=== PATIENT | female | born 1950 | race Caucasian/White ===

== ENCOUNTER → 2016-10-05 | Outpatient (CLI) | payer OTHER ==
[~2016-10-05] MED LIST: ATOR40TA PO; CELE-19 PO; COLA100C2 OR; GABA-279 PO; IBUP600T OR; IBUP80TA PO; LODINE PO; MIRA3350 PO; MULTCAP PO; MULTIVITAMIN GUMMY PO; NEUROTIN PO; OMEP20TA7 OR; TYLE1TAB5 PO; VICO5TAB OR; VITA1CAP25 PO
--- NOTE | 2016-10-06 23:43 | ECWPNPC ---
PATIENT NAME: NATALI WILSON : 1950 GENDER: FEMALE VISIT DATE: 10/05/2016 DISCHARGE DATE: 10/05/16 1515 VISIT LOCKED DATE TIME: PHYSICIAN: JORGE MCCARTHY RESOURCE: JORGE MCCARTHY REASON FOR APPOINTMENT 1. BACK HISTORY OF PRESENT ILLNESS HISTORY OF PRESENT ILLNESS: HERE FOR F/U OF CHRONIC LBP.C/O BURNING PAIN LOW BACK AND LOWER THORACIC SPINE WHICH BEGAN 2 WEEKS AGO.PAIN IS AGGREVATED BY PROLONGED SITTING OR WALKING.RATING PAIN VAS 5/10.DISCUSSED MEDICATION AND TREATMENT OPTIONS. PAIN THE PATIENT DESCRIBES THE PAIN... FALL RISK SCREENING: SCREENING :NO FALLS IN THE PAST YEAR CURRENT MEDICATIONS TAKING MIRALAX POWDER 17GM ORALLY BID NEEDED TAKING MULTIVITAMIN OTC TABLET 1 TAB(S) ORALLY ONCE DAILY TAKING ALBUTEROL SULFATE HFA 108 (90 BASE) MCG/ACT AEROSOL SOLUTION 2 PUFFS NEEDED INHALATION EVERY 4-6 HRS, NOTES: NONE TAKING DUONEB 0.5-2.5 (3) MG/3ML SOLUTION 3 ML INHALATION FOUR TIMES A DAY NEEDED, NOTES: NONE TAKING DRISDOL 50,000 UNITS TABLET 1 TAB(S) ORAL WEEKLY TAKING CELEBREX 200 MG CAPSULE 1 CAPSULE ORALLY ONCE A DAY TAKING GABAPENTIN 300 MG CAPSULE 1 CAPSULE ORALLY BID TAKING ROBAXIN-750 750 MG TABLET 1 TABLET ORALLY AT BEDTIME TAKING DEPAKOTE 500 MG TABLET DELAYED RELEASE ORALLY BID TAKING OMEPRAZOLE 40 MG CAPSULE DELAYED RELEASE TAKE ONE CAPSULE BY MOUTH TWICE A DAY TAKING CYMBALTA 60 MG CAPSULE DELAYED RELEASE PARTICLES 1 CAPSULE ORALLY ONCE A DAY NOT-TAKING TYLENOL ARTHRITIS PAIN NOT-TAKING PREDNISONE 20 MG TABLET 2 TABLET ORALLY ONCE A DAY NOT-TAKING DOXYCYCLINE HYCLATE 100 MG TABLET 1 TABLET ORALLY EVERY 12 HRS NOT-TAKING TESSALON PERLES 100 MG CAPSULE 1 CAPSULE NEEDED ORALLY THREE TIMES A DAY NEEDED FOR COUGH DISCONTINUED VITAMIN D (ERGOCALCIFEROL) 03126 UNIT CAPSULE TAKE ONE CAPSULE BY MOUTH ONCE WEEKLY DISCONTINUED GABAPENTIN 300 MG CAPSULE TAKE ONE CAPSULE BY MOUTH TWICE A DAY MEDICATION LIST REVIEWED AND RECONCILED WITH THE PATIENT PAST MEDICAL HISTORY BACK PAIN CHRONIC/DDD - (PREVIOUSLY FOLLOWED BY DR. GUERRERO & DR. PRITCHARD) ACID REFLUX HEELS AND SPINE SPURS ARTHRITIS HEMORRHOIDS MODERATE COPD PER PFTS 2013 HYPERLIPIDEMIA VITAMIN D DEFICIENCY DDD/DJD MRI CERVICAL SPINE 04/17, MILD SPINAL STENOSIS OCCIPITAL NEURALGIA ALLERGIES VICODIN: ITCHING: SIDE EFFECTS ATORVASTATIN CALCIUM: ELEVATED LIVER ENZYMES: SIDE EFFECTS SOCIAL HISTORY GENERAL: TOBACCO USE ARE YOU A:NONSMOKER LEARNING BARRIERS / SPECIAL NEEDS ORIENTED TO PLAN OF CARE: PATIENT, PAIN MANAGEMENT PATIENT, ORIENTED TO PLAN OF CARE: PATIENT, PAIN MANAGEMENT PATIENT. NEW PATIENT PAIN DIARY TODAY'S VISITNOTES FROM 0-10, WHAT LEVEL IS YOUR PAIN TODAY?0 PAIN CLINIC PFS, CLERGY, PUBLIC HEALTH REFERRALS PFS REFERRAL NEEDED?NO CLERGY REFERRAL NEEDED?NO PUBLIC HEALTH REFERRAL NEEDED?NO WAS THE PROVIDER NOTIFIED OF ANY PERTINENT INFO?NO PFS REFERRAL NEEDED?NO CLERGY REFERRAL NEEDED?NO PUBLIC HEALTH REFERRAL NEEDED?NO WAS THE PROVIDER NOTIFIED OF ANY PERTINENT INFO?NO REVIEW OF SYSTEMS CONSTITUTIONAL: ANY CHANGE IN YOUR MEDICAL CONDITION? YES DX'D WITH OCCIPITAL NEURALGIA. DEPAKOTE STARTED.&NBSP;. CHILLS &NBSP;&NBSP; NO&NBSP;. FEVER &NBSP;&NBSP; NO&NBSP;. INFECTION: DO YOU HAVE NEW INFECTIONS? NO . DO YOU HAVE HISTORY OF MRSA? NO . MUSCULOSKELETAL: ANY NEW PATTERNS OF PAIN OR NUMBNESS? NO . GASTROENTEROLOGY: ANY NEW CHANGE IN BOWEL CONTROL? NO . GENITOURINARY: ANY NEW CHANGE IN BLADDER CONTROL? NO . IS THERE A CHANCE YOU COULD BE ? NO . HEMATOLOGY/LYMPH: DO YOU TAKE ANY BLOOD THINNERS? (FOR EXAMPLE- COUMADIN, PLAVIX, AGGRENOX, PLATEL, PRADAXA, OR XARELTO) NO . WHEN WAS YOUR LAST DOSE? DATE: TIME: . NEUROLOGY: HAVE YOU FALLEN IN THE PAST 6 MONTHS? NO . ANY NEW EXTREMITY NUMBNESS OR WEAKNESS? NO . CARDIOLOGY: DO YOU HAVE A PACEMAKER OR DEFIBRILLATOR? NO . RESPIRATORY: HAVE YOU BEEN SICK IN THE PAST WEEK? NO . FEVER NO . FLU LIKE SYMPTOMS? NO . COUGH NO . INTEGUMENTARY: DO YOU HAVE ANY RASHES OR OPEN SORES? NO . ALLERGIC/IMMUNO: ARE YOU ALLERGIC TO SHELLFISH OR IV DYE? NO . ANY NEW ALLERGIES? NO . PSYCHIATRIC: DO YOU HAVE THOUGHTS OF HURTING YOURSELF OR SOMEONE ELSE? NO . ARE YOU ABUSED, NEGLECTED, OR IN AN UNSAFE ENVIRONMENT? NO . ENDOCRINOLOGY: ARE YOU DIABETIC? NO . OTHER: DO YOU NEED ANY PRESCRIPTIONS? NO . IF YES, PLEASE LIST: ____ . ANY NEW PROBLEMS WITH YOUR MEDICATIONS? NO . WHEN DID YOU LAST EAT? ____ . WHEN DID YOU LAST DRINK? ____ . WHAT DID YOU LAST DRINK? ____ . NAME OF PERSON DRIVING YOU HOME? ____ . DO YOU HAVE ANY OTHER QUESTIONS OR CONCERNS NO . REVIEWED BY: PROVIDER: JORGE CALIX . VITAL SIGNS WT 136 LBS, HT 64.5 IN, BMI 22.98 INDEX, BP 155/87 MM HG, HR 86 /MIN, RR 18 /MIN, TEMP 98.1 F, OXYGEN SAT % 92%, NA INITIALS SC14:23, REVIEWED BY: MLF. EXAMINATION GENERAL EXAMINATION: LUNGS:LUNG SOUNDS ARE CLEAR. HEART:HEART RATE REGULAR. MUSCULOSKELETAL:*, MUSCLE STRENGTH TESTING 5/5 BILATERAL, PALPATION: NEG. FOR PAIN OVER L/S SPINE. NEG. FOR PAIN OVER L/S PARSPINALS. DIAGNOSTIC: . ASSESSMENTS CHRONIC BILATERAL LOW BACK PAIN WITHOUT SCIATICA - M54.5 (PRIMARY) RESTLESS LEG SYNDROME - G25.81 SACROILIAC JOINT PAIN - M53.3 TREATMENT CHRONIC BILATERAL LOW BACK PAIN WITHOUT SCIATICA REFILL CYMBALTA CAPSULE DELAYED RELEASE PARTICLES, 60 MG, 1 CAPSULE, ORALLY, ONCE A DAY, 30 DAY(S), 30, REFILLS 5 START CYMBALTA CAPSULE DELAYED RELEASE PARTICLES, 30 MG, 1 CAPSULE, ORALLY, ONCE A DAY, 30 DAY(S), 30 CAPSULE, REFILLS 5 CONTINUE CELEBREX CAPSULE, 200 MG, 1 CAPSULE, ORALLY, ONCE A DAY CONTINUE GABAPENTIN CAPSULE, 300 MG, 1 CAPSULE, ORALLY, BID CONTINUE ROBAXIN-750 TABLET, 750 MG, 1 TABLET, ORALLY, AT BEDTIME INJECTION ANESTHETIC SACROILIAC JOINTJORGE MCCARTHY 10/05/2016 2:56:58 PM > BILAT SIJ PREVENTIVE MEDICINE PAIN CLINIC TEACHING: PROCEDURE TEACHING PRE SACROILIAC JOINT INJECTION INSTRUCTIONS REVIEWED WITH PT. VERBALIZED UNDERSTANDING.. PROCEDURE CODES FA211 ESTABILISHED PATIENT [facility] CHARGE FOLLOW UP 2WK POST (REASON: BILAT.SIJ) ELECTRONICALLY SIGNED BY YOGI ARMENTA ON 10/05/2016 AT 04:33 PM EST DISCLAIMER : THIS IS A VISIT SUMMARY EXTRACTED FROM THE [employer] CHART. IT IS NOT A COPY OF THE [employer] PROGRESS NOTE. MTDD
== END ==
LOC: M PAIN 14:20
PROVIDERS: ATTEND Nurse Practitioner Family
DX: Z09 Encounter for follow-up examination after completed treatment for conditions other than malignant neoplasm (principal); G89.29 Other chronic pain; M54.5 Low back pain; G25.81 Restless legs syndrome; M53.3 Sacrococcygeal disorders, not elsewhere classified; M51.9 Unspecified thoracic, thoracolumbar and lumbosacral intervertebral disc disorder; K21.9 Gastro-esophageal reflux disease without esophagitis; M19.90 Unspecified osteoarthritis, unspecified site; J44.9 Chronic obstructive pulmonary disease, unspecified; E78.5 Hyperlipidemia, unspecified; E55.9 Vitamin D deficiency, unspecified; M50.30 Other cervical disc degeneration, unspecified cervical region; M54.81 Occipital neuralgia; Z88.5 Allergy status to narcotic agent; Z88.8 Allergy status to other drugs, medicaments and biological substances; Z79.899 Other long term (current) drug therapy

== ENCOUNTER → 2016-11-02 | Outpatient (CLI) | payer OTHER ==
[~2016-11-02] MED LIST changes: +BUPIVACAINE HCL 0.25% 30 ML VIAL As Ordered ONE; +ISOVUE-M 300 61% 15ML VIAL (Q9967) As Ordered ONE; +LIDOCAINE 1% SDV INJ 30 ML VIAL As Ordered ONE; +TRIAMCINOLONE ACETONIDE SUSP 40 MG/ML VIAL (J3301) As Ordered ONE; +diazePAM 5 MG TAB As Ordered ONE; +oxyCODONE 5MG TAB As Ordered ONE
--- NOTE | 2016-11-02 14:20 | REP ---
SI JOINT SERIES: SIX VIEWS. HISTORY: Bilateral SI joint injection for pain. 22 seconds of fluoroscopy time is reported. FINDINGS: A sequence of six fluoroscopically obtained last image hold spot radiographs of the SI joints document various needle positions and contrast injections associated with SI joint injection procedure. Signed by Baldomero Gil MD 11/02/2016 04:46 P
--- NOTE | 2016-11-08 01:17 | ECWPNPC ---
PATIENT NAME: NATALI WILSON : 1950 GENDER: FEMALE VISIT DATE: 11/02/2016 DISCHARGE DATE: 11/02/16 1121 VISIT LOCKED DATE TIME: PHYSICIAN: HENRY PATEL RESOURCE: HENRY PATEL REASON FOR APPOINTMENT 1. BILATERAL SIJ HISTORY OF PRESENT ILLNESS HISTORY OF PRESENT ILLNESS: PAIN THE PATIENT DESCRIBES THE PAIN... FALL RISK SCREENING: SCREENING :NO FALLS IN THE PAST YEAR CURRENT MEDICATIONS TAKING MIRALAX POWDER 17GM ORALLY BID NEEDED, NOTES: MONTH TAKING MULTIVITAMIN OTC TABLET 1 TAB(S) ORALLY ONCE DAILY, NOTES: 11-01-122099 TAKING ALBUTEROL SULFATE HFA 108 (90 BASE) MCG/ACT AEROSOL SOLUTION 2 PUFFS NEEDED INHALATION EVERY 4-6 HRS, NOTES: NONE TAKING DUONEB 0.5-2.5 (3) MG/3ML SOLUTION 3 ML INHALATION FOUR TIMES A DAY NEEDED, NOTES: NONE TAKING DRISDOL 50,000 UNITS TABLET 1 TAB(S) ORAL WEEKLY, NOTES: 10-28-16 TAKING DEPAKOTE 500 MG TABLET DELAYED RELEASE ORALLY BID, NOTES: 10-31-162099 TAKING OMEPRAZOLE 40 MG CAPSULE DELAYED RELEASE TAKE ONE CAPSULE BY MOUTH TWICE A DAY , NOTES: 11-02-16499 TAKING TYLENOL ARTHRITIS PAIN , NOTES: 11-01-16 TAKING CYMBALTA 60 MG CAPSULE DELAYED RELEASE PARTICLES 1 CAPSULE ORALLY ONCE A DAY, NOTES: 11-02-16499 TAKING CYMBALTA 30 MG CAPSULE DELAYED RELEASE PARTICLES 1 CAPSULE ORALLY ONCE A DAY, NOTES: 11-01-162099 TAKING GABAPENTIN 300 MG CAPSULE 1 CAPSULE ORALLY BID, NOTES: 11-02-16499 TAKING ROBAXIN-750 750 MG TABLET 1 TABLET ORALLY AT BEDTIME, NOTES: OUT OF MED NOT-TAKING CELEBREX 200 MG CAPSULE 1 CAPSULE ORALLY ONCE A DAY, NOTES: WEEK NEEDS PRIOR AUTH MEDICATION LIST REVIEWED AND RECONCILED WITH THE PATIENT PAST MEDICAL HISTORY BACK PAIN CHRONIC/DDD - (PREVIOUSLY FOLLOWED BY DR. GUERRERO & DR. PRITCHARD) ACID REFLUX HEELS AND SPINE SPURS ARTHRITIS HEMORRHOIDS MODERATE COPD PER PFTS 2013 HYPERLIPIDEMIA VITAMIN D DEFICIENCY DDD/DJD MRI CERVICAL SPINE 04/17, MILD SPINAL STENOSIS OCCIPITAL NEURALGIA ALLERGIES VICODIN: ITCHING: SIDE EFFECTS ATORVASTATIN CALCIUM: ELEVATED LIVER ENZYMES: SIDE EFFECTS SOCIAL HISTORY GENERAL: TOBACCO USE ARE YOU A:NONSMOKER LEARNING BARRIERS / SPECIAL NEEDS ORIENTED TO PLAN OF CARE: PATIENT, PAIN MANAGEMENT PATIENT, ORIENTED TO PLAN OF CARE: PATIENT, PAIN MANAGEMENT PATIENT. NEW PATIENT PAIN DIARY TODAY'S VISITNOTES FROM 0-10, WHAT LEVEL IS YOUR PAIN TODAY?0 PAIN CLINIC PFS, CLERGY, PUBLIC HEALTH REFERRALS PFS REFERRAL NEEDED?NO CLERGY REFERRAL NEEDED?NO PUBLIC HEALTH REFERRAL NEEDED?NO WAS THE PROVIDER NOTIFIED OF ANY PERTINENT INFO?NO PFS REFERRAL NEEDED?NO CLERGY REFERRAL NEEDED?NO PUBLIC HEALTH REFERRAL NEEDED?NO WAS THE PROVIDER NOTIFIED OF ANY PERTINENT INFO?NO REVIEW OF SYSTEMS CONSTITUTIONAL: ANY CHANGE IN YOUR MEDICAL CONDITION? NO . CHILLS NO . FEVER NO . INFECTION: DO YOU HAVE NEW INFECTIONS? NO . DO YOU HAVE HISTORY OF MRSA? NO . MUSCULOSKELETAL: ANY NEW PATTERNS OF PAIN OR NUMBNESS? NO . GASTROENTEROLOGY: ANY NEW CHANGE IN BOWEL CONTROL? NO . GENITOURINARY: ANY NEW CHANGE IN BLADDER CONTROL? NO . IS THERE A CHANCE YOU COULD BE ? NO . HEMATOLOGY/LYMPH: DO YOU TAKE ANY BLOOD THINNERS? (FOR EXAMPLE- COUMADIN, PLAVIX, AGGRENOX, PLATEL, PRADAXA, OR XARELTO) NO . WHEN WAS YOUR LAST DOSE? DATE: TIME: . NEUROLOGY: HAVE YOU FALLEN IN THE PAST 6 MONTHS? NO . ANY NEW EXTREMITY NUMBNESS OR WEAKNESS? NO . CARDIOLOGY: DO YOU HAVE A PACEMAKER OR DEFIBRILLATOR? NO . RESPIRATORY: HAVE YOU BEEN SICK IN THE PAST WEEK? NO . FEVER NO . FLU LIKE SYMPTOMS? NO . COUGH NO . INTEGUMENTARY: DO YOU HAVE ANY RASHES OR OPEN SORES? NO . ALLERGIC/IMMUNO: ARE YOU ALLERGIC TO SHELLFISH OR IV DYE? NO . ANY NEW ALLERGIES? NO . PSYCHIATRIC: DO YOU HAVE THOUGHTS OF HURTING YOURSELF OR SOMEONE ELSE? NO . ARE YOU ABUSED, NEGLECTED, OR IN AN UNSAFE ENVIRONMENT? NO . ENDOCRINOLOGY: ARE YOU DIABETIC? NO . OTHER: DO YOU NEED ANY PRESCRIPTIONS? YES, . IF YES, PLEASE LIST: CELEBREX ROBAXIN . ANY NEW PROBLEMS WITH YOUR MEDICATIONS? NO . WHEN DID YOU LAST EAT? 11-01-16 1700 . WHEN DID YOU LAST DRINK? 11-02-16 0500 . WHAT DID YOU LAST DRINK? WATER . NAME OF PERSON DRIVING YOU HOME? ORA . DO YOU HAVE ANY OTHER QUESTIONS OR CONCERNS NO . REVIEWED BY: PROVIDER: . VITAL SIGNS WT 133 LBS, HT 64.5 IN, BMI 22.47 INDEX, BP 133/102 MM HG, REPEAT BP 120/80 MANUAL, HR 80 /MIN, RR 16 /MIN, TEMP 97.0 F, OXYGEN SAT % 94%, NA INITIALS SC 09:23, REVIEWED BY: CM. ASSESSMENTS SACROILIITIS, NOT ELSEWHERE CLASSIFIED - M46.1 (PRIMARY) PROCEDURES PN SI PRE PROCEDURE DIAGNOSIS SACROILIITIS, SACROILIAC JOINT DYSFUNCTION POST PROCEDURE DIAGNOSIS SACROILIITIS, SACROILIAC JOINT DYSFUNCTION PROCEDURE BILATERAL SACROILIAC JOINT BLOCK SURGEON DR. HENRY PATEL [employer] MANAGER NONE ANESTHESIA LOCAL PRE PROCEDURE NOTE PATIENT WITH HISTORY OF CHRONIC LOW BACK PAIN. I EVALUATED THE PATIENT AND REVIEWED THE CHART. I WENT OVER THE RISKS, ALTERNATIVES, AND BENEFITS ASSOCIATED WITH THIS PROCEDURE. THE PATIENT WOULD LIKE TO PROCEED AND GAVE CONSENT TO PERFORM THE PROCEDURE. THE PATIENT DENIES UNEXPLAINABLE WEIGHT LOSS, FEVER, CHILLS, OR NEW CHANGES IN URINARY OR BOWEL CONTROL. DESCRIPTION OF PROCEDURE THE PATIENT WAS BROUGHT TO THE PROCEDURE ROOM AND PLACED IN THE PRONE POSITION. THE LUMBOSACRAL AREA WAS CLEANED WITH CHLORAPREP SOLUTION AND DRAPED ASEPTICALLY. THE PROCEDURE WAS DONE UNDER STERILE CONDITIONS. I CHECKED LATERALITY AND THE LEVEL WHERE THE PROCEDURE WAS GOING TO BE PERFORMED WITH THE PATIENT AND THE SUPPORTING STAFF AT THE MOMENT OF THE TIME OUT IN THE PROCEDURE ROOM. UNDER FLUOROSCOPIC GUIDANCE, TARGET POINT WAS SELECTED AT THE LOWER BORDER OF THE RIGHT AND LEFT SACROILIAC JOINT. TARGET POINT WAS SELECTED AFTER MEDIAL ROTATION AND TILT OF THE MAGNIFIER OF THE C-ARM. LIDOCAINE WAS USED TO NUMB THE SKIN AND SUBCUTANEOUS TISSUE BELOW IT. A SPINAL NEEDLE, 22-GAUGE, WAS ADVANCED UNDER FLUOROSCOPIC GUIDANCE AND FOLLOWING PATIENT FEEDBACK UNTIL THE TARGET AREA WAS TOUCHED. THE POSITION OF THE NEEDLE WAS VERIFIED WITH AP AND LATERAL VIEWS. AFTER PROPER POSITION OF THE NEEDLE WAS ACHIEVED, ISOVUE M DYE 30%, 0.25 ML, WAS INJECTED SHOWING SPREAD OF THE DYE. THEN, A SOLUTION OF 20 MG OF KENALOG WAS INJECTED IN RIGHT JOINT WITH 3 ML OF BUPIVACAINE 0.125%. THERE WAS NO EVIDENCE OF BLOOD, PARESTHESIA OR CEREBROSPINAL FLUID DURING THE PROCEDURE. THE PATIENT WAS SENT TO THE RECOVERY ROOM. THE PATIENT WAS MOVING THE EXTREMITIES AND DOING WELL. THERE WAS NO COMPLICATION DURING THE PROCEDURE. FLUOROSCOPY TIME WAS 22 SECONDS POST PROCEDURE NOTE THE PATIENT WILL BE SEEN IN A FOLLOW UP IN THE NEXT FEW WEEKS. INSTRUCTIONS WERE GIVEN, QUESTIONS WERE ANSWERED, AND THE PATIENT EXPRESSED UNDERSTANDING AND AGREED WITH THE PLAN. INSTRUCTIONS WERE GIVEN, QUESTIONS WERE ANSWERED, PATIENT REPORTS UNDERSTANDING AND AGREES WITH THE PLAN. I, WING MCKINNEY, DOCUMENTED THE ABOVE INFORMATION ACTING A SCRIBE FOR DR. PATEL. I HAVE REVIEWED THE ABOVE DOCUMENT, WRITTEN BY WING MCKINNEY SCRIBE AND I VERIFY THAT IT IS ACCURATE. DIAGNOSTIC IMAGING [facility] FLUORO GUIDANCE (PAIN)[id number] PROCEDURE CODES 65243 INJECT SACROILIAC JOINT 6045F RADXPS IN END [id number] PXD DISPOSITION & COMMUNICATION FOLLOW UP 3 WEEKS ELECTRONICALLY SIGNED BY HENRY PATEL MD ON 11/07/2016 AT 06:49 AM EST DISCLAIMER : THIS IS A VISIT SUMMARY EXTRACTED FROM THE [employer] CHART. IT IS NOT A COPY OF THE [employer] PROGRESS NOTE. MTDD
== END ==
LOC: M PAIN 09:10
PROVIDERS: ATTEND Anesthesiology
DX: G89.29 Other chronic pain (principal); M46.1 Sacroiliitis, not elsewhere classified; K21.9 Gastro-esophageal reflux disease without esophagitis; M19.90 Unspecified osteoarthritis, unspecified site; J44.9 Chronic obstructive pulmonary disease, unspecified; E78.5 Hyperlipidemia, unspecified; E55.9 Vitamin D deficiency, unspecified; F17.200 Nicotine dependence, unspecified, uncomplicated; Z88.5 Allergy status to narcotic agent; Z88.8 Allergy status to other drugs, medicaments and biological substances; Z79.899 Other long term (current) drug therapy
CPT/HCPCS: G0260; J3301; Q9967

== ENCOUNTER → 2016-11-23 | Outpatient (CLI) | payer OTHER ==
[~2016-11-23] MED LIST changes: -BUPIVACAINE HCL 0.25% 30 ML VIAL As Ordered ONE; -ISOVUE-M 300 61% 15ML VIAL (Q9967) As Ordered ONE; -LIDOCAINE 1% SDV INJ 30 ML VIAL As Ordered ONE; -TRIAMCINOLONE ACETONIDE SUSP 40 MG/ML VIAL (J3301) As Ordered ONE; -diazePAM 5 MG TAB As Ordered ONE; -oxyCODONE 5MG TAB As Ordered ONE
--- NOTE | 2016-11-23 23:59 | ECWPNPC ---
PATIENT NAME: NATALI WILSON : 1950 GENDER: FEMALE VISIT DATE: 11/23/2016 DISCHARGE DATE: 11/23/16 1120 VISIT LOCKED DATE TIME: PHYSICIAN: JORGE MCCARTHY RESOURCE: JORGE MCCARTHY REASON FOR APPOINTMENT 1. POST PROCEDURE (SIJ) HISTORY OF PRESENT ILLNESS HISTORY OF PRESENT ILLNESS: HERE FOR POST PROC. F/U.HAD BILAT. SIJ 3-17.REPORTS >75%IMPROVEMENT IN SIJ PAIN THAT CONTINUES TODAY.REPORTING GEENERALIZED BACK PAIN TODAY AND OVER THE PAST MONTH.C/O BILATERSL LEG CRAMPS AT HS THAT ARE KEEPING HER UP FOR 2-3 HRS AT NIGHT.RATING PAIN VAS 8/10. PAIN THE PATIENT DESCRIBES THE PAIN... FALL RISK SCREENING: SCREENING :NO FALLS IN THE PAST YEAR CURRENT MEDICATIONS TAKING MIRALAX POWDER 17GM ORALLY BID NEEDED TAKING MULTIVITAMIN OTC TABLET 1 TAB(S) ORALLY ONCE DAILY TAKING ALBUTEROL SULFATE HFA 108 (90 BASE) MCG/ACT AEROSOL SOLUTION 2 PUFFS NEEDED INHALATION EVERY 4-6 HRS, NOTES: NONE TAKING DUONEB 0.5-2.5 (3) MG/3ML SOLUTION 3 ML INHALATION FOUR TIMES A DAY NEEDED, NOTES: NONE TAKING DRISDOL 50,000 UNITS TABLET 1 TAB(S) ORAL WEEKLY TAKING OMEPRAZOLE 40 MG CAPSULE DELAYED RELEASE TAKE ONE CAPSULE BY MOUTH TWICE A DAY TAKING TYLENOL ARTHRITIS PAIN 2 TABLETS NEEDED ORALLY 2-3 TIMES/DAY TAKING CYMBALTA 60 MG CAPSULE DELAYED RELEASE PARTICLES 1 CAPSULE ORALLY ONCE A DAY TAKING CYMBALTA 30 MG CAPSULE DELAYED RELEASE PARTICLES 1 CAPSULE ORALLY ONCE A DAY, NOTES: NIGHT TAKING GABAPENTIN 300 MG CAPSULE 1 CAPSULE ORALLY BID TAKING ROBAXIN-750 750 MG TABLET 1 TABLET ORALLY AT BEDTIME, NOTES: NOT WORKING TAKING CHANTIX CONTINUING MONTH AVI 1 MG TABLET 1 TABLET ORALLY TWICE A DAY TAKING DEPAKOTE 500 MG TABLET DELAYED RELEASE 1 TAB ORALLY TWICE A DAY TAKING CHANTIX STARTING MONTH AVI 0.5 MG X 11 & 1 MG X 42 TABLET DIRECTED ORALLY DIRECTED NOT-TAKING CELEBREX 200 MG CAPSULE 1 CAPSULE ORALLY ONCE A DAY, NOTES: INSURANCE WON'T COVER DISCONTINUED DEPAKOTE 500 MG TABLET DELAYED RELEASE ORALLY BID MEDICATION LIST REVIEWED AND RECONCILED WITH THE PATIENT PAST MEDICAL HISTORY BACK PAIN CHRONIC/DDD - (PREVIOUSLY FOLLOWED BY DR. GUERRERO & DR. PRITCHARD) ACID REFLUX HEELS AND SPINE SPURS ARTHRITIS HEMORRHOIDS MODERATE COPD PER PFTS 2013 HYPERLIPIDEMIA VITAMIN D DEFICIENCY DDD/DJD MRI CERVICAL SPINE 04/17, MILD SPINAL STENOSIS OCCIPITAL NEURALGIA - ON DEPAKOTE - FOLLOWED BY NEUROLOGY ALLERGIES VICODIN: ITCHING: SIDE EFFECTS ATORVASTATIN CALCIUM: ELEVATED LIVER ENZYMES: SIDE EFFECTS SOCIAL HISTORY GENERAL: TOBACCO USE ARE YOU A:CURRENT SMOKER HOW MANY CIGARETTES A DAY DO YOU SMOKE?5 OR LESS HOW SOON AFTER YOU WAKE UP DO YOU SMOKE YOUR FIRST CIGARETTE?6-30 MIN PATIENT COUNSELED ON THE DANGERS OF TOBACCO USE AND URGED TO QUIT:11/23/2016 ARE YOU INTERESTED IN QUITTING?THINKING ABOUT QUITTING ON CHANTIX COUNSELED THE PATIENT ON SMOKING CESSATION, EDUCATION [id number] ALCOHOL SCREENING DID YOU HAVE A DRINK CONTAINING ALCOHOL IN THE PAST YEAR?NO POINTS0 INTERPRETATIONNEGATIVE SEXUAL HX HAD SEX IN THE LAST 12 MONTHS (VAGINAL, ORAL, OR ANAL)?YES WITHMEN ONLY USE PROTECTION?NO HAVE YOU EVER HAD AN STD?NO LMP:HYSTER LEARNING BARRIERS / SPECIAL NEEDS CHANGE FROM LAST VISIT?NO BARRIERS TO LEARNING?NO HEARING IMPAIRED?NO VISION IMPAIRED?YES :CORRECTIVE LENSES COGNITIVELY IMPAIRED?NO READINESS TO LEARN?YES LEARNING PREFERENCES?NO LEARNING CAPABILITIES PRESENT?YES EMOTIONAL BARRIERS?NO SPECIAL DEVICES?NO ACTIVITIES DIRECTOR NEEDED?NO NEW PATIENT PAIN DIARY TODAY'S VISIT NOTES, FROM 0-10, WHAT LEVEL IS YOUR PAIN TODAY? 0. PAIN CLINIC PFS, CLERGY, PUBLIC HEALTH REFERRALS PFS REFERRAL NEEDED? NO, CLERGY REFERRAL NEEDED? NO, PUBLIC HEALTH REFERRAL NEEDED? NO, WAS THE PROVIDER NOTIFIED OF ANY PERTINENT INFO? NO, PFS REFERRAL NEEDED? NO, CLERGY REFERRAL NEEDED? NO, PUBLIC HEALTH REFERRAL NEEDED? NO, WAS THE PROVIDER NOTIFIED OF ANY PERTINENT INFO? NO. REVIEW OF SYSTEMS CONSTITUTIONAL: ANY CHANGE IN YOUR MEDICAL CONDITION? NO . CHILLS NO . FEVER NO . INFECTION: DO YOU HAVE NEW INFECTIONS? NO . DO YOU HAVE HISTORY OF MRSA? NO . MUSCULOSKELETAL: ANY NEW PATTERNS OF PAIN OR NUMBNESS? NO . GASTROENTEROLOGY: ANY NEW CHANGE IN BOWEL CONTROL? NO . GENITOURINARY: ANY NEW CHANGE IN BLADDER CONTROL? NO . IS THERE A CHANCE YOU COULD BE ? NO . HEMATOLOGY/LYMPH: DO YOU TAKE ANY BLOOD THINNERS? (FOR EXAMPLE- COUMADIN, PLAVIX, AGGRENOX, PLATEL, PRADAXA, OR XARELTO) NO . WHEN WAS YOUR LAST DOSE? DATE: TIME: . NEUROLOGY: HAVE YOU FALLEN IN THE PAST 6 MONTHS? NO . ANY NEW EXTREMITY NUMBNESS OR WEAKNESS? NO . CARDIOLOGY: DO YOU HAVE A PACEMAKER OR DEFIBRILLATOR? NO . RESPIRATORY: HAVE YOU BEEN SICK IN THE PAST WEEK? NO . FEVER NO . FLU LIKE SYMPTOMS? NO . COUGH NO . INTEGUMENTARY: DO YOU HAVE ANY RASHES OR OPEN SORES? NO . ALLERGIC/IMMUNO: ARE YOU ALLERGIC TO SHELLFISH OR IV DYE? NO . ANY NEW ALLERGIES? NO . PSYCHIATRIC: DO YOU HAVE THOUGHTS OF HURTING YOURSELF OR SOMEONE ELSE? NO . ARE YOU ABUSED, NEGLECTED, OR IN AN UNSAFE ENVIRONMENT? NO . ENDOCRINOLOGY: ARE YOU DIABETIC? NO . OTHER: DO YOU NEED ANY PRESCRIPTIONS? YES . IF YES, PLEASE LIST: ____ . ANY NEW PROBLEMS WITH YOUR MEDICATIONS? NO . WHEN DID YOU LAST EAT? ____ . WHEN DID YOU LAST DRINK? ____ . WHAT DID YOU LAST DRINK? ____ . NAME OF PERSON DRIVING YOU HOME? ____ . DO YOU HAVE ANY OTHER QUESTIONS OR CONCERNS YES CYMBALTA 60 MGS . REVIEWED BY: PROVIDER: JORGE CALIX . VITAL SIGNS WT 130.5 LBS, HT 64.5 IN, BMI 22.05 INDEX, BP 130/77 MM HG, HR 94 /MIN, RR 16 /MIN, TEMP 97.3 F, OXYGEN SAT % 94%, NA INITIALS SC 10:21, REVIEWED BY: AD. EXAMINATION GENERAL EXAMINATION: LUNGS:LUNG SOUNDS ARE CLEAR. HEART:HEART RATE REGULAR. MUSCULOSKELETAL:*, MUSCLE STRENGTH TESTING 5/5 BLE. PALPATION: NEG. FOR PAIN OVER L/S SPINE. NEG. FOR PAIN OVER L/S PARSPINALS.. DIAGNOSTIC: . ASSESSMENTS CHRONIC BILATERAL LOW BACK PAIN WITHOUT SCIATICA - M54.5 (PRIMARY) RESTLESS LEG SYNDROME - G25.81 SACROILIAC JOINT PAIN - M53.3 TREATMENT CHRONIC BILATERAL LOW BACK PAIN WITHOUT SCIATICA CONTINUE CYMBALTA CAPSULE DELAYED RELEASE PARTICLES, 60 MG, 1 CAPSULE, ORALLY, ONCE A DAY CONTINUE CYMBALTA CAPSULE DELAYED RELEASE PARTICLES, 30 MG, 1 CAPSULE, ORALLY, ONCE A DAY, NOTES: NIGHT CONTINUE GABAPENTIN CAPSULE, 300 MG, 1 CAPSULE, ORALLY, BID STOP ROBAXIN-750 TABLET, 750 MG, 1 TABLET, ORALLY, AT BEDTIME, NOTES: NOT WORKING START ROPINIROLE HCL TABLET, 0.25 MG, DIRECTED, ORALLY, BEFORE BEDTIME, 30 DAY(S), 30, REFILLS 5 PREVENTIVE MEDICINE PAIN CLINIC TEACHING: MEDITATION PRINTED INFORMATION ON ROPINIROLE GIVEN TO AND REVIEWED WITH PATIENT AND SHE VERBALIZED UNDERSTANDING. PROCEDURE CODES FA211 ESTABILISHED PATIENT [facility] CHARGE DISPOSITION & COMMUNICATION FOLLOW UP 6 WEEKS ELECTRONICALLY SIGNED BY YOGI ARMENTA ON 11/23/2016 AT 11:31 AM EDT DISCLAIMER : THIS IS A VISIT SUMMARY EXTRACTED FROM THE [employer] CHART. IT IS NOT A COPY OF THE [employer] PROGRESS NOTE. [employer]
== END ==
LOC: M PAIN 10:00
PROVIDERS: ATTEND Nurse Practitioner Family
DX: M54.5 Low back pain (principal); G25.81 Restless legs syndrome; M53.3 Sacrococcygeal disorders, not elsewhere classified; Z79.899 Other long term (current) drug therapy; F17.200 Nicotine dependence, unspecified, uncomplicated; E78.5 Hyperlipidemia, unspecified; K21.9 Gastro-esophageal reflux disease without esophagitis; E56.9 Vitamin deficiency, unspecified; Z88.5 Allergy status to narcotic agent; Z88.8 Allergy status to other drugs, medicaments and biological substances

== ENCOUNTER → 2017-01-04 | Outpatient (CLI) | payer OTHER ==
[~2017-01-04] MED LIST changes: +DEPA1TAB3 PO; +DULO1CAP3 PO; +MELO15TA4 PO; +MULT1CHW39 PO; +OMEP40CA2 PO; +ROPI0.25 PO
--- NOTE | 2017-01-24 02:04 | ECWPNPC ---
PATIENT NAME: NATALI WILSON : 1950 GENDER: FEMALE VISIT DATE: 01/04/2017 DISCHARGE DATE: 01/04/17 1040 VISIT LOCKED DATE TIME: PHYSICIAN: JORGE MCCARTHY RESOURCE: JORGE MCCARTHY REASON FOR APPOINTMENT 1. FOLLOWUP HISTORY OF PRESENT ILLNESS HISTORY OF PRESENT ILLNESS: HERE FOR F/U AND MANAGEMENT OF CHRONIC LOW BACK PAIN.CONTINUES TO FEEL SHE HAS BENEFITED FROM BILAT SIJ INJECTIONS DONE IN OCTOBER WHICH SHE REFERS TO LEG SYMPTOMS.HAS BEEN HAVING INCREASE IN LOW BACK SRIFFNESS PAST FEW DAYS..RATING BACK DISCOMFORT 6/10 VAS.PAIN IS AGGREVATED BY GETTING UP FROM SITTING POSITION.STATES THAT ROPINEROLE0.25MG AT HS NOT HELPING WITH RESTLESS LEG SYMPTOMS. PAIN THE PATIENT DESCRIBES THE PAIN... FALL RISK SCREENING: SCREENING :NO FALLS IN THE PAST YEAR CURRENT MEDICATIONS TAKING MIRALAX POWDER 17GM ORALLY BID NEEDED TAKING MULTIVITAMIN OTC TABLET 1 TAB(S) ORALLY ONCE DAILY TAKING ALBUTEROL SULFATE HFA 108 (90 BASE) MCG/ACT AEROSOL SOLUTION 2 PUFFS NEEDED INHALATION EVERY 4-6 HRS, NOTES: NONE TAKING DUONEB 0.5-2.5 (3) MG/3ML SOLUTION 3 ML INHALATION FOUR TIMES A DAY NEEDED, NOTES: NONE TAKING DRISDOL 50,000 UNITS TABLET 1 TAB(S) ORAL WEEKLY TAKING TYLENOL ARTHRITIS PAIN 2 TABLETS NEEDED ORALLY 2-3 TIMES/DAY TAKING DEPAKOTE 500 MG TABLET DELAYED RELEASE 1 TAB ORALLY TWICE A DAY TAKING CHANTIX STARTING MONTH AVI 0.5 MG X 11 & 1 MG X 42 TABLET DIRECTED ORALLY DIRECTED TAKING CYMBALTA 60 MG CAPSULE DELAYED RELEASE PARTICLES 1 CAPSULE ORALLY ONCE A DAY TAKING CYMBALTA 30 MG CAPSULE DELAYED RELEASE PARTICLES 1 CAPSULE ORALLY ONCE A DAY, NOTES: NIGHT TAKING GABAPENTIN 300 MG CAPSULE 1 CAPSULE ORALLY BID TAKING ROPINIROLE HCL 0.25 MG TABLET DIRECTED ORALLY BEFORE BEDTIME TAKING OMEPRAZOLE 40 MG CAPSULE DELAYED RELEASE TAKE ONE CAPSULE BY MOUTH TWICE A DAY NOT-TAKING CHANTIX CONTINUING MONTH AVI 1 MG TABLET 1 TABLET ORALLY TWICE A DAY NOT-TAKING CELEBREX 200 MG CAPSULE 1 CAPSULE ORALLY ONCE A DAY, NOTES: INSURANCE WON'T COVER MEDICATION LIST REVIEWED AND RECONCILED WITH THE PATIENT PAST MEDICAL HISTORY BACK PAIN CHRONIC/DDD - (PREVIOUSLY FOLLOWED BY DR. GUERRERO & DR. 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 HANDS JERKING ABOUT 3 WEEKS AND THIKS IS DEPAKOTE . CHILLS NO . FEVER NO . INFECTION: DO YOU HAVE NEW INFECTIONS? NO . DO YOU HAVE HISTORY OF MRSA? NO . MUSCULOSKELETAL: ANY NEW PATTERNS OF PAIN OR NUMBNESS? NO . GASTROENTEROLOGY: ANY NEW CHANGE IN BOWEL CONTROL? NO . GENITOURINARY: ANY NEW CHANGE IN BLADDER CONTROL? NO . IS THERE A CHANCE YOU COULD BE ? NO . HEMATOLOGY/LYMPH: DO YOU TAKE ANY BLOOD THINNERS? (FOR EXAMPLE- COUMADIN, PLAVIX, AGGRENOX, PLATEL, PRADAXA, OR XARELTO) NO . WHEN WAS YOUR LAST DOSE? DATE: TIME: . NEUROLOGY: HAVE YOU FALLEN IN THE PAST 6 MONTHS? NO . ANY NEW EXTREMITY NUMBNESS OR WEAKNESS? NO . CARDIOLOGY: DO YOU HAVE A PACEMAKER OR DEFIBRILLATOR? NO . RESPIRATORY: HAVE YOU BEEN SICK IN THE PAST WEEK? NO . FEVER NO . FLU LIKE SYMPTOMS? NO . COUGH NO . INTEGUMENTARY: DO YOU HAVE ANY RASHES OR OPEN SORES? NO . ALLERGIC/IMMUNO: ARE YOU ALLERGIC TO SHELLFISH OR IV DYE? NO . ANY NEW ALLERGIES? NO . PSYCHIATRIC: DO YOU HAVE THOUGHTS OF HURTING YOURSELF OR SOMEONE ELSE? NO . ARE YOU ABUSED, NEGLECTED, OR IN AN UNSAFE ENVIRONMENT? NO . ENDOCRINOLOGY: ARE YOU DIABETIC? NO . OTHER: DO YOU NEED ANY PRESCRIPTIONS? NO . IF YES, PLEASE LIST: ____ . ANY NEW PROBLEMS WITH YOUR MEDICATIONS? NO . WHEN DID YOU LAST EAT? ____ . WHEN DID YOU LAST DRINK? ____ . WHAT DID YOU LAST DRINK? ____ . NAME OF PERSON DRIVING YOU HOME? ____ . DO YOU HAVE ANY OTHER QUESTIONS OR CONCERNS NO . REVIEWED BY: PROVIDER: JORGE CALIX . VITAL SIGNS WT 138 LBS, HT 64.5 IN, BMI 23.32 INDEX, BP 134/79 MM HG, HR 82 /MIN, RR 16 /MIN, TEMP 98.0 F, OXYGEN SAT % 92%, NA INITIALS AW 1009, REVIEWED BY: NL. EXAMINATION GENERAL EXAMINATION: LUNGS:LUNG SOUNDS ARE CLEAR. HEART:HEART RATE REGULAR. MUSCULOSKELETAL:*, MUSCLE STRENGTH TESTING 5/5 BLE. PALPATION: NEG. FOR PAIN OVER L/S SPINE. NEG. FOR PAIN OVER L/S PARSPINALS.. DIAGNOSTIC:MRI L/S SPINE-2016. ASSESSMENTS CHRONIC BILATERAL LOW BACK PAIN WITHOUT SCIATICA - M54.5 (PRIMARY) RESTLESS LEG SYNDROME - G25.81 SACROILIAC JOINT PAIN - M53.3 TREATMENT CHRONIC BILATERAL LOW BACK PAIN WITHOUT SCIATICA REFILL ROPINIROLE HCL TABLET, 0.25 MG, 2, ORALLY, BEFORE BEDTIME, 30 DAY(S), 60, REFILLS 2 CONTINUE CYMBALTA CAPSULE DELAYED RELEASE PARTICLES, 60 MG, 1 CAPSULE, ORALLY, ONCE A DAY CONTINUE CYMBALTA CAPSULE DELAYED RELEASE PARTICLES, 30 MG, 1 CAPSULE, ORALLY, ONCE A DAY, NOTES: NIGHT START MOBIC TABLET, 15 MG, 1 TABLET, ORALLY, ONCE A DAY, 30 DAY(S), 30, REFILLS 2 PREVENTIVE MEDICINE GAVE PRINTED INFO ON MOBIC. PROCEDURE CODES FA211 ESTABILISHED PATIENT [facility] CHARGE DISPOSITION & COMMUNICATION FOLLOW UP 2 MONTHS ELECTRONICALLY SIGNED BY YOGI ARMENTA ON 01/22/2017 AT 04:40 PM EDT DISCLAIMER : THIS IS A VISIT SUMMARY EXTRACTED FROM THE [employer] CHART. IT IS NOT A COPY OF THE [employer] PROGRESS NOTE. CINTIA
== END ==
LOC: M PAIN 10:00
PROVIDERS: ATTEND Nurse Practitioner Family
DX: M54.5 Low back pain (principal); G89.29 Other chronic pain; G25.81 Restless legs syndrome; M53.3 Sacrococcygeal disorders, not elsewhere classified; Z79.899 Other long term (current) drug therapy; Z88.5 Allergy status to narcotic agent; Z88.8 Allergy status to other drugs, medicaments and biological substances; K21.9 Gastro-esophageal reflux disease without esophagitis; E78.5 Hyperlipidemia, unspecified; J44.9 Chronic obstructive pulmonary disease, unspecified; E55.9 Vitamin D deficiency, unspecified

== ENCOUNTER → 2017-01-23 | Day surgery (SDC) | payer OTHER ==
[~2017-01-23] VITALS: Ht 162.6 cm; Wt 61.2 kg
[~2017-01-23] MED LIST changes: +ACETAMINOPHEN 325 MG TAB PO PRN; +AcetaZOLAMIDE 500 MG ER CAP PO ONE; +BSS with VANC/TOB/EPI for EYE CASES IR ONE; +CYCLOPENTOLATE 2% OPHTH SOLN 2ML BTL OD ONE; +D5W/0.2% SODIUM CHLORIDE 250 ML IV ONE; +HEALON DUET (HEALON 10MG/ML 0.55ML & HEALON ENDOCOAT 30MG/ML 0.85ML) As Ordered ONE; +KETOROLAC 0.5% OPHTH SOLN OD ONE; +LIDOCAINE 1% SDV 5 ML VIAL As Ordered ONE; +LIDOCAINE 4% INJ 5 ML AMP OU ONE; +MIDAZOLAM INJ 2 MG/2 ML VIAL (J2250) As Ordered ONE; +MOXIFLOXACIN IN BSS 0.25MG/0.25ML INTRACAMERAL INJ (OR EYE ONLY)(J2280) As Ordered ONE; +OFLOXACIN 0.3 % (OCUFLOX) OPTH SOL 5ML OD ONE; +PHENYLEPHRINE 2.5% OPHTH SOL 2ML OD ONE; +POVIDONE-IODINE 5% OPHTH PREP SOL 30ML As Ordered ONE; +PROPARACAINE 0.5% OPHTH SOL 15ML OD PRN; +TRIAMCINOLONE PRES FR 40 MG/ML 1ML(TRIESENCE)(OR EYE ONLY)(J3300 PER 1MG) As Ordered ONE; +TRIMETHOBENZAMIDE 300 MG CAP PO PRN; +TROPICAMIDE 1% OPHTH SOLN 2ML OD ONE; +fentaNYL 100 MCG/2 ML INJECTION (J3010) As Ordered ONE
[2017-01-23 11:00] VITALS: BP 155/78
== END | disposition home or self-care (01) ==
LOC: M SDC 09:10
PROVIDERS: ATTEND Ophthalmology
DX: H26.9 Unspecified cataract (principal); K21.9 Gastro-esophageal reflux disease without esophagitis; M54.81 Occipital neuralgia; J44.9 Chronic obstructive pulmonary disease, unspecified; Z88.1 Allergy status to other antibiotic agents; Z88.5 Allergy status to narcotic agent; Z79.899 Other long term (current) drug therapy; Z72.0 Tobacco use; Z90.710 Acquired absence of both cervix and uterus
CPT/HCPCS: 66984; J2250; J2280; J3010; J3300

== ENCOUNTER → 2017-01-30 | Day surgery (SDC) | payer OTHER ==
[~2017-01-30] VITALS: Ht 162.6 cm; Wt 61.0 kg
[~2017-01-30] MED LIST changes: +ACETYLCHOLINE OPHTH SOLN 1% 2ML (MIOCHOL-E) As Ordered ONE; -CYCLOPENTOLATE 2% OPHTH SOLN 2ML BTL OD ONE; +CYCLOPENTOLATE 2% OPHTH SOLN 2ML BTL XX ONE; -KETOROLAC 0.5% OPHTH SOLN OD ONE; +KETOROLAC 0.5% OPHTH SOLN OS ONE; +LIDOCAINE 4% INJ 5 ML AMP As Ordered ONE; +LIDOCAINE W/EPINEPHRINE 1% 20ML VIAL As Ordered ONE; -OFLOXACIN 0.3 % (OCUFLOX) OPTH SOL 5ML OD ONE; +OFLOXACIN 0.3 % (OCUFLOX) OPTH SOL 5ML XX ONE; -PHENYLEPHRINE 2.5% OPHTH SOL 2ML OD ONE; +PHENYLEPHRINE 2.5% OPHTH SOL 2ML XX ONE; -PROPARACAINE 0.5% OPHTH SOL 15ML OD PRN; +PROPARACAINE 0.5% OPHTH SOL 15ML OS PRN; -TROPICAMIDE 1% OPHTH SOLN 2ML OD ONE; +TROPICAMIDE 1% OPHTH SOLN 2ML XX ONE
[2017-01-30 08:15] VITALS: BP 135/80
== END | disposition home or self-care (01) ==
LOC: M SDC 05:44
PROVIDERS: ATTEND Ophthalmology
DX: H25.11 Age-related nuclear cataract, right eye (principal); M51.9 Unspecified thoracic, thoracolumbar and lumbosacral intervertebral disc disorder; K21.9 Gastro-esophageal reflux disease without esophagitis; M77.30 Calcaneal spur, unspecified foot; F17.210 Nicotine dependence, cigarettes, uncomplicated; M12.9 Arthropathy, unspecified; K64.9 Unspecified hemorrhoids; J44.9 Chronic obstructive pulmonary disease, unspecified; E78.5 Hyperlipidemia, unspecified; E55.9 Vitamin D deficiency, unspecified; M50.220 Other cervical disc displacement, mid-cervical region, unspecified level; M54.81 Occipital neuralgia; Z90.710 Acquired absence of both cervix and uterus; Z88.6 Allergy status to analgesic agent; Z88.5 Allergy status to narcotic agent; Z88.8 Allergy status to other drugs, medicaments and biological substances; Z79.899 Other long term (current) drug therapy

== ENCOUNTER → 2017-02-05 | Outpatient (REF) | payer OTHER ==
[~2017-02-05] MED LIST changes: -ACETAMINOPHEN 325 MG TAB PO PRN; -ACETYLCHOLINE OPHTH SOLN 1% 2ML (MIOCHOL-E) As Ordered ONE; -AcetaZOLAMIDE 500 MG ER CAP PO ONE; -BSS with VANC/TOB/EPI for EYE CASES IR ONE; -CYCLOPENTOLATE 2% OPHTH SOLN 2ML BTL XX ONE; -D5W/0.2% SODIUM CHLORIDE 250 ML IV ONE; -HEALON DUET (HEALON 10MG/ML 0.55ML & HEALON ENDOCOAT 30MG/ML 0.85ML) As Ordered ONE; -KETOROLAC 0.5% OPHTH SOLN OS ONE; -LIDOCAINE 1% SDV 5 ML VIAL As Ordered ONE; -LIDOCAINE 4% INJ 5 ML AMP As Ordered ONE; -LIDOCAINE 4% INJ 5 ML AMP OU ONE; -LIDOCAINE W/EPINEPHRINE 1% 20ML VIAL As Ordered ONE; -MIDAZOLAM INJ 2 MG/2 ML VIAL (J2250) As Ordered ONE; -MOXIFLOXACIN IN BSS 0.25MG/0.25ML INTRACAMERAL INJ (OR EYE ONLY)(J2280) As Ordered ONE; -OFLOXACIN 0.3 % (OCUFLOX) OPTH SOL 5ML XX ONE; -PHENYLEPHRINE 2.5% OPHTH SOL 2ML XX ONE; -POVIDONE-IODINE 5% OPHTH PREP SOL 30ML As Ordered ONE; -PROPARACAINE 0.5% OPHTH SOL 15ML OS PRN; -TRIAMCINOLONE PRES FR 40 MG/ML 1ML(TRIESENCE)(OR EYE ONLY)(J3300 PER 1MG) As Ordered ONE; -TRIMETHOBENZAMIDE 300 MG CAP PO PRN; -TROPICAMIDE 1% OPHTH SOLN 2ML XX ONE; -fentaNYL 100 MCG/2 ML INJECTION (J3010) As Ordered ONE
[2017-02-05 13:59] LABS: ALBUMIN 3.7 GM/DL (3.2-5.2); ALBUMIN/GLOBULIN RATIO 1.12 (1.00-1.93); ALKALINE PHOSPHATASE 62 U/L (45-117); ALT/SGPT 15 U/L (12-78); ANION GAP 4 MEQ/L (8-16); AST/SGOT 15 U/L (15-37); BILIRUBIN,TOTAL 0.3 MG/DL (0.2-1.0); BLOOD UREA NITROGEN 10 MG/DL (7-18); CALCIUM LEVEL 9.2 MG/DL (8.8-10.2); CARBON DIOXIDE LEVEL 31 MEQ/L (21-32); CHLORIDE LEVEL 98 MEQ/L (98-107); CHOLESTEROL LEVEL 233 MG/DL (<200); CREATININE FOR GFR 0.71 MG/DL (0.55-1.02); FREE T4 0.98 NG/DL (0.76-1.46); GLOMERULAR FILTRATION RATE > 60.0 (>45); GLUCOSE, FASTING 85 MG/DL (80-110); POTASSIUM SERUM 4.9 MEQ/L (3.5-5.1); SODIUM LEVEL 133 MEQ/L (136-145); TRIGLYCERIDES LEVEL 157 MG/DL (<150)
== END ==
LOC: M SFHCADAM 09:07
PROVIDERS: ATTEND Physician Assistant
DX: E78.4 Other hyperlipidemia (principal); E55.9 Vitamin D deficiency, unspecified

== ENCOUNTER → 2017-03-29 | Outpatient (REF) | payer OTHER ==
[~2017-03-29] MED LIST changes: -ATOR40TA PO; +ATOR40TA75 PO; -CELE-19 PO; +CELE1CAP4 PO
[2017-03-29 15:43] LABS: BASO % 0.6 % (0.0-1.0); EOS % 0.7 % (0.0-3.0); LARGE UNSTAINED CELL # 0.2 K/mm3 (0.0-0.4); LARGE UNSTAINED CELL % 2.5 % (0.0-4.0); LYMPH # 2.4 K/mm3 (1.5-4.5); LYMPH % 30.8 % (24.0-44.0); MEAN CORPUSCULAR HEMOGLOBIN 32.7 pg (27.0-33.0); MEAN CORPUSCULAR HGB CONC 33.1 g/dl (32.0-36.5); MEAN CORPUSCULAR VOLUME 98.7 fl (80.0-96.0); MONO # 0.5 K/mm3 (0.0-0.8); MONO % 6.5 % (0.0-5.0); NEUTROPHILS # 4.2 K/mm3 (1.8-7.7); NEUTROPHILS % 58.9 % (36.0-66.0); PLATELET COUNT, AUTOMATED 223 k/mm3 (150-450); RED CELL DISTRIBUTION WIDTH 13.3 % (11.5-14.5); WHITE BLOOD COUNT 7.2 K/mm3 (4.0-10.0)
[2017-03-29 16:07] LABS: ALBUMIN 3.6 GM/DL (3.2-5.2); ALBUMIN/GLOBULIN RATIO 1.03 (1.00-1.93); ALKALINE PHOSPHATASE 59 U/L (45-117); ALT/SGPT 17 U/L (12-78); ANION GAP 6 MEQ/L (8-16); AST/SGOT 19 U/L (15-37); BILIRUBIN,TOTAL 0.3 MG/DL (0.2-1.0); BLOOD UREA NITROGEN 15 MG/DL (7-18); CALCIUM LEVEL 8.9 MG/DL (8.8-10.2); CARBON DIOXIDE LEVEL 30 MEQ/L (21-32); CHLORIDE LEVEL 98 MEQ/L (98-107); CREATININE FOR GFR 0.67 MG/DL (0.55-1.02); GLOMERULAR FILTRATION RATE > 60.0 (>45); GLUCOSE, FASTING 81 MG/DL (80-110); POTASSIUM SERUM 4.6 MEQ/L (3.5-5.1); SODIUM LEVEL 134 MEQ/L (136-145); TOTAL PROTEIN 7.1 GM/DL (6.4-8.2)
== END ==
LOC: M LABDRWAD 14:36
PROVIDERS: ATTEND Psychiatry & Neurology Neurology
DX: R51 Headache (principal); R25.1 Tremor, unspecified; Z79.899 Other long term (current) drug therapy

== ENCOUNTER → 2017-04-05 | Outpatient (CLI) | payer OTHER ==
--- NOTE | 2017-05-09 01:12 | ECWPNPC ---
PATIENT NAME: NATALI WILSON : 1950 GENDER: FEMALE VISIT DATE: 04/05/2017 DISCHARGE DATE: 04/05/17 1312 VISIT LOCKED DATE TIME: PHYSICIAN: JORGE MCCARTHY RESOURCE: JORGE MCCARTHY REASON FOR APPOINTMENT 1. BACK HISTORY OF PRESENT ILLNESS HISTORY OF PRESENT ILLNESS: HERE FOR F/U AND MANAGEMENT OF CHRONIC LOW BACK PAIN.CONTINUES TO FEEL SHE HAS BENEFITED FROM BILAT SIJ INJECTIONS DONE IN THE PAST.PAIN HAS RETURNED IN HER LEGS AND CENTRAL LOW BACK RECENTLY.RATING BACK DISCOMFORT 6-10/10 VAS.PAIN IS AGGREVATED BY GETTING UP FROM SITTING POSITION.STATES THAT ROPINEROLE0.25MG TWO TABS. AT HS IS HELPFUL.CURRENTLY USING CYMBALTA 60MG + 30MG DAILY,AND MOBIC 15MG DAILY.DISCUSSED MEDICATION AND TREATMENT OPTIONS. PAIN THE PATIENT DESCRIBES THE PAIN... THE PATIENT DESCRIBES THE PAIN... FALL RISK SCREENING: SCREENING :NO FALLS IN THE PAST YEAR CURRENT MEDICATIONS TAKING MIRALAX POWDER 17GM ORALLY BID NEEDED TAKING MULTIVITAMIN OTC TABLET 1 TAB(S) ORALLY ONCE DAILY TAKING ALBUTEROL SULFATE HFA 108 (90 BASE) MCG/ACT AEROSOL SOLUTION 2 PUFFS NEEDED INHALATION EVERY 4-6 HRS, NOTES: NONE TAKING DUONEB 0.5-2.5 (3) MG/3ML SOLUTION 3 ML INHALATION FOUR TIMES A DAY NEEDED, NOTES: NONE TAKING TYLENOL ARTHRITIS PAIN 2 TABLETS NEEDED ORALLY 2-3 TIMES/DAY TAKING DEPAKOTE 250 MG TABLET DELAYED RELEASE 1 TAB ORALLY TWICE A DAY TAKING GABAPENTIN 300 MG CAPSULE 1 CAPSULE ORALLY BID TAKING CYMBALTA 60 MG CAPSULE DELAYED RELEASE PARTICLES 1 CAPSULE ORALLY ONCE A DAY TAKING VITAMIN D (ERGOCALCIFEROL) 33858 UNIT CAPSULE TAKE ONE CAPSULE BY MOUTH ONCE WEEKLY TAKING BENZONATATE 100 MG CAPSULE 1 CAPSULE NEEDED ORALLY THREE TIMES A DAY TAKING PREDNISOLONE ACETATE 1 % SUSPENSION 2 DROPS INTO AFFECTED EYE OPHTHALMIC FOUR TIMES A DAY TAKING DRISDOL 50,000 UNITS TABLET 1 TAB(S) ORAL EVERY OTHER WEEK TAKING OMEPRAZOLE 40 MG CAPSULE DELAYED RELEASE TAKE ONE CAPSULE BY MOUTH TWICE A DAY ORALLY TWICE DAILY TAKING ROPINIROLE HCL 0.25 MG TABLET 2 ORALLY BEFORE BEDTIME TAKING CYMBALTA 30 MG CAPSULE DELAYED RELEASE PARTICLES 1 CAPSULE ORALLY ONCE A DAY, NOTES: NIGHT TAKING MOBIC 15 MG TABLET 1 TABLET ORALLY ONCE A DAY MEDICATION LIST REVIEWED AND RECONCILED WITH THE PATIENT PAST MEDICAL HISTORY BACK PAIN CHRONIC/DDD - (PREVIOUSLY FOLLOWED BY DR. GUERRERO & DR. 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 CONSTITUTIONAL: ANY CHANGE IN YOUR MEDICAL CONDITION? NO . CHILLS NO . FEVER NO . INFECTION: DO YOU HAVE NEW INFECTIONS? NO . DO YOU HAVE HISTORY OF MRSA? NO . MUSCULOSKELETAL: ANY NEW PATTERNS OF PAIN OR NUMBNESS? NO . GASTROENTEROLOGY: ANY NEW CHANGE IN BOWEL CONTROL? NO . GENITOURINARY: ANY NEW CHANGE IN BLADDER CONTROL? NO . IS THERE A CHANCE YOU COULD BE ? NO . HEMATOLOGY/LYMPH: DO YOU TAKE ANY BLOOD THINNERS? (FOR EXAMPLE- COUMADIN, PLAVIX, AGGRENOX, PLATEL, PRADAXA, OR XARELTO) NO . WHEN WAS YOUR LAST DOSE? DATE: TIME: . NEUROLOGY: HAVE YOU FALLEN IN THE PAST 6 MONTHS? YES, PT STATES SHE WAS BURNING GARBAGE IN FIREPIT, TRIPPED AND FELL ON [place]OCKS 3 WEEKS AGO INJURING BILAT LOWER LEGS. PT DENIES SEEKING MEDICAL ATTENTION FOR INJURIES. . ANY NEW EXTREMITY NUMBNESS OR WEAKNESS? NO . CARDIOLOGY: DO YOU HAVE A PACEMAKER OR DEFIBRILLATOR? NO . RESPIRATORY: HAVE YOU BEEN SICK IN THE PAST WEEK? NO . FEVER NO . FLU LIKE SYMPTOMS? NO . COUGH NO . INTEGUMENTARY: DO YOU HAVE ANY RASHES OR OPEN SORES? YES, OPEN SORES TO LOWER LEGS FROM FALLING 3 WEEKS AGO . ALLERGIC/IMMUNO: ARE YOU ALLERGIC TO SHELLFISH OR IV DYE? NO . ANY NEW ALLERGIES? NO . PSYCHIATRIC: DO YOU HAVE THOUGHTS OF HURTING YOURSELF OR SOMEONE ELSE? NO . ARE YOU ABUSED, NEGLECTED, OR IN AN UNSAFE ENVIRONMENT? NO . ENDOCRINOLOGY: ARE YOU DIABETIC? NO . OTHER: DO YOU NEED ANY PRESCRIPTIONS? NO . IF YES, PLEASE LIST: ____ . ANY NEW PROBLEMS WITH YOUR MEDICATIONS? NO . WHEN DID YOU LAST EAT? ____ . WHEN DID YOU LAST DRINK? ____ . WHAT DID YOU LAST DRINK? ____ . NAME OF PERSON DRIVING YOU HOME? ____ . DO YOU HAVE ANY OTHER QUESTIONS OR CONCERNS NO . VITAL SIGNS WT 134.2 LBS, HT 64.5 IN, BMI 22.68 INDEX, BP 145/77 MM HG, HR 89 /MIN, RR 18 /MIN, TEMP 97.6 F, OXYGEN SAT % 91%, NA INITIALS SC 12:21, REVIEWED BY: GLADYS. EXAMINATION GENERAL EXAMINATION: LUNGS:LUNG SOUNDS ARE CLEAR. HEART:HEART RATE REGULAR. MUSCULOSKELETAL:*, MUSCLE STRENGTH TESTING 5/5 BLE. PALPATION: NEG. FOR PAIN OVER L/S SPINE. SPECIFIC POINT TENDERNESS OVER BILAT. SIJ. DIAGNOSTIC: . ASSESSMENTS CHRONIC BILATERAL LOW BACK PAIN WITHOUT SCIATICA - M54.5 (PRIMARY) RESTLESS LEG SYNDROME - G25.81 SACROILIAC JOINT PAIN - M53.3 TREATMENT CHRONIC BILATERAL LOW BACK PAIN WITHOUT SCIATICA REFILL CYMBALTA CAPSULE DELAYED RELEASE PARTICLES, 60 MG, 1 CAPSULE, ORALLY, ONCE A DAY, 30 DAY(S), 30 CAPSULE, REFILLS 2 REFILL ROPINIROLE HCL TABLET, 0.25 MG, 2, ORALLY, BEFORE BEDTIME, 30 DAY(S), 60, REFILLS 2 REFILL CYMBALTA CAPSULE DELAYED RELEASE PARTICLES, 30 MG, 1 CAPSULE, ORALLY, ONCE A DAY, 30 DAY(S), 30 CAPSULE, REFILLS 2, NOTES: NIGHT REFILL MOBIC TABLET, 15 MG, 1 TABLET, ORALLY, ONCE A DAY, 30 DAY(S), 30, REFILLS 2 NOTES: BILAT. SIJ. PREVENTIVE MEDICINE PAIN CLINIC TEACHING: PROCEDURE TEACHING PRE SACROILIAC JOINT INJECTIONS INSTRUCTIONS REVIEWED WITH PT. VERBALIZED UNDERSTANDING.. PROCEDURE CODES FA211 ESTABILISHED PATIENT [facility] FACILITY CHARGE DISPOSITION & COMMUNICATION FOLLOW UP POST PROC. (REASON: BILAT. SIJ) ELECTRONICALLY SIGNED BY YOGI ARMENTA ON 05/08/2017 AT 08:57 AM EDT DISCLAIMER : THIS IS A VISIT SUMMARY EXTRACTED FROM THE [employer] CHART. IT IS NOT A COPY OF THE [employer] PROGRESS NOTE. CINTIA
== END ==
LOC: M PAIN 12:00
PROVIDERS: ATTEND Nurse Practitioner Family
DX: M54.5 Low back pain (principal); G25.81 Restless legs syndrome; M53.3 Sacrococcygeal disorders, not elsewhere classified; G89.29 Other chronic pain; E78.5 Hyperlipidemia, unspecified; K21.9 Gastro-esophageal reflux disease without esophagitis; E55.9 Vitamin D deficiency, unspecified; Z79.899 Other long term (current) drug therapy; Z88.8 Allergy status to other drugs, medicaments and biological substances

== ENCOUNTER → 2017-04-18 | Outpatient (CLI) | payer OTHER ==
[~2017-04-18] MED LIST changes: +BUPIVACAINE HCL 0.25% 30 ML VIAL As Ordered ONE; +ISOVUE-M 300 61% 15ML VIAL (Q9967) As Ordered ONE; +LIDOCAINE 1% SDV INJ 30 ML VIAL As Ordered ONE; +TRIAMCINOLONE ACETONIDE SUSP 40 MG/ML VIAL (J3301) As Ordered ONE; +diazePAM 5 MG TAB As Ordered ONE; +oxyCODONE 5MG TAB As Ordered ONE
--- NOTE | 2017-04-18 15:44 | REP ---
SI joint series: Limited study, two views. History: Bilateral SI joint injection for pain. 10 seconds of fluoroscopy time is reported. Findings: A sequence of two last image hold fluoro spot views of the SI joints document needle position and contrast injection associated with SI joint. No laterality markers are noted. Signed by Baldomero Gil MD 04/18/2017 04:31 P
--- NOTE | 2017-04-21 23:38 | ECWPNPC ---
PATIENT NAME: NATALI WILSON : 1950 GENDER: FEMALE VISIT DATE: 04/18/2017 DISCHARGE DATE: 04/18/17 1453 VISIT LOCKED DATE TIME: PHYSICIAN: HENRY PATEL RESOURCE: HENRY PATEL REASON FOR APPOINTMENT 1. CORNELIO SIJ HISTORY OF PRESENT ILLNESS HISTORY OF PRESENT ILLNESS: PAIN THE PATIENT DESCRIBES THE PAIN... FALL RISK SCREENING: SCREENING :NO FALLS IN THE PAST YEAR CURRENT MEDICATIONS TAKING MIRALAX POWDER 17GM ORALLY BID NEEDED, NOTES: 04/18/17 0500 TAKING MULTIVITAMIN OTC TABLET 1 TAB(S) ORALLY ONCE DAILY, NOTES: 04/18/17 0800 TAKING ALBUTEROL SULFATE HFA 108 (90 BASE) MCG/ACT AEROSOL SOLUTION 2 PUFFS NEEDED INHALATION EVERY 4-6 HRS, NOTES: NONE TAKING DUONEB 0.5-2.5 (3) MG/3ML SOLUTION 3 ML INHALATION FOUR TIMES A DAY NEEDED, NOTES: NONE TAKING TYLENOL ARTHRITIS PAIN 2 TABLETS NEEDED ORALLY 2-3 TIMES/DAY, NOTES: NONE LATELY TAKING DEPAKOTE 250 MG TABLET DELAYED RELEASE 1 TAB ORALLY TWICE A DAY, NOTES: 04/18/17 0800 TAKING VITAMIN D (ERGOCALCIFEROL) 07505 UNIT CAPSULE TAKE ONE CAPSULE BY MOUTH ONCE WEEKLY , NOTES: 1 WEEK AGO TAKING BENZONATATE 100 MG CAPSULE 1 CAPSULE NEEDED ORALLY THREE TIMES A DAY, NOTES: NONE LATELY TAKING PREDNISOLONE ACETATE 1 % SUSPENSION 2 DROPS INTO AFFECTED EYE OPHTHALMIC FOUR TIMES A DAY, NOTES: 04/18/17 0500 TAKING DRISDOL 50,000 UNITS TABLET 1 TAB(S) ORAL EVERY OTHER WEEK, NOTES: 1 WEEK AGO TAKING CYMBALTA 60 MG CAPSULE DELAYED RELEASE PARTICLES 1 CAPSULE ORALLY ONCE A DAY, NOTES: NONE LATELY TAKING ROPINIROLE HCL 0.25 MG TABLET 2 ORALLY BEFORE BEDTIME, NOTES: 04/17/171999 TAKING CYMBALTA 30 MG CAPSULE DELAYED RELEASE PARTICLES 1 CAPSULE ORALLY ONCE A DAY, NOTES: 04/17/171999 TAKING MOBIC 15 MG TABLET 1 TABLET ORALLY ONCE A DAY, NOTES: 04/17/171999 TAKING GABAPENTIN 300 MG CAPSULE 1 CAPSULE ORALLY BID, NOTES: 04/18/17 0800 TAKING OMEPRAZOLE 40 MG CAPSULE DELAYED RELEASE TAKE ONE CAPSULE BY MOUTH TWICE A DAY ORALLY TWICE DAILY, NOTES: 04/17/171999 MEDICATION LIST REVIEWED AND RECONCILED WITH THE PATIENT PAST MEDICAL HISTORY BACK PAIN CHRONIC/DDD - (PREVIOUSLY FOLLOWED BY DR. GUERRERO & DR. 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 CONSTITUTIONAL: ANY CHANGE IN YOUR MEDICAL CONDITION? NO . CHILLS NO . FEVER NO . INFECTION: DO YOU HAVE NEW INFECTIONS? NO . DO YOU HAVE HISTORY OF MRSA? NO . MUSCULOSKELETAL: ANY NEW PATTERNS OF PAIN OR NUMBNESS? NO . GASTROENTEROLOGY: ANY NEW CHANGE IN BOWEL CONTROL? NO . GENITOURINARY: ANY NEW CHANGE IN BLADDER CONTROL? NO . IS THERE A CHANCE YOU COULD BE ? NO . HEMATOLOGY/LYMPH: DO YOU TAKE ANY BLOOD THINNERS? (FOR EXAMPLE- COUMADIN, PLAVIX, AGGRENOX, PLATEL, PRADAXA, OR XARELTO) NO . WHEN WAS YOUR LAST DOSE? DATE: TIME: . NEUROLOGY: HAVE YOU FALLEN IN THE PAST 6 MONTHS? YES, PT STATES SHE STUMBLES FREQUENTLY HER LEGS ARE WEAK . ANY NEW EXTREMITY NUMBNESS OR WEAKNESS? NO . CARDIOLOGY: DO YOU HAVE A PACEMAKER OR DEFIBRILLATOR? NO . RESPIRATORY: HAVE YOU BEEN SICK IN THE PAST WEEK? NO . FEVER NO . FLU LIKE SYMPTOMS? NO . COUGH NO . INTEGUMENTARY: DO YOU HAVE ANY RASHES OR OPEN SORES? NO . ALLERGIC/IMMUNO: ARE YOU ALLERGIC TO SHELLFISH OR IV DYE? NO . ANY NEW ALLERGIES? NO . PSYCHIATRIC: DO YOU HAVE THOUGHTS OF HURTING YOURSELF OR SOMEONE ELSE? NO . ARE YOU ABUSED, NEGLECTED, OR IN AN UNSAFE ENVIRONMENT? NO . ENDOCRINOLOGY: ARE YOU DIABETIC? NO . OTHER: DO YOU NEED ANY PRESCRIPTIONS? NO . IF YES, PLEASE LIST: ____ . ANY NEW PROBLEMS WITH YOUR MEDICATIONS? NO . WHEN DID YOU LAST EAT? 04/17/17 1800 . WHEN DID YOU LAST DRINK? 04/18/17 0500 . WHAT DID YOU LAST DRINK? TEA AND JAEL JUICE . NAME OF PERSON DRIVING YOU HOME? ORA- . DO YOU HAVE ANY OTHER QUESTIONS OR CONCERNS NO . VITAL SIGNS WT 134 LBS, HT 64.5 IN, BMI 22.64 INDEX, BP 170/92 MM HG, HR 81 /MIN, RR 18 /MIN, TEMP 97.4 F, OXYGEN SAT % 92%, NA INITIALS AW 1152, REVIEWED BY: ABRAHAN. ASSESSMENTS SACROILIITIS, NOT ELSEWHERE CLASSIFIED - M46.1 (PRIMARY) PROCEDURES PN SI PRE PROCEDURE DIAGNOSIS SACROILIITIS, SACROILIAC JOINT DYSFUNCTION POST PROCEDURE DIAGNOSIS SACROILIITIS, SACROILIAC JOINT DYSFUNCTION PROCEDURE BILATERAL SACROILIAC JOINT BLOCK SURGEON DR. HENRY PATEL NEWS REPORTER NONE ANESTHESIA LOCAL PRE PROCEDURE NOTE PATIENT WITH HISTORY OF CHRONIC LOW BACK PAIN. I EVALUATED THE PATIENT AND REVIEWED THE CHART. I WENT OVER THE RISKS, ALTERNATIVES, AND BENEFITS ASSOCIATED WITH THIS PROCEDURE. THE PATIENT WOULD LIKE TO PROCEED AND GAVE CONSENT TO PERFORM THE PROCEDURE. THE PATIENT DENIES UNEXPLAINABLE WEIGHT LOSS, FEVER, CHILLS, OR NEW CHANGES IN URINARY OR BOWEL CONTROL DESCRIPTION OF PROCEDURE THE PATIENT WAS BROUGHT TO THE PROCEDURE ROOM AND PLACED IN THE PRONE POSITION. THE LUMBOSACRAL AREA WAS CLEANED WITH CHLORAPREP SOLUTION AND DRAPED ASEPTICALLY. THE PROCEDURE WAS DONE UNDER STERILE CONDITIONS. I CHECKED LATERALITY AND THE LEVEL WHERE THE PROCEDURE WAS GOING TO BE PERFORMED WITH THE PATIENT AND THE SUPPORTING STAFF AT THE MOMENT OF THE TIME OUT IN THE PROCEDURE ROOM. UNDER FLUOROSCOPIC GUIDANCE, TARGET POINT WAS SELECTED AT THE LOWER BORDER OF THE RIGHT AND LEFT SACROILIAC JOINT. TARGET POINT WAS SELECTED AFTER MEDIAL ROTATION AND TILT OF THE MAGNIFIER OF THE C-ARM. LIDOCAINE WAS USED TO NUMB THE SKIN AND SUBCUTANEOUS TISSUE BELOW IT. A SPINAL NEEDLE, 22-GAUGE, WAS ADVANCED UNDER FLUOROSCOPIC GUIDANCE AND FOLLOWING PATIENT FEEDBACK UNTIL THE TARGET AREA WAS TOUCHED. THE POSITION OF THE NEEDLE WAS VERIFIED WITH AP AND LATERAL VIEWS. AFTER PROPER POSITION OF THE NEEDLE WAS ACHIEVED, ISOVUE M DYE 30%, 0.25 ML, WAS INJECTED SHOWING SPREAD OF THE DYE. THEN, A SOLUTION OF 20 MG OF KENALOG WAS INJECTED IN RIGHT JOINT WITH 3 ML OF BUPIVACAINE 0.125%. THERE WAS NO EVIDENCE OF BLOOD, PARESTHESIA OR CEREBROSPINAL FLUID DURING THE PROCEDURE. THE PATIENT WAS SENT TO THE RECOVERY ROOM. THE PATIENT WAS MOVING THE EXTREMITIES AND DOING WELL. THERE WAS NO COMPLICATION DURING THE PROCEDURE. FLUOROSCOPY TIME WAS 10 SECONDS POST PROCEDURE NOTE THE PATIENT WILL BE SEEN IN A FOLLOW UP IN THE NEXT FEW WEEKS. INSTRUCTIONS WERE GIVEN, QUESTIONS WERE ANSWERED, AND THE PATIENT EXPRESSED UNDERSTANDING AND AGREED WITH THE PLAN. I, DANE BHAKTA, DOCUMENTED THE ABOVE INFORMATION ACTING A SCRIBE FOR DR. PATEL. I HAVE REVIEWED THE ABOVE DOCUMENT, WRITTEN BY DANE CARTER AND I VERIFY THAT IT IS [facility] DIAGNOSTIC IMAG[facility] FLUORO GUIDANCE (PAIN)[id number] PROCEDURE CODES 09802 INJECT SACROILIAC JOINT 6045F RADXPS IN END [id number] PXD DISPOSITION & COMMUNICATION FOLLOW UP 3 WEEKS ELECTRONICALLY SIGNED BY HENRY PATEL MD ON 04/21/2017 AT 07:31 PM EDT DISCLAIMER : THIS IS A VISIT SUMMARY EXTRACTED FROM THE [employer] CHART. IT IS NOT A COPY OF THE [employer] PROGRESS NOTE. CINTIA
== END ==
LOC: M PAIN 11:45
PROVIDERS: ATTEND Anesthesiology
DX: G89.29 Other chronic pain (principal); M46.1 Sacroiliitis, not elsewhere classified; M54.5 Low back pain; K21.9 Gastro-esophageal reflux disease without esophagitis; E78.4 Other hyperlipidemia; E55.9 Vitamin D deficiency, unspecified; Z88.5 Allergy status to narcotic agent; Z88.8 Allergy status to other drugs, medicaments and biological substances; Z79.899 Other long term (current) drug therapy
CPT/HCPCS: 27096; J3301; Q9967

== ENCOUNTER → 2017-05-24 | Outpatient (CLI) | payer OTHER ==
[~2017-05-24] MED LIST changes: -BUPIVACAINE HCL 0.25% 30 ML VIAL As Ordered ONE; -ISOVUE-M 300 61% 15ML VIAL (Q9967) As Ordered ONE; -LIDOCAINE 1% SDV INJ 30 ML VIAL As Ordered ONE; -TRIAMCINOLONE ACETONIDE SUSP 40 MG/ML VIAL (J3301) As Ordered ONE; -diazePAM 5 MG TAB As Ordered ONE; -oxyCODONE 5MG TAB As Ordered ONE
--- NOTE | 2017-06-17 00:08 | ECWPNPC ---
PATIENT NAME: NATALI WILSON : 1950 GENDER: FEMALE VISIT DATE: 05/24/2017 DISCHARGE DATE: 05/24/17 1217 VISIT LOCKED DATE TIME: PHYSICIAN: JORGE MCCARTHY RESOURCE: JORGE MCCARTHY REASON FOR APPOINTMENT 1. POST PROCEDURE HISTORY OF PRESENT ILLNESS HISTORY OF PRESENT ILLNESS: HERE FOR F/U AND MANAGEMENT OF CHRONIC LOW BACK PAIN.CONTINUES TO FEEL SHE HAS BENEFITED FROM BILAT SIJ INJECTIONS DONE 04-18-17.REPORTS >50% IMPROVEMENT IN PAIN THAT CONTINUES TODAY.RATING BACK DISCOMFORT 4/10 VAS.PAIN IS AGGREVATED BY GETTING UP FROM SITTING POSITION.STATES THAT ROPINEROLE0.25MG TWO TABS. AT HS IS HELPFUL.CURRENTLY USING CYMBALTA 60MG + 30MG DAILY,AND MOBIC 15MG DAILY.DISCUSSED MEDICATION AND TREATMENT OPTIONS. PAIN THE PATIENT DESCRIBES THE PAIN... THE PATIENT DESCRIBES THE PAIN... THE PATIENT DESCRIBES THE PAIN... FALL RISK SCREENING: SCREENING :NO FALLS IN THE PAST YEAR CURRENT MEDICATIONS TAKING MIRALAX POWDER 17GM ORALLY BID NEEDED TAKING MULTIVITAMIN OTC TABLET 1 TAB(S) ORALLY ONCE DAILY TAKING TYLENOL ARTHRITIS PAIN 2 TABLETS NEEDED ORALLY 2-3 TIMES/DAY TAKING DEPAKOTE 250 MG TABLET DELAYED RELEASE 1 TAB ORALLY TWICE A DAY TAKING VITAMIN D (ERGOCALCIFEROL) 84787 UNIT CAPSULE TAKE ONE CAPSULE BY MOUTH ONCE WEEKLY TAKING BENZONATATE 100 MG CAPSULE 1 CAPSULE NEEDED ORALLY THREE TIMES A DAY TAKING PREDNISOLONE ACETATE 1 % SUSPENSION 2 DROPS INTO AFFECTED EYE OPHTHALMIC FOUR TIMES A DAY TAKING DRISDOL 50,000 UNITS TABLET 1 TAB(S) ORAL EVERY OTHER WEEK TAKING CYMBALTA 60 MG CAPSULE DELAYED RELEASE PARTICLES 1 CAPSULE ORALLY ONCE A DAY TAKING ROPINIROLE HCL 0.25 MG TABLET 2 ORALLY BEFORE BEDTIME TAKING CYMBALTA 30 MG CAPSULE DELAYED RELEASE PARTICLES 1 CAPSULE ORALLY ONCE A DAY TAKING MOBIC 15 MG TABLET 1 TABLET ORALLY ONCE A DAY TAKING ROBITUSSIN 12 HOUR COUGH 30 MG/5ML SUSPENSION EXTENDED RELEASE 10 ML NEEDED ORALLY EVERY 12 HRS TAKING FLONASE 50 MCG/ACT SUSPENSION 1 SPRAY IN EACH NOSTRIL NASALLY ONCE A DAY TAKING NICODERM CQ 14 MG/24HR PATCH 24 HOUR 1 PATCH TO SKIN TRANSDERMAL ONCE A DAY TAKING TESSALON PERLES 100 MG CAPSULE 1 CAPSULE NEEDED ORALLY THREE TIMES A DAY TAKING ALBUTEROL SULFATE HFA 108 (90 BASE) MCG/ACT AEROSOL SOLUTION 2 PUFFS NEEDED INHALATION EVERY 4-6 HRS, NOTES: NONE TAKING DUONEB 0.5-2.5 (3) MG/3ML SOLUTION 3 ML INHALATION FOUR TIMES A DAY NEEDED, NOTES: NONE TAKING GABAPENTIN 300 MG CAPSULE 1 CAPSULE ORALLY BID TAKING OMEPRAZOLE 40 MG CAPSULE DELAYED RELEASE TAKE ONE CAPSULE BY MOUTH TWICE A DAY ORALLY TWICE DAILY NOT-TAKING DAYQUIL MULTI-SYMPTOM MEDICATION LIST REVIEWED AND RECONCILED WITH THE PATIENT PAST MEDICAL HISTORY BACK PAIN CHRONIC/DDD - (PREVIOUSLY FOLLOWED BY DR. GUERRERO & DR. 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 CONSTITUTIONAL: ANY CHANGE IN YOUR MEDICAL CONDITION? BRONCHIATUS 05/01/17 ON PREDNISONE, ANTIBIOTIC AND INHALER AND WHILE SHE WAS SICK SHE QUIT SMOKING!!!! . CHILLS NO . FEVER NO . INFECTION: DO YOU HAVE NEW INFECTIONS? NO . DO YOU HAVE HISTORY OF MRSA? NO . MUSCULOSKELETAL: ANY NEW PATTERNS OF PAIN OR NUMBNESS? NO . GASTROENTEROLOGY: ANY NEW CHANGE IN BOWEL CONTROL? NO . GENITOURINARY: ANY NEW CHANGE IN BLADDER CONTROL? NO . IS THERE A CHANCE YOU COULD BE ? NO . HEMATOLOGY/LYMPH: DO YOU TAKE ANY BLOOD THINNERS? (FOR EXAMPLE- COUMADIN, PLAVIX, AGGRENOX, PLATEL, PRADAXA, OR XARELTO) NO . WHEN WAS YOUR LAST DOSE? DATE: TIME: . NEUROLOGY: HAVE YOU FALLEN IN THE PAST 6 MONTHS? NO . ANY NEW EXTREMITY NUMBNESS OR WEAKNESS? NO . CARDIOLOGY: DO YOU HAVE A PACEMAKER OR DEFIBRILLATOR? NO . RESPIRATORY: HAVE YOU BEEN SICK IN THE PAST WEEK? NO . FEVER NO . FLU LIKE SYMPTOMS? NO . COUGH NO . INTEGUMENTARY: DO YOU HAVE ANY RASHES OR OPEN SORES? NO . ALLERGIC/IMMUNO: ARE YOU ALLERGIC TO SHELLFISH OR IV DYE? NO . ANY NEW ALLERGIES? NO . PSYCHIATRIC: DO YOU HAVE THOUGHTS OF HURTING YOURSELF OR SOMEONE ELSE? NO . ARE YOU ABUSED, NEGLECTED, OR IN AN UNSAFE ENVIRONMENT? NO . ENDOCRINOLOGY: ARE YOU DIABETIC? NO . OTHER: DO YOU NEED ANY PRESCRIPTIONS? NO . IF YES, PLEASE LIST: ____ . ANY NEW PROBLEMS WITH YOUR MEDICATIONS? NO . WHEN DID YOU LAST EAT? ____ . WHEN DID YOU LAST DRINK? ____ . WHAT DID YOU LAST DRINK? ____ . NAME OF PERSON DRIVING YOU HOME? ____ . DO YOU HAVE ANY OTHER QUESTIONS OR CONCERNS NO . VITAL SIGNS WT 131 LBS, HT 64.5 IN, BMI 22.14 INDEX, BP 137/76 MM HG, HR 94 /MIN, RR 16 /MIN, TEMP 97.6 F, OXYGEN SAT % 91%, NA INITIALS SC 11:44, REVIEWED BY: NL. EXAMINATION GENERAL EXAMINATION: LUNGS:LUNG SOUNDS ARE CLEAR. HEART:HEART RATE REGULAR. MUSCULOSKELETAL:*, MUSCLE STRENGTH TESTING 5/5 BLE. PALPATION: NEG. FOR PAIN OVER L/S SPINE. SPECIFIC POINT TENDERNESS OVER BILAT. SIJ. DIAGNOSTIC: . ASSESSMENTS CHRONIC BILATERAL LOW BACK PAIN WITHOUT SCIATICA - M54.5 (PRIMARY) RESTLESS LEG SYNDROME - G25.81 SACROILIAC JOINT PAIN - M53.3 TREATMENT CHRONIC BILATERAL LOW BACK PAIN WITHOUT SCIATICA CONTINUE CYMBALTA CAPSULE DELAYED RELEASE PARTICLES, 60 MG, 1 CAPSULE, ORALLY, ONCE A DAY STOP ROPINIROLE HCL TABLET, 0.25 MG, 2, ORALLY, BEFORE BEDTIME CONTINUE CYMBALTA CAPSULE DELAYED RELEASE PARTICLES, 30 MG, 1 CAPSULE, ORALLY, ONCE A DAY CONTINUE MOBIC TABLET, 15 MG, 1 TABLET, ORALLY, ONCE A DAY CONTINUE GABAPENTIN CAPSULE, 300 MG, 1 CAPSULE, ORALLY, BID PROCEDURE CODES FA211 ESTABILISHED PATIENT [facility] CHARGE DISPOSITION & COMMUNICATION FOLLOW UP 2 MONTHS ELECTRONICALLY SIGNED BY YOGI ARMENTA ON 06/16/2017 AT 07:49 PM EDT DISCLAIMER : THIS IS A VISIT SUMMARY EXTRACTED FROM THE [employer] CHART. IT IS NOT A COPY OF THE [employer] PROGRESS NOTE. MTDD
== END ==
LOC: M PAIN 11:30
PROVIDERS: ATTEND Nurse Practitioner Family
DX: M54.5 Low back pain (principal); G25.81 Restless legs syndrome; M53.3 Sacrococcygeal disorders, not elsewhere classified; G89.29 Other chronic pain; E78.5 Hyperlipidemia, unspecified; K21.9 Gastro-esophageal reflux disease without esophagitis; E55.9 Vitamin D deficiency, unspecified; M54.81 Occipital neuralgia; Z79.899 Other long term (current) drug therapy; Z88.5 Allergy status to narcotic agent; Z88.8 Allergy status to other drugs, medicaments and biological substances

== ENCOUNTER → 2017-07-19 | Outpatient (CLI) | payer OTHER ==
--- NOTE | 2017-07-20 00:38 | ECWPNPC ---
PATIENT NAME: NATALI WILSON : 1950 GENDER: FEMALE VISIT DATE: 07/19/2017 DISCHARGE DATE: 07/19/17 1006 VISIT LOCKED DATE TIME: PHYSICIAN: JORGE MCCARTHY RESOURCE: JORGE MCCARTHY REASON FOR APPOINTMENT 1. BACK HISTORY OF PRESENT ILLNESS HISTORY OF PRESENT ILLNESS: HERE FOR F/U OF CHRONIC LBP.PAIN IS BEGINING TO RETURN.HAD BILATERAL SIJ IN APRIL THAT WAS VERY HELPFUL UNTIL THIS PAST MONTH.RATING PAIN VAS 6/10.TAKING CYMBALTA 90MG DAILY.STOPPED ROPINEROLE AND DEPAKOTE PER NEUROLOGY.CONTINUES TO FOLLOW WITH NEUROLOGY FOR HAND TREMORS. PAIN THE PATIENT DESCRIBES THE PAIN... FALL RISK SCREENING: SCREENING :NO FALLS IN THE PAST YEAR CURRENT MEDICATIONS TAKING MIRALAX POWDER 17GM ORALLY BID NEEDED TAKING MULTIVITAMIN OTC TABLET 1 TAB(S) ORALLY ONCE DAILY TAKING TYLENOL ARTHRITIS PAIN 2 TABLETS NEEDED ORALLY 2-3 TIMES/DAY TAKING VITAMIN D (ERGOCALCIFEROL) 53273 UNIT CAPSULE TAKE ONE CAPSULE BY MOUTH ONCE WEEKLY EVERY OTHER WEEK TAKING BENZONATATE 100 MG CAPSULE 1 CAPSULE NEEDED ORALLY THREE TIMES A DAY TAKING DRISDOL 50,000 UNITS TABLET 1 TAB(S) ORAL EVERY OTHER WEEK TAKING ROBITUSSIN 12 HOUR COUGH 30 MG/5ML SUSPENSION EXTENDED RELEASE 10 ML NEEDED ORALLY EVERY 12 HRS TAKING FLONASE 50 MCG/ACT SUSPENSION 1 SPRAY IN EACH NOSTRIL NASALLY ONCE A DAY TAKING NICODERM CQ 14 MG/24HR PATCH 24 HOUR 1 PATCH TO SKIN TRANSDERMAL ONCE A DAY TAKING TESSALON PERLES 100 MG CAPSULE 1 CAPSULE NEEDED ORALLY THREE TIMES A DAY TAKING ALBUTEROL SULFATE HFA 108 (90 BASE) MCG/ACT AEROSOL SOLUTION 2 PUFFS NEEDED INHALATION EVERY 4-6 HRS, NOTES: NONE TAKING DUONEB 0.5-2.5 (3) MG/3ML SOLUTION 3 ML INHALATION FOUR TIMES A DAY NEEDED, NOTES: NONE TAKING CYMBALTA 60 MG CAPSULE DELAYED RELEASE PARTICLES 1 CAPSULE ORALLY ONCE A DAY TAKING CYMBALTA 30 MG CAPSULE DELAYED RELEASE PARTICLES 1 CAPSULE ORALLY ONCE A DAY TAKING MOBIC 15 MG TABLET 1 TABLET ORALLY ONCE A DAY TAKING OMEPRAZOLE 40 MG CAPSULE DELAYED RELEASE TAKE ONE CAPSULE BY MOUTH TWICE A DAY ORALLY TWICE DAILY TAKING GABAPENTIN 300 MG CAPSULE 1 CAPSULE ORALLY BID TAKING LATANOPROST 0.005 % SOLUTION 1 DROP INTO AFFECTED EYE IN THE EVENING OPHTHALMIC ONCE A DAY TAKING SOOTHE XP - SOLUTION OPHTHALMIC DISCONTINUED DEPAKOTE 250 MG TABLET DELAYED RELEASE 1 TAB ORALLY TWICE A DAY DISCONTINUED PREDNISOLONE ACETATE 1 % SUSPENSION 2 DROPS INTO AFFECTED EYE OPHTHALMIC FOUR TIMES A DAY DISCONTINUED DAYQUIL MULTI-SYMPTOM MEDICATION LIST REVIEWED AND RECONCILED WITH THE PATIENT PAST MEDICAL HISTORY BACK PAIN CHRONIC/DDD - (PREVIOUSLY FOLLOWED BY DR. GUERRERO & DR. 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, FOLLOWED BY NEURO ALLERGIES VICODIN: ITCHING: SIDE EFFECTS ATORVASTATIN CALCIUM: ELEVATED LIVER ENZYMES: SIDE EFFECTS SOCIAL HISTORY GENERAL: TOBACCO USE ARE YOU A:CURRENT SMOKER HOW OFTEN DO YOU SMOKE CIGARETTES?SOME DAYS, BUT NOT EVERY DAY HOW SOON AFTER YOU WAKE UP DO YOU SMOKE YOUR FIRST CIGARETTE?6-30 MIN HOW MANY CIGARETTES A DAY DO YOU SMOKE?6-10 ARE YOU INTERESTED IN QUITTING?THINKING ABOUT QUITTING PATIENT COUNSELED ON THE DANGERS OF TOBACCO USE AND URGED TO QUIT:01/18/2017 COUNSELED THE PATIENT ON SMOKING CESSATION, EDUCATION [id number]/19/2017 ALCOHOL SCREENING DID YOU HAVE A DRINK CONTAINING ALCOHOL IN THE PAST YEAR?NO POINTS0 INTERPRETATIONNEGATIVE RECREATIONAL DRUG USE DRUG USE?NO CAFFEINE CAFFEINE USE?YES TEA SEXUAL HX HAD SEX IN THE LAST 12 MONTHS (VAGINAL, ORAL, OR ANAL)?YES WITHMEN ONLY USE PROTECTION?NO LMP:HYSTER HAVE YOU EVER HAD AN STD?NO DIET: REGULAR. EXERCISE: NO REGULAR EXERCISE. LATTER-DAY LATTER-DAY NO HINDU BELIEFS THAT WOULD IMPACT HEALTH CARE. LANGUAGE LANGUAGES SPOKEN:CHINESE LEARNING BARRIERS / SPECIAL NEEDS CHANGE FROM LAST VISIT?NO BARRIERS TO LEARNING?NO HEARING IMPAIRED?NO VISION IMPAIRED?YES COGNITIVELY IMPAIRED?NO :CORRECTIVE LENSES READINESS TO LEARN?YES LEARNING PREFERENCES?NO LEARNING CAPABILITIES PRESENT?YES EMOTIONAL BARRIERS?NO SPECIAL DEVICES?NO GRADUATE NURSE NEEDED?NO NEW PATIENT PAIN DIARY TODAY'S VISIT NOTES, FROM 0-10, WHAT LEVEL IS YOUR PAIN TODAY? 0. PAIN CLINIC PFS, CLERGY, PUBLIC HEALTH REFERRALS HAS THE PATIENT BEEN EDUCATED REGARDING HIS/HER PLAN OF CARE?YES HAS THE PATIENT BEEN EDUCATED REGARDING PAIN, THE RISK FOR PAIN, THE IMPORTANCE OF EFFECTIVE PAIN MANAGEMENT, AND THE PAIN ASSESSMENT PROCESS?YES REVIEW OF SYSTEMS REVIEWED BY: PROVIDER: JORGE CALIX . CONSTITUTIONAL: ANY CHANGE IN YOUR MEDICAL CONDITION? NO . CHILLS NO . FEVER NO . INFECTION: DO YOU HAVE NEW INFECTIONS? NO . DO YOU HAVE HISTORY OF MRSA? NO . MUSCULOSKELETAL: ANY NEW PATTERNS OF PAIN OR NUMBNESS? NO . GASTROENTEROLOGY: ANY NEW CHANGE IN BOWEL CONTROL? NO . GENITOURINARY: ANY NEW CHANGE IN BLADDER CONTROL? NO . IS THERE A CHANCE YOU COULD BE ? NO . HEMATOLOGY/LYMPH: DO YOU TAKE ANY BLOOD THINNERS? (FOR EXAMPLE- COUMADIN, PLAVIX, AGGRENOX, PLATEL, PRADAXA, OR XARELTO) NO . WHEN WAS YOUR LAST DOSE? DATE: TIME: . NEUROLOGY: HAVE YOU FALLEN IN THE PAST 6 MONTHS? NO . ANY NEW EXTREMITY NUMBNESS OR WEAKNESS? NO . CARDIOLOGY: DO YOU HAVE A PACEMAKER OR DEFIBRILLATOR? NO . RESPIRATORY: HAVE YOU BEEN SICK IN THE PAST WEEK? NO . FEVER NO . FLU LIKE SYMPTOMS? NO . COUGH NO . INTEGUMENTARY: DO YOU HAVE ANY RASHES OR OPEN SORES? NO . ALLERGIC/IMMUNO: ARE YOU ALLERGIC TO SHELLFISH OR IV DYE? NO . ANY NEW ALLERGIES? NO . PSYCHIATRIC: DO YOU HAVE THOUGHTS OF HURTING YOURSELF OR SOMEONE ELSE? NO . ARE YOU ABUSED, NEGLECTED, OR IN AN UNSAFE ENVIRONMENT? NO . ENDOCRINOLOGY: ARE YOU DIABETIC? NO . OTHER: DO YOU NEED ANY PRESCRIPTIONS? NO . IF YES, PLEASE LIST: ____ . ANY NEW PROBLEMS WITH YOUR MEDICATIONS? NO . WHEN DID YOU LAST EAT? ____ . WHEN DID YOU LAST DRINK? ____ . WHAT DID YOU LAST DRINK? ____ . NAME OF PERSON DRIVING YOU HOME? ____ . DO YOU HAVE ANY OTHER QUESTIONS OR CONCERNS NO . VITAL SIGNS WT 131 LBS, HT 64.5 IN, BMI 22.14 INDEX, BP 163/83 MM HG, HR 97.7 /MIN, RR 16 /MIN, TEMP 97.7 F, OXYGEN SAT % 91%, SAFE IN ENV? (Y/N) YES, NA INITIALS ME 09:04, REVIEWED BY: VD. EXAMINATION GENERAL EXAMINATION: LUNGS:LUNG SOUNDS ARE CLEAR. HEART:HEART RATE REGULAR. MUSCULOSKELETAL:*, MUSCLE STRENGTH TESTING 5/5 BLE. PALPATION: NEG. FOR PAIN OVER L/S SPINE. SPECIFIC POINT TENDERNESS OVER BILAT. SIJ. DIAGNOSTIC: . ASSESSMENTS CHRONIC BILATERAL LOW BACK PAIN WITHOUT SCIATICA - M54.5 (PRIMARY) RESTLESS LEG SYNDROME - G25.81 SACROILIAC JOINT PAIN - M53.3 TREATMENT CHRONIC BILATERAL LOW BACK PAIN WITHOUT SCIATICA REFILL CYMBALTA CAPSULE DELAYED RELEASE PARTICLES, 60 MG, 1 CAPSULE, ORALLY, ONCE A DAY, 30 DAY(S), 30 CAPSULE, REFILLS 2 REFILL CYMBALTA CAPSULE DELAYED RELEASE PARTICLES, 30 MG, 1 CAPSULE, ORALLY, ONCE A DAY, 30 DAY(S), 30 CAPSULE, REFILLS 2 STOP MOBIC TABLET, 15 MG, 1 TABLET, ORALLY, ONCE A DAY, 30 DAY(S), 30 TABLET REFILL OMEPRAZOLE CAPSULE DELAYED RELEASE, 40 MG, TAKE ONE CAPSULE BY MOUTH TWICE A DAY, ORALLY, TWICE DAILY, 30, 60 CAPSULE, REFILLS 2 REFILL GABAPENTIN CAPSULE, 300 MG, 1 CAPSULE, ORALLY, BID, 30, 60 CAPSULE, REFILLS 2 NOTES: BILAT. WEBERJ. PREVENTIVE MEDICINE PAIN CLINIC TEACHING: PROCEDURE TEACHING PRE SACROILIAC JOINT INJECTIONS INSTRUCTIONS REVIEWED WITH PT. VERBALIZED UNDERSTANDING.. PROCEDURE CODES FA211 ESTABILISHED PATIENT [facility] CHARGE DISPOSITION & COMMUNICATION FOLLOW UP 2WK POST (REASON: BILAT. SIJ) ELECTRONICALLY SIGNED BY YOGI ARMENTA ON 07/19/2017 AT 10:09 AM EST DISCLAIMER : THIS IS A VISIT SUMMARY EXTRACTED FROM THE [employer] CHART. IT IS NOT A COPY OF THE [employer] PROGRESS NOTE. CINTIA
== END ==
LOC: M PAIN 08:45
PROVIDERS: ATTEND Nurse Practitioner Family
DX: G89.29 Other chronic pain (principal); M54.5 Low back pain; M53.3 Sacrococcygeal disorders, not elsewhere classified; G25.81 Restless legs syndrome; E78.4 Other hyperlipidemia; K21.9 Gastro-esophageal reflux disease without esophagitis; F17.210 Nicotine dependence, cigarettes, uncomplicated; E55.9 Vitamin D deficiency, unspecified; Z88.5 Allergy status to narcotic agent; Z88.8 Allergy status to other drugs, medicaments and biological substances; Z79.1 Long term (current) use of non-steroidal anti-inflammatories (NSAID); Z79.899 Other long term (current) drug therapy

== ENCOUNTER → 2017-08-01 | Outpatient (CLI) | payer OTHER ==
[~2017-08-01] MED LIST changes: +BUPIVACAINE HCL 0.25% 30 ML VIAL As Ordered ONE; +ISOVUE-M 300 61% 15ML VIAL (Q9967) As Ordered ONE; +LIDOCAINE 1% SDV INJ 30 ML VIAL As Ordered ONE; +TRIAMCINOLONE ACETONIDE SUSP 40 MG/ML VIAL (J3301) As Ordered ONE; +diazePAM 5 MG TAB As Ordered ONE; +oxyCODONE 5MG TAB As Ordered ONE
--- NOTE | 2017-08-01 11:41 | REP ---
Bilateral SI joint series: Limited study four views. History: Injection procedure for pain. 13 seconds of fluoroscopy time is reported. Findings: A sequence of four last image hold fluoroscopic spot radiographs of the SI joints document various needle positions and contrast injections associated with injection procedure. Signed by Baldomero Gil MD 08/01/2017 04:07 P
--- NOTE | 2017-08-14 00:29 | ECWPNPC ---
PATIENT NAME: NATALI WILSON : 1950 GENDER: FEMALE VISIT DATE: 08/01/2017 DISCHARGE DATE: 08/01/17 1036 VISIT LOCKED DATE TIME: PHYSICIAN: HENRY PATEL RESOURCE: HENRY PATEL REASON FOR APPOINTMENT 1. BILATERAL SIJ HISTORY OF PRESENT ILLNESS HISTORY OF PRESENT ILLNESS: PAIN THE PATIENT DESCRIBES THE PAIN... FALL RISK SCREENING: SCREENING :NO FALLS IN THE PAST YEAR CURRENT MEDICATIONS TAKING MIRALAX POWDER 17GM ORALLY BID NEEDED, NOTES: 07/31/17 08 TAKING MULTIVITAMIN OTC TABLET 1 TAB(S) ORALLY ONCE DAILY, NOTES: 07/31/171999 TAKING TYLENOL ARTHRITIS PAIN 2 TABLETS NEEDED ORALLY 2-3 TIMES/DAY, NOTES: 07/29/17 TAKING VITAMIN D (ERGOCALCIFEROL) 96551 UNIT CAPSULE TAKE ONE CAPSULE BY MOUTH ONCE WEEKLY EVERY OTHER WEEK, NOTES: 07/28/17 TAKING DRISDOL 50,000 UNITS TABLET 1 TAB(S) ORAL EVERY OTHER WEEK TAKING ROBITUSSIN 12 HOUR COUGH 30 MG/5ML SUSPENSION EXTENDED RELEASE 10 ML NEEDED ORALLY EVERY 12 HRS, NOTES: > 6 MONTHS TAKING FLONASE 50 MCG/ACT SUSPENSION 1 SPRAY IN EACH NOSTRIL NASALLY ONCE A DAY, NOTES: 08/01/17729 TAKING NICODERM CQ 14 MG/24HR PATCH 24 HOUR 1 PATCH TO SKIN TRANSDERMAL ONCE A DAY, NOTES: 07/31/17 08 TAKING TESSALON PERLES 100 MG CAPSULE 1 CAPSULE NEEDED ORALLY THREE TIMES A DAY, NOTES: > 2 MONTHS TAKING ALBUTEROL SULFATE HFA 108 (90 BASE) MCG/ACT AEROSOL SOLUTION 2 PUFFS NEEDED INHALATION EVERY 4-6 HRS, NOTES: > 6 MONTHS TAKING DUONEB 0.5-2.5 (3) MG/3ML SOLUTION 3 ML INHALATION FOUR TIMES A DAY NEEDED, NOTES: > 6 MONTHS TAKING LATANOPROST 0.005 % SOLUTION 1 DROP INTO AFFECTED EYE IN THE EVENING OPHTHALMIC ONCE A DAY, NOTES: 07/31/172099 TAKING SOOTHE XP - SOLUTION OPHTHALMIC , NOTES: 08/01/17729 TAKING CYMBALTA 60 MG CAPSULE DELAYED RELEASE PARTICLES 1 CAPSULE ORALLY ONCE A DAY, NOTES: 08/01/17729 TAKING CYMBALTA 30 MG CAPSULE DELAYED RELEASE PARTICLES 1 CAPSULE ORALLY ONCE A DAY, NOTES: 08/01/17729 TAKING OMEPRAZOLE 40 MG CAPSULE DELAYED RELEASE TAKE ONE CAPSULE BY MOUTH TWICE A DAY ORALLY TWICE DAILY, NOTES: 08/01/17729 TAKING GABAPENTIN 300 MG CAPSULE 1 CAPSULE ORALLY BID, NOTES: 08/01/17729 DISCONTINUED BENZONATATE 100 MG CAPSULE 1 CAPSULE NEEDED ORALLY THREE TIMES A DAY, NOTES: > 2 MONTHS MEDICATION LIST REVIEWED AND RECONCILED WITH THE PATIENT PAST MEDICAL HISTORY BACK PAIN CHRONIC/DDD - (PREVIOUSLY FOLLOWED BY DR. GUERRERO & DR. 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 CONSTITUTIONAL: ANY CHANGE IN YOUR MEDICAL CONDITION? NO . CHILLS NO . FEVER NO . INFECTION: DO YOU HAVE NEW INFECTIONS? NO . DO YOU HAVE HISTORY OF MRSA? NO . MUSCULOSKELETAL: ANY NEW PATTERNS OF PAIN OR NUMBNESS? NO . GASTROENTEROLOGY: ANY NEW CHANGE IN BOWEL CONTROL? NO . GENITOURINARY: ANY NEW CHANGE IN BLADDER CONTROL? NO . IS THERE A CHANCE YOU COULD BE ? NO . HEMATOLOGY/LYMPH: DO YOU TAKE ANY BLOOD THINNERS? (FOR EXAMPLE- COUMADIN, PLAVIX, AGGRENOX, PLATEL, PRADAXA, OR XARELTO) NO . WHEN WAS YOUR LAST DOSE? DATE: TIME: . NEUROLOGY: HAVE YOU FALLEN IN THE PAST 6 MONTHS? NO . ANY NEW EXTREMITY NUMBNESS OR WEAKNESS? NO . CARDIOLOGY: DO YOU HAVE A PACEMAKER OR DEFIBRILLATOR? NO . RESPIRATORY: HAVE YOU BEEN SICK IN THE PAST WEEK? NO . FEVER NO . FLU LIKE SYMPTOMS? NO . COUGH NO . INTEGUMENTARY: DO YOU HAVE ANY RASHES OR OPEN SORES? NO . ALLERGIC/IMMUNO: ARE YOU ALLERGIC TO SHELLFISH OR IV DYE? NO . ANY NEW ALLERGIES? NO . PSYCHIATRIC: DO YOU HAVE THOUGHTS OF HURTING YOURSELF OR SOMEONE ELSE? NO . ARE YOU ABUSED, NEGLECTED, OR IN AN UNSAFE ENVIRONMENT? NO . ENDOCRINOLOGY: ARE YOU DIABETIC? NO . OTHER: DO YOU NEED ANY PRESCRIPTIONS? NO . IF YES, PLEASE LIST: ____ . ANY NEW PROBLEMS WITH YOUR MEDICATIONS? NO . WHEN DID YOU LAST EAT? ____07/31/17 1700 . WHEN DID YOU LAST DRINK? ____07/31/17 2100 . WHAT DID YOU LAST DRINK? ____TEA . NAME OF PERSON DRIVING YOU HOME? ____ORA WILSON . DO YOU HAVE ANY OTHER QUESTIONS OR CONCERNS NO . VITAL SIGNS WT 135.0 LBS, HT 64.5 IN, BMI 22.81 INDEX, BP 161/82 MM HG, HR 91 /MIN, RR 16 /MIN, TEMP 98.2 F, OXYGEN SAT % 94%, SAFE IN ENV? (Y/N) YES, NA INITIALS TL 0833, REVIEWED BY: ASSESSMENTS SACROILIITIS, NOT ELSEWHERE CLASSIFIED - M46.1 (PRIMARY) PROCEDURES PN SI PRE PROCEDURE DIAGNOSIS SACROILIITIS, SACROILIAC JOINT DYSFUNCTION POST PROCEDURE DIAGNOSIS SACROILIITIS, SACROILIAC JOINT DYSFUNCTION PROCEDURE BILATERAL SACROILIAC JOINT BLOCK SURGEON DR. HENRY PATEL SOIL FERTILITY SPECIALIST NONE ANESTHESIA LOCAL PRE PROCEDURE NOTE PATIENT WITH HISTORY OF CHRONIC LOW BACK PAIN. I EVALUATED THE PATIENT AND REVIEWED THE CHART. I WENT OVER THE RISKS, ALTERNATIVES, AND BENEFITS ASSOCIATED WITH THIS PROCEDURE. THE PATIENT WOULD LIKE TO PROCEED AND GAVE CONSENT TO PERFORM THE PROCEDURE. THE PATIENT DENIES UNEXPLAINABLE WEIGHT LOSS, FEVER, CHILLS, OR NEW CHANGES IN URINARY OR BOWEL CONTROL DESCRIPTION OF PROCEDURE THE PATIENT WAS BROUGHT TO THE PROCEDURE ROOM AND PLACED IN THE PRONE POSITION. THE LUMBOSACRAL AREA WAS CLEANED WITH CHLORAPREP SOLUTION AND DRAPED ASEPTICALLY. THE PROCEDURE WAS DONE UNDER STERILE CONDITIONS. I CHECKED LATERALITY AND THE LEVEL WHERE THE PROCEDURE WAS GOING TO BE PERFORMED WITH THE PATIENT AND THE SUPPORTING STAFF AT THE MOMENT OF THE TIME OUT IN THE PROCEDURE ROOM. UNDER FLUOROSCOPIC GUIDANCE, TARGET POINT WAS SELECTED AT THE LOWER BORDER OF THE RIGHT AND LEFT SACROILIAC JOINT. TARGET POINT WAS SELECTED AFTER MEDIAL ROTATION AND TILT OF THE MAGNIFIER OF THE C-ARM. LIDOCAINE WAS USED TO NUMB THE SKIN AND SUBCUTANEOUS TISSUE BELOW IT. A SPINAL NEEDLE, 22-GAUGE, WAS ADVANCED UNDER FLUOROSCOPIC GUIDANCE AND FOLLOWING PATIENT FEEDBACK UNTIL THE TARGET AREA WAS TOUCHED. THE POSITION OF THE NEEDLE WAS VERIFIED WITH AP AND LATERAL VIEWS. AFTER PROPER POSITION OF THE NEEDLE WAS ACHIEVED, ISOVUE M DYE 30%, 0.25 ML, WAS INJECTED SHOWING SPREAD OF THE DYE. THEN, A SOLUTION OF 20 MG OF KENALOG WAS INJECTED IN RIGHT JOINT WITH 3 ML OF BUPIVACAINE 0.125%. THERE WAS NO EVIDENCE OF BLOOD, PARESTHESIA OR CEREBROSPINAL FLUID DURING THE PROCEDURE. THE PATIENT WAS SENT TO THE RECOVERY ROOM. THE PATIENT WAS MOVING THE EXTREMITIES AND DOING WELL. THERE WAS NO COMPLICATION DURING THE PROCEDURE. FLUOROSCOPY TIME WAS 13 SECONDS POST PROCEDURE NOTE THE PATIENT WILL BE SEEN IN A FOLLOW UP IN THE NEXT FEW WEEKS. INSTRUCTIONS WERE GIVEN, QUESTIONS WERE ANSWERED, AND THE PATIENT EXPRESSED UNDERSTANDING AND AGREED WITH THE PLAN. I, DANE BHAKTA, DOCUMENTED THE ABOVE INFORMATION ACTING A SCRIBE FOR DR. PATEL. I HAVE REVIEWED THE ABOVE DOCUMENT, WRITTEN BY DANE CARTER AND I VERIFY THAT IT IS ACCURATE. DIAGNOSTIC IMAGING [facility] FLUORO GUIDANCE (PAIN)[id number] PROCEDURE CODES 74264 INJECT SACROILIAC JOINT, MODIFIERS: 50 [id number] RADXPS IN END [id number] PXD DISPOSITION & COMMUNICATION FOLLOW UP 3 WEEKS ELECTRONICALLY SIGNED BY HENRY PATEL MD ON 08/13/2017 AT 09:49 PM EST DISCLAIMER : THIS IS A VISIT SUMMARY EXTRACTED FROM THE [employer] CHART. IT IS NOT A COPY OF THE [employer] PROGRESS NOTE. MTDD
== END ==
LOC: M PAIN 08:30
PROVIDERS: ATTEND Anesthesiology
DX: G89.29 Other chronic pain (principal); M46.1 Sacroiliitis, not elsewhere classified; J44.9 Chronic obstructive pulmonary disease, unspecified; E78.4 Other hyperlipidemia; E55.9 Vitamin D deficiency, unspecified; Z88.5 Allergy status to narcotic agent; Z88.8 Allergy status to other drugs, medicaments and biological substances; Z79.899 Other long term (current) drug therapy
CPT/HCPCS: 27096; J3301; Q9967

== ENCOUNTER → 2017-08-28 | Outpatient (CLI) | payer MEDICARE, OTHER | LOC: M PAIN 10:15 | DX: M53.3 Sacrococcygeal disorders, not elsewhere classified (principal); M54.5 Low back pain; G25.81 Restless legs syndrome; K21.9 Gastro-esophageal reflux disease without esophagitis; M19.90 Unspecified osteoarthritis, unspecified site; J44.9 Chronic obstructive pulmonary disease, unspecified; E78.5 Hyperlipidemia, unspecified; E55.9 Vitamin D deficiency, unspecified; Q07.00 Arnold-Chiari syndrome without spina bifida or hydrocephalus; F17.210 Nicotine dependence, cigarettes, uncomplicated; Z88.5 Allergy status to narcotic agent; Z88.8 Allergy status to other drugs, medicaments and biological substances; Z79.899 Other long term (current) drug therapy | CPT/HCPCS: G0463 ==

== ENCOUNTER → 2017-09-24 | Outpatient (CLI) | payer MEDICARE, OTHER | LOC: M ADAMS 14:08 | DX: M25.561 Pain in right knee (principal) | CPT/HCPCS: 73560 ==

== ENCOUNTER → 2017-10-27 | Outpatient (REF) | payer MEDICARE, OTHER | LOC: M LAB REF 18:48 | DX: J02.9 Acute pharyngitis, unspecified (principal) | CPT/HCPCS: 87081 ==

== ENCOUNTER → 2017-10-29 | Outpatient (CLI) | payer MEDICARE | LOC: M PAIN 09:00 | DX: G89.29 Other chronic pain (principal); M51.36 Other intervertebral disc degeneration, lumbar region; M53.3 Sacrococcygeal disorders, not elsewhere classified; K21.9 Gastro-esophageal reflux disease without esophagitis; K64.8 Other hemorrhoids; J44.9 Chronic obstructive pulmonary disease, unspecified; E78.5 Hyperlipidemia, unspecified; E55.9 Vitamin D deficiency, unspecified; H26.9 Unspecified cataract; M54.81 Occipital neuralgia; M48.02 Spinal stenosis, cervical region; Q07.00 Arnold-Chiari syndrome without spina bifida or hydrocephalus; Z88.5 Allergy status to narcotic agent; Z88.8 Allergy status to other drugs, medicaments and biological substances; Z79.899 Other long term (current) drug therapy | CPT/HCPCS: G0463 ==

== ENCOUNTER → 2017-11-19 | Outpatient (CLI) | payer MEDICARE ==
[~2017-11-19] MED LIST changes: -ATOR40TA75 PO; +BUPIVACAINE HCL 0.25% 30 ML VIAL As Ordered; -BUPIVACAINE HCL 0.25% 30 ML VIAL As Ordered ONE; -CELE1CAP4 PO; -COLA100C2 OR; -DEPA1TAB3 PO; -DULO1CAP3 PO; -GABA-279 PO; -IBUP600T OR; -IBUP80TA PO; +ISOVUE-M 300 61% 15ML VIAL (Q9967) As Ordered; -ISOVUE-M 300 61% 15ML VIAL (Q9967) As Ordered ONE; +LIDOCAINE 1% SDV INJ 30 ML VIAL As Ordered; -LIDOCAINE 1% SDV INJ 30 ML VIAL As Ordered ONE; -LODINE PO; -MELO15TA4 PO; -MIRA3350 PO; -MULT1CHW39 PO; -MULTCAP PO; -MULTIVITAMIN GUMMY PO; -NEUROTIN PO; -OMEP20TA7 OR; -OMEP40CA2 PO; -ROPI0.25 PO; +TRIAMCINOLONE ACETONIDE SUSP 40 MG/ML VIAL (J3301) As Ordered; -TRIAMCINOLONE ACETONIDE SUSP 40 MG/ML VIAL (J3301) As Ordered ONE; -TYLE1TAB5 PO; -VICO5TAB OR; -VITA1CAP25 PO; +diazePAM 5 MG TAB As Ordered; -diazePAM 5 MG TAB As Ordered ONE; +oxyCODONE 5MG TAB As Ordered; -oxyCODONE 5MG TAB As Ordered ONE
== END ==
LOC: M PAIN 08:45
DX: G89.29 Other chronic pain (principal); M46.1 Sacroiliitis, not elsewhere classified; K21.9 Gastro-esophageal reflux disease without esophagitis; J44.9 Chronic obstructive pulmonary disease, unspecified; E78.5 Hyperlipidemia, unspecified; E55.9 Vitamin D deficiency, unspecified; Q07.00 Arnold-Chiari syndrome without spina bifida or hydrocephalus; M54.81 Occipital neuralgia; F17.210 Nicotine dependence, cigarettes, uncomplicated; Z79.899 Other long term (current) drug therapy; Z88.8 Allergy status to other drugs, medicaments and biological substances
CPT/HCPCS: J3301

== ENCOUNTER → 2017-12-06 | Outpatient (CLI) | payer MEDICARE | LOC: M PAIN 09:30 | DX: M43.07 Spondylolysis, lumbosacral region (principal); M54.5 Low back pain; M53.3 Sacrococcygeal disorders, not elsewhere classified; K21.9 Gastro-esophageal reflux disease without esophagitis; M19.90 Unspecified osteoarthritis, unspecified site; J44.9 Chronic obstructive pulmonary disease, unspecified; E78.5 Hyperlipidemia, unspecified; Q07.00 Arnold-Chiari syndrome without spina bifida or hydrocephalus; F17.210 Nicotine dependence, cigarettes, uncomplicated; Z79.899 Other long term (current) drug therapy; Z88.5 Allergy status to narcotic agent; Z88.8 Allergy status to other drugs, medicaments and biological substances | CPT/HCPCS: G0463 ==

== ENCOUNTER → 2017-12-23 | Outpatient (CLI) | payer MEDICARE | LOC: M PAIN 08:30 | DX: G89.29 Other chronic pain (principal); M47.816 Spondylosis without myelopathy or radiculopathy, lumbar region; M47.817 Spondylosis without myelopathy or radiculopathy, lumbosacral region; K21.9 Gastro-esophageal reflux disease without esophagitis; K64.8 Other hemorrhoids; J44.9 Chronic obstructive pulmonary disease, unspecified; E78.5 Hyperlipidemia, unspecified; E55.9 Vitamin D deficiency, unspecified; M54.81 Occipital neuralgia; Z79.899 Other long term (current) drug therapy; Z88.5 Allergy status to narcotic agent; Z88.8 Allergy status to other drugs, medicaments and biological substances | CPT/HCPCS: J3301 ==

== ENCOUNTER → 2018-01-06 | Outpatient (CLI) | payer MEDICARE | LOC: M PAIN 10:15 | DX: M54.6 Pain in thoracic spine (principal); M43.07 Spondylolysis, lumbosacral region; G89.29 Other chronic pain; K21.9 Gastro-esophageal reflux disease without esophagitis; M19.90 Unspecified osteoarthritis, unspecified site; J44.9 Chronic obstructive pulmonary disease, unspecified; E78.5 Hyperlipidemia, unspecified; Q07.03 Arnold-Chiari syndrome with spina bifida and hydrocephalus; F17.210 Nicotine dependence, cigarettes, uncomplicated; Z79.899 Other long term (current) drug therapy; Z88.5 Allergy status to narcotic agent; Z88.8 Allergy status to other drugs, medicaments and biological substances | CPT/HCPCS: G0463 ==

== ENCOUNTER 2018-01-30 13:34 | Emergency (ER) | payer MEDICARE ==
[2018-01-30 14:25] LABS: ABG BASE EXCESS -1.9 (-2.0-2.0); ABG HCO3 24.8 MEQ/L (22.0-26.0); ABG O2 SATURATION 93.2 % (95.0-99.0); ABG PARTIAL PRESSURE CO2 49.8 mmHg (35.0-45.0); ABG PARTIAL PRESSURE O2 68.1 mmHg (75.0-100.0); ABG STANDARD HCO3 22.8 MEQ/L (22.0-26.0); ABG TOTAL CO2 26.3 MEQ/L (23.0-31.0); ABG pH (ARTERIAL) 7.315 UNITS (7.350-7.450)
[2018-01-30] MEDS: NS 1,000 ML IV (14:26)
[2018-01-30] MEDS: IPRATROPIUM 0.5MG/ALBUTEROL 2.5MG INH SOL UD 3ML (DUONEB)(J7620) NEB (14:33)
[2018-01-30 14:35] LABS: BASO % 0.2 % (0.0-1.0); HEMATOCRIT 42.4 % (36.0-47.0); HEMOGLOBIN 13.6 g/dl (12.0-15.5); IMMATURE GRANULOCYTE % 0.2 % (0-3.0); LYMPH # 0.6 10^3/uL (1.5-4.5); LYMPH % 7.3 % (24.0-44.0); MEAN CORPUSCULAR HEMOGLOBIN 31.6 pg (27.0-33.0); MEAN CORPUSCULAR HGB CONC 32.1 g/dl (32.0-36.5); MEAN CORPUSCULAR VOLUME 98.6 fl (80.0-96.0); MONO # 0.1 10^3/uL (0.0-0.8); NEUTROPHILS # 7.9 10^3/uL (1.8-7.7); NEUTROPHILS % 91.3 % (36.0-66.0); PLATELET COUNT, AUTOMATED 205 10^3/uL (150-450); WHITE BLOOD COUNT 8.7 10^3/uL (4.0-10.0)
[2018-01-30 15:02] LABS: ANION GAP 3 MEQ/L (8-16); BLOOD UREA NITROGEN 10 MG/DL (7-18); CALCIUM LEVEL 8.7 MG/DL (8.8-10.2); CARBON DIOXIDE LEVEL 31 MEQ/L (21-32); CHLORIDE LEVEL 110 MEQ/L (98-107); CREATININE FOR GFR 0.78 MG/DL (0.55-1.30); GLOMERULAR FILTRATION RATE > 60.0 (>45); GLUCOSE, FASTING 157 MG/DL (70-100); POTASSIUM SERUM 4.3 MEQ/L (3.5-5.1); SODIUM LEVEL 144 MEQ/L (136-145)
== END 2018-01-30 15:49 | disposition home or self-care (01) ==
LOC: M ED 13:34
DX: R06.02 Shortness of breath (principal); Z98.890 Other specified postprocedural states; J44.9 Chronic obstructive pulmonary disease, unspecified; E11.9 Type 2 diabetes mellitus without complications; I10 Essential (primary) hypertension; F17.200 Nicotine dependence, unspecified, uncomplicated; Z88.5 Allergy status to narcotic agent; Z88.8 Allergy status to other drugs, medicaments and biological substances; Z79.899 Other long term (current) drug therapy
CPT/HCPCS: 71045

== ENCOUNTER → 2018-02-26 | Outpatient (CLI) | payer MEDICARE | LOC: M ADAMS 08:22 | DX: M47.814 Spondylosis without myelopathy or radiculopathy, thoracic region (principal); E78.4 Other hyperlipidemia; E78.00 Pure hypercholesterolemia, unspecified; E55.9 Vitamin D deficiency, unspecified; Z79.899 Other long term (current) drug therapy | CPT/HCPCS: 80053 ==

== ENCOUNTER → 2018-02-26 | Outpatient (REF) | payer MEDICARE ==
[2018-02-26 12:47] LABS: ALBUMIN 3.8 GM/DL (3.2-5.2); ALBUMIN/GLOBULIN RATIO 1.09 (1.00-1.93); ALKALINE PHOSPHATASE 68 U/L (45-117); ALT/SGPT 21 U/L (12-78); ANION GAP 6 MEQ/L (8-16); AST/SGOT 20 U/L (7-37); BILIRUBIN,TOTAL 0.4 MG/DL (0.2-1.0); BLOOD UREA NITROGEN 13 MG/DL (7-18); CALCIUM LEVEL 8.7 MG/DL (8.8-10.2); CARBON DIOXIDE LEVEL 29 MEQ/L (21-32); CHLORIDE LEVEL 107 MEQ/L (98-107); CHOLESTEROL LEVEL 128 MG/DL (<200); CHOLESTEROL RISK RATIO 1.729 (<5); CREATININE FOR GFR 0.85 MG/DL (0.55-1.30); GLOMERULAR FILTRATION RATE > 60.0 (>45); GLUCOSE, FASTING 85 MG/DL (70-100); HDL CHOLESTEROL 74 MG/DL (>40); LDL CHOLESTEROL 29.8 MG/DL (<100); NON-HDL-C 54 MG/DL; POTASSIUM SERUM 3.8 MEQ/L (3.5-5.1); SODIUM LEVEL 142 MEQ/L (136-145); TOTAL PROTEIN 7.3 GM/DL (6.4-8.2); TRIGLYCERIDES LEVEL 121 MG/DL (<150)
[2018-02-26 12:55] LABS: TOTAL 25(OH) VITAMIN D 59.6 NG/ML (30.0-100.0)
== END ==
LOC: M SFHCADAM 08:01
DX: E78.4 Other hyperlipidemia (principal); E78.00 Pure hypercholesterolemia, unspecified; E55.9 Vitamin D deficiency, unspecified

== ENCOUNTER → 2018-03-07 | Outpatient (CLI) | payer MEDICARE | LOC: M PAIN 08:45 | DX: M53.3 Sacrococcygeal disorders, not elsewhere classified (principal); M43.07 Spondylolysis, lumbosacral region; M54.5 Low back pain; G89.29 Other chronic pain; K21.9 Gastro-esophageal reflux disease without esophagitis; M19.90 Unspecified osteoarthritis, unspecified site; J44.9 Chronic obstructive pulmonary disease, unspecified; E78.5 Hyperlipidemia, unspecified; E55.9 Vitamin D deficiency, unspecified; Q07.00 Arnold-Chiari syndrome without spina bifida or hydrocephalus; G47.33 Obstructive sleep apnea (adult) (pediatric); F17.210 Nicotine dependence, cigarettes, uncomplicated; Z79.899 Other long term (current) drug therapy; Z88.5 Allergy status to narcotic agent; Z88.8 Allergy status to other drugs, medicaments and biological substances | CPT/HCPCS: G0463 ==

== ENCOUNTER → 2018-03-31 | Outpatient (CLI) | payer MEDICARE | LOC: M PAIN 08:30 | DX: G89.29 Other chronic pain (principal); M46.1 Sacroiliitis, not elsewhere classified; M53.88 Other specified dorsopathies, sacral and sacrococcygeal region; K21.9 Gastro-esophageal reflux disease without esophagitis; M19.90 Unspecified osteoarthritis, unspecified site; J44.9 Chronic obstructive pulmonary disease, unspecified; E78.5 Hyperlipidemia, unspecified; E55.9 Vitamin D deficiency, unspecified; G47.33 Obstructive sleep apnea (adult) (pediatric); F17.210 Nicotine dependence, cigarettes, uncomplicated; Q07.00 Arnold-Chiari syndrome without spina bifida or hydrocephalus; Z79.899 Other long term (current) drug therapy; Z88.5 Allergy status to narcotic agent; Z88.8 Allergy status to other drugs, medicaments and biological substances | CPT/HCPCS: J3301 ==

== ENCOUNTER → 2018-04-24 | Outpatient (REF) | payer MEDICARE ==
[2018-04-24 12:10] LABS: BASO # 0.1 10^3/uL (0.0-0.2); BASO % 0.7 % (0.0-1.0); EOS # 0.1 10^3/uL (0.0-0.50); EOS % 1.6 % (0.0-3.0); HEMATOCRIT 42.8 % (36.0-47.0); HEMOGLOBIN 13.5 g/dl (12.0-15.5); IMMATURE GRANULOCYTE % 0.3 % (0-3.0); LYMPH # 2.5 10^3/uL (1.5-4.5); LYMPH % 33.3 % (24.0-44.0); MEAN CORPUSCULAR HEMOGLOBIN 30.5 pg (27.0-33.0); MEAN CORPUSCULAR HGB CONC 31.5 g/dl (32.0-36.5); MEAN CORPUSCULAR VOLUME 96.6 fl (80.0-96.0); MONO # 0.9 10^3/uL (0.0-0.8); MONO % 11.6 % (0.0-5.0); NEUTROPHILS % 52.5 % (36.0-66.0); PLATELET COUNT, AUTOMATED 231 10^3/uL (150-450); RED BLOOD COUNT 4.43 10^6/uL (4.00-5.40); WHITE BLOOD COUNT 7.6 10^3/uL (4.0-10.0)
[2018-04-24 12:25] LABS: INR 0.88; PARTIAL THROMBOPLASTIN TIME 26.9 SECONDS (25.4-37.6)
[2018-04-24 12:49] LABS: ALBUMIN 3.9 GM/DL (3.2-5.2); ALBUMIN/GLOBULIN RATIO 1.03 (1.00-1.93); ALKALINE PHOSPHATASE 79 U/L (45-117); ALT/SGPT 26 U/L (12-78); ANION GAP 4 MEQ/L (8-16); AST/SGOT 26 U/L (7-37); BILIRUBIN,TOTAL 0.4 MG/DL (0.2-1.0); BLOOD UREA NITROGEN 12 MG/DL (7-18); CALCIUM LEVEL 9.3 MG/DL (8.8-10.2); CARBON DIOXIDE LEVEL 33 MEQ/L (21-32); CHLORIDE LEVEL 103 MEQ/L (98-107); CREATININE FOR GFR 0.83 MG/DL (0.55-1.30); GLOMERULAR FILTRATION RATE > 60.0 (>45); GLUCOSE, FASTING 80 MG/DL (70-100); POTASSIUM SERUM 4.4 MEQ/L (3.5-5.1); SODIUM LEVEL 140 MEQ/L (136-145); TOTAL PROTEIN 7.7 GM/DL (6.4-8.2)
== END ==
LOC: M SFHCADAM 08:18
DX: R23.3 Spontaneous ecchymoses (principal)
CPT/HCPCS: 80053

== ENCOUNTER → 2018-05-16 | Outpatient (CLI) | payer MEDICARE | LOC: M PAIN 13:30 | DX: M53.3 Sacrococcygeal disorders, not elsewhere classified (principal); M43.07 Spondylolysis, lumbosacral region; M54.5 Low back pain; G89.29 Other chronic pain; K21.9 Gastro-esophageal reflux disease without esophagitis; J44.9 Chronic obstructive pulmonary disease, unspecified; E78.5 Hyperlipidemia, unspecified; E55.9 Vitamin D deficiency, unspecified; G47.33 Obstructive sleep apnea (adult) (pediatric); M19.90 Unspecified osteoarthritis, unspecified site; F17.210 Nicotine dependence, cigarettes, uncomplicated; Z79.899 Other long term (current) drug therapy; Z88.5 Allergy status to narcotic agent; Z88.8 Allergy status to other drugs, medicaments and biological substances | CPT/HCPCS: G0463 ==

== ENCOUNTER → 2018-06-16 | Outpatient (CLI) | payer MEDICARE ==
[~2018-06-16] MED LIST changes: -BUPIVACAINE HCL 0.25% 30 ML VIAL As Ordered; +GASTROGRAFIN SOLUTION 30ML (Q9963) As Ordered; +ISOVUE-370 76% 100ML VIAL (Q9967) As Ordered; -ISOVUE-M 300 61% 15ML VIAL (Q9967) As Ordered; -LIDOCAINE 1% SDV INJ 30 ML VIAL As Ordered; -TRIAMCINOLONE ACETONIDE SUSP 40 MG/ML VIAL (J3301) As Ordered; -diazePAM 5 MG TAB As Ordered; -oxyCODONE 5MG TAB As Ordered
== END ==
LOC: M RAD 11:33
DX: R59.9 Enlarged lymph nodes, unspecified (principal)
CPT/HCPCS: Q9963

== ENCOUNTER → 2018-08-05 | Outpatient (CLI) | payer MEDICARE | LOC: M ADAMS 15:19 | DX: R05 Cough (principal); F17.218 Nicotine dependence, cigarettes, with other nicotine-induced disorders | CPT/HCPCS: 71046 ==

== ENCOUNTER → 2018-08-15 | Outpatient (CLI) | payer MEDICARE ==
[~2018-08-15] MED LIST changes: +ALBU83IN INH; +ATOR40TA75 PO; +CELE1CAP4 PO; +CODE30TA3 PO; +COLA100C2 OR; +DEPA1TAB3 PO; +DULO1CAP2 PO; +DULO1CAP3 PO; +FLUTISP; +GABA-1171 PO; -GASTROGRAFIN SOLUTION 30ML (Q9963) As Ordered; +IBUP600T OR; +IBUP80TA PO; -ISOVUE-370 76% 100ML VIAL (Q9967) As Ordered; +LATA5OPD OU; +LODINE PO; +MELO15TA28 PO; +MIRA3350 PO; +MULT1CHW39 PO; +MULTCAP PO; +MULTIVITAMIN GUMMY PO; +NEUROTIN PO; +OMEP20TA7 OR; +OMEP40CA2 PO; +ROPI0.253 PO; +ROSU20TA4 PO; +TYLE1TAB5 PO; +VICO5TAB OR; +VITA1CAP25 PO; +ZONI50CA3 PO
--- NOTE | 2018-09-08 00:35 | ECWPNPC ---
PATIENT NAME: NATALI WILSON : 1950 GENDER: FEMALE VISIT DATE: 08/15/2018 DISCHARGE DATE: 08/15/18 1400 VISIT LOCKED DATE TIME: PHYSICIAN: JORGE MCCARTHY RESOURCE: JORGE MCCARTHY REASON FOR APPOINTMENT 1. BACK HISTORY OF PRESENT ILLNESS DEPRESSION SCREENING: PHQ-2 IN LAST TWO WEEKS HAVE YOU BEEN BOTHERED BY LITTLE INTEREST OR PLEASURE IN DOING THINGSNO FEELING DOWN, DEPRESSED, OR HOPELESSNO HISTORY OF PRESENT ILLNESS: HERE FOR F/U OF CHRONIC LOW BACK PAIN.PAIN HAS BEEN AGGREVATED OVER THE PAST MONTH.RATING LOW BACK PAIN 8/10 VAS.DISCUSSED MEDICATION AND TREATMENT OPTIONS. PAIN THE PATIENT DESCRIBES THE PAIN... FALL RISK SCREENING: SCREENING :NO FALLS IN THE PAST YEAR CURRENT MEDICATIONS TAKING BREO ELLIPTA 100-25 MCG/INH AEROSOL POWDER BREATH ACTIVATED 1 PUFF INHALATION ONCE A DAY TAKING MUCINEX 600 MG TABLET EXTENDED RELEASE 12 HOUR 1 TABLET NEEDED ORALLY EVERY 12 HRS TAKING ALBUTEROL SULFATE HFA 108 (90 BASE) MCG/ACT AEROSOL SOLUTION 2 PUFFS NEEDED INHALATION EVERY 4-6 HRS TAKING DUONEB 0.5-2.5 (3) MG/3ML SOLUTION 3 ML INHALATION FOUR TIMES A DAY NEEDED TAKING MULTIVITAMIN OTC TABLET 1 TAB(S) ORALLY ONCE DAILY TAKING LATANOPROST 0.005 % SOLUTION 1 DROP INTO AFFECTED EYE IN THE EVENING OPHTHALMIC ONCE A DAY TAKING SOOTHE XP - SOLUTION OPHTHALMIC TAKING ZONISAMIDE 50 MG CAPSULE 1 CAPSULE ORALLY THREE TIMES DAILY TAKING TYLENOL ARTHRITIS PAIN 2 TABLETS NEEDED ORALLY 2-3 TIMES/DAY TAKING VITAMIN D (ERGOCALCIFEROL) 22721 UNIT CAPSULE TAKE ONE CAPSULE BY MOUTH ONCE WEEKLY TAKING OMEPRAZOLE 40 MG CAPSULE DELAYED RELEASE TAKE ONE CAPSULE BY MOUTH TWICE A DAY ORALLY TWICE DAILY TAKING GABAPENTIN 300 MG CAPSULE 1 CAPSULE ORALLY BID TAKING CRESTOR 20 MG TABLET 1 TABLET ORALLY ONCE A DAY TAKING FLONASE 50 MCG/ACT SUSPENSION 1 SPRAY IN EACH NOSTRIL NASALLY ONCE A DAY TAKING CYMBALTA 60 MG CAPSULE DELAYED RELEASE PARTICLES 1 CAPSULE ORALLY ONCE A DAY TDD= 90MG TAKING CYMBALTA 30 MG CAPSULE DELAYED RELEASE PARTICLES 1 CAPSULE ORALLY ONCE A DAY TTD=90 MG MEDICATION LIST REVIEWED AND RECONCILED WITH THE PATIENT PAST MEDICAL HISTORY BACK PAIN CHRONIC/DDD - (PREVIOUSLY FOLLOWED BY DR. GUERRERO & DR. 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, FOLLOWED BY NEURO DAVID - ON CPAP PER NEUROLOGY STARTED 08/28/18 IBS WITH CONSTIPATION ALLERGIES VICODIN: ITCHING: SIDE EFFECTS ATORVASTATIN CALCIUM: ELEVATED LIVER ENZYMES: SIDE EFFECTS CHANTIX: HALLUCINATIONS AND SI: SIDE EFFECTS SURGICAL HISTORY TONSILLECTOMY A CHILD APPENDECTOMY A CHILD CARPAL TUNNEL RELEASE/CORNELIO RIGHT/ FOOT - BABY TOE- BONE REMOVED D& C, 3 OR 4 INGUINAL HERNIA REPAIR- DOUBLE ONE HYSTERECTOMY & BSO (DUE TO UTERINE PROLAPSE) 2011 CARPAL TUNNEL RELEASE 2014 CATARACT SURGERY 01/17/17 EGD/COLONOSCOPY - NORMAL EGD/YUBULAR ADENOMATOUS AND HYPERPLASTIC POLYP (F/U IN 3 - [address] NOYOLA 11/2015 RIGHT KNEE ARTHROSCOPE- REPAIRED LIGAMENTS,MENISCUS, REMOVAL ARTHRITIS 01/30/2018 FAMILY HISTORY FATHER: 69 YRS, DIAGNOSED WITH HEART DISEASE MOTHER: 80 YRS, DIAGNOSED WITH DIABETES, HYPERTENSION 1 BROTHER(S) , 1 SISTER(S) - HEALTHY. BROTHER,25 MVA, BROTHER 30'S AIDS, BROTHER 58 HEART ATTACK, BROTHER 64 HEART, LUNGS . SOCIAL HISTORY GENERAL: TOBACCO USE ARE YOU A:CURRENT SMOKER ARE YOU INTERESTED IN QUITTING?READY TO QUIT PT HAS CUT WAY BACK TO 2 CIGS/DAY. USING THE NICOTINE PATCH PREVIOUS QUIT ATTEMPTS?YES, WITHIN THE LAST 6 MONTHS. COUNSELED THE PATIENT ON TOBACCO USE, CESSATION [id number]/14/2018 HOW MANY CIGARETTES A DAY DO YOU SMOKE?5 OR LESS HOW SOON AFTER YOU WAKE UP DO YOU SMOKE YOUR FIRST CIGARETTE?6-30 MIN HOW OFTEN DO YOU SMOKE CIGARETTES?EVERY DAY PATIENT COUNSELED ON THE DANGERS OF TOBACCO USE AND URGED TO QUIT:08/15/2018 SMOKING CESSATION INFORMATION GIVEN05/16/2018 USING THE PATCH LUNG CANCER SCREENING SMOKING STATUS:CURRENT SMOKER IS THE PATIENT BETWEEN THE AGE OF 57 AND 79?YES HAS THE PATIENT EVER BEEN DIAGNOSED WITH LUNG CANCER?NO PACK YEARS = NUMBER OF PACKS PER DAY SMOKED X NUMBER OF YEARS SMOKED:60 CREATE REFERRAL:GENERATE AND CREATE REFERRAL TO THE ONCOLOGY NURSE NAVIGATOR (SMP) LISTING USING THE LDCT SCAN PROCEDURE ALCOHOL SCREENING DID YOU HAVE A DRINK CONTAINING ALCOHOL IN THE PAST YEAR?NO POINTS0 INTERPRETATIONNEGATIVE RECREATIONAL DRUG USE DRUG USE?NO CAFFEINE CAFFEINE USE?YES TEA SEXUAL HX HAD SEX IN THE LAST 12 MONTHS (VAGINAL, ORAL, OR ANAL)?YES WITHMEN ONLY USE PROTECTION?NO LMP:HYSTER HAVE YOU EVER HAD AN STD?NO SIKHISM SIKHISM NO JUDAISM BELIEFS THAT WOULD IMPACT HEALTH CARE. LANGUAGE LANGUAGES SPOKEN:YI LEARNING BARRIERS / SPECIAL NEEDS CHANGE FROM LAST VISIT?NO BARRIERS TO LEARNING?NO HEARING IMPAIRED?NO VISION IMPAIRED?YES COGNITIVELY IMPAIRED?NO :CORRECTIVE LENSES READINESS TO LEARN?YES LEARNING PREFERENCES?NO LEARNING CAPABILITIES PRESENT?YES EMOTIONAL BARRIERS?NO SPECIAL DEVICES?NO MOBILE BATTERY TECHNICIAN NEEDED?NO DIET: REGULAR. EXERCISE: NO REGULAR EXERCISE. NEW PATIENT PAIN DIARY FROM 0-10, WHAT LEVEL IS YOUR PAIN TODAY?6 PAIN CLINIC PFS, CLERGY, PUBLIC HEALTH REFERRALS WAS THE PROVIDER NOTIFIED OF ANY PERTINENT INFO?YES HAS THE PATIENT BEEN EDUCATED REGARDING HIS/HER PLAN OF CARE?YES HAS THE PATIENT BEEN EDUCATED REGARDING PAIN, THE RISK FOR PAIN, THE IMPORTANCE OF EFFECTIVE PAIN MANAGEMENT, AND THE PAIN ASSESSMENT PROCESS?YES ADVANCE DIRECTIVE ADVANCE DIRECTIVE DISCUSSED WITH PATIENT:YES DECLINED HCP INFORMATION, STATES SHE HAS THE INFORMATION AT HOME REVIEWED WITH PT 05/16/18 1338 LASREVIEWED WITH PATIENT 08/15/18 1314 JS. HOSPITALIZATION/MAJOR DIAGNOSTIC PROCEDURE SURGERIES CHILDBIRTH X4 PNEUMONIA REVIEW OF SYSTEMS REVIEWED BY: PROVIDER: JORGE CALIX . CONSTITUTIONAL: ANY CHANGE IN YOUR MEDICAL CONDITION? NO . CHILLS NO . FEVER NO . INFECTION: DO YOU HAVE NEW INFECTIONS? NO . DO YOU HAVE HISTORY OF MRSA? NO . MUSCULOSKELETAL: ANY NEW PATTERNS OF PAIN OR NUMBNESS? NO . GASTROENTEROLOGY: ANY NEW CHANGE IN BOWEL CONTROL? NO . GENITOURINARY: ANY NEW CHANGE IN BLADDER CONTROL? NO . IS THERE A CHANCE YOU COULD BE ? NO . HEMATOLOGY/LYMPH: DO YOU TAKE ANY BLOOD THINNERS? (FOR EXAMPLE- COUMADIN, PLAVIX, AGGRENOX, PLATEL, PRADAXA, OR XARELTO) NO . WHEN WAS YOUR LAST DOSE? DATE: TIME: . NEUROLOGY: HAVE YOU FALLEN IN THE PAST 6 MONTHS? YES, STATES SHE SLIPPED ON ICE ON THE STAIRS YESTERDAY. STATES TO INJURIES, JUST THAT SHE'S SORE. STATES NO ED VISIT AND NO IMAGING . ANY NEW EXTREMITY NUMBNESS OR WEAKNESS? NO . CARDIOLOGY: DO YOU HAVE A PACEMAKER OR DEFIBRILLATOR? NO . RESPIRATORY: HAVE YOU BEEN SICK IN THE PAST WEEK? NO . FEVER NO . FLU LIKE SYMPTOMS? NO . COUGH NO . INTEGUMENTARY: DO YOU HAVE ANY RASHES OR OPEN SORES? NO . ALLERGIC/IMMUNO: ARE YOU ALLERGIC TO SHELLFISH OR IV DYE? NO . ANY NEW ALLERGIES? NO . PSYCHIATRIC: DO YOU HAVE THOUGHTS OF HURTING YOURSELF OR SOMEONE ELSE? NO . ARE YOU ABUSED, NEGLECTED, OR IN AN UNSAFE ENVIRONMENT? NO . ENDOCRINOLOGY: ARE YOU DIABETIC? NO . OTHER: DO YOU NEED ANY PRESCRIPTIONS? NO . IF YES, PLEASE LIST: ____ . ANY NEW PROBLEMS WITH YOUR MEDICATIONS? NO . WHEN DID YOU LAST EAT? ____ . WHEN DID YOU LAST DRINK? ____ . WHAT DID YOU LAST DRINK? ____ . NAME OF PERSON DRIVING YOU HOME? ____ . DO YOU HAVE ANY OTHER QUESTIONS OR CONCERNS NO . VITAL SIGNS WT 143 LBS, HT 64.5 IN, BMI 24.16 INDEX, BP 151/79 MM HG, HR 92 /MIN, RR 18 /MIN, TEMP 97.6 F, OXYGEN SAT % 93%, SAFE IN ENV? (Y/N) YES, NA INITIALS WY 13:12, REVIEWED BY: ESTEFANIA. EXAMINATION GENERAL EXAMINATION: LUNGS:LUNG SOUNDS ARE CLEAR. HEART:HEART RATE REGULAR. MUSCULOSKELETAL:*, MUSCLE STRENGTH TESTING 5/5 BLE. PALPATION: NEG. FOR PAIN OVER L/S SPINE. SPECIFIC POINT TENDERNESS OVER BILAT. L3/4-L4/5 FACETS. DIAGNOSTIC:MRI L/S SPINE-2-16. ASSESSMENTS LUMBOSACRAL SPONDYLOLYSIS - M43.07 (PRIMARY) TREATMENT LUMBOSACRAL SPONDYLOLYSIS CONTINUE CYMBALTA CAPSULE DELAYED RELEASE PARTICLES, 60 MG, 1 CAPSULE, ORALLY, ONCE A DAY TDD= 90MG CONTINUE CYMBALTA CAPSULE DELAYED RELEASE PARTICLES, 30 MG, 1 CAPSULE, ORALLY, ONCE A DAY TTD=90 MG START PERCOCET TABLET, 5-325 MG, 1 TABLET NEEDED, ORALLY, EVERY 6 HRS PRN MDD4, 30 DAY(S), 45, REFILLS 0 NOTES: BILAT. L3/4-L4/5 DIAGNOSTIC BLOCK,FACET JOINT INJECTION MATERIAL WAS PRINTED,FACET JOINT INJECTION: YOUR EXPERIENCE MATERIAL WAS PRINTED, ISTOP REGISTRY REVIEWED AND DEMONSTRATES COMPLLIANCE., RISKS AND BENEFITS OF NARCOTIC/OPIOD MEDICATIONS WERE REVIEWED WITH PATIENT - THIS INCLUDES BUT IS NOT LIMITED TO RISK OF DEPENDANCE/DEVELOPMENT OF ADDICTION, MOOD DISTURBANCE AND DEPRESSION, OSTEOPOROSIS, HORMONAL AND LABIDAL CHANGES, RESPIRATORY DEPRESSION AND . PATIENT IS ADVISED NOT TO DRIVE OR DRINK ALCOHOL WHILE ON THESE MEDICATIONS. PREVENTIVE MEDICINE PAIN CLINIC TEACHING: PROCEDURE TEACHING PRINTED AND REVIEWED FACET INJECTION INFORMATION WITH PATIENT. ALSO REVIEWED PRE-PROCEDURE INSTRUCTIONS. PATIENT VERBALIZED AN UNDERSTANDING. SHASHA BROWN 08/15/2018 2:50:14 PM > . MEDITATION REVIEWED INFORMATION ON NEW MEDICATION, PERCOCET, WITH PATIENT. PATIENT VERBALIZED AN UNDERSTANDING. SHASHA BROWN 08/15/2018 2:51:03 PM > . PROCEDURE CODES FA211 ESTABILISHED PATIENT [facility] FACILITY CHARGE DISPOSITION & COMMUNICATION FOLLOW UP POST (REASON: BILAT. L3/4-L4/5 DIAGNOSTIC BLOCK) ELECTRONICALLY SIGNED BY YOGI CRUZ ON 09/07/2018 AT 05:14 PM EST DISCLAIMER : THIS IS A VISIT SUMMARY EXTRACTED FROM THE [facility] CHART. IT IS NOT A COPY OF THE [facility] PROGRESS NOTE. CINTIA
== END ==
LOC: M PAIN 13:00
PROVIDERS: ATTEND Nurse Practitioner Family
DX: M43.07 Spondylolysis, lumbosacral region (principal); G89.29 Other chronic pain; K21.9 Gastro-esophageal reflux disease without esophagitis; M19.90 Unspecified osteoarthritis, unspecified site; J44.9 Chronic obstructive pulmonary disease, unspecified; E78.5 Hyperlipidemia, unspecified; E55.9 Vitamin D deficiency, unspecified; G47.33 Obstructive sleep apnea (adult) (pediatric); F17.210 Nicotine dependence, cigarettes, uncomplicated; Z79.51 Long term (current) use of inhaled steroids; Z79.899 Other long term (current) drug therapy; Z88.5 Allergy status to narcotic agent; Z88.8 Allergy status to other drugs, medicaments and biological substances

== ENCOUNTER → 2018-09-10 | Outpatient (CLI) | payer MEDICARE ==
--- NOTE | 2018-09-10 10:09 | REPMRS ---
Patient History The patient states she has not had a clinical breast exam in over a year. Patient is postmenopausal. No known family history of cancer. No Hormone Replacement Therapy Digital Woman Screen Mammo: September 10, 2018 - Exam #: [id number] Bilateral CC and MLO view(s) were taken. Technologist: Ailyn Hardy, Technologist No prior studies available for comparison. FINDINGS: There are scattered fibroglandular densities. There is no evidence of dominant mass, architectural distortion, or clustered microcalcification typical of malignancy. 3-D tomosynthesis shows no additional findings. Assessment: BI-RADS/ACR category 1 mammogram. Negative. Recommendation Routine screening mammogram of both breasts in 1 year (for women over age 40). This patient's Lifetime Breast Cancer RIsk is estimated at 5.3 %. This mammogram was interpreted with the aid of an FDA-approved computer-aided dectection system. Electronically Signed By: Ryland Gil MD 09/10/18 [id number]
--- NOTE | 2018-09-15 14:27 | DEXA ---
AP SPINE L1 - L4 1.037 -1.3 0.3 LT FEMUR TOTAL 0.826 -1.4 -0.2 LT NECK 0.788 -1.8 -0.3 RT FEMUR TOTAL 0.804 -1.6 -0.4 RT NECK 0.814 -1.6 -0.1 TOTAL BODY TOTAL OTHER COMMENTS: There is low bone density of the spine and hips. The density of the spine has decreased 11.8% since 05/08/2007. The density of the left hip has decreased 14.4% since 05/08/2007. The density of the right hip has decreased 17.1% since 05/08/2007. FOLLOW-UP: Recommendation for the next bone density exam: 2 years. CINTIA
== END ==
LOC: M WHC 07:47
PROVIDERS: ATTEND Physician Assistant
DX: Z12.31 Encounter for screening mammogram for malignant neoplasm of breast (principal); Z78.0 Asymptomatic menopausal state; Z13.820 Encounter for screening for osteoporosis

== ENCOUNTER → 2018-09-16 | Outpatient (CLI) | payer MEDICARE ==
[~2018-09-16] MED LIST changes: +BUPIVACAINE HCL 0.25% 30 ML VIAL As Ordered ONE; +ISOVUE-M 300 61% 15ML VIAL (Q9967) As Ordered ONE; +LIDOCAINE 1% SDV INJ 30 ML VIAL As Ordered ONE
--- NOTE | 2018-09-16 15:12 | REP ---
FLUOROSCOPIC GUIDANCE FOR LUMBAR FACET BLOCK: 09/16/2018. Clinical history: Low back pain. Findings: Four images from C-arm fluoroscopy provided for bilateral facet injections from L3-4 through L5-S1. Needle at each level on initial image with contrast on the second image at the facets. Fluoroscopy time: 29 seconds. Electronically Signed by Kwesi Crum MD 09/16/2018 08:50 P
--- NOTE | 2018-09-30 01:39 | ECWPNPC ---
PATIENT NAME: NATALI WILSON : 1950 GENDER: FEMALE VISIT DATE: 09/16/2018 DISCHARGE DATE: 09/16/18 1020 VISIT LOCKED DATE TIME: PHYSICIAN: HENRY PATEL MD RESOURCE: HENRY PATEL MD REASON FOR APPOINTMENT 1. BILAT. LUMBAR DIAGNOSTIC BLOCK HISTORY OF PRESENT ILLNESS HISTORY OF PRESENT ILLNESS: PAIN THE PATIENT DESCRIBES THE PAIN... FALL RISK SCREENING: SCREENING :NO FALLS IN THE PAST YEAR CURRENT MEDICATIONS TAKING MUCINEX 600 MG TABLET EXTENDED RELEASE 12 HOUR 1 TABLET NEEDED ORALLY EVERY 12 HRS, NOTES: 09/15/18 PM TAKING MULTIVITAMIN OTC TABLET 1 TAB(S) ORALLY ONCE DAILY, NOTES: 09/15/18 PM TAKING LATANOPROST 0.005 % SOLUTION 1 DROP INTO AFFECTED EYE IN THE EVENING OPHTHALMIC ONCE A DAY, NOTES: 09/15/18 PM TAKING SOOTHE XP - SOLUTION OPHTHALMIC , NOTES: 09/15/18 PM TAKING ZONISAMIDE 50 MG CAPSULE 1 CAPSULE ORALLY THREE TIMES DAILY, NOTES: 09/15/18 PM TAKING TYLENOL ARTHRITIS PAIN 2 TABLETS NEEDED ORALLY 2-3 TIMES/DAY, NOTES: 09/15/18 AM TAKING DUONEB 0.5-2.5 (3) MG/3ML SOLUTION 3 ML INHALATION FOUR TIMES A DAY NEEDED, NOTES: 09/15/18 TAKING OMEPRAZOLE 40 MG CAPSULE DELAYED RELEASE TAKE ONE CAPSULE BY MOUTH TWICE A DAY ORALLY TWICE DAILY, NOTES: 09/15/18 PM TAKING GABAPENTIN 300 MG CAPSULE 1 CAPSULE ORALLY BID, NOTES: 2 DAYS AGO TAKING FLONASE 50 MCG/ACT SUSPENSION 1 SPRAY IN EACH NOSTRIL NASALLY ONCE A DAY, NOTES: 09/16/18 AM TAKING PERCOCET 5-325 MG TABLET 1 TABLET NEEDED ORALLY EVERY 6 HRS PRN MDD4, NOTES: NONE IN WEEKS TAKING BREO ELLIPTA 100-25 MCG/INH AEROSOL POWDER BREATH ACTIVATED 1 PUFF INHALATION ONCE A DAY, NOTES: 09/16/18 AM TAKING ALBUTEROL SULFATE HFA 108 (90 BASE) MCG/ACT AEROSOL SOLUTION 2 PUFFS NEEDED INHALATION EVERY 4-6 HRS, NOTES: NONE IN COUPLE DAYS TAKING CRESTOR 20 MG TABLET 1 TABLET ORALLY ONCE A DAY, NOTES: 09/15/18 PM TAKING VITAMIN D (ERGOCALCIFEROL) 36658 UNIT CAPSULE TAKE ONE CAPSULE BY MOUTH ONCE WEEKLY , NOTES: TAKES ON SUNDAYS TAKING CYMBALTA 60 MG CAPSULE DELAYED RELEASE PARTICLES 1 CAPSULE ORALLY ONCE A DAY TDD= 90MG, NOTES: 2 DAYS AGO TAKING CYMBALTA 30 MG CAPSULE DELAYED RELEASE PARTICLES 1 CAPSULE ORALLY ONCE A DAY TTD=90 MG, NOTES: 2 DAYS AGO MEDICATION LIST REVIEWED AND RECONCILED WITH THE PATIENT PAST MEDICAL HISTORY BACK PAIN CHRONIC/DDD - (PREVIOUSLY FOLLOWED BY DR. GUERRERO & DR. 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, FOLLOWED BY NEURO DAVID - ON CPAP PER NEUROLOGY STARTED 08/28/18 IBS WITH CONSTIPATION ALLERGIES VICODIN: ITCHING: SIDE EFFECTS ATORVASTATIN CALCIUM: ELEVATED LIVER ENZYMES: SIDE EFFECTS CHANTIX: HALLUCINATIONS AND SI: SIDE EFFECTS SURGICAL HISTORY TONSILLECTOMY A CHILD APPENDECTOMY A CHILD CARPAL TUNNEL RELEASE/CORNELIO RIGHT/ FOOT - BABY TOE- BONE REMOVED D& C, 3 OR 4 INGUINAL HERNIA REPAIR- DOUBLE ONE HYSTERECTOMY & BSO (DUE TO UTERINE PROLAPSE) 2011 CARPAL TUNNEL RELEASE 2014 CATARACT SURGERY 01/17/17 EGD/COLONOSCOPY - NORMAL EGD/YUBULAR ADENOMATOUS AND HYPERPLASTIC POLYP (F/U IN 3 - [address]) [address] NOYOLA 11/2015 RIGHT KNEE ARTHROSCOPE- REPAIRED LIGAMENTS,MENISCUS, REMOVAL ARTHRITIS 01/30/2018 FAMILY HISTORY FATHER: 69 YRS, DIAGNOSED WITH HEART DISEASE MOTHER: 80 YRS, DIAGNOSED WITH DIABETES, HYPERTENSION 1 BROTHER(S) , 1 SISTER(S) - HEALTHY. BROTHER,25 MVA, BROTHER 30'S AIDS, BROTHER 58 HEART ATTACK, BROTHER 64 HEART, LUNGS . SOCIAL HISTORY GENERAL: TOBACCO USE ARE YOU A:CURRENT SMOKER HOW OFTEN DO YOU SMOKE CIGARETTES?EVERY DAY HOW SOON AFTER YOU WAKE UP DO YOU SMOKE YOUR FIRST CIGARETTE?6-30 MIN HOW MANY CIGARETTES A DAY DO YOU SMOKE?5 OR LESS ARE YOU INTERESTED IN QUITTING?READY TO QUIT PT HAS CUT WAY BACK TO 2 CIGS/DAY. USING THE NICOTINE PATCH PATIENT COUNSELED ON THE DANGERS OF TOBACCO USE AND URGED TO QUIT:08/15/2018 COUNSELED THE PATIENT ON TOBACCO USE, CESSATION [id number]/14/2018 SMOKING CESSATION INFORMATION GIVEN05/16/2018 USING THE PATCH PREVIOUS QUIT ATTEMPTS?YES, WITHIN THE LAST 6 MONTHS. LUNG CANCER SCREENING SMOKING STATUS:CURRENT SMOKER IS THE PATIENT BETWEEN THE AGE OF 57 AND 79?YES HAS THE PATIENT EVER BEEN DIAGNOSED WITH LUNG CANCER?NO PACK YEARS = NUMBER OF PACKS PER DAY SMOKED X NUMBER OF YEARS SMOKED:60 CREATE REFERRAL:GENERATE AND CREATE REFERRAL TO THE ONCOLOGY NURSE NAVIGATOR (SMP) LISTING USING THE LDCT SCAN PROCEDURE ALCOHOL SCREENING DID YOU HAVE A DRINK CONTAINING ALCOHOL IN THE PAST YEAR?NO POINTS0 INTERPRETATIONNEGATIVE RECREATIONAL DRUG USE DRUG USE?NO CAFFEINE CAFFEINE USE?YES TEA SEXUAL HX HAD SEX IN THE LAST 12 MONTHS (VAGINAL, ORAL, OR ANAL)?YES WITHMEN ONLY USE PROTECTION?NO LMP:HYSTER HAVE YOU EVER HAD AN STD?NO PENTECOSTAL PENTECOSTAL NO MUSLIM BELIEFS THAT WOULD IMPACT HEALTH CARE. LANGUAGE LANGUAGES SPOKEN:OCCITAN LEARNING BARRIERS / SPECIAL NEEDS CHANGE FROM LAST VISIT?NO BARRIERS TO LEARNING?NO HEARING IMPAIRED?NO VISION IMPAIRED?YES COGNITIVELY IMPAIRED?NO :CORRECTIVE LENSES READINESS TO LEARN?YES LEARNING PREFERENCES?NO LEARNING CAPABILITIES PRESENT?YES EMOTIONAL BARRIERS?NO SPECIAL DEVICES?NO ENVELOPE STAMPING MACHINE OPERATOR NEEDED?NO DIET: REGULAR. EXERCISE: NO REGULAR EXERCISE. NEW PATIENT PAIN DIARY FROM 0-10, WHAT LEVEL IS YOUR PAIN TODAY?9 PAIN CLINIC PFS, CLERGY, PUBLIC HEALTH REFERRALS WAS THE PROVIDER NOTIFIED OF ANY PERTINENT INFO?YES HAS THE PATIENT BEEN EDUCATED REGARDING HIS/HER PLAN OF CARE?YES HAS THE PATIENT BEEN EDUCATED REGARDING PAIN, THE RISK FOR PAIN, THE IMPORTANCE OF EFFECTIVE PAIN MANAGEMENT, AND THE PAIN ASSESSMENT PROCESS?YES ADVANCE DIRECTIVE ADVANCE DIRECTIVE DISCUSSED WITH PATIENT:YES DECLINED HCP INFORMATION, STATES SHE HAS THE INFORMATION AT HOME. DECLINES ASSISTANCE AT THIS TIME. 09/16/18 BV REVIEWED WITH PT 05/16/18 1338 LASREVIEWED WITH PATIENT 08/15/18 1314 JSREVIEWED WITH PATIENT 09/16/18 0900 BV. HOSPITALIZATION/MAJOR DIAGNOSTIC PROCEDURE SURGERIES CHILDBIRTH X4 PNEUMONIA REVIEW OF SYSTEMS REVIEWED BY: PROVIDER: . CONSTITUTIONAL: ANY CHANGE IN YOUR MEDICAL CONDITION? NO . CHILLS NO . FEVER NO . INFECTION: DO YOU HAVE NEW INFECTIONS? NO . DO YOU HAVE HISTORY OF MRSA? NO . MUSCULOSKELETAL: ANY NEW PATTERNS OF PAIN OR NUMBNESS? NO . GASTROENTEROLOGY: ANY NEW CHANGE IN BOWEL CONTROL? NO . GENITOURINARY: ANY NEW CHANGE IN BLADDER CONTROL? NO . IS THERE A CHANCE YOU COULD BE ? NO . HEMATOLOGY/LYMPH: DO YOU TAKE ANY BLOOD THINNERS? (FOR EXAMPLE- COUMADIN, PLAVIX, AGGRENOX, PLATEL, PRADAXA, OR XARELTO) NO . WHEN WAS YOUR LAST DOSE? DATE: TIME: . NEUROLOGY: HAVE YOU FALLEN IN THE PAST 6 MONTHS? YES, PATIENT HAD A FALL LAST WEEK ON ICE. DENIES ANY INJURIES OR ED VISIT. . ANY NEW EXTREMITY NUMBNESS OR WEAKNESS? NO . CARDIOLOGY: DO YOU HAVE A PACEMAKER OR DEFIBRILLATOR? NO . RESPIRATORY: HAVE YOU BEEN SICK IN THE PAST WEEK? NO . FEVER NO . FLU LIKE SYMPTOMS? NO . COUGH NO . INTEGUMENTARY: DO YOU HAVE ANY RASHES OR OPEN SORES? NO . ALLERGIC/IMMUNO: ARE YOU ALLERGIC TO SHELLFISH OR IV DYE? NO . ANY NEW ALLERGIES? NO . PSYCHIATRIC: DO YOU HAVE THOUGHTS OF HURTING YOURSELF OR SOMEONE ELSE? NO . ARE YOU ABUSED, NEGLECTED, OR IN AN UNSAFE ENVIRONMENT? NO . ENDOCRINOLOGY: ARE YOU DIABETIC? NO . OTHER: DO YOU NEED ANY PRESCRIPTIONS? NO . IF YES, PLEASE LIST: ____ . ANY NEW PROBLEMS WITH YOUR MEDICATIONS? NO . WHEN DID YOU LAST EAT? 09/15/18 1700 . WHEN DID YOU LAST DRINK? 09/15/18 1700 . WHAT DID YOU LAST DRINK? ____ . NAME OF PERSON DRIVING YOU HOME? DIANA . DO YOU HAVE ANY OTHER QUESTIONS OR CONCERNS NO . VITAL SIGNS WT 142.2 LBS, HT 64.5 IN, BMI 24.03 INDEX, BP 137/67 MM HG, HR 86 /MIN, RR 18 /MIN, TEMP 97.9 F, OXYGEN SAT % 94%, NA INITIALS SC 08:45, REVIEWED BY: BV. ASSESSMENTS SPONDYLOSIS OF LUMBAR REGION WITHOUT MYELOPATHY OR RADICULOPATHY - M47.816 (PRIMARY) SPONDYLOSIS OF LUMBOSACRAL REGION WITHOUT MYELOPATHY OR RADICULOPATHY - M47.817 PROCEDURES PN LUMBAR FACET BLOCK DIAGNOSTIC PRE PROCEDURE DIAGNOSIS LUMBAR SPONDYLOSIS, LUMBOSACRAL SPONDYLOSIS POST PROCEDURE DIAGNOSIS LUMBAR SPONDYLOSIS, LUMBOSACRAL SPONDYLOSIS PROCEDURE BILATERAL L4-L5 AND BILATERAL L5-S1 FACET BLOCK DIAGNOSTIC NUMBER [address] HENRY PATEL OIL LEASE OPERATOR NONE ANESTHESIA LOCAL PRE PROCEDURE NOTE THE PATIENT WITH HISTORY OF CHRONIC LOW BACK PAIN. I EVALUATED THE PATIENT AND REVIEWED THE CHART. I WENT OVER THE RISKS, ALTERNATIVES, AND BENEFITS ASSOCIATED WITH THIS PROCEDURE. THE PATIENT WOULD LIKE TO PROCEED AND GAVE CONSENT TO PERFORM THE PROCEDURE. AGREED WITH THE PATIENT WE ARE DOING THIS PROCEDURE TO DETERMINE IF THE PATIENT IS A CANDIDATE FOR A RADIOFREQUENCY ABLATION OF THE FACETS JOINTS. THE PATIENT DENIES UNEXPLAINABLE WEIGHT LOSS, FEVER, CHILLS, OR NEW CHANGES IN URINARY OR BOWEL CONTROL DESCRIPTION OF PROCEDURE THE PATIENT WAS BROUGHT TO THE PROCEDURE ROOM AND PLACED IN THE PRONE POSITION. THE LUMBOSACRAL AREA WAS CLEANED WITH CHLORAPREP SOLUTION AND DRAPED ASEPTICALLY. THE PROCEDURE WAS DONE UNDER STERILE CONDITIONS. I CHECKED LATERALITY AND THE LEVEL WHERE THE PROCEDURE WAS GOING TO BE PERFORMED WITH THE PATIENT AND THE SUPPORTING STAFF AT THE MOMENT OF THE TIME OUT IN THE PROCEDURE ROOM. UNDER FLUOROSCOPIC GUIDANCE, TARGETS WERE SELECTED AT THE INTERSECTION OF THE RIGHT AND LEFT TRANSVERSE PROCESS OF L4, L5 AND ALA OF S1 WITH ITS RESPECTIVE SUPERIOR ARTICULAR PROCESS. LIDOCAINE WAS USED TO NUMB THE SKIN AND THE SUBCUTANEOUS TISSUE BELOW IT. SPINAL NEEDLE, 22-GAUGE WAS ADVANCED UNDER FLUOROSCOPIC GUIDANCE AND FOLLOWING PATIENT FEEDBACK UNTIL THE TARGETS WERE REACHED. POSITION OF THE NEEDLES WAS VERIFIED WITH AP AND LATERAL VIEWS. AFTER PROPER POSITION OF THE NEEDLES WAS ACHIEVED, ISOVUE-M DYE 30% 0.1 ML WAS INJECTED AT EACH SITE SHOWING ADEQUATE SPREAD OF THE DYE. THEN A SOLUTION OF 0.4 ML OF BUPIVACAINE 0.25% WAS INJECTED AT EACH SITE. THERE WAS NO EVIDENCE OF BLOOD, PARESTHESIA OR CEREBROSPINAL FLUID DURING THE PROCEDURE. THE PATIENT WAS SENT TO THE RECOVERY ROOM. THE PATIENT WAS MOVING THE EXTREMITIES AND DOING WELL. THERE WAS NO COMPLICATION DURING THE PROCEDURE. FLUOROSCOPY TIME WAS 29 SECONDS POST PROCEDURE NOTE THE PATIENT WILL DOCUMENT HIS PAIN LEVEL AND RESPONSE TO THIS PROCEDURE EVERY 30 MINUTES. THE PATIENT WILL BE SEEN IN A FOLLOW UP IN THE NEXT FEW WEEKS. FURTHER DETERMINATION FOR HIS CASE WILL BE DONE AT THE NEXT VISIT. INSTRUCTIONS WERE GIVEN, QUESTIONS WERE ANSWERED, AND THE PATIENT EXPRESSED UNDERSTANDING AND AGREED WITH THE PLAN. I, AUSTYN JOHNSON, DOCUMENTED THE ABOVE INFORMATION ACTING A SCRIBE FOR DR. PATEL. I HAVE REVIEWED THE ABOVE DOCUMENT, WRITTEN BY AUSTYN VERDUZCOIBJean Pierre AND I VERIFY THAT IT IS ACCURATE. DIAGNOSTIC IM[facility]ING [facility] FACET BLOCK (PAIN)[id number] PROCEDURE CODES 6045F RADXPS IN END [id number] PXD [id number] INJ PARAVERT F JNT L/S 1 LEV, MODIFIERS: 50 [id number] INJ PARAVERT F JNT L/S 2 LEV, MODIFIERS: 50 DISPOSITION & COMMUNICATION FOLLOW UP 3 WEEKS ELECTRONICALLY SIGNED BY HENRY PATEL MD, ON 09/29/2018 AT 11:53 AM EST DISCLAIMER : THIS IS A VISIT SUMMARY EXTRACTED FROM THE [employer] CHART. IT IS NOT A COPY OF THE [employer] PROGRESS NOTE. MTDD
== END ==
LOC: M PAIN 08:30
PROVIDERS: ATTEND Anesthesiology
DX: M47.816 Spondylosis without myelopathy or radiculopathy, lumbar region (principal); M47.817 Spondylosis without myelopathy or radiculopathy, lumbosacral region; K21.9 Gastro-esophageal reflux disease without esophagitis; K64.8 Other hemorrhoids; J44.9 Chronic obstructive pulmonary disease, unspecified; E78.5 Hyperlipidemia, unspecified; F17.210 Nicotine dependence, cigarettes, uncomplicated; E55.9 Vitamin D deficiency, unspecified; G47.33 Obstructive sleep apnea (adult) (pediatric); K58.1 Irritable bowel syndrome with constipation; M54.81 Occipital neuralgia; Z98.49 Cataract extraction status, unspecified eye; Z90.49 Acquired absence of other specified parts of digestive tract; Z90.710 Acquired absence of both cervix and uterus; Z88.5 Allergy status to narcotic agent; Z88.8 Allergy status to other drugs, medicaments and biological substances; Z79.899 Other long term (current) drug therapy
CPT/HCPCS: 64493; 64494; Q9967

== ENCOUNTER → 2018-10-22 | Outpatient (CLI) | payer MEDICARE ==
[~2018-10-22] MED LIST changes: -BUPIVACAINE HCL 0.25% 30 ML VIAL As Ordered ONE; -ISOVUE-M 300 61% 15ML VIAL (Q9967) As Ordered ONE; -LIDOCAINE 1% SDV INJ 30 ML VIAL As Ordered ONE
--- NOTE | 2018-11-06 00:45 | ECWPNPC ---
PATIENT NAME: NATALI WILSON : 1950 GENDER: FEMALE VISIT DATE: 10/22/2018 DISCHARGE DATE: 10/22/18 1146 VISIT LOCKED DATE TIME: PHYSICIAN: JORGE MCCARTHY RESOURCE: JORGE MCCARTHY REASON FOR APPOINTMENT 1. PSOT PROC HISTORY OF PRESENT ILLNESS HISTORY OF PRESENT ILLNESS: HERE FOR POST PROCEDURE F/U.HAD BILATERAL DIAGNOSTIC L4/5-L5/S1 BLOCK ON 09/16/18.HOURLY PAIN DIARY IS REVIEWED.SHOWING >75% IMPROVEMENT IN PAIN POST PROCEDURE FOR 12HRS THEN PAIN GRADUALLY RETURNED TO BASELINE.CHIEF AREA OF PAIN IS LEFT LOW BACK.RATING LEFT LOW BACK PAIN AND LEFT LEG PAIN 7/10 VAS. PAIN THE PATIENT DESCRIBES THE PAIN... FALL RISK SCREENING: SCREENING : NO FALLS IN THE PAST YEAR. CURRENT MEDICATIONS TAKING MUCINEX 600 MG TABLET EXTENDED RELEASE 12 HOUR 1 TABLET NEEDED ORALLY EVERY 12 HRS TAKING MULTIVITAMIN OTC TABLET 1 TAB(S) ORALLY ONCE DAILY TAKING LATANOPROST 0.005 % SOLUTION 1 DROP INTO AFFECTED EYE IN THE EVENING OPHTHALMIC ONCE A DAY TAKING SOOTHE XP - SOLUTION OPHTHALMIC TAKING ZONISAMIDE 50 MG CAPSULE 1 CAPSULE ORALLY THREE TIMES DAILY TAKING TYLENOL ARTHRITIS PAIN 2 TABLETS NEEDED ORALLY 2-3 TIMES/DAY TAKING DUONEB 0.5-2.5 (3) MG/3ML SOLUTION 3 ML INHALATION FOUR TIMES A DAY NEEDED TAKING OMEPRAZOLE 40 MG CAPSULE DELAYED RELEASE TAKE ONE CAPSULE BY MOUTH TWICE A DAY ORALLY TWICE DAILY TAKING GABAPENTIN 300 MG CAPSULE 1 CAPSULE ORALLY BID TAKING FLONASE 50 MCG/ACT SUSPENSION 1 SPRAY IN EACH NOSTRIL NASALLY ONCE A DAY TAKING PERCOCET 5-325 MG TABLET 1 TABLET NEEDED ORALLY EVERY 6 HRS PRN MDD4 TAKING BREO ELLIPTA 100-25 MCG/INH AEROSOL POWDER BREATH ACTIVATED 1 PUFF INHALATION ONCE A DAY TAKING ALBUTEROL SULFATE HFA 108 (90 BASE) MCG/ACT AEROSOL SOLUTION 2 PUFFS NEEDED INHALATION EVERY 4-6 HRS TAKING CRESTOR 20 MG TABLET 1 TABLET ORALLY ONCE A DAY TAKING VITAMIN D (ERGOCALCIFEROL) 12451 UNIT CAPSULE TAKE ONE CAPSULE BY MOUTH ONCE WEEKLY TAKING CYMBALTA 60 MG CAPSULE DELAYED RELEASE PARTICLES 1 CAPSULE ORALLY ONCE A DAY TDD= 90MG TAKING CYMBALTA 30 MG CAPSULE DELAYED RELEASE PARTICLES 1 CAPSULE ORALLY ONCE A DAY TTD=90 MG TAKING LIDOCAINE 5 % OINTMENT 1 APPLICATION TO AFFECTED AREA NEEDED EXTERNALLY THREE TIMES A DAY, NOTES: NOT YET TAKING CEPHALEXIN 500 MG CAPSULE 1 CAPSULE ORALLY THREE TIMES DAILY MEDICATION LIST REVIEWED AND RECONCILED WITH THE PATIENT PAST MEDICAL HISTORY BACK PAIN CHRONIC/DDD - (PREVIOUSLY FOLLOWED BY DR. GUERRERO & DR. 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, FOLLOWED BY NEURO DAVID - ON CPAP PER NEUROLOGY STARTED 08/28/18 IBS WITH CONSTIPATION ALLERGIES VICODIN: ITCHING: SIDE EFFECTS ATORVASTATIN CALCIUM: ELEVATED LIVER ENZYMES: SIDE EFFECTS CHANTIX: HALLUCINATIONS AND SI: SIDE EFFECTS SURGICAL HISTORY TONSILLECTOMY A CHILD APPENDECTOMY A CHILD CARPAL TUNNEL RELEASE/CORNELIO RIGHT/ FOOT - BABY TOE- BONE REMOVED D& C, 3 OR 4 INGUINAL HERNIA REPAIR- DOUBLE ONE HYSTERECTOMY & BSO (DUE TO UTERINE PROLAPSE) 2011 CARPAL TUNNEL RELEASE 2014 CATARACT SURGERY 01/17/17 EGD/COLONOSCOPY - NORMAL EGD/YUBULAR ADENOMATOUS AND HYPERPLASTIC POLYP (F/U IN 3 - [address]) [address] NOYOLA 11/2015 RIGHT KNEE ARTHROSCOPE- REPAIRED LIGAMENTS,MENISCUS, REMOVAL ARTHRITIS 01/30/2018 FAMILY HISTORY FATHER: 69 YRS, DIAGNOSED WITH HEART DISEASE MOTHER: 80 YRS, DIAGNOSED WITH DIABETES, HYPERTENSION 1 BROTHER(S) , 1 SISTER(S) - HEALTHY. BROTHER,25 MVA, BROTHER 30'S AIDS, BROTHER 58 HEART ATTACK, BROTHER 64 HEART, LUNGS . SOCIAL HISTORY REVIEWED WITH PT 05/16/18 1338 LASREVIEWED WITH PATIENT 08/15/18 1314 JSREVIEWED WITH PATIENT 09/16/18 0900 BV. HOSPITALIZATION/MAJOR DIAGNOSTIC PROCEDURE SURGERIES CHILDBIRTH X4 PNEUMONIA REVIEW OF SYSTEMS REVIEWED BY: PROVIDER: JORGE CALIX . CONSTITUTIONAL: ANY CHANGE IN YOUR MEDICAL CONDITION? YES, LABIA CYST . CHILLS NO . FEVER NO . INFECTION: DO YOU HAVE NEW INFECTIONS? YES, CYST ON LABIA TX'D W CEPHLEXIN AND LIDO GEL . DO YOU HAVE HISTORY OF MRSA? NO . MUSCULOSKELETAL: ANY NEW PATTERNS OF PAIN OR NUMBNESS? NO . GASTROENTEROLOGY: ANY NEW CHANGE IN BOWEL CONTROL? NO . GENITOURINARY: ANY NEW CHANGE IN BLADDER CONTROL? NO . IS THERE A CHANCE YOU COULD BE ? NO . HEMATOLOGY/LYMPH: DO YOU TAKE ANY BLOOD THINNERS? (FOR EXAMPLE- COUMADIN, PLAVIX, AGGRENOX, PLATEL, PRADAXA, OR XARELTO) NO . WHEN WAS YOUR LAST DOSE? DATE: TIME: . NEUROLOGY: HAVE YOU FALLEN IN THE PAST 12 MONTHS? YES, PT STATES SHE FALLS OCCASIONALLY FROM WEAKNESS AND FALLING ON ICE . ANY NEW EXTREMITY NUMBNESS OR WEAKNESS? YES, LEFT LEG PAIN . CARDIOLOGY: DO YOU HAVE A PACEMAKER OR DEFIBRILLATOR? NO . RESPIRATORY: HAVE YOU BEEN SICK IN THE PAST WEEK? NO . FEVER NO . FLU LIKE SYMPTOMS? NO . COUGH NO . INTEGUMENTARY: DO YOU HAVE ANY RASHES OR OPEN SORES? NO . ALLERGIC/IMMUNO: ARE YOU ALLERGIC TO IV DYE? NO . ANY NEW ALLERGIES? NO . PSYCHIATRIC: DO YOU HAVE THOUGHTS OF HURTING YOURSELF OR SOMEONE ELSE? NO . ARE YOU ABUSED, NEGLECTED, OR IN AN UNSAFE ENVIRONMENT? NO . ENDOCRINOLOGY: ARE YOU DIABETIC? NO . OTHER: DO YOU NEED ANY PRESCRIPTIONS? NO . IF YES, PLEASE LIST: ____ . ANY NEW PROBLEMS WITH YOUR MEDICATIONS? NO . WHEN DID YOU LAST EAT? ____ . WHEN DID YOU LAST DRINK? ____ . WHAT DID YOU LAST DRINK? ____ . NAME OF PERSON DRIVING YOU HOME? ____ . DO YOU HAVE ANY OTHER QUESTIONS OR CONCERNS NO . VITAL SIGNS WT 142.0 LBS, HT 64.5 IN, BMI 24.00 INDEX, BP 143/65 MM HG, HR 83 /MIN, RR 18 /MIN, TEMP 97.4 F, OXYGEN SAT % 93%, NA INITIALS SC 11:03, REVIEWED BY: EM. EXAMINATION GENERAL EXAMINATION: GENERAL APPEARANCE:AWAKE,ALERT ,PLEAASANT . PSYCHAFFECT NORMAL . LUNGS:LUNG WALKER ARE CLEAR TO AUSCULTATION BILATERALLY. GOOD MOVEMENT OF AIR . HEART:S1, S2 IN A REGULAR RATE AND RHYTHM. NO SIGNIFICANT MURMURS, RUBS OR GALLOPS NOTED . LUMBAR SACRAL SPINEPALPATION:TENDER OVER BILAT. L4/5-L5/S1 LUMBAR FACETS WITH FACET LOADING L>R. ASSESSMENTS SPONDYLOSIS OF LUMBAR REGION WITHOUT MYELOPATHY OR RADICULOPATHY - M47.816 (PRIMARY) TREATMENT SPONDYLOSIS OF LUMBAR REGION WITHOUT MYELOPATHY OR RADICULOPATHY REFILL PERCOCET TABLET, 5-325 MG, 1 TABLET NEEDED, ORALLY, EVERY 6 HRS PRN MDD4, 30 DAY(S), 45, REFILLS 0 NOTES: LEFT L4/5 -L5/S1 DIAGNOSTIC #2, ISTOP REGISTRY REVIEWED AND DEMONSTRATES COMPLLIANCE. (REF # ) BRINGS IN MEDICATIONS WHICH IS APPROPRIATE FOR WHAT WAS DISPENSED. RECENT URINE TOXICOLOGY REVIEWED. NO UNAUTHORIZED MEDICATIONS. NO ILLICIT SUBSTANCES AND PRESCRIBED MEDICATIONS WERE PRESENT. , RISKS AND BENEFITS OF NARCOTIC/OPIOD MEDICATIONS WERE REVIEWED WITH PATIENT - THIS INCLUDES BUT IS NOT LIMITED TO RISK OF DEPENDANCE/DEVELOPMENT OF ADDICTION, MOOD DISTURBANCE AND DEPRESSION, OSTEOPOROSIS, HORMONAL AND LABIDAL CHANGES, RESPIRATORY DEPRESSION AND . PATIENT IS ADVISED NOT TO DRIVE OR DRINK ALCOHOL WHILE ON THESE MEDICATIONS. PROCEDURE CODES FA211 ESTABILISHED PATIENT [facility] FACILITY CHARGE DISPOSITION & COMMUNICATION FOLLOW UP POST (REASON: LEFT L4/5 -L5/S1 DIAGNOSTIC #2) ELECTRONICALLY SIGNED BY YOGI CRUZ ON 11/05/2018 AT 04:57 PM EST DISCLAIMER : THIS IS A VISIT SUMMARY EXTRACTED FROM THE [employer] AS CHART. IT IS NOT A COPY OF THE [employer] PROGRESS NOTE. CINTIA
== END ==
LOC: M PAIN 11:00
PROVIDERS: ATTEND Nurse Practitioner Family
DX: M47.816 Spondylosis without myelopathy or radiculopathy, lumbar region (principal); K21.9 Gastro-esophageal reflux disease without esophagitis; M19.90 Unspecified osteoarthritis, unspecified site; J44.9 Chronic obstructive pulmonary disease, unspecified; E78.49 Other hyperlipidemia; E55.9 Vitamin D deficiency, unspecified; G47.33 Obstructive sleep apnea (adult) (pediatric); K58.1 Irritable bowel syndrome with constipation; Z88.5 Allergy status to narcotic agent; Z88.8 Allergy status to other drugs, medicaments and biological substances; Z79.51 Long term (current) use of inhaled steroids; Z79.899 Other long term (current) drug therapy

== ENCOUNTER → 2018-10-30 | Outpatient (CLI) | payer MEDICARE ==
[~2018-10-30] MED LIST changes: +GASTROGRAFIN SOLUTION 30ML (Q9963) As Ordered ONE; +ISOVUE-370 76% 100ML VIAL (Q9967) As Ordered ONE
[2018-10-30 12:23] LABS: BASO # 0.1 10^3/uL (0.0-0.2); BASO % 0.8 % (0.0-1.0); EOS # 0.1 10^3/uL (0.0-0.50); EOS % 0.7 % (0.0-3.0); HEMATOCRIT 40.5 % (36.0-47.0); HEMOGLOBIN 12.8 g/dl (12.0-15.5); LYMPH # 1.9 10^3/uL (1.5-4.5); LYMPH % 26.6 % (24.0-44.0); MEAN CORPUSCULAR HEMOGLOBIN 28.6 pg (27.0-33.0); MEAN CORPUSCULAR HGB CONC 31.6 g/dl (32.0-36.5); MEAN CORPUSCULAR VOLUME 90.6 fl (80.0-96.0); MONO # 0.7 10^3/uL (0.0-0.8); MONO % 9.9 % (0.0-5.0); NEUTROPHILS # 4.5 10^3/uL (1.8-7.7); NEUTROPHILS % 61.7 % (36.0-66.0); PLATELET COUNT, AUTOMATED 266 10^3/uL (150-450); RED BLOOD COUNT 4.47 10^6/uL (4.00-5.40); WHITE BLOOD COUNT 7.3 10^3/uL (4.0-10.0)
[2018-10-30 12:45] LABS: ALBUMIN 3.9 GM/DL (3.2-5.2); BILIRUBIN,TOTAL 0.3 MG/DL (0.2-1.0); CALCIUM LEVEL 9.1 MG/DL (8.8-10.2); CREATININE FOR GFR 0.99 MG/DL (0.55-1.30); GLOMERULAR FILTRATION RATE 59.7 (>45); POTASSIUM SERUM 4.4 MEQ/L (3.5-5.1); TOTAL PROTEIN 7.6 GM/DL (6.4-8.2)
--- NOTE | 2018-10-30 14:20 | REP ---
Clinical: Abdominal pain and cramping. Technique: Axial contrast enhanced images from the lung bases to the pubic symphysis using oral (per protocol) and 100 ml Isovue 370 intravenous contrast material with coronal and sagittal re-formations. Comparison: 06/16/2018. Findings: Inflammatory changes are identified in the right lower quadrant at the base of the cecum which are otherwise nonspecific. The patient gives a history of prior appendectomy and findings may reflect a mild cecitis/terminal ileitis. Close clinical observation may be warranted. Remainder of the small large bowel is grossly unremarkable. Liver, spleen, pancreas, bilateral adrenal glands and kidneys are normal. The gallbladder is moderately distended but without evidence for acute cholecystitis. Pelvis demonstrates normal bladder and evidence for prior hysterectomy. No ascites. No free air. No significant intraperitoneal or retroperitoneal adenopathy. Abdominal aorta demonstrates atherosclerotic changes without aneurysm or dissection. Lung bases are clear. Impression: 1. Mild inflammatory changes in the right lower quadrant at the base of the cecum. The patient gives a history of prior appendectomy. Differential diagnosis includes mild terminal ileitis/cecitis. Close clinical observation is recommended. 2. No further acute abdominopelvic pathology appreciated. Electronically Signed by Marcio Jordan MD 10/30/2018 02:10 P
== END ==
LOC: M LAB 11:16
PROVIDERS: ATTEND Physician Assistant
DX: R10.9 Unspecified abdominal pain (principal); K59.00 Constipation, unspecified; K58.1 Irritable bowel syndrome with constipation
CPT/HCPCS: 36415; 74178; 80053; 85025; G0463; Q9963; Q9967

== ENCOUNTER → 2018-10-30 | Outpatient (REF) | payer MEDICARE ==
[~2018-10-30] MED LIST changes: -GASTROGRAFIN SOLUTION 30ML (Q9963) As Ordered ONE; -ISOVUE-370 76% 100ML VIAL (Q9967) As Ordered ONE
== END ==
LOC: M SFHCADAM 10:25
PROVIDERS: ATTEND Physician Assistant
DX: R10.9 Unspecified abdominal pain (principal); K59.00 Constipation, unspecified; K58.1 Irritable bowel syndrome with constipation; Z53.8 Procedure and treatment not carried out for other reasons

== ENCOUNTER → 2018-11-20 | Outpatient (REF) | payer MEDICARE ==
[~2018-11-20] MED LIST changes: +ACET300T47 PO; -CODE30TA3 PO; +LATA0.0013 OU; -LATA5OPD OU; -MULT1CHW39 PO; +MULT200T7 PO
== END ==
LOC: M LABNEURO 09:56
PROVIDERS: ATTEND Physician Assistant Medical
DX: G43.909 Migraine, unspecified, not intractable, without status migrainosus (principal); Z51.81 Encounter for therapeutic drug level monitoring
CPT/HCPCS: 36415; 69210; 80203; G0463

== ENCOUNTER → 2018-12-11 | Outpatient (CLI) | payer MEDICARE ==
[~2018-12-11] MED LIST changes: +BREO1INH INH; +D-101000 PO; +MUCI600T31 PO; +SYST1SOL OU
--- NOTE | 2018-12-29 01:02 | ECWPNPC ---
PATIENT NAME: NATALI WILSON : 1950 GENDER: FEMALE VISIT DATE: 12/11/2018 DISCHARGE DATE: 12/11/18 1247 VISIT LOCKED DATE TIME: PHYSICIAN: JORGE MCCARTHY RESOURCE: JORGE MCCARTHY REASON FOR APPOINTMENT 1. POST PROC HISTORY OF PRESENT ILLNESS HISTORY OF PRESENT ILLNESS: HERE FOR POST PROCEDURE F/U.HAD DIAGNOSTIC LEFT LUMBAR FACET BLOCK #2 ON 11/11/18.REPORTING >80% REDUCTION IN LEFT LOW BACK PAIN FOR 24 HOURS POST PROCEDURE.TODAY REPORTS INTERMITTENT ,TENDER AND SHOOTING PAIN ACROSS LOW BACK.RATING LBP 6/10 VAS. PAIN THE PATIENT DESCRIBES THE PAIN... FALL RISK SCREENING: SCREENING :NO FALLS REPORTED IN THE LAST YEAR CURRENT MEDICATIONS TAKING MUCINEX 600 MG TABLET EXTENDED RELEASE 12 HOUR 1 TABLET NEEDED ORALLY EVERY 12 HRS TAKING MULTIVITAMIN OTC TABLET 1 TAB(S) ORALLY ONCE DAILY TAKING LATANOPROST 0.005 % SOLUTION 1 DROP INTO AFFECTED EYE IN THE EVENING OPHTHALMIC ONCE A DAY TAKING SOOTHE XP - SOLUTION OPHTHALMIC TAKING ZONISAMIDE 100 MG CAPSULE 3 ORALLY BEFORE BEDTIME TAKING TYLENOL ARTHRITIS PAIN 2 TABLETS NEEDED ORALLY 2-3 TIMES/DAY TAKING DUONEB 0.5-2.5 (3) MG/3ML SOLUTION 3 ML INHALATION FOUR TIMES A DAY NEEDED TAKING FLONASE 50 MCG/ACT SUSPENSION 1 SPRAY IN EACH NOSTRIL NASALLY ONCE A DAY TAKING BREO ELLIPTA 100-25 MCG/INH AEROSOL POWDER BREATH ACTIVATED 1 PUFF INHALATION ONCE A DAY TAKING ALBUTEROL SULFATE HFA 108 (90 BASE) MCG/ACT AEROSOL SOLUTION 2 PUFFS NEEDED INHALATION EVERY 4-6 HRS TAKING VITAMIN D (ERGOCALCIFEROL) 53225 UNIT CAPSULE TAKE ONE CAPSULE BY MOUTH ONCE WEEKLY TAKING CYMBALTA 60 MG CAPSULE DELAYED RELEASE PARTICLES 1 CAPSULE ORALLY ONCE A DAY TDD= 90MG TAKING PERCOCET 5-325 MG TABLET 1 TABLET NEEDED ORALLY EVERY 6 HRS PRN MDD4 TAKING LIDOCAINE 5 % OINTMENT 1 APPLICATION TO AFFECTED AREA NEEDED EXTERNALLY TO LABIA THREE TIMES A DAY TAKING MIRALAX - POWDER 17 GRAMS ORALLY ONCE A DAY TAKING CRESTOR 20 MG TABLET 1 TABLET ORALLY ONCE A DAY TAKING GABAPENTIN 300 MG CAPSULE 1 CAPSULE ORALLY BID TAKING OMEPRAZOLE 40 MG CAPSULE DELAYED RELEASE TAKE ONE CAPSULE BY MOUTH TWICE A DAY ORALLY TWICE DAILY NOT-TAKING CIPROFLOXACIN HCL 500 MG TABLET 1 TABLET ORALLY EVERY 12 HRS NOT-TAKING METRONIDAZOLE 500 MG TABLET 1 TABLET ORALLY EVERY 8 HRS NOT-TAKING CYMBALTA 30 MG CAPSULE DELAYED RELEASE PARTICLES 1 CAPSULE ORALLY ONCE A DAY TTD=90 MG, NOTES: 2 DAYS MEDICATION LIST REVIEWED AND RECONCILED WITH THE PATIENT PAST MEDICAL HISTORY BACK PAIN CHRONIC/DDD - (PREVIOUSLY FOLLOWED BY DR. GUERRERO & DR. 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, FOLLOWED BY NEURO DAVID - ON CPAP PER NEUROLOGY STARTED 08/28/18 IBS WITH CONSTIPATION ALLERGIES VICODIN: ITCHING - SIDE EFFECTS ATORVASTATIN CALCIUM: ELEVATED LIVER ENZYMES - SIDE EFFECTS CHANTIX: HALLUCINATIONS AND SI - SIDE EFFECTS SURGICAL HISTORY TONSILLECTOMY A CHILD APPENDECTOMY A CHILD CARPAL TUNNEL RELEASE/CORNELIO RIGHT/ FOOT - BABY TOE- BONE REMOVED D& C, 3 OR 4 INGUINAL HERNIA REPAIR- DOUBLE ONE HYSTERECTOMY & BSO (DUE TO UTERINE PROLAPSE) 2011 CARPAL TUNNEL RELEASE 2014 CATARACT SURGERY 01/17/17 EGD/COLONOSCOPY - NORMAL EGD/YUBULAR ADENOMATOUS AND HYPERPLASTIC POLYP (F/U IN 3 - [address]) [address] NOYOLA 11/2015 RIGHT KNEE ARTHROSCOPE- REPAIRED LIGAMENTS,MENISCUS, REMOVAL ARTHRITIS 01/30/2018 FAMILY HISTORY FATHER: 69 YRS, DIAGNOSED WITH HEART DISEASE MOTHER: 80 YRS, DIABETES, HYPERTENSION 1 BROTHER(S) , 1 SISTER(S) - HEALTHY. BROTHER,25 MVA, BROTHER 30\\\'S AIDS, BROTHER 58 HEART ATTACK, BROTHER 64 HEART, LUNGS . SOCIAL HISTORY GENERAL: TOBACCO USE ARE YOU A:CURRENT SMOKER ARE YOU INTERESTED IN QUITTING?READY TO QUIT PT HAS CUT WAY BACK TO 2 CIGS/DAY. USING THE NICOTINE PATCH PREVIOUS QUIT ATTEMPTS?YES, WITHIN THE LAST 6 MONTHS. COUNSELED THE PATIENT ON TOBACCO USE, CESSATION [id number]/11/2019 HOW MANY CIGARETTES A DAY DO YOU SMOKE?5 OR LESS HOW SOON AFTER YOU WAKE UP DO YOU SMOKE YOUR FIRST CIGARETTE?6-30 MIN HOW OFTEN DO YOU SMOKE CIGARETTES?EVERY DAY PATIENT COUNSELED ON THE DANGERS OF TOBACCO USE AND URGED TO QUIT:12/11/2018 SMOKING CESSATION INFORMATION GIVEN05/16/2018 USING THE PATCH LATEX QUESTIONNAIRE LATEX ALLERGY : HAVE YOU EVER DEVELOPED ANY TYPE OF REACTION AFTER HANDLING LATEX PRODUCTS SUCH RUBBER GLOVES, CONDOMS, DIAPHRAGMS, BALLOONS, SOCKS, OR UNDERWEAR?NO LATEX ALLERGY : HAVE YOU EVER DEVELOPED ANY TYPE OF REACTION DURING OR AFTER DENTAL APPOINTMENT, VAGINAL/RECTAL EXAMINATION, SURGICAL PROCEDURE, OR ANY OTHER EXPOSURE?NO DATE ASKED : 11/11/2018 LATEX RISK : HAVE YOU EVER HAD ANY DIFFICULTY BREATHING OR HIVES AFTER EATING OR HANDLING ANY FRUITS, OR VEGETABLES; SUCH KIWI, BANANAS, STONE FRUITS, OR CHESTNUTSNO LATEX RISK : DO YOU HAVE A PREVIOUS PERSONAL HISTORY OF MORE THAN NINE SURGERIES, SPINA BIFIDA, OR REPEATED CATHERTIZATIONS? NO LATEX RISK : ARE YOU FREQUENTLY EXPOSED TO LATEX PRODUCTS IN YOUR OCCUPATION?NO LUNG CANCER SCREENING SMOKING STATUS:CURRENT SMOKER IS THE PATIENT BETWEEN THE AGE OF 57 AND 79?YES HAS THE PATIENT EVER BEEN DIAGNOSED WITH LUNG CANCER?NO PACK YEARS = NUMBER OF PACKS PER DAY SMOKED X NUMBER OF YEARS SMOKED:60 CREATE REFERRAL:GENERATE AND CREATE REFERRAL TO THE ONCOLOGY NURSE NAVIGATOR (SMP) LISTING USING THE LDCT SCAN PROCEDURE ALCOHOL SCREENING DID YOU HAVE A DRINK CONTAINING ALCOHOL IN THE PAST YEAR?NO POINTS0 INTERPRETATIONNEGATIVE RECREATIONAL DRUG USE DRUG USE?NO CAFFEINE CAFFEINE USE?YES TEA SEXUAL HX HAD SEX IN THE LAST 12 MONTHS (VAGINAL, ORAL, OR ANAL)?YES WITHMEN ONLY USE PROTECTION?NO LMP:HYSTER HAVE YOU EVER HAD AN STD?NO BAHAI BAHAI NO ALEVISM BELIEFS THAT WOULD IMPACT HEALTH CARE. LANGUAGE LANGUAGES SPOKEN:UPPER SORBIAN LEARNING BARRIERS / SPECIAL NEEDS CHANGE FROM LAST VISIT?NO BARRIERS TO LEARNING?NO HEARING IMPAIRED?NO VISION IMPAIRED?YES COGNITIVELY IMPAIRED?NO :CORRECTIVE LENSES READINESS TO LEARN?YES LEARNING PREFERENCES?NO LEARNING CAPABILITIES PRESENT?YES EMOTIONAL BARRIERS?NO SPECIAL DEVICES?NO MANAGER EVENT NEEDED?NO DIET: REGULAR. EXERCISE: NO REGULAR EXERCISE. MARITAL STATUS: . OTHERS AT HOME: SPOUSE. NEW PATIENT PAIN DIARY FROM 0-10, WHAT LEVEL IS YOUR PAIN TODAY?9 PAIN CLINIC PFS, CLERGY, PUBLIC HEALTH REFERRALS WAS THE PROVIDER NOTIFIED OF ANY PERTINENT INFO?YES HAS THE PATIENT BEEN EDUCATED REGARDING HIS/HER PLAN OF CARE?YES HAS THE PATIENT BEEN EDUCATED REGARDING PAIN, THE RISK FOR PAIN, THE IMPORTANCE OF EFFECTIVE PAIN MANAGEMENT, AND THE PAIN ASSESSMENT PROCESS?YES ADVANCE DIRECTIVE ADVANCE DIRECTIVE DISCUSSED WITH PATIENT:YES DECLINED HCP INFORMATION, STATES SHE HAS THE INFORMATION AT HOME. DECLINES ASSISTANCE AT THIS TIME. 12/11/18 JS REVIEWED WITH PT 05/16/18 1338 LASREVIEWED WITH PATIENT 08/15/18 1314 JSREVIEWED WITH PATIENT 09/16/18 0900 BVREVIEWED WITH PATIENT 12/11/18 1209 JS. HOSPITALIZATION/MAJOR DIAGNOSTIC PROCEDURE SURGERIES CHILDBIRTH X4 PNEUMONIA REVIEW OF SYSTEMS REVIEWED BY: PROVIDER: JORGE CALIX . CONSTITUTIONAL: ANY CHANGE IN YOUR MEDICAL CONDITION? NO . CHILLS NO . FEVER NO . INFECTION: DO YOU HAVE NEW INFECTIONS? NO . DO YOU HAVE HISTORY OF MRSA? NO . MUSCULOSKELETAL: ANY NEW PATTERNS OF PAIN OR NUMBNESS? NO . GASTROENTEROLOGY: ANY NEW CHANGE IN BOWEL CONTROL? NO . GENITOURINARY: ANY NEW CHANGE IN BLADDER CONTROL? NO . IS THERE A CHANCE YOU COULD BE ? NO . HEMATOLOGY/LYMPH: DO YOU TAKE ANY BLOOD THINNERS? (FOR EXAMPLE- COUMADIN, PLAVIX, AGGRENOX, PLATEL, PRADAXA, OR XARELTO) NO . WHEN WAS YOUR LAST DOSE? DATE: . NEUROLOGY: HAVE YOU FALLEN IN THE PAST 12 MONTHS? YES, PRIOR TO LAST VISIT, DISCUSSED AT PREVIOUS VISIT . ANY NEW EXTREMITY NUMBNESS OR WEAKNESS? NO . CARDIOLOGY: DO YOU HAVE A PACEMAKER OR DEFIBRILLATOR? NO . RESPIRATORY: HAVE YOU BEEN SICK IN THE PAST WEEK? NO . FEVER NO . FLU LIKE SYMPTOMS? NO . COUGH NO . INTEGUMENTARY: DO YOU HAVE ANY RASHES OR OPEN SORES? NO . ALLERGIC/IMMUNO: ARE YOU ALLERGIC TO IV DYE? NO . ANY NEW ALLERGIES? NO . PSYCHIATRIC: DO YOU HAVE THOUGHTS OF HURTING YOURSELF OR SOMEONE ELSE? NO . ARE YOU ABUSED, NEGLECTED, OR IN AN UNSAFE ENVIRONMENT? NO . ENDOCRINOLOGY: ARE YOU DIABETIC? NO . OTHER: DO YOU NEED ANY PRESCRIPTIONS? NO . IF YES, PLEASE LIST: ____ . ANY NEW PROBLEMS WITH YOUR MEDICATIONS? NO . WHEN DID YOU LAST EAT? ____ . WHEN DID YOU LAST DRINK? ____ . WHAT DID YOU LAST DRINK? ____ . NAME OF PERSON DRIVING YOU HOME? ____ . DO YOU HAVE ANY OTHER QUESTIONS OR CONCERNS NO . VITAL SIGNS WT 138.2 LBS, HT 64.5 IN, BMI 23.35 INDEX, BP 138/66 MM HG, HR 76 /MIN, RR 18 /MIN, TEMP 98.5 F, OXYGEN SAT % 94%, SAFE IN ENV? (Y/N) YES, NA INITIALS SC 12:00, REVIEWED BY: ESTEFANIA. EXAMINATION GENERAL EXAMINATION: GENERAL APPEARANCE:AWAKE,ALERT ,PLEAASANT . PSYCHAFFECT NORMAL . LUNGS:LUNG WALKER ARE CLEAR TO AUSCULTATION BILATERALLY. GOOD MOVEMENT OF AIR . HEART:S1, S2 IN A REGULAR RATE AND RHYTHM. NO SIGNIFICANT MURMURS, RUBS OR GALLOPS NOTED . LUMBAR SACRAL SPINEPALPATION:TENDER OVER BILAT. L4/5-L5/S1 LUMBAR FACETS WITH FACET LOADING L>R. ASSESSMENTS SPONDYLOSIS OF LUMBAR REGION WITHOUT MYELOPATHY OR RADICULOPATHY - M47.816 (PRIMARY) SPONDYLOSIS OF LUMBOSACRAL REGION WITHOUT MYELOPATHY OR RADICULOPATHY - M47.817 TREATMENT SPONDYLOSIS OF LUMBAR REGION WITHOUT MYELOPATHY OR RADICULOPATHY CONTINUE CYMBALTA CAPSULE DELAYED RELEASE PARTICLES, 60 MG, 1 CAPSULE, ORALLY, ONCE A DAY TDD= 90MG CONTINUE PERCOCET TABLET, 5-325 MG, 1 TABLET NEEDED, ORALLY, EVERY 6 HRS PRN MDD4 NOTES: LEFT L4/5-L5/S1 RF, ISTOP REGISTRY REVIEWED AND DEMONSTRATES COMPLLIANCE. BRINGS IN MEDICATIONS WHICH IS APPROPRIATE FOR WHAT WAS DISPENSED. RECENT URINE TOXICOLOGY REVIEWED. NO UNAUTHORIZED MEDICATIONS. NO ILLICIT SUBSTANCES AND PRESCRIBED MEDICATIONS WERE PRESENT. , RISKS AND BENEFITS OF NARCOTIC/OPIOD MEDICATIONS WERE REVIEWED WITH PATIENT - THIS INCLUDES BUT IS NOT LIMITED TO RISK OF DEPENDANCE/DEVELOPMENT OF ADDICTION, MOOD DISTURBANCE AND DEPRESSION, OSTEOPOROSIS, HORMONAL AND LABIDAL CHANGES, RESPIRATORY DEPRESSION AND . PATIENT IS ADVISED NOT TO DRIVE OR DRINK ALCOHOL WHILE ON THESE MEDICATIONS. PREVENTIVE MEDICINE PAIN CLINIC TEACHING: PROCEDURE TEACHING REVIEWED RADIOFREQUENCY PROCEDURE INFORMATION WITH PATIENT. ALSO REVIEWED PRE-PROCEDURE INSTRUCTIONS. PATIENT VERBALIZED AN UNDERSTANDING. SHASHA BROWN 12/11/2018 4:05:56 PM > . PROCEDURE CODES FA211 ESTABILISHED PATIENT [facility] FACILITY CHARGE DISPOSITION & COMMUNICATION FOLLOW UP POST (REASON: LEFT L4/5-L5/S1 RF) ELECTRONICALLY SIGNED BY YOGI CRUZ ON 12/28/2018 AT 11:50 AM EDT DISCLAIMER : THIS IS A VISIT SUMMARY EXTRACTED FROM THE [employer] CHART. IT IS NOT A COPY OF THE [employer] PROGRESS NOTE. MTDD
== END ==
LOC: M PAIN 10:45
PROVIDERS: ATTEND Nurse Practitioner Family
DX: M47.816 Spondylosis without myelopathy or radiculopathy, lumbar region (principal); M47.817 Spondylosis without myelopathy or radiculopathy, lumbosacral region; K21.9 Gastro-esophageal reflux disease without esophagitis; M19.90 Unspecified osteoarthritis, unspecified site; J44.9 Chronic obstructive pulmonary disease, unspecified; E55.9 Vitamin D deficiency, unspecified; M54.81 Occipital neuralgia; G47.33 Obstructive sleep apnea (adult) (pediatric); F17.210 Nicotine dependence, cigarettes, uncomplicated; Z79.51 Long term (current) use of inhaled steroids; Z79.899 Other long term (current) drug therapy; Z88.5 Allergy status to narcotic agent; Z88.8 Allergy status to other drugs, medicaments and biological substances

== ENCOUNTER → 2018-12-15 | Outpatient (CLI) | payer MEDICARE ==
[~2018-12-15] MED LIST changes: -BREO1INH INH; -D-101000 PO; +E-Z-GAS II EFFERVESCENT PACKET (SODIUM BICARB./CITRIC ACID/SIMETHICONE) As Ordered ONE; +E-Z-HD 98% w/w 340GM SUSP BTL As Ordered ONE; +E-Z-PAQUE 96% w/w SUSP 176GM BTL As Ordered ONE; -MUCI600T31 PO; -SYST1SOL OU
--- NOTE | 2018-12-15 16:47 | REP ---
Small bowel follow-through The procedure was performed under the direct supervision of Dr. Gil. The images were reviewed with Dr. Gil. The media marketing coordinator film shows no organomegaly or pathological masses. The intestinal gas pattern is nonspecific. There are vascular calcifications identified. Liquid barium was administered and the barium column was followed through the small bowel to the level of the terminal ileum. Small bowel transit time is approximately 1 hour . During fluoroscopy gentle palpation shows all loops are freely movable and pliable. The cecum is mobile and lies in a horizontal position. There are no fixed or angulated loops. The small bowel mucosal pattern is normal in course and caliber. There is no transition to suggest a partial small bowel obstruction. Spot filming of the terminal ileum shows it to be unremarkable. Impression: The cecum is mobile and lies in the oral soft position. Otherwise, small bowel follow-through examination within normal limits. 1.2 minutes of fluoro time was utilized for this procedure. Reviewed by ALEJA Dillon 12/15/2018 03:38 P Electronically Signed by Baldomero Gil MD 12/15/2018 04:38 P
== END ==
LOC: M RAD 08:02
PROVIDERS: ATTEND Internal Medicine Gastroenterology
DX: R93.3 Abnormal findings on diagnostic imaging of other parts of digestive tract (principal)

== ENCOUNTER → 2019-01-01 | Outpatient (CLI) | payer MEDICARE ==
[~2019-01-01] MED LIST changes: +BREO1INH INH; +BUPIVACAINE HCL 0.25% 30 ML VIAL As Ordered ONE; +D-101000 PO; -E-Z-GAS II EFFERVESCENT PACKET (SODIUM BICARB./CITRIC ACID/SIMETHICONE) As Ordered ONE; -E-Z-HD 98% w/w 340GM SUSP BTL As Ordered ONE; -E-Z-PAQUE 96% w/w SUSP 176GM BTL As Ordered ONE; +LIDOCAINE 1% SDV INJ 30 ML VIAL As Ordered ONE; +MUCI600T31 PO; +SYST1SOL OU; +TRIAMCINOLONE ACETONIDE SUSP 40 MG/ML VIAL (J3301) As Ordered ONE
--- NOTE | 2019-01-02 19:25 | REP ---
C-ARM VIEWS LUMBAR SPINE: Three C-Arm views of the lower lumbar spine are performed during injection by Dr. Mahan. Nathrop are seen along the lower lumbar spine. 40 seconds of fluoroscopy time utilized. Electronically Signed by Behzad Romero MD 01/03/2019 03:07 P
--- NOTE | 2019-01-19 00:13 | ECWPNPC ---
PATIENT NAME: NATALI WILSON : 1950 GENDER: FEMALE VISIT DATE: 01/01/2019 DISCHARGE DATE: 01/01/19 1551 VISIT LOCKED DATE TIME: PHYSICIAN: HENRY PATEL MD RESOURCE: HENRY PATEL MD REASON FOR APPOINTMENT 1. LEFT L4/5-L5/S1 RF HISTORY OF PRESENT ILLNESS HISTORY OF PRESENT ILLNESS: PAIN THE PATIENT DESCRIBES THE PAIN... FALL RISK SCREENING: SCREENING :NO FALLS REPORTED IN THE LAST YEAR CURRENT MEDICATIONS TAKING MUCINEX 600 MG TABLET EXTENDED RELEASE 12 HOUR 1 TABLET NEEDED ORALLY EVERY 12 HRS, NOTES: 01-01-19799 TAKING MULTIVITAMIN OTC TABLET 1 TAB(S) ORALLY ONCE DAILY, NOTES: 12-31-182099 TAKING LATANOPROST 0.005 % SOLUTION 1 DROP INTO AFFECTED EYE IN THE EVENING OPHTHALMIC ONCE A DAY, NOTES: 12-31-182099 TAKING SOOTHE XP - SOLUTION OPHTHALMIC , NOTES: 01-01-19799 TAKING ZONISAMIDE 100 MG CAPSULE 3 ORALLY BEFORE BEDTIME, NOTES: 12-31-182099 TAKING TYLENOL ARTHRITIS PAIN 2 TABLETS NEEDED ORALLY 2-3 TIMES/DAY, NOTES: NOT LATELY TAKING DUONEB 0.5-2.5 (3) MG/3ML SOLUTION 3 ML INHALATION FOUR TIMES A DAY NEEDED, NOTES: NOT LATELY TAKING FLONASE 50 MCG/ACT SUSPENSION 1 SPRAY IN EACH NOSTRIL NASALLY ONCE A DAY, NOTES: NOT LATELY TAKING BREO ELLIPTA 100-25 MCG/INH AEROSOL POWDER BREATH ACTIVATED 1 PUFF INHALATION ONCE A DAY, NOTES: 01-01-19899 TAKING VITAMIN D (ERGOCALCIFEROL) 91271 UNIT CAPSULE TAKE ONE CAPSULE BY MOUTH ONCE WEEKLY , NOTES: SATURDAY TAKING LIDOCAINE 5 % OINTMENT 1 APPLICATION TO AFFECTED AREA NEEDED EXTERNALLY TO LABIA THREE TIMES A DAY, NOTES: NOT LATELY TAKING MIRALAX - POWDER 17 GRAMS ORALLY ONCE A DAY, NOTES: 12-31-18899 TAKING CRESTOR 20 MG TABLET 1 TABLET ORALLY ONCE A DAY, NOTES: 12-31-182099 TAKING GABAPENTIN 300 MG CAPSULE 1 CAPSULE ORALLY BID, NOTES: 799 TAKING OMEPRAZOLE 40 MG CAPSULE DELAYED RELEASE TAKE ONE CAPSULE BY MOUTH TWICE A DAY ORALLY TWICE DAILY, NOTES: 5-2-19 0800 TAKING CYMBALTA 60 MG CAPSULE DELAYED RELEASE PARTICLES 1 CAPSULE ORALLY ONCE A DAY TDD= 90MG, NOTES: 01-01-19 0800 TAKING FISH OIL 500 MG CAPSULE 1 CAPSULE ORALLY TWICE A DAY NOT-TAKING ALBUTEROL SULFATE HFA 108 (90 BASE) MCG/ACT AEROSOL SOLUTION 2 PUFFS NEEDED INHALATION EVERY 4-6 HRS NOT-TAKING PERCOCET 5-325 MG TABLET 1 TABLET NEEDED ORALLY EVERY 6 HRS PRN MDD4 UNKNOWN CIPROFLOXACIN HCL 500 MG TABLET 1 TABLET ORALLY EVERY 12 HRS UNKNOWN METRONIDAZOLE 500 MG TABLET 1 TABLET ORALLY EVERY 8 HRS UNKNOWN CYMBALTA 30 MG CAPSULE DELAYED RELEASE PARTICLES 1 CAPSULE ORALLY ONCE A DAY TTD=90 MG, NOTES: 2 DAYS MEDICATION LIST REVIEWED AND RECONCILED WITH THE PATIENT PAST MEDICAL HISTORY BACK PAIN CHRONIC/DDD - (PREVIOUSLY FOLLOWED BY DR. GUERRERO & DR. 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, FOLLOWED BY NEURO DAVID - ON CPAP PER NEUROLOGY STARTED 08/28/18 IBS WITH CONSTIPATION ALLERGIES VICODIN: ITCHING - SIDE EFFECTS ATORVASTATIN CALCIUM: ELEVATED LIVER ENZYMES - SIDE EFFECTS CHANTIX: HALLUCINATIONS AND SI - SIDE EFFECTS SURGICAL HISTORY TONSILLECTOMY A CHILD APPENDECTOMY A CHILD CARPAL TUNNEL RELEASE/CORNELIO RIGHT/ FOOT - BABY TOE- BONE REMOVED D& C, 3 OR 4 INGUINAL HERNIA REPAIR- DOUBLE ONE HYSTERECTOMY & BSO (DUE TO UTERINE PROLAPSE) 2011 CARPAL TUNNEL RELEASE 2014 CATARACT SURGERY 01/17/17 EGD/COLONOSCOPY - NORMAL EGD/YUBULAR ADENOMATOUS AND HYPERPLASTIC POLYP (F/U IN 3 - [address] NOYOLA 11/2015 RIGHT KNEE ARTHROSCOPE- REPAIRED LIGAMENTS,MENISCUS, REMOVAL ARTHRITIS 01/30/2018 FAMILY HISTORY FATHER: 69 YRS, DIAGNOSED WITH HEART DISEASE MOTHER: 80 YRS, DIABETES, HYPERTENSION 1 BROTHER(S) , 1 SISTER(S) - HEALTHY. BROTHER,25 MVA, BROTHER 30\\\\\\\\\\\\\\\'S AIDS, BROTHER 58 HEART ATTACK, BROTHER 64 HEART, LUNGS . SOCIAL HISTORY GENERAL: TOBACCO USE ARE YOU A:CURRENT SMOKER HOW OFTEN DO YOU SMOKE CIGARETTES?EVERY DAY HOW SOON AFTER YOU WAKE UP DO YOU SMOKE YOUR FIRST CIGARETTE?6-30 MIN HOW MANY CIGARETTES A DAY DO YOU SMOKE?5 OR LESS ARE YOU INTERESTED IN QUITTING?READY TO QUIT PT HAS CUT WAY BACK TO 2 CIGS/DAY. USING THE NICOTINE PATCH PATIENT COUNSELED ON THE DANGERS OF TOBACCO USE AND URGED TO QUIT:01/01/2019 COUNSELED THE PATIENT ON TOBACCO USE, CESSATION [id number]/11/2019 SMOKING CESSATION INFORMATION GIVEN01/01/2019 USING THE PATCH PREVIOUS QUIT ATTEMPTS?YES, WITHIN THE LAST 6 MONTHS. OTHERS AT HOME: SPOUSE. DIET: REGULAR. LANGUAGE LANGUAGES SPOKEN:BRUNEIAN NEW PATIENT PAIN DIARY PATIENT DESCRIBES PAIN :ACHING, SHARP, TENDER, SORE FROM 0-10, WHAT LEVEL IS YOUR PAIN TODAY?7 PRECIPITATING FACTORS TURNING HEAD INCREASES PAIN ALLEVIATING FACTORS HEAT IMPACT ON FUNCTION DECREASED ABILITY TO DO HOUSEWORK, DAILY ACTIVITIES, SLOWS HER DOWN IS THERE A CHANCE YOU COULD BE ?NO HAVE YOU BEEN SICK IN THE LAST WEEK (COLD, COUGH, FEVER, FLU, ETC)NO DO YOU TAKE ANY BLOOD THINNERS?NO DO YOU HAVE ANY RASHES OR OPEN SORES?NO ANY CHANGE IN BOWEL OR BLADDER CONTROL?NO ARE YOU ALLERGIC TO SHELLFISH OR IV DYE?NO ARE YOU DIABETIC?NO DO YOU HAVE A PACEMAKER OR DEFIBRILLATOR?NO ANY NEW PROBLEMS WITH MEDICINES OR NEW ALLERGIESNO ANY NEW PATTERNS OF PAIN OR NUMBNESS?YES NECK PAIN HAVE YOU FALLEN IN THE LAST 6 MONTHS?YES PT STATES THAT SHE WAS HOME AND SLIPPED ON ICE OVER THE WINTER, NO INJURY FROM FALL NO REPORT TO ED ARE YOU ABUSED, NEGLECTED, OR IN AN UNSAFE ENVIRONMENT?NO DO YOU HAVE THOUGHTS OF HURTING YOURSELF OR SOMEONE ELSE?NO DO YOU NEED ANY PRESCRIPTIONS?NO RECREATIONAL DRUG USE DRUG USE?NO EXERCISE: NO REGULAR EXERCISE. LEARNING BARRIERS / SPECIAL NEEDS CHANGE FROM LAST VISIT?NO BARRIERS TO LEARNING?NO HEARING IMPAIRED?NO VISION IMPAIRED?YES COGNITIVELY IMPAIRED?NO :CORRECTIVE LENSES READINESS TO LEARN?YES LEARNING PREFERENCES?NO LEARNING CAPABILITIES PRESENT?YES EMOTIONAL BARRIERS?NO SPECIAL DEVICES?NO ASSET CARD CLERK NEEDED?NO LUNG CANCER SCREENING SMOKING STATUS:CURRENT SMOKER IS THE PATIENT BETWEEN THE AGE OF 57 AND 79?YES HAS THE PATIENT EVER BEEN DIAGNOSED WITH LUNG CANCER?NO PACK YEARS = NUMBER OF PACKS PER DAY SMOKED X NUMBER OF YEARS SMOKED:60 CREATE REFERRAL:GENERATE AND CREATE REFERRAL TO THE ONCOLOGY NURSE NAVIGATOR (SMP) LISTING USING THE LDCT SCAN PROCEDURE PAIN CLINIC PFS, CLERGY, PUBLIC HEALTH REFERRALS WAS THE PROVIDER NOTIFIED OF ANY PERTINENT INFO?YES HAS THE PATIENT BEEN EDUCATED REGARDING HIS/HER PLAN OF CARE?YES HAS THE PATIENT BEEN EDUCATED REGARDING PAIN, THE RISK FOR PAIN, THE IMPORTANCE OF EFFECTIVE PAIN MANAGEMENT, AND THE PAIN ASSESSMENT PROCESS?YES LATEX QUESTIONNAIRE LATEX ALLERGY : HAVE YOU EVER DEVELOPED ANY TYPE OF REACTION AFTER HANDLING LATEX PRODUCTS SUCH RUBBER GLOVES, CONDOMS, DIAPHRAGMS, BALLOONS, SOCKS, OR UNDERWEAR?NO LATEX ALLERGY : HAVE YOU EVER DEVELOPED ANY TYPE OF REACTION DURING OR AFTER DENTAL APPOINTMENT, VAGINAL/RECTAL EXAMINATION, SURGICAL PROCEDURE, OR ANY OTHER EXPOSURE?NO DATE ASKED : 01/01/2019 LATEX RISK : HAVE YOU EVER HAD ANY DIFFICULTY BREATHING OR HIVES AFTER EATING OR HANDLING ANY FRUITS, OR VEGETABLES; SUCH KIWI, BANANAS, STONE FRUITS, OR CHESTNUTSNO LATEX RISK : DO YOU HAVE A PREVIOUS PERSONAL HISTORY OF MORE THAN NINE SURGERIES, SPINA BIFIDA, OR REPEATED CATHERTIZATIONS? NO LATEX RISK : ARE YOU FREQUENTLY EXPOSED TO LATEX PRODUCTS IN YOUR OCCUPATION?NO CAFFEINE CAFFEINE USE?YES TEA ADVANCE DIRECTIVE ADVANCE DIRECTIVE DISCUSSED WITH PATIENT:YES DECLINED HCP INFORMATION, STATES SHE HAS THE INFORMATION AT HOME. DECLINES ASSISTANCE AT THIS TIME. FAITH FAITH NO CHRISTIAN BELIEFS THAT WOULD IMPACT HEALTH CARE. MARITAL STATUS: . ALCOHOL SCREENING DID YOU HAVE A DRINK CONTAINING ALCOHOL IN THE PAST YEAR?NO POINTS0 INTERPRETATIONNEGATIVE SEXUAL HX HAD SEX IN THE LAST 12 MONTHS (VAGINAL, ORAL, OR ANAL)?YES WITHMEN ONLY USE PROTECTION?NO LMP:HYSTER HAVE YOU EVER HAD AN STD?NO REVIEWED WITH PT 05/16/18 1338 LASREVIEWED WITH PATIENT 08/15/18 1314 JSREVIEWED WITH PATIENT 09/16/18 0900 BVREVIEWED WITH PATIENT 12/11/18 1209 JS. HOSPITALIZATION/MAJOR DIAGNOSTIC PROCEDURE SURGERIES CHILDBIRTH X4 PNEUMONIA REVIEW OF SYSTEMS REVIEWED BY: PROVIDER: . CONSTITUTIONAL: ANY CHANGE IN YOUR MEDICAL CONDITION? NO . CHILLS NO . FEVER NO . INFECTION: DO YOU HAVE NEW INFECTIONS? NO . DO YOU HAVE HISTORY OF MRSA? NO . MUSCULOSKELETAL: ANY NEW PATTERNS OF PAIN OR NUMBNESS? NO . GASTROENTEROLOGY: ANY NEW CHANGE IN BOWEL CONTROL? NO . GENITOURINARY: ANY NEW CHANGE IN BLADDER CONTROL? NO . IS THERE A CHANCE YOU COULD BE ? NO . HEMATOLOGY/LYMPH: DO YOU TAKE ANY BLOOD THINNERS? (FOR EXAMPLE- COUMADIN, PLAVIX, AGGRENOX, PLATEL, PRADAXA, OR XARELTO) NO . WHEN WAS YOUR LAST DOSE? DATE: TIME: . NEUROLOGY: HAVE YOU FALLEN IN THE PAST 12 MONTHS? NO . ANY NEW EXTREMITY NUMBNESS OR WEAKNESS? NO . CARDIOLOGY: DO YOU HAVE A PACEMAKER OR DEFIBRILLATOR? NO . RESPIRATORY: HAVE YOU BEEN SICK IN THE PAST WEEK? NO . FEVER NO . FLU LIKE SYMPTOMS? NO . COUGH NO . INTEGUMENTARY: DO YOU HAVE ANY RASHES OR OPEN SORES? NO . ALLERGIC/IMMUNO: ARE YOU ALLERGIC TO IV DYE? NO . ANY NEW ALLERGIES? NO . PSYCHIATRIC: DO YOU HAVE THOUGHTS OF HURTING YOURSELF OR SOMEONE ELSE? NO . ARE YOU ABUSED, NEGLECTED, OR IN AN UNSAFE ENVIRONMENT? NO . ENDOCRINOLOGY: ARE YOU DIABETIC? NO . OTHER: DO YOU NEED ANY PRESCRIPTIONS? NO . IF YES, PLEASE LIST: ____ . ANY NEW PROBLEMS WITH YOUR MEDICATIONS? NO . WHEN DID YOU LAST EAT? ____12-31-18 1800 . WHEN DID YOU LAST DRINK? ____01-01-19 0630 THIS MORNING . WHAT DID YOU LAST DRINK? ____WATER . NAME OF PERSON DRIVING YOU HOME? ____DANIEL . DO YOU HAVE ANY OTHER QUESTIONS OR CONCERNS NO . VITAL SIGNS WT 137.6 LBS, HT 64.5 IN, BMI 23.25 INDEX, BP 131/71 MM HG, HR 89 /MIN, RR 18 /MIN, TEMP 97.0 F, OXYGEN SAT % 92%, NA INITIALS AW 1316. ASSESSMENTS SPONDYLOSIS OF LUMBAR REGION WITHOUT MYELOPATHY OR RADICULOPATHY - M47.816 (PRIMARY) SPONDYLOSIS OF LUMBOSACRAL REGION WITHOUT MYELOPATHY OR RADICULOPATHY - M47.817 PROCEDURES PN RADIOFREQUENCY PRE PROCEDURE DIAGNOSES 1. LUMBAR SPONDYLOSIS. 2. LUMBOSACRAL SPONDYLOSIS POST PROCEDURE DIAGNOSES 1. LUMBAR SPONDYLOSIS. 2. LUMBOSACRAL SPONDYLOSIS PROCEDURE LEFT L4-L5 AND LEFT L5-S1 LUMBAR FACET RADIOFREQUENCY SURGEON DR. 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 I EVALUATED THE PATIENT AND REVIEWED THE CHART. I WENT OVER THE RISKS, ALTERNATIVES, AND BENEFITS ASSOCIATED WITH THIS PROCEDURE. THE PATIENT WOULD LIKE TO PROCEED AND GIVE CONSENT TO PERFORMED THE PROCEDURE. THE PATIENT DENIES UNEXPLAINABLE WEIGHT LOSS, FEVER, CHILLS, OR NEW CHANGES IN URINARY OR BOWEL CONTROL DESCRIPTION OF PROCEDURE THE PATIENT WAS BROUGHT TO THE PROCEDURE ROOM AND PLACED IN THE PRONE POSITION. THE LUMBOSACRAL AREA WAS CLEANED WITH CHLORAPREP SOLUTION AND DRAPED ASEPTICALLY. THE PROCEDURE WAS DONE UNDER STERILE CONDITIONS. I CHECKED LATERALITY AND THE LEVEL WHERE THE PROCEDURE WAS GOING TO BE PERFORMED WITH THE PATIENT AND THE SUPPORTING STAFF AT THE MOMENT OF THE TIME OUT IN THE PROCEDURE ROOM. UNDER FLUOROSCOPIC GUIDANCE, TARGETS WERE SELECTED AT THE INTERSECTION OF THE LEFT TRANSVERSE PROCESS OF L4, L5 AND ALA OF S1 WITH ITS RESPECTIVE SUPERIOR ARTICULAR PROCESS. LIDOCAINE WAS USED TO NUMB THE SKIN AND THE SUBCUTANEOUS TISSUE BELOW IT. RADIOFREQUENCY NEEDLES 22-GAUGE 15 CM LONG WITH 10 MM ACTIVE CURVE TIP WERE ADVANCED UNDER FLUOROSCOPIC GUIDANCE AND FOLLOWING PATIENT FEEDBACK UNTIL THE TARGET AREA WAS REACHED. POSITION OF THE NEEDLES WAS VERIFIED WITH AP AND LATERAL VIEWS. AFTER PROPER POSITION OF THE NEEDLE WAS ACHIEVED, WE WORKED WITH THE LEFT SELECTED MEDIAN BRANCHES OF L3, L4 AND THE DORSAL RAMI OF L5. WE MEASURED THE CORRESPONDING IMPEDANCES, SENSORY STIMULATION AND MOTOR RESPONSES INDICATED IN THE RADIOFREQUENCY WORKSHEET. POSITION OF THE NEEDLES WAS VERIFIED AGAIN WITH AP AND LATERAL VIEWS. LIDOCAINE 1%, 2 ML, WAS INJECTED AT EACH LEVEL. RADIOFREQUENCY WAS DONE AT EACH LEVEL AT 80 DEGREES FOR 90 SECONDS. AFTER RADIOFREQUENCY WAS DONE, THE PATIENT RECEIVED BUPIVACAINE 0.125% 1 CC WITH KENALOG 5 MG AT EACH SITE. THERE WAS NO EVIDENCE OF BLOOD, PARESTHESIA OR CEREBROSPINAL FLUID DURING THE PROCEDURE. THE PATIENT WAS SENT TO THE RECOVERY ROOM. THE PATIENT WAS MOVING THE EXTREMITIES AND DOING WELL. THERE WAS NO COMPLICATION DURING THE PROCEDURE. FLUOROSCOPY TIME WAS 40 SECONDS POST PROCEDURE NOTE THE PATIENT WILL BE SEEN IN A FOLLOW UP IN THE NEXT FEW WEEKS. INSTRUCTIONS WERE GIVEN, QUESTIONS WERE ANSWERED, AND THE PATIENT EXPRESSED UNDERSTANDING AND AGREES WITH THE PLAN. I, NISHANT TOLEDO, DOCUMENTED THE ABOVE INFORMATION ACTING A SCRIBE FOR DR. PATEL. I HAVE REVIEWED THE ABOVE DOCUMENT, WRITTEN BY NISHANT VERDUZCOIBJean Pierre AND I VERIFY THAT IT IS ACCURATE. DIAGNOSTIC IMAGING [facility] FACET BLOCK (PAIN)[id number] PROCEDURE CODES 98159 DESTROY LUMB/SAC FACET JNT, [place]: [place] [address] DESTROY L/S FACET JNT ADDL, MODIFIERS: LT 6045F RADXPS IN END [id number] PXD DISPOSITION & COMMUNICATION FOLLOW UP 3 WEEKS ELECTRONICALLY SIGNED BY HENRY PATEL MD, MD ON 01/18/2019 AT 07:59 PM EDT DISCLAIMER : THIS IS A VISIT SUMMARY EXTRACTED FROM THE [employer] CHART. IT IS NOT A COPY OF THE [employer] PROGRESS NOTE. MTDD
== END ==
LOC: M PAIN 13:00
PROVIDERS: ATTEND Anesthesiology
DX: G89.29 Other chronic pain (principal); M47.816 Spondylosis without myelopathy or radiculopathy, lumbar region; M47.817 Spondylosis without myelopathy or radiculopathy, lumbosacral region; K21.9 Gastro-esophageal reflux disease without esophagitis; M19.90 Unspecified osteoarthritis, unspecified site; J44.9 Chronic obstructive pulmonary disease, unspecified; E78.5 Hyperlipidemia, unspecified; E55.9 Vitamin D deficiency, unspecified; M54.81 Occipital neuralgia; G47.33 Obstructive sleep apnea (adult) (pediatric); F17.210 Nicotine dependence, cigarettes, uncomplicated; Z79.51 Long term (current) use of inhaled steroids; Z79.899 Other long term (current) drug therapy; Z88.5 Allergy status to narcotic agent; Z88.8 Allergy status to other drugs, medicaments and biological substances
CPT/HCPCS: 64635; 64636; G0463; J3301

== ENCOUNTER → 2019-01-01 | Outpatient (CLI) | payer MEDICARE ==
[~2019-01-01] MED LIST changes: -BUPIVACAINE HCL 0.25% 30 ML VIAL As Ordered ONE; -LIDOCAINE 1% SDV INJ 30 ML VIAL As Ordered ONE; -TRIAMCINOLONE ACETONIDE SUSP 40 MG/ML VIAL (J3301) As Ordered ONE
--- NOTE | 2019-01-27 00:31 | ECWPNPC ---
PATIENT NAME: NATALI WILSON : 1950 GENDER: FEMALE VISIT DATE: 01/01/2019 DISCHARGE DATE: 01/01/19 1154 VISIT LOCKED DATE TIME: PHYSICIAN: JORGE MCCARTHY RESOURCE: JORGE MCCARTHY REASON FOR APPOINTMENT 1. NEW BODY PART, NECK PAIN HISTORY OF PRESENT ILLNESS HISTORY OF PRESENT ILLNESS: HERE FOR EVALUATION OF CHRONIC NECK PA[facility].HAS HAD CHRONIC NECK PAIN FOR APPROIMATLEY 2 YEARS AFTER FALLING BACK AND HITTING HEAD.ALSO FOLLOWS WITH NEUROLOGY FOR CHRONIC HEADACHE WITH MINIMAL SHORT TERM IMPROVEMENT WITH OCCIPITAL BLOCKS ,LAST ONE DONE 3 MONTHS AGO.WAS OFFERED BOTOX BUT PATIENT REFUSED.RATING PAIN VAS 8/10.PAIN IS AGGREVATED BY ROJM NECK.REVIEWED MRI C SPINE AND DISCUSSED TREATMENT OPTIONS.DENIES RADICULAR SYMPTOMS.NO RECENT FEVER,ILLNESS OR WEIGHT LOSS.DENIES BOWEL OR BLADDER INCONTINENCE. PAIN THE PATIENT DESCRIBES THE PAIN... FALL RISK SCREENING: SCREENING :NO FALLS REPORTED IN THE LAST YEAR CURRENT MEDICATIONS TAKING MUCINEX 600 MG TABLET EXTENDED RELEASE 12 HOUR 1 TABLET NEEDED ORALLY EVERY 12 HRS TAKING MULTIVITAMIN OTC TABLET 1 TAB(S) ORALLY ONCE DAILY TAKING LATANOPROST 0.005 % SOLUTION 1 DROP INTO AFFECTED EYE IN THE EVENING OPHTHALMIC ONCE A DAY TAKING SOOTHE XP - SOLUTION OPHTHALMIC TAKING ZONISAMIDE 100 MG CAPSULE 3 ORALLY BEFORE BEDTIME TAKING TYLENOL ARTHRITIS PAIN 2 TABLETS NEEDED ORALLY 2-3 TIMES/DAY TAKING DUONEB 0.5-2.5 (3) MG/3ML SOLUTION 3 ML INHALATION FOUR TIMES A DAY NEEDED TAKING FLONASE 50 MCG/ACT SUSPENSION 1 SPRAY IN EACH NOSTRIL NASALLY ONCE A DAY TAKING BREO ELLIPTA 100-25 MCG/INH AEROSOL POWDER BREATH ACTIVATED 1 PUFF INHALATION ONCE A DAY TAKING ALBUTEROL SULFATE HFA 108 (90 BASE) MCG/ACT AEROSOL SOLUTION 2 PUFFS NEEDED INHALATION EVERY 4-6 HRS TAKING VITAMIN D (ERGOCALCIFEROL) 23004 UNIT CAPSULE TAKE ONE CAPSULE BY MOUTH ONCE WEEKLY TAKING LIDOCAINE 5 % OINTMENT 1 APPLICATION TO AFFECTED AREA NEEDED EXTERNALLY TO LABIA THREE TIMES A DAY TAKING MIRALAX - POWDER 17 GRAMS ORALLY ONCE A DAY TAKING CRESTOR 20 MG TABLET 1 TABLET ORALLY ONCE A DAY TAKING GABAPENTIN 300 MG CAPSULE 1 CAPSULE ORALLY BID TAKING OMEPRAZOLE 40 MG CAPSULE DELAYED RELEASE TAKE ONE CAPSULE BY MOUTH TWICE A DAY ORALLY TWICE DAILY TAKING CYMBALTA 60 MG CAPSULE DELAYED RELEASE PARTICLES 1 CAPSULE ORALLY ONCE A DAY TDD= 90MG TAKING PERCOCET 5-325 MG TABLET 1 TABLET NEEDED ORALLY EVERY 6 HRS PRN MDD4 NOT-TAKING CIPROFLOXACIN HCL 500 MG TABLET 1 TABLET ORALLY EVERY 12 HRS NOT-TAKING METRONIDAZOLE 500 MG TABLET 1 TABLET ORALLY EVERY 8 HRS NOT-TAKING CYMBALTA 30 MG CAPSULE DELAYED RELEASE PARTICLES 1 CAPSULE ORALLY ONCE A DAY TTD=90 MG, NOTES: 2 DAYS MEDICATION LIST REVIEWED AND RECONCILED WITH THE PATIENT PAST MEDICAL HISTORY BACK PAIN CHRONIC/DDD - (PREVIOUSLY FOLLOWED BY DR. GUERRERO & DR. 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, FOLLOWED BY NEURO DAVID - ON CPAP PER NEUROLOGY STARTED 08/28/18 IBS WITH CONSTIPATION ALLERGIES VICODIN: ITCHING - SIDE EFFECTS ATORVASTATIN CALCIUM: ELEVATED LIVER ENZYMES - SIDE EFFECTS CHANTIX: HALLUCINATIONS AND SI - SIDE EFFECTS SURGICAL HISTORY TONSILLECTOMY A CHILD APPENDECTOMY A CHILD CARPAL TUNNEL RELEASE/CORNELIO RIGHT/ FOOT - BABY TOE- BONE REMOVED D& C, 3 OR 4 INGUINAL HERNIA REPAIR- DOUBLE ONE HYSTERECTOMY & BSO (DUE TO UTERINE PROLAPSE) 2011 CARPAL TUNNEL RELEASE 2014 CATARACT SURGERY 01/17/17 EGD/COLONOSCOPY - NORMAL EGD/YUBULAR ADENOMATOUS AND HYPERPLASTIC POLYP (F/U IN 3 - [address]) [address] NOYOLA 11/2015 RIGHT KNEE ARTHROSCOPE- REPAIRED LIGAMENTS,MENISCUS, REMOVAL ARTHRITIS 01/30/2018 FAMILY HISTORY FATHER: 69 YRS, DIAGNOSED WITH HEART DISEASE MOTHER: 80 YRS, HYPERTENSION, DIABETES 1 BROTHER(S) , 1 SISTER(S) - HEALTHY. BROTHER,25 MVA, BROTHER 30\\\\\\\'S AIDS, BROTHER 58 HEART ATTACK, BROTHER 64 HEART, LUNGS . SOCIAL HISTORY GENERAL: TOBACCO USE ARE YOU A:CURRENT SMOKER ARE YOU INTERESTED IN QUITTING?READY TO QUIT PT HAS CUT WAY BACK TO 2 CIGS/DAY. USING THE NICOTINE PATCH PREVIOUS QUIT ATTEMPTS?YES, WITHIN THE LAST 6 MONTHS. COUNSELED THE PATIENT ON TOBACCO USE, CESSATION [id number]/11/2019 HOW MANY CIGARETTES A DAY DO YOU SMOKE?5 OR LESS HOW SOON AFTER YOU WAKE UP DO YOU SMOKE YOUR FIRST CIGARETTE?6-30 MIN HOW OFTEN DO YOU SMOKE CIGARETTES?EVERY DAY PATIENT COUNSELED ON THE DANGERS OF TOBACCO USE AND URGED TO QUIT:01/01/2019 SMOKING CESSATION INFORMATION GIVEN01/01/2019 USING THE PATCH OTHERS AT HOME: SPOUSE. DIET: REGULAR. LANGUAGE LANGUAGES SPOKEN:TELUGU NEW PATIENT PAIN DIARY PATIENT DESCRIBES PAIN :ACHING, SHARP, TENDER, SORE FROM 0-10, WHAT LEVEL IS YOUR PAIN TODAY?7 PRECIPITATING FACTORS TURNING HEAD INCREASES PAIN ALLEVIATING FACTORS HEAT IMPACT ON FUNCTION DECREASED ABILITY TO DO HOUSEWORK, DAILY ACTIVITIES, SLOWS HER DOWN IS THERE A CHANCE YOU COULD BE ?NO HAVE YOU BEEN SICK IN THE LAST WEEK (COLD, COUGH, FEVER, FLU, ETC)NO DO YOU TAKE ANY BLOOD THINNERS?NO DO YOU HAVE ANY RASHES OR OPEN SORES?NO ANY CHANGE IN BOWEL OR BLADDER CONTROL?NO ARE YOU ALLERGIC TO SHELLFISH OR IV DYE?NO ARE YOU DIABETIC?NO DO YOU HAVE A PACEMAKER OR DEFIBRILLATOR?NO ANY NEW PROBLEMS WITH MEDICINES OR NEW ALLERGIESNO ANY NEW PATTERNS OF PAIN OR NUMBNESS?YES NECK PAIN HAVE YOU FALLEN IN THE LAST 6 MONTHS?YES PT STATES THAT SHE WAS HOME AND SLIPPED ON ICE OVER THE WINTER, NO INJURY FROM FALL NO REPORT TO ED ARE YOU ABUSED, NEGLECTED, OR IN AN UNSAFE ENVIRONMENT?NO DO YOU HAVE THOUGHTS OF HURTING YOURSELF OR SOMEONE ELSE?NO DO YOU NEED ANY PRESCRIPTIONS?NO RECREATIONAL DRUG USE DRUG USE?NO EXERCISE: NO REGULAR EXERCISE. LEARNING BARRIERS / SPECIAL NEEDS CHANGE FROM LAST VISIT?NO BARRIERS TO LEARNING?NO HEARING IMPAIRED?NO VISION IMPAIRED?YES COGNITIVELY IMPAIRED?NO :CORRECTIVE LENSES READINESS TO LEARN?YES LEARNING PREFERENCES?NO LEARNING CAPABILITIES PRESENT?YES EMOTIONAL BARRIERS?NO SPECIAL DEVICES?NO PLASTIC WORKER NEEDED?NO LUNG CANCER SCREENING SMOKING STATUS:CURRENT SMOKER IS THE PATIENT BETWEEN THE AGE OF 57 AND 79?YES HAS THE PATIENT EVER BEEN DIAGNOSED WITH LUNG CANCER?NO PACK YEARS = NUMBER OF PACKS PER DAY SMOKED X NUMBER OF YEARS SMOKED:60 CREATE REFERRAL:GENERATE AND CREATE REFERRAL TO THE ONCOLOGY NURSE NAVIGATOR (SMP) LISTING USING THE LDCT SCAN PROCEDURE PAIN CLINIC PFS, CLERGY, PUBLIC HEALTH REFERRALS WAS THE PROVIDER NOTIFIED OF ANY PERTINENT INFO?YES HAS THE PATIENT BEEN EDUCATED REGARDING HIS/HER PLAN OF CARE?YES HAS THE PATIENT BEEN EDUCATED REGARDING PAIN, THE RISK FOR PAIN, THE IMPORTANCE OF EFFECTIVE PAIN MANAGEMENT, AND THE PAIN ASSESSMENT PROCESS?YES LATEX QUESTIONNAIRE LATEX ALLERGY : HAVE YOU EVER DEVELOPED ANY TYPE OF REACTION AFTER HANDLING LATEX PRODUCTS SUCH RUBBER GLOVES, CONDOMS, DIAPHRAGMS, BALLOONS, SOCKS, OR UNDERWEAR?NO LATEX ALLERGY : HAVE YOU EVER DEVELOPED ANY TYPE OF REACTION DURING OR AFTER DENTAL APPOINTMENT, VAGINAL/RECTAL EXAMINATION, SURGICAL PROCEDURE, OR ANY OTHER EXPOSURE?NO LATEX RISK : HAVE YOU EVER HAD ANY DIFFICULTY BREATHING OR HIVES AFTER EATING OR HANDLING ANY FRUITS, OR VEGETABLES; SUCH KIWI, BANANAS, STONE FRUITS, OR CHESTNUTSNO LATEX RISK : DO YOU HAVE A PREVIOUS PERSONAL HISTORY OF MORE THAN NINE SURGERIES, SPINA BIFIDA, OR REPEATED CATHERTIZATIONS? NO LATEX RISK : ARE YOU FREQUENTLY EXPOSED TO LATEX PRODUCTS IN YOUR OCCUPATION?NO DATE ASKED : 01/01/2019 CAFFEINE CAFFEINE USE?YES TEA ADVANCE DIRECTIVE ADVANCE DIRECTIVE DISCUSSED WITH PATIENT:YES DECLINED HCP INFORMATION, STATES SHE HAS THE INFORMATION AT HOME. DECLINES ASSISTANCE AT THIS TIME. TAOISM TAOISM NO LUTHERAN BELIEFS THAT WOULD IMPACT HEALTH CARE. MARITAL STATUS: . ALCOHOL SCREENING DID YOU HAVE A DRINK CONTAINING ALCOHOL IN THE PAST YEAR?NO POINTS0 INTERPRETATIONNEGATIVE SEXUAL HX HAD SEX IN THE LAST 12 MONTHS (VAGINAL, ORAL, OR ANAL)?YES WITHMEN ONLY USE PROTECTION?NO LMP:HYSTER HAVE YOU EVER HAD AN STD?NO REVIEWED WITH PT 05/16/18 1338 LASREVIEWED WITH PATIENT 08/15/18 1314 JSREVIEWED WITH PATIENT 09/16/18 0900 BVREVIEWED WITH PATIENT 12/11/18 1209 JS. HOSPITALIZATION/MAJOR DIAGNOSTIC PROCEDURE SURGERIES CHILDBIRTH X4 PNEUMONIA REVIEW OF SYSTEMS REVIEWED BY: PROVIDER: JORGE CALIX . CONSTITUTIONAL: ANY CHANGE IN YOUR MEDICAL CONDITION? NO . CHILLS NO . FEVER NO . INFECTION: DO YOU HAVE NEW INFECTIONS? NO . DO YOU HAVE HISTORY OF MRSA? NO . MUSCULOSKELETAL: ANY NEW PATTERNS OF PAIN OR NUMBNESS? NO . GASTROENTEROLOGY: ANY NEW CHANGE IN BOWEL CONTROL? NO . GENITOURINARY: ANY NEW CHANGE IN BLADDER CONTROL? NO . IS THERE A CHANCE YOU COULD BE ? NO . HEMATOLOGY/LYMPH: DO YOU TAKE ANY BLOOD THINNERS? (FOR EXAMPLE- COUMADIN, PLAVIX, AGGRENOX, PLATEL, PRADAXA, OR XARELTO) NO . WHEN WAS YOUR LAST DOSE? DATE: TIME: . NEUROLOGY: HAVE YOU FALLEN IN THE PAST 12 MONTHS? YES . ANY NEW EXTREMITY NUMBNESS OR WEAKNESS? NO . CARDIOLOGY: DO YOU HAVE A PACEMAKER OR DEFIBRILLATOR? NO . RESPIRATORY: HAVE YOU BEEN SICK IN THE PAST WEEK? NO . FEVER NO . FLU LIKE SYMPTOMS? NO . COUGH NO . INTEGUMENTARY: DO YOU HAVE ANY RASHES OR OPEN SORES? NO . ALLERGIC/IMMUNO: ARE YOU ALLERGIC TO IV DYE? NO . ANY NEW ALLERGIES? NO . PSYCHIATRIC: DO YOU HAVE THOUGHTS OF HURTING YOURSELF OR SOMEONE ELSE? NO . ARE YOU ABUSED, NEGLECTED, OR IN AN UNSAFE ENVIRONMENT? NO . ENDOCRINOLOGY: ARE YOU DIABETIC? NO . OTHER: DO YOU NEED ANY PRESCRIPTIONS? NO . IF YES, PLEASE LIST: ____ . ANY NEW PROBLEMS WITH YOUR MEDICATIONS? NO . WHEN DID YOU LAST EAT? ____ . WHEN DID YOU LAST DRINK? ____ . WHAT DID YOU LAST DRINK? ____ . NAME OF PERSON DRIVING YOU HOME? ____ . DO YOU HAVE ANY OTHER QUESTIONS OR CONCERNS PT STATES THAT SHE CURRENTLY GETS OCCIPITAL INJECTIONS AT DR CORDON'S OFFICE FOR HEADACHES AND MIGRAINES . VITAL SIGNS WT 137.6 LBS, HT 64.5 IN, BMI 23.25 INDEX, BP 136/68 MM HG, HR 82 /MIN, RR 18 /MIN, TEMP 98.2 F, OXYGEN SAT % 96%, SAFE IN ENV? (Y/N) Y, NA INITIALS SC 10:45, REVIEWED BY: VENANCIO. EXAMINATION GENERAL EXAMINATION: LUNGS: LUNG SOUNDS ARE CLEAR . HEART: HEART RATE REGULAR . MUSCULOSKELETAL:*, MUSCLE STRENGTH TESTING 5/5 BILATERAL UPPER EXTREMITIES. . CERVICAL+ FOR PAIN WITH PALPATION OF CERVICAL SPINE. + FOR PAIN WITH PALPATION OF CERVICAL PARASPINALS.SPECIFIC POINT TENDERNESS NOTED OV C4/5-/C5/6 CERVICAL FACETS WITH EXTENSION AND FACET LOADING.. DIAGNOSTIC TESTS REVIEWED CERVICAL MRI 10/2017-REVIEWED. 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 PROCEDURE CODES FA211 ESTABILISHED PATIENT [facility] FAC[facility] CHARGE DISPOSITION & COMMUNICATION FOLLOW UP POST (REASON: C4/5-C5/6 THERAPEUTIC FACET BLOCK) ELECTRONICALLY SIGNED BY JORGE CALIX, YOGI ON 01/26/2019 AT 01:47 PM EDT DISCLAIMER : THIS IS A VISIT SUMMARY EXTRACTED FROM THE [employer] CHART. IT IS NOT A COPY OF THE [employer] PROGRESS NOTE. STEFFANIED
== END ==
LOC: M PAIN 10:30
PROVIDERS: ATTEND Nurse Practitioner Family
DX: M47.892 Other spondylosis, cervical region (principal); G89.29 Other chronic pain; K21.9 Gastro-esophageal reflux disease without esophagitis; M19.90 Unspecified osteoarthritis, unspecified site; J44.9 Chronic obstructive pulmonary disease, unspecified; E78.5 Hyperlipidemia, unspecified; E55.9 Vitamin D deficiency, unspecified; G47.33 Obstructive sleep apnea (adult) (pediatric); F17.210 Nicotine dependence, cigarettes, uncomplicated; Z88.5 Allergy status to narcotic agent; Z88.8 Allergy status to other drugs, medicaments and biological substances; Z79.51 Long term (current) use of inhaled steroids; Z79.899 Other long term (current) drug therapy

== ENCOUNTER 2019-01-09 07:59 | Day surgery (SDC) | payer MEDICARE ==
[~2019-01-09] VITALS: Ht 162.6 cm; Wt 62.1 kg
[2019-01-09] MEDS: NS 1,000 ML IV SCH (07:00)
[~2019-01-09 07:59] MED LIST changes: +LIDOCAINE 2% INJ 100 MG/5 ML SDV (FOR ANES.) As Ordered ONE; +PROPOFOL 200 MG/20 ML VIAL As Ordered ONE
[2019-01-09] MEDS ORDERED: PROPOFOL 200 MG/20 ML VIAL As Ordered ONE (09:29)
--- NOTE | 2019-01-09 10:04 | ROOR ---
Patient Name: Cheri Cruz Procedure Date: 01/09/2019 9:14 AM Date of : 1950 Age: 68 Room: [facility] Gender: Female Note Status: Finalized Procedure: Colonoscopy Indications: Abnormal CT of the GI tract Providers: Harpreet NOYOLA MD Referring MD: JANNA Kohler Requesting Provider: Medicines: Monitored Anesthesia Care Complications: No immediate complications. Procedure: Pre-Anesthesia Assessment: - The heart rate, respiratory rate, oxygen saturations, blood pressure, adequacy of pulmonary ventilation, and response to care were monitored throughout the procedure. The Colonoscope was introduced through the anus and advanced to 8 cm into the ileum. The colonoscopy was performed without difficulty. The patient tolerated the procedure well. The quality of the bowel preparation was good. Findings: The perianal and digital rectal examinations were normal. Two flat polyps were found in the splenic flexure and proximal transverse colon. The polyps were 4 to 6 mm in size. These polyps were removed with a cold snare. Resection and retrieval were complete. A 10 mm polyp was found in the anus. The polyp was carpet-like. The polyp was removed with a piecemeal technique using a cold snare. Polyp resection was incomplete. The resected tissue was retrieved. Internal hemorrhoids were found during retroflexion. The hemorrhoids were medium-sized. Biopsies were taken with a cold forceps in the proximal ascending colon and in the cecum for histology. (Exam: Complete, Prep: Good or Excellent.) Impression: - (Exam: Complete, Prep: Good or Excellent.) - Redundant colon is noted. - Two 4 to 6 mm polyps at the splenic flexure and in the proximal transverse colon, removed with a cold snare. Resected and retrieved. - One 10-12 mm flat polypoid tissue at the anal/rectal junction, a few pieces were removed for pathological evaluation with cold snare excision. (Not removed completely, as it is continuous with hemorrhoids. I suspect this is granulation tissue related to hemorrhoidal irritation. Resected tissue retrieved. - Ulcerated Internal hemorrhoid. - RE: abnormal CT: I see no abnormalities in the ileum/cecum, except perhaps an area of some persistent spasm right above the cecum. Biopsies were taken with a cold forceps for histology in the proximal ascending colon and in the cecum. Recommendation: - Telephone endoscopist for pathology results in 2 weeks. - If anorectal polypoid tissue is adenomatous, then will refer to surgery for transanal fulguration/resection. Harprete Noyola MD Harpreet NOYOLA MD 01/09/2019 10:03:28 AM Electronically signed by Harpreet NOYOLA MD Number of Addenda: 0 Note Initiated On: 01/09/2019 9:14 AM Estimated Blood Loss: Estimated blood loss: none.
[2019-01-09 10:15] VITALS: BP 130/60
== END 2019-01-09 10:20 | disposition home or self-care (01) ==
LOC: M OPP 07:59
PROVIDERS: ATTEND Internal Medicine Gastroenterology
DX: D12.3 Benign neoplasm of transverse colon (principal); K62.0 Anal polyp; K64.8 Other hemorrhoids; R93.3 Abnormal findings on diagnostic imaging of other parts of digestive tract

== ENCOUNTER → 2019-02-05 | Outpatient (REF) | payer MEDICARE ==
[~2019-02-05] MED LIST changes: +DICY20TA PO; -LIDOCAINE 2% INJ 100 MG/5 ML SDV (FOR ANES.) As Ordered ONE; -PROPOFOL 200 MG/20 ML VIAL As Ordered ONE
[2019-02-05 16:25] LABS: BASO # 0.1 10^3/uL (0.0-0.2); BASO % 0.5 % (0.0-1.0); EOS # 0.1 10^3/uL (0.0-0.50); EOS % 0.6 % (0.0-3.0); HEMATOCRIT 39.7 % (36.0-47.0); HEMOGLOBIN 12.7 g/dl (12.0-15.5); LYMPH # 2.6 10^3/uL (1.5-4.5); LYMPH % 24.8 % (24.0-44.0); MEAN CORPUSCULAR HEMOGLOBIN 28.5 pg (27.0-33.0); MEAN CORPUSCULAR VOLUME 89.2 fl (80.0-96.0); MONO # 0.8 10^3/uL (0.0-0.8); NEUTROPHILS # 6.9 10^3/uL (1.8-7.7); NEUTROPHILS % 65.8 % (36.0-66.0); PLATELET COUNT, AUTOMATED 303 10^3/uL (150-450); RED BLOOD COUNT 4.45 10^6/uL (4.00-5.40); WHITE BLOOD COUNT 10.4 10^3/uL (4.0-10.0)
[2019-02-05 16:26] LABS: ALBUMIN 3.9 GM/DL (3.2-5.2); ALT/SGPT 20 U/L (12-78); AMYLASE 48 U/L (25-115); BILIRUBIN,TOTAL 0.2 MG/DL (0.2-1.0); BLOOD UREA NITROGEN 15 MG/DL (7-18); CALCIUM LEVEL 9.5 MG/DL (8.8-10.2); CARBON DIOXIDE LEVEL 27 MEQ/L (21-32); CHLORIDE LEVEL 105 MEQ/L (98-107); CREATININE FOR GFR 0.83 MG/DL (0.55-1.30); GLOMERULAR FILTRATION RATE > 60.0 (>45); GLUCOSE, FASTING 86 MG/DL (70-100); LIPASE 228 U/L (73-393); POTASSIUM SERUM 4.7 MEQ/L (3.5-5.1); SODIUM LEVEL 140 MEQ/L (136-145); TOTAL PROTEIN 7.6 GM/DL (6.4-8.2)
== END ==
LOC: M SFHCADAM 13:56
PROVIDERS: ATTEND Family Medicine
DX: R10.84 Generalized abdominal pain (principal)
CPT/HCPCS: 80053; 82150; 83690; 85025; G0463

== ENCOUNTER → 2019-02-12 | Outpatient (CLI) | payer MEDICARE ==
[~2019-02-12] MED LIST changes: +BUPIVACAINE HCL 0.25% 30 ML VIAL As Ordered ONE; +ISOVUE-M 300 61% 15ML VIAL (Q9967) As Ordered ONE; +LIDOCAINE 1% SDV INJ 30 ML VIAL As Ordered ONE; +TRIAMCINOLONE ACETONIDE SUSP 40 MG/ML VIAL (J3301) As Ordered ONE; +diazePAM 5 MG TAB As Ordered ONE; +oxyCODONE 5MG TAB As Ordered ONE
--- NOTE | 2019-02-12 11:35 | REP ---
CERVICAL SPINE: Single view. HISTORY: Cervical facet block for pain. 17 seconds of fluoroscopy time is reported. FINDINGS: A single last image hold fluoroscopically obtained spot radiograph of the cervical spine documents various bilateral cervical facet block needle positions and contrast injections. Electronically Signed by Baldomero Gil MD 02/12/2019 03:04 P
--- NOTE | 2019-02-21 23:24 | ECWPNPC ---
PATIENT NAME: NATALI WILSON : 1950 GENDER: FEMALE VISIT DATE: 02/12/2019 DISCHARGE DATE: 02/12/19 1027 VISIT LOCKED DATE TIME: PHYSICIAN: HENRY PATEL MD RESOURCE: HENRY PATEL MD REASON FOR APPOINTMENT 1. C3-C4, C4-C5 THERAPEUTIC FACET BLOCK HISTORY OF PRESENT ILLNESS HISTORY OF PRESENT ILLNESS: PAIN THE PATIENT DESCRIBES THE PAIN... FALL RISK SCREENING: SCREENING :NO FALLS REPORTED IN THE LAST YEAR CURRENT MEDICATIONS TAKING MUCINEX 600 MG TABLET EXTENDED RELEASE 12 HOUR 1 TABLET NEEDED ORALLY EVERY 12 HRS, NOTES: 2 DAYS AGO TAKING MULTIVITAMIN OTC TABLET 1 TAB(S) ORALLY ONCE DAILY, NOTES: 02/11/192099 TAKING LATANOPROST 0.005 % SOLUTION 1 DROP INTO AFFECTED EYE IN THE EVENING OPHTHALMIC ONCE A DAY, NOTES: 02/11/192099 TAKING SOOTHE XP - SOLUTION OPHTHALMIC , NOTES: 07 TAKING ZONISAMIDE 100 MG CAPSULE 3 ORALLY BEFORE BEDTIME, NOTES: 02/11/192099 TAKING TYLENOL ARTHRITIS PAIN 2 TABLETS NEEDED ORALLY 2-3 TIMES/DAY, NOTES: WEEK AGO TAKING DUONEB 0.5-2.5 (3) MG/3ML SOLUTION 3 ML INHALATION FOUR TIMES A DAY NEEDED, NOTES: MONTH AGO TAKING FLONASE 50 MCG/ACT SUSPENSION 1 SPRAY IN EACH NOSTRIL NASALLY ONCE A DAY, NOTES: 02/11/19 07 TAKING BREO ELLIPTA 100-25 MCG/INH AEROSOL POWDER BREATH ACTIVATED 1 PUFF INHALATION ONCE A DAY, NOTES: 07 TAKING VITAMIN D (ERGOCALCIFEROL) 19526 UNIT CAPSULE TAKE ONE CAPSULE BY MOUTH ONCE WEEKLY , NOTES: 02/08/19 TAKING MIRALAX - POWDER 17 GRAMS ORALLY ONCE A DAY, NOTES: 02/11/19699 TAKING GABAPENTIN 300 MG CAPSULE 1 CAPSULE ORALLY BID, NOTES: 07 TAKING OMEPRAZOLE 40 MG CAPSULE DELAYED RELEASE TAKE ONE CAPSULE BY MOUTH TWICE A DAY ORALLY TWICE DAILY, NOTES: 07 TAKING CYMBALTA 60 MG CAPSULE DELAYED RELEASE PARTICLES 1 CAPSULE ORALLY ONCE A DAY TDD= 90MG, NOTES: 07 TAKING FISH OIL 500 MG CAPSULE 1 CAPSULE ORALLY TWICE A DAY, NOTES: 07 TAKING CRESTOR 20 MG TABLET 1 TABLET ORALLY ONCE A DAY, NOTES: 02/11/19 2100 TAKING HYOSCYAMINE SULFATE 0.125 MG TABLET 1 TABLET NEEDED ORALLY TID, NOTES: 02/11/19 2100 NOT-TAKING LIDOCAINE 5 % OINTMENT 1 APPLICATION TO AFFECTED AREA NEEDED EXTERNALLY TO LABIA THREE TIMES A DAY NOT-TAKING ALBUTEROL SULFATE HFA 108 (90 BASE) MCG/ACT AEROSOL SOLUTION 2 PUFFS NEEDED INHALATION EVERY 4-6 HRS NOT-TAKING PERCOCET 5-325 MG TABLET 1 TABLET NEEDED ORALLY EVERY 6 HRS PRN MDD4 NOT-TAKING CIPROFLOXACIN HCL 500 MG TABLET 1 TABLET ORALLY EVERY 12 HRS NOT-TAKING METRONIDAZOLE 500 MG TABLET 1 TABLET ORALLY EVERY 8 HRS NOT-TAKING CYMBALTA 30 MG CAPSULE DELAYED RELEASE PARTICLES 1 CAPSULE ORALLY ONCE A DAY TTD=90 MG, NOTES: 2 DAYS MEDICATION LIST REVIEWED AND RECONCILED WITH THE PATIENT PAST MEDICAL HISTORY BACK PAIN CHRONIC/DDD - (PREVIOUSLY FOLLOWED BY DR. GUERRERO & DR. 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, FOLLOWED BY NEURO DAVID - ON CPAP PER NEUROLOGY STARTED 08/28/18 IBS WITH CONSTIPATION ALLERGIES VICODIN: ITCHING - SIDE EFFECTS ATORVASTATIN CALCIUM: ELEVATED LIVER ENZYMES - SIDE EFFECTS CHANTIX: HALLUCINATIONS AND SI - SIDE EFFECTS DEPAKOTE: TEMORS - SIDE EFFECTS SURGICAL HISTORY TONSILLECTOMY A CHILD APPENDECTOMY A CHILD CARPAL TUNNEL RELEASE/CORNELIO RIGHT/ FOOT - BABY TOE- BONE REMOVED D& C, 3 OR 4 INGUINAL HERNIA REPAIR- DOUBLE ONE HYSTERECTOMY & BSO (DUE TO UTERINE PROLAPSE) 2011 CARPAL TUNNEL RELEASE 2014 CATARACT SURGERY 01/17/17 EGD/COLONOSCOPY - NORMAL EGD/YUBULAR ADENOMATOUS AND HYPERPLASTIC POLYP (F/U IN 3 - [address] NOYOLA 11/2015 RIGHT KNEE ARTHROSCOPE- REPAIRED LIGAMENTS,MENISCUS, REMOVAL ARTHRITIS 01/30/2018 HEMORRHOIDECTOMY 01/2019 FAMILY HISTORY FATHER: 69 YRS, DIAGNOSED WITH HEART DISEASE MOTHER: 80 YRS, DIABETES, HYPERTENSION 1 BROTHER(S) , 1 SISTER(S) - HEALTHY. BROTHER,25 MVA, BROTHER 30\\\\\\\\\\\\\\\'S AIDS, BROTHER 58 HEART ATTACK, BROTHER 64 HEART, LUNGS . SOCIAL HISTORY GENERAL: TOBACCO USE ARE YOU A:CURRENT SMOKER ARE YOU INTERESTED IN QUITTING?READY TO QUIT PT HAS CUT WAY BACK TO 2 CIGS/DAY. USING THE NICOTINE PATCH PREVIOUS QUIT ATTEMPTS?YES, WITHIN THE LAST 6 MONTHS. COUNSELED THE PATIENT ON TOBACCO USE, CESSATION [id number]/13/2019 HOW MANY CIGARETTES A DAY DO YOU SMOKE?5 OR LESS HOW SOON AFTER YOU WAKE UP DO YOU SMOKE YOUR FIRST CIGARETTE?6-30 MIN HOW OFTEN DO YOU SMOKE CIGARETTES?EVERY DAY PATIENT COUNSELED ON THE DANGERS OF TOBACCO USE AND URGED TO QUIT:02/12/2019 SMOKING CESSATION INFORMATION GIVEN02/05/2019 OTHERS AT HOME: SPOUSE. DIET: REGULAR. LANGUAGE LANGUAGES SPOKEN:SAMI NEW PATIENT PAIN DIARY PATIENT DESCRIBES PAIN :ACHING, SHARP, TENDER, SORE FROM 0-10, WHAT LEVEL IS YOUR PAIN TODAY?7 PRECIPITATING FACTORS TURNING HEAD INCREASES PAIN ALLEVIATING FACTORS HEAT IMPACT ON FUNCTION DECREASED ABILITY TO DO HOUSEWORK, DAILY ACTIVITIES, SLOWS HER DOWN IS THERE A CHANCE YOU COULD BE ?NO HAVE YOU BEEN SICK IN THE LAST WEEK (COLD, COUGH, FEVER, FLU, ETC)NO DO YOU TAKE ANY BLOOD THINNERS?NO DO YOU HAVE ANY RASHES OR OPEN SORES?NO ANY CHANGE IN BOWEL OR BLADDER CONTROL?NO ARE YOU ALLERGIC TO SHELLFISH OR IV DYE?NO ARE YOU DIABETIC?NO DO YOU HAVE A PACEMAKER OR DEFIBRILLATOR?NO ANY NEW PROBLEMS WITH MEDICINES OR NEW ALLERGIESNO ANY NEW PATTERNS OF PAIN OR NUMBNESS?YES NECK PAIN HAVE YOU FALLEN IN THE LAST 6 MONTHS?YES PT STATES THAT SHE WAS HOME AND SLIPPED ON ICE OVER THE WINTER, NO INJURY FROM FALL NO REPORT TO ED ARE YOU ABUSED, NEGLECTED, OR IN AN UNSAFE ENVIRONMENT?NO DO YOU HAVE THOUGHTS OF HURTING YOURSELF OR SOMEONE ELSE?NO DO YOU NEED ANY PRESCRIPTIONS?NO RECREATIONAL DRUG USE DRUG USE?NO EXERCISE: NO REGULAR EXERCISE. LEARNING BARRIERS / SPECIAL NEEDS CHANGE FROM LAST VISIT?NO BARRIERS TO LEARNING?NO HEARING IMPAIRED?NO VISION IMPAIRED?YES COGNITIVELY IMPAIRED?NO :CORRECTIVE LENSES READINESS TO LEARN?YES LEARNING PREFERENCES?NO LEARNING CAPABILITIES PRESENT?YES EMOTIONAL BARRIERS?NO SPECIAL DEVICES?NO MOLD UNLOADER NEEDED?NO LUNG CANCER SCREENING SMOKING STATUS:CURRENT SMOKER IS THE PATIENT BETWEEN THE AGE OF 57 AND 79?YES HAS THE PATIENT EVER BEEN DIAGNOSED WITH LUNG CANCER?NO PACK YEARS = NUMBER OF PACKS PER DAY SMOKED X NUMBER OF YEARS SMOKED:60 CREATE REFERRAL:GENERATE AND CREATE REFERRAL TO THE ONCOLOGY NURSE NAVIGATOR (SMP) LISTING USING THE LDCT SCAN PROCEDURE PAIN CLINIC PFS, CLERGY, PUBLIC HEALTH REFERRALS WAS THE PROVIDER NOTIFIED OF ANY PERTINENT INFO?YES HAS THE PATIENT BEEN EDUCATED REGARDING HIS/HER PLAN OF CARE?YES HAS THE PATIENT BEEN EDUCATED REGARDING PAIN, THE RISK FOR PAIN, THE IMPORTANCE OF EFFECTIVE PAIN MANAGEMENT, AND THE PAIN ASSESSMENT PROCESS?YES LATEX QUESTIONNAIRE LATEX ALLERGY : HAVE YOU EVER DEVELOPED ANY TYPE OF REACTION AFTER HANDLING LATEX PRODUCTS SUCH RUBBER GLOVES, CONDOMS, DIAPHRAGMS, BALLOONS, SOCKS, OR UNDERWEAR?NO LATEX ALLERGY : HAVE YOU EVER DEVELOPED ANY TYPE OF REACTION DURING OR AFTER DENTAL APPOINTMENT, VAGINAL/RECTAL EXAMINATION, SURGICAL PROCEDURE, OR ANY OTHER EXPOSURE?NO LATEX RISK : HAVE YOU EVER HAD ANY DIFFICULTY BREATHING OR HIVES AFTER EATING OR HANDLING ANY FRUITS, OR VEGETABLES; SUCH KIWI, BANANAS, STONE FRUITS, OR CHESTNUTSNO LATEX RISK : DO YOU HAVE A PREVIOUS PERSONAL HISTORY OF MORE THAN NINE SURGERIES, SPINA BIFIDA, OR REPEATED CATHERTIZATIONS? YES - PLEASE INDICATE : > 9 SURGERIES LATEX RISK : ARE YOU FREQUENTLY EXPOSED TO LATEX PRODUCTS IN YOUR OCCUPATION?NO DATE ASKED : 02/12/2019 CAFFEINE CAFFEINE USE?YES TEA ADVANCE DIRECTIVE ADVANCE DIRECTIVE DISCUSSED WITH PATIENT:YES DECLINED HCP INFORMATION, STATES SHE HAS THE INFORMATION AT HOME. DECLINES ASSISTANCE AT THIS TIME. LATTER DAY LATTER DAY NO [employer]VENTIST BELIEFS THAT WOULD IMPACT HEALTH CARE. MARITAL STATUS: . ALCOHOL SCREENING DID YOU HAVE A DRINK CONTAINING ALCOHOL IN THE PAST YEAR?NO POINTS0 INTERPRETATIONNEGATIVE SEXUAL HX HAD SEX IN THE LAST 12 MONTHS (VAGINAL, ORAL, OR ANAL)?YES WITHMEN ONLY USE PROTECTION?NO LMP:HYSTER HAVE YOU EVER HAD AN STD?NO REVIEWED WITH PT 05/16/18 1338 LASREVIEWED WITH PATIENT 08/15/18 1314 JSREVIEWED WITH PATIENT 09/16/18 0900 BVREVIEWED WITH PATIENT 12/11/18 1209 JSREVEIWED WITH PATIENT 02/12/19 0857 JS. HOSPITALIZATION/MAJOR DIAGNOSTIC PROCEDURE SURGERIES CHILDBIRTH X4 PNEUMONIA REVIEW OF SYSTEMS REVIEWED BY: PROVIDER: . CONSTITUTIONAL: ANY CHANGE IN YOUR MEDICAL CONDITION? NO . CHILLS NO . FEVER NO . INFECTION: DO YOU HAVE NEW INFECTIONS? NO . DO YOU HAVE HISTORY OF MRSA? NO . MUSCULOSKELETAL: ANY NEW PATTERNS OF PAIN OR NUMBNESS? NO . GASTROENTEROLOGY: ANY NEW CHANGE IN BOWEL CONTROL? NO . GENITOURINARY: ANY NEW CHANGE IN BLADDER CONTROL? NO . IS THERE A CHANCE YOU COULD BE ? NO . HEMATOLOGY/LYMPH: DO YOU TAKE ANY BLOOD THINNERS? (FOR EXAMPLE- COUMADIN, PLAVIX, AGGRENOX, PLATEL, PRADAXA, OR XARELTO) NO . WHEN WAS YOUR LAST DOSE? DATE: TIME: . NEUROLOGY: HAVE YOU FALLEN IN THE PAST 12 MONTHS? NO . ANY NEW EXTREMITY NUMBNESS OR WEAKNESS? NO . CARDIOLOGY: DO YOU HAVE A PACEMAKER OR DEFIBRILLATOR? NO . RESPIRATORY: HAVE YOU BEEN SICK IN THE PAST WEEK? NO . FEVER NO . FLU LIKE SYMPTOMS? NO . COUGH NO . INTEGUMENTARY: DO YOU HAVE ANY RASHES OR OPEN SORES? NO . ALLERGIC/IMMUNO: ARE YOU ALLERGIC TO IV DYE? NO . ANY NEW ALLERGIES? NO . PSYCHIATRIC: DO YOU HAVE THOUGHTS OF HURTING YOURSELF OR SOMEONE ELSE? NO . ARE YOU ABUSED, NEGLECTED, OR IN AN UNSAFE ENVIRONMENT? NO . ENDOCRINOLOGY: ARE YOU DIABETIC? NO . OTHER: DO YOU NEED ANY PRESCRIPTIONS? NO . IF YES, PLEASE LIST: ____ . ANY NEW PROBLEMS WITH YOUR MEDICATIONS? NO . WHEN DID YOU LAST EAT? ____02/11/19 1800 . WHEN DID YOU LAST DRINK? ____02/12/19 0700 . WHAT DID YOU LAST DRINK? ____WATER . NAME OF PERSON DRIVING YOU HOME? ____MOUNIKA WILSON . DO YOU HAVE ANY OTHER QUESTIONS OR CONCERNS NO . VITAL SIGNS WT 133.6 LBS, HT 64.5 IN, BMI 22.58 INDEX, BP 120/59 MM HG, HR 94 /MIN, RR 18 /MIN, TEMP 97.4 F, OXYGEN SAT % 94%, SAFE IN ENV? (Y/N) YES, NA INITIALS AW 0850, REVIEWED BY: JS. ASSESSMENTS SPONDYLOSIS OF CERVICAL REGION WITHOUT MYELOPATHY OR RADICULOPATHY - M47.812 (PRIMARY) PROCEDURES PN CERVICAL FACET BLOCK LOW BILATERAL CERVICAL PRE PROCEDURE DIAGNOSIS CERVICAL SPONDYLOSIS POST PROCEDURE DIAGNOSIS CERVICAL SPONDYLOSIS PROCEDURE BILATERAL C3-C4 AND BILATERAL C4-C5 CERVICAL FACET BLOCK SURGEON DR. HENRY PATEL APPLICATION PACKAGING CONSULTANT NONE ANESTHESIA LOCAL PRE PROCEDURE NOTE THE PATIENT HAS HISTORY OF CHRONIC CERVICAL PAIN. I EVALUATE THE PATIENT AND REVIEWED THE CHART. I WENT OVER THE RISKS, ALTERNATIVES, AND BENEFITS ASSOCIATED WITH THIS PROCEDURE. THE PATIENT WOULD LIKE TO PROCEED AND GIVE CONSENT TO PERFORMED THE PROCEDURE. THE PATIENT DENIES UNEXPLAINABLE WEIGHT LOSS, FEVER, CHILLS, OR NEW CHANGES IN URINARY OR BOWEL CONTROL. DESCRIPTION OF PROCEDURE THE PATIENT WAS BROUGHT TO THE PROCEDURE ROOM AND PLACED IN THE PRONE POSITION. THE CERVICOTHORACIC AREA WAS CLEANED WITH CHLORAPREP SOLUTION AND DRAPED ASEPTICALLY. THE PROCEDURE WAS DONE UNDER STERILE CONDITIONS. I CHECKED LATERALITY AND THE LEVEL WHERE THE PROCEDURE WAS GOING TO BE PERFORMED WITH THE PATIENT AND THE SUPPORTING STAFF AT THE MOMENT OF THE TIME OUT IN THE PROCEDURE ROOM. UNDER FLUOROSCOPIC GUIDANCE, TARGET POINT WAS SELECTED AT THE RIGHT AND LEFT C3-C4 AND RIGHT AND LEFT C4-C5 CERVICAL FACET JOINT. TARGET POINTS WERE SELECTED AFTER LATERAL ROTATION AND TILT OF THE MAGNIFIER OF THE C-ARM. LIDOCAINE 0.5% WAS USED TO NUMB THE SKIN AND THE SUBCUTANEOUS TISSUE BELOW IT. SPINAL NEEDLES, 22-GAUGE, WERE ADVANCED UNDER FLUOROSCOPIC GUIDANCE AND FOLLOWING PATIENT FEEDBACK UNTIL THE TARGETS WERE TOUCHED. THE POSITION OF THE NEEDLES WAS VERIFIED WITH AP AND LATERAL VIEWS. AFTER PROPER POSITION OF THE NEEDLES WAS ACHIEVED, ISOVUE M DYE 30, 0.1 ML WAS INJECTED SHOWING SPREAD OF THE DYE. THEN A SOLUTION OF 0.9 ML OF BUPIVACAINE 0.125% AND KENALOG 10 MG WAS INJECTED AT EACH SITE. THERE WAS NO EVIDENCE OF BLOOD, PARESTHESIA OR CEREBROSPINAL FLUID DURING THE PROCEDURE. THE PATIENT WAS SENT TO THE RECOVERY ROOM. THE PATIENT WAS MOVING THE EXTREMITIES AND DOING WELL. THERE WAS NO COMPLICATION DURING THE PROCEDURE. FLUOROSCOPY TIME WAS 17 SECONDS POST PROCEDURE NOTE THE PATIENT WILL BE SEEN IN A FOLLOW UP IN THE NEXT FEW WEEKS. INSTRUCTIONS WERE GIVEN, QUESTIONS WERE ANSWERED, AND THE PATIENT EXPRESSED UNDERSTANDING AND AGREES WITH THE PLAN. I, AUSTYN JOHNSON, DOCUMENTED THE ABOVE INFORMATION ACTING A SCRIBE FOR DR. PATEL. I HAVE REVIEWED THE ABOVE DOCUMENT, WRITTEN BY AUSTYN VERDUZCOIBJean Pierre AND I VERIFY THAT IT IS ACCURATE. DIAGNOSTIC IMAGING [facility] FACET BLOCK (PAIN)[id number] PROCEDURE CODES 6045F RADXPS IN END [id number] PXD [id number] INJ PARAVERT F JNT C/T 1 LEV, MODIFIERS: 50 [id number] INJ PARAVERT F JNT C/T 2 LEV, MODIFIERS: 50 DISPOSITION & COMMUNICATION FOLLOW UP 3 WEEKS ELECTRONICALLY SIGNED BY HENRY PATEL MD, MD ON 02/21/2019 AT 06:15 PM EDT DISCLAIMER : THIS IS A VISIT SUMMARY EXTRACTED FROM THE [facility] CHART. IT IS NOT A COPY OF THE [facility] PROGRESS NOTE. MTDD
== END ==
LOC: M PAIN 08:30
PROVIDERS: ATTEND Anesthesiology
DX: M47.812 Spondylosis without myelopathy or radiculopathy, cervical region (principal); K21.9 Gastro-esophageal reflux disease without esophagitis; M19.90 Unspecified osteoarthritis, unspecified site; J44.9 Chronic obstructive pulmonary disease, unspecified; E78.5 Hyperlipidemia, unspecified; E55.9 Vitamin D deficiency, unspecified; K58.1 Irritable bowel syndrome with constipation; G47.33 Obstructive sleep apnea (adult) (pediatric); F17.210 Nicotine dependence, cigarettes, uncomplicated; M54.81 Occipital neuralgia; Z98.49 Cataract extraction status, unspecified eye; Z88.5 Allergy status to narcotic agent; Z88.8 Allergy status to other drugs, medicaments and biological substances; Z79.899 Other long term (current) drug therapy
CPT/HCPCS: 64490; 64491; J3301; Q9967

== ENCOUNTER → 2019-02-19 | Outpatient (CLI) | payer MEDICARE ==
[~2019-02-19] MED LIST changes: -BUPIVACAINE HCL 0.25% 30 ML VIAL As Ordered ONE; -DICY20TA PO; +GASTROGRAFIN SOLUTION 30ML (Q9963) As Ordered ONE; -ISOVUE-M 300 61% 15ML VIAL (Q9967) As Ordered ONE; -LIDOCAINE 1% SDV INJ 30 ML VIAL As Ordered ONE; -TRIAMCINOLONE ACETONIDE SUSP 40 MG/ML VIAL (J3301) As Ordered ONE; -diazePAM 5 MG TAB As Ordered ONE; -oxyCODONE 5MG TAB As Ordered ONE
--- NOTE | 2019-02-19 17:08 | REP ---
CT of the abdomen and pelvis with bowel contrast, without IV contrast: Comparison is 10/30/2018. The patient has an appendectomy and hysterectomy. The visualized lung english are unremarkable. The unenhanced hepatic parenchyma, gallbladder, pancreas and spleen are normal size and unremarkable. The adrenals are unremarkable. The kidneys are unremarkable. No hydronephrosis. Abdominal aorta is unremarkable. There is no periaortic adenopathy or mass. There is no evidence of bowel obstruction. However, there is an unusual collection of matted bowel loops in the midline of the pelvis, likely predominantly small bowel. The bowel contrast has not reached this area at the time of scanning has not reached the colon at the time of scanning. There is fecalization of bowel content within these matted bowel loops compatible with stasis. This was not present previously. This may represent adhesions resulting in these matted bowel loops. There is no colonic distension or obstruction. Pelvis: The vaginal cuff and adnexa are unremarkable. The bladder is unremarkable. There is no adenopathy or ascites. Impression: There are multiple matted bowel loops in the midline of the pelvis, likely small bowel, possibly the result of adhesions. There is fecalization of the bowel content within these bowel loops compatible with stasis. There are no associated inflammatory changes. No ascites. No pneumoperitoneum. No bowel distension to suggest obstruction. Electronically Signed by Behzad Askew MD 02/19/2019 04:58 P
== END ==
LOC: M RAD 13:47
PROVIDERS: ATTEND Family Medicine
DX: R10.84 Generalized abdominal pain (principal)
CPT/HCPCS: 74176; Q9963

== ENCOUNTER 2019-03-02 14:55 | Emergency (ER) | payer MEDICARE ==
[~2019-03-02] VITALS: Ht 162.6 cm; Wt 60.1 kg
[~2019-03-02 14:55] MED LIST changes: -DULO1CAP2 PO; -DULO1CAP3 PO; +DULO1CAP5 PO; +DULO1CAP6 PO; -GASTROGRAFIN SOLUTION 30ML (Q9963) As Ordered ONE; -ROSU20TA4 PO; +ROSU20TA5 PO
[2019-03-02 15:38] LABS: BASO # 0.1 10^3/uL (0.0-0.2); BASO % 0.6 % (0.0-1.0); EOS # 0.1 10^3/uL (0.0-0.50); EOS % 0.9 % (0.0-3.0); HEMATOCRIT 39.1 % (36.0-47.0); HEMOGLOBIN 12.4 g/dl (12.0-15.5); LYMPH # 2.4 10^3/uL (1.5-4.5); LYMPH % 30.7 % (24.0-44.0); MEAN CORPUSCULAR HEMOGLOBIN 29.5 pg (27.0-33.0); MEAN CORPUSCULAR HGB CONC 31.7 g/dl (32.0-36.5); MEAN CORPUSCULAR VOLUME 92.9 fl (80.0-96.0); MONO # 0.7 10^3/uL (0.0-0.8); MONO % 9.4 % (0.0-5.0); NEUTROPHILS # 4.6 10^3/uL (1.8-7.7); NEUTROPHILS % 58.1 % (36.0-66.0); PLATELET COUNT, AUTOMATED 254 10^3/uL (150-450); RED BLOOD COUNT 4.21 10^6/uL (4.00-5.40); WHITE BLOOD COUNT 7.9 10^3/uL (4.0-10.0)
[2019-03-02 16:11] LABS: ALBUMIN 3.2 GM/DL (3.2-5.2); ALT/SGPT 18 U/L (12-78); BILIRUBIN,DIRECT < 0.1 MG/DL (0.0-0.2); BILIRUBIN,TOTAL < 0.1 MG/DL (0.2-1.0); BLOOD UREA NITROGEN 15 MG/DL (7-18); CALCIUM LEVEL 8.6 MG/DL (8.8-10.2); CARBON DIOXIDE LEVEL 26 MEQ/L (21-32); CHLORIDE LEVEL 107 MEQ/L (98-107); CREATININE FOR GFR 0.73 MG/DL (0.55-1.30); GLOMERULAR FILTRATION RATE > 60.0 (>45); GLUCOSE, FASTING 93 MG/DL (70-100); LIPASE 390 U/L (73-393); POTASSIUM SERUM 4.4 MEQ/L (3.5-5.1); SODIUM LEVEL 140 MEQ/L (136-145); TOTAL PROTEIN 7.4 GM/DL (6.4-8.2)
[2019-03-02] MEDS ORDERED: DICYCLOMINE INJ 20MG/2ML (J0500) IM ONE (17:45)
--- NOTE | 2019-03-02 18:01 | REP ---
Clinical: Generalized abdominal pain. Technique: Single supine view of the abdomen and pelvis. Findings: Bowel gas pattern is nonspecific. No obstruction or perforation. No abnormal calcifications. Skeletal structures are intact. Impression: Nonspecific bowel gas pattern. Electronically Signed by Marcio Jordan MD 03/02/2019 05:53 P
[2019-03-02] MEDS ORDERED: DICY20TA PO (18:33)
[2019-03-02 18:39] VITALS: BP 150/85
== END 2019-03-02 18:54 | disposition home or self-care (01) ==
LOC: M ED 14:55
DX: K58.9 Irritable bowel syndrome, unspecified (principal); R10.9 Unspecified abdominal pain; E78.5 Hyperlipidemia, unspecified; F17.210 Nicotine dependence, cigarettes, uncomplicated; Z79.52 Long term (current) use of systemic steroids; Z79.891 Long term (current) use of opiate analgesic; Z79.899 Other long term (current) drug therapy; Z88.5 Allergy status to narcotic agent; Z88.6 Allergy status to analgesic agent; Z88.8 Allergy status to other drugs, medicaments and biological substances
CPT/HCPCS: 74018; 80048; 80076; 83690; 85025; 96372; 99283; J0500

== ENCOUNTER → 2019-03-24 | Outpatient (CLI) | payer MEDICARE ==
[~2019-03-24] MED LIST changes: +DICY20TA PO
--- NOTE | 2019-04-07 02:19 | ECWPNPC ---
PATIENT NAME: NATALI WILSON : 1950 GENDER: FEMALE VISIT DATE: 03/24/2019 DISCHARGE DATE: 03/24/19 1126 VISIT LOCKED DATE TIME: PHYSICIAN: JORGE MCCARTHY RESOURCE: JORGE MCCARTHY REASON FOR APPOINTMENT 1. POST RF HISTORY OF PRESENT ILLNESS HISTORY OF PRESENT ILLNESS: HERE FOR POST LEFT RF F/U.CONTINUES TO DO WELL ON LEFT LOW BACK.CHIEF AREA OF PAIN IS RIGHT LOW BACK.HAS APT FOR DX RIGHT LUMBAR BLOCK IN 3 WEEKS.RATING RIGHT LBP 9/10 VAS. PAIN THE PATIENT DESCRIBES THE PAIN... FALL RISK SCREENING: SCREENING :NO FALLS REPORTED IN THE LAST YEAR CURRENT MEDICATIONS TAKING MUCINEX 600 MG TABLET EXTENDED RELEASE 12 HOUR 1 TABLET NEEDED ORALLY EVERY 12 HRS TAKING MULTIVITAMIN OTC TABLET 1 TAB(S) ORALLY ONCE DAILY TAKING LATANOPROST 0.005 % SOLUTION 1 DROP INTO AFFECTED EYE IN THE EVENING OPHTHALMIC ONCE A DAY TAKING SOOTHE XP - SOLUTION OPHTHALMIC TAKING ZONISAMIDE 100 MG CAPSULE 3 ORALLY BEFORE BEDTIME TAKING TYLENOL ARTHRITIS PAIN 2 TABLETS NEEDED ORALLY 2-3 TIMES/DAY TAKING DUONEB 0.5-2.5 (3) MG/3ML SOLUTION 3 ML INHALATION FOUR TIMES A DAY NEEDED TAKING FLONASE 50 MCG/ACT SUSPENSION 1 SPRAY IN EACH NOSTRIL NASALLY ONCE A DAY TAKING MIRALAX - POWDER 17 GRAMS ORALLY ONCE A DAY TAKING GABAPENTIN 300 MG CAPSULE 1 CAPSULE ORALLY BID TAKING OMEPRAZOLE 40 MG CAPSULE DELAYED RELEASE TAKE ONE CAPSULE BY MOUTH TWICE A DAY ORALLY TWICE DAILY TAKING CYMBALTA 60 MG CAPSULE DELAYED RELEASE PARTICLES 1 CAPSULE ORALLY ONCE A DAY TDD= 90MG TAKING FISH OIL 500 MG CAPSULE 1 CAPSULE ORALLY TWICE A DAY TAKING CRESTOR 20 MG TABLET 1 TABLET ORALLY ONCE A DAY TAKING BREO ELLIPTA 100-25 MCG/INH AEROSOL POWDER BREATH ACTIVATED 1 PUFF INHALATION ONCE A DAY TAKING VITAMIN D (ERGOCALCIFEROL) 63947 UNIT CAPSULE TAKE ONE CAPSULE BY MOUTH ONCE WEEKLY TAKING COLON FORMULA 166.67-500 MG CAPSULE DIRECTED ORALLY NOT-TAKING HYOSCYAMINE SULFATE 0.125 MG TABLET 1 TABLET NEEDED ORALLY TID, NOTES: 02/11/19 2100 NOT-TAKING LIDOCAINE 5 % OINTMENT 1 APPLICATION TO AFFECTED AREA NEEDED EXTERNALLY TO LABIA THREE TIMES A DAY NOT-TAKING ALBUTEROL SULFATE HFA 108 (90 BASE) MCG/ACT AEROSOL SOLUTION 2 PUFFS NEEDED INHALATION EVERY 4-6 HRS NOT-TAKING PERCOCET 5-325 MG TABLET 1 TABLET NEEDED ORALLY EVERY 6 HRS PRN MDD4 NOT-TAKING CIPROFLOXACIN HCL 500 MG TABLET 1 TABLET ORALLY EVERY 12 HRS NOT-TAKING METRONIDAZOLE 500 MG TABLET 1 TABLET ORALLY EVERY 8 HRS NOT-TAKING CYMBALTA 30 MG CAPSULE DELAYED RELEASE PARTICLES 1 CAPSULE ORALLY ONCE A DAY TTD=90 MG, NOTES: 2 DAYS MEDICATION LIST REVIEWED AND RECONCILED WITH THE PATIENT PAST MEDICAL HISTORY BACK PAIN CHRONIC/DDD - (PREVIOUSLY FOLLOWED BY DR. GUERRERO & DR. 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, FOLLOWED BY NEURO DAVID - ON CPAP PER NEUROLOGY STARTED 08/28/[address] ABD/PELVIS SHOWED "MATTING" OF SMALL BOWEL WITH APPARENT FECAL STASIS (01/2019) ALLERGIES VICODIN: ITCHING - SIDE EFFECTS ATORVASTATIN CALCIUM: ELEVATED LIVER ENZYMES - SIDE EFFECTS CHANTIX: HALLUCINATIONS AND SI - SIDE EFFECTS DEPAKOTE: TEMORS - SIDE EFFECTS SURGICAL HISTORY TONSILLECTOMY A CHILD APPENDECTOMY A CHILD CARPAL TUNNEL RELEASE/CORNELIO RIGHT/ FOOT - BABY TOE- BONE REMOVED D& C, 3 OR 4 INGUINAL HERNIA REPAIR- DOUBLE ONE HYSTERECTOMY & BSO (DUE TO UTERINE PROLAPSE) 2011 CARPAL TUNNEL RELEASE 2014 CATARACT SURGERY 01/17/17 EGD/COLONOSCOPY - NORMAL EGD/YUBULAR ADENOMATOUS AND HYPERPLASTIC POLYP (F/U IN 3 - [address] NOYOLA 11/2015 RIGHT KNEE ARTHROSCOPE- REPAIRED LIGAMENTS,MENISCUS, REMOVAL ARTHRITIS 01/30/2018 HEMORRHOIDECTOMY 01/2019 FAMILY HISTORY FATHER: 69 YRS, DIAGNOSED WITH HEART DISEASE MOTHER: 80 YRS, DIABETES, HYPERTENSION 1 BROTHER(S) , 1 SISTER(S) - HEALTHY. BROTHER,25 MVA, BROTHER 30\\\\\\\\\\\\\\\\\\\\\\\\\\\\\\'S AIDS, BROTHER 58 HEART ATTACK, BROTHER 64 HEART, LUNGS . SOCIAL HISTORY GENERAL: TOBACCO USE ARE YOU A:CURRENT SMOKER ARE YOU INTERESTED IN QUITTING?READY TO QUIT PT HAS CUT WAY BACK TO 2 CIGS/DAY. USING THE NICOTINE PATCH PREVIOUS QUIT ATTEMPTS?YES, WITHIN THE LAST 6 MONTHS. COUNSELED THE PATIENT ON TOBACCO USE, CESSATION [id number]/2019 HOW MANY CIGARETTES A DAY DO YOU SMOKE?5 OR LESS HOW SOON AFTER YOU WAKE UP DO YOU SMOKE YOUR FIRST CIGARETTE?6-30 MIN HOW OFTEN DO YOU SMOKE CIGARETTES?EVERY DAY PATIENT COUNSELED ON THE DANGERS OF TOBACCO USE AND URGED TO QUIT:02/12/2019 SMOKING CESSATION INFORMATION GIVEN02/05/2019 OTHERS AT HOME: SPOUSE. DIET: REGULAR. LANGUAGE LANGUAGES SPOKEN:TAJIK NEW PATIENT PAIN DIARY PATIENT DESCRIBES PAIN :ACHING, SHARP, TENDER, SORE FROM 0-10, WHAT LEVEL IS YOUR PAIN TODAY?7 PRECIPITATING FACTORS TURNING HEAD INCREASES PAIN ALLEVIATING FACTORS HEAT IMPACT ON FUNCTION DECREASED ABILITY TO DO HOUSEWORK, DAILY ACTIVITIES, SLOWS HER DOWN IS THERE A CHANCE YOU COULD BE ?NO HAVE YOU BEEN SICK IN THE LAST WEEK (COLD, COUGH, FEVER, FLU, ETC)NO DO YOU TAKE ANY BLOOD THINNERS?NO DO YOU HAVE ANY RASHES OR OPEN SORES?NO ANY CHANGE IN BOWEL OR BLADDER CONTROL?NO ARE YOU ALLERGIC TO SHELLFISH OR IV DYE?NO ARE YOU DIABETIC?NO DO YOU HAVE A PACEMAKER OR DEFIBRILLATOR?NO ANY NEW PROBLEMS WITH MEDICINES OR NEW ALLERGIESNO ANY NEW PATTERNS OF PAIN OR NUMBNESS?YES NECK PAIN HAVE YOU FALLEN IN THE LAST 6 MONTHS?YES PT STATES THAT SHE WAS HOME AND SLIPPED ON ICE OVER THE WINTER, NO INJURY FROM FALL NO REPORT TO ED ARE YOU ABUSED, NEGLECTED, OR IN AN UNSAFE ENVIRONMENT?NO DO YOU HAVE THOUGHTS OF HURTING YOURSELF OR SOMEONE ELSE?NO DO YOU NEED ANY PRESCRIPTIONS?NO RECREATIONAL DRUG USE DRUG USE?NO EXERCISE: NO REGULAR EXERCISE. LEARNING BARRIERS / SPECIAL NEEDS CHANGE FROM LAST VISIT?NO BARRIERS TO LEARNING?NO HEARING IMPAIRED?NO VISION IMPAIRED?YES COGNITIVELY IMPAIRED?NO :CORRECTIVE LENSES READINESS TO LEARN?YES LEARNING PREFERENCES?NO LEARNING CAPABILITIES PRESENT?YES EMOTIONAL BARRIERS?NO SPECIAL DEVICES?NO BROACH GRINDER NEEDED?NO LUNG CANCER SCREENING SMOKING STATUS:CURRENT SMOKER IS THE PATIENT BETWEEN THE AGE OF 57 AND 79?YES HAS THE PATIENT EVER BEEN DIAGNOSED WITH LUNG CANCER?NO PACK YEARS = NUMBER OF PACKS PER DAY SMOKED X NUMBER OF YEARS SMOKED:60 CREATE REFERRAL:GENERATE AND CREATE REFERRAL TO THE ONCOLOGY NURSE NAVIGATOR (SMP) LISTING USING THE LDCT SCAN PROCEDURE PAIN CLINIC PFS, CLERGY, PUBLIC HEALTH REFERRALS WAS THE PROVIDER NOTIFIED OF ANY PERTINENT INFO?YES HAS THE PATIENT BEEN EDUCATED REGARDING HIS/HER PLAN OF CARE?YES HAS THE PATIENT BEEN EDUCATED REGARDING PAIN, THE RISK FOR PAIN, THE IMPORTANCE OF EFFECTIVE PAIN MANAGEMENT, AND THE PAIN ASSESSMENT PROCESS?YES LATEX QUESTIONNAIRE LATEX ALLERGY : HAVE YOU EVER DEVELOPED ANY TYPE OF REACTION AFTER HANDLING LATEX PRODUCTS SUCH RUBBER GLOVES, CONDOMS, DIAPHRAGMS, BALLOONS, SOCKS, OR UNDERWEAR?NO LATEX ALLERGY : HAVE YOU EVER DEVELOPED ANY TYPE OF REACTION DURING OR AFTER DENTAL APPOINTMENT, VAGINAL/RECTAL EXAMINATION, SURGICAL PROCEDURE, OR ANY OTHER EXPOSURE?NO DATE ASKED : 02/12/2019 LATEX RISK : HAVE YOU EVER HAD ANY DIFFICULTY BREATHING OR HIVES AFTER EATING OR HANDLING ANY FRUITS, OR VEGETABLES; SUCH KIWI, BANANAS, STONE FRUITS, OR CHESTNUTSNO LATEX RISK : DO YOU HAVE A PREVIOUS PERSONAL HISTORY OF MORE THAN NINE SURGERIES, SPINA BIFIDA, OR REPEATED CATHERIZATIONS? YES - PLEASE INDICATE : > 9 SURGERIES LATEX RISK : ARE YOU FREQUENTLY EXPOSED TO LATEX PRODUCTS IN YOUR OCCUPATION?NO CAFFEINE CAFFEINE USE?YES TEA ADVANCE DIRECTIVE ADVANCE DIRECTIVE DISCUSSED WITH PATIENT:YES DECLINED HCP INFORMATION, STATES SHE HAS THE INFORMATION AT HOME. DECLINES ASSISTANCE AT THIS TIME. MOSQUE MOSQUE NO CHRISTIANITY BELIEFS THAT WOULD IMPACT HEALTH CARE. MARITAL STATUS: . ALCOHOL SCREENING DID YOU HAVE A DRINK CONTAINING ALCOHOL IN THE PAST YEAR?NO POINTS0 INTERPRETATIONNEGATIVE SEXUAL HX HAD SEX IN THE LAST 12 MONTHS (VAGINAL, ORAL, OR ANAL)?YES WITHMEN ONLY USE PROTECTION?NO LMP:HYSTER HAVE YOU EVER HAD AN STD?NO REVIEWED WITH PT 05/16/18 1338 LASREVIEWED WITH PATIENT 08/15/18 1314 JSREVIEWED WITH PATIENT 09/16/18 0900 BVREVIEWED WITH PATIENT 12/11/18 1209 JSREVEIWED WITH PATIENT 02/12/19 0857 JS. HOSPITALIZATION/MAJOR DIAGNOSTIC PROCEDURE SURGERIES CHILDBIRTH X4 PNEUMONIA REVIEW OF SYSTEMS REVIEWED BY: PROVIDER: JORGE CALIX . CONSTITUTIONAL: ANY CHANGE IN YOUR MEDICAL CONDITION? NO . CHILLS NO . FEVER NO . INFECTION: DO YOU HAVE NEW INFECTIONS? NO . DO YOU HAVE HISTORY OF MRSA? NO . MUSCULOSKELETAL: ANY NEW PATTERNS OF PAIN OR NUMBNESS? YES, RIGHT SCIATICA PAIN X 2 WEEKS . GASTROENTEROLOGY: ANY NEW CHANGE IN BOWEL CONTROL? NO . GENITOURINARY: ANY NEW CHANGE IN BLADDER CONTROL? NO . IS THERE A CHANCE YOU COULD BE ? NO . HEMATOLOGY/LYMPH: DO YOU TAKE ANY BLOOD THINNERS? (FOR EXAMPLE- COUMADIN, PLAVIX, AGGRENOX, PLATEL, PRADAXA, OR XARELTO) NO . WHEN WAS YOUR LAST DOSE? DATE: TIME: . NEUROLOGY: HAVE YOU FALLEN IN THE PAST 12 MONTHS? NO . ANY NEW EXTREMITY NUMBNESS OR WEAKNESS? NO . CARDIOLOGY: DO YOU HAVE A PACEMAKER OR DEFIBRILLATOR? NO . RESPIRATORY: HAVE YOU BEEN SICK IN THE PAST WEEK? YES, URI RESOLVING . FEVER NO . FLU LIKE SYMPTOMS? NO . COUGH YELLOW SPUTUM . INTEGUMENTARY: DO YOU HAVE ANY RASHES OR OPEN SORES? NO . ALLERGIC/IMMUNO: ARE YOU ALLERGIC TO IV DYE? NO . ANY NEW ALLERGIES? NO . PSYCHIATRIC: DO YOU HAVE THOUGHTS OF HURTING YOURSELF OR SOMEONE ELSE? NO . ARE YOU ABUSED, NEGLECTED, OR IN AN UNSAFE ENVIRONMENT? NO . ENDOCRINOLOGY: ARE YOU DIABETIC? NO . OTHER: DO YOU NEED ANY PRESCRIPTIONS? YES, DISCUSS OTHER MEDS IN ADDITION TO CURRENTLY TAKING . IF YES, PLEASE LIST: ____ . ANY NEW PROBLEMS WITH YOUR MEDICATIONS? NO . WHEN DID YOU LAST EAT? ____ . WHEN DID YOU LAST DRINK? ____ . WHAT DID YOU LAST DRINK? ____ . NAME OF PERSON DRIVING YOU HOME? ____ . DO YOU HAVE ANY OTHER QUESTIONS OR CONCERNS YES, DISCUSS GETTING PAIN MEDS FOR PAIN . VITAL SIGNS WT 129.4 LBS, HT 64.5 IN, BMI 21.87 INDEX, BP 148/63 MM HG, HR 79 /MIN, RR 18 /MIN, TEMP 97.3 F, OXYGEN SAT % 94%, NA INITIALS SC 10:43, REVIEWED BY: EM. EXAMINATION GENERAL EXAMINATION: GENERAL ALERT,NO DISTRESS . PSYCH AFFECT NORMAL . LUNGS: LUNG SOUNDS ARE CLEAR . HEART: HEART RATE REGULAR . MUSCULOSKELETAL: MST 5/5 BILAT. LOWER EXTREMITIES . LUMBAR SACRAL SPINE TENDERNESS RIGHT SIJ . DIAGNOSTIC TESTS REVIEWED CT L/S [id number] . ASSESSMENTS SACROILIITIS - M46.1 (PRIMARY) TREATMENT SACROILIITIS REFILL PERCOCET TABLET, 5-325 MG, 1 TABLET NEEDED, ORALLY, EVERY 6 HRS PRN MDD4, 30 DAYS, 30, REFILLS 0 NOTES: RIGHT SIJ. PREVENTIVE MEDICINE PAIN CLINIC TEACHING: PROCEDURE TEACHING PT GIVEN WRITTEN AND VERBAL PRE PROCEDURE INSTRUCTIONS. PT VERBALIZES UNDERSTANDING OF ALL INSTRUCTGIONS. HAZEL ANDERSON 03/24/2019 11:27:34 AM > . PROCEDURE CODES FA211 ESTABILISHED PATIENT [facility] CHARGE DISPOSITION & COMMUNICATION FOLLOW UP POST DX#2 AND RIGHT SIJ-SAME DAY (REASON: RIGHT SIJ) ELECTRONICALLY SIGNED BY YOGI CRUZ ON 04/06/2019 AT 03:38 PM EDT DISCLAIMER : THIS IS A VISIT SUMMARY EXTRACTED FROM THE [employer] CHART. IT IS NOT A COPY OF THE [employer] PROGRESS NOTE. CINTIA
== END ==
LOC: M PAIN 10:00
PROVIDERS: ATTEND Nurse Practitioner Family
DX: M46.1 Sacroiliitis, not elsewhere classified (principal); K21.9 Gastro-esophageal reflux disease without esophagitis; M19.90 Unspecified osteoarthritis, unspecified site; J44.9 Chronic obstructive pulmonary disease, unspecified; E78.5 Hyperlipidemia, unspecified; E55.9 Vitamin D deficiency, unspecified; G47.33 Obstructive sleep apnea (adult) (pediatric); F17.210 Nicotine dependence, cigarettes, uncomplicated; Z88.5 Allergy status to narcotic agent; Z88.8 Allergy status to other drugs, medicaments and biological substances; Z79.51 Long term (current) use of inhaled steroids; Z79.899 Other long term (current) drug therapy

== ENCOUNTER 2019-04-13 08:48 | Emergency (ER) | payer MEDICARE ==
[~2019-04-13] VITALS: Ht 162.6 cm; Wt 57.9 kg
[2019-04-13] MEDS ORDERED: [UNRECOGNIZED DRUG - OTHER] PO (08:56)
[2019-04-13 09:23] LABS: BASO % 0.3 % (0.0-1.0); HEMATOCRIT 44.4 % (36.0-47.0); HEMOGLOBIN 14.1 g/dl (12.0-15.5); LYMPH # 1.1 10^3/uL (1.5-4.5); LYMPH % 7.6 % (24.0-44.0); MEAN CORPUSCULAR HEMOGLOBIN 29.9 pg (27.0-33.0); MEAN CORPUSCULAR HGB CONC 31.8 g/dl (32.0-36.5); MEAN CORPUSCULAR VOLUME 94.3 fl (80.0-96.0); MONO # 0.8 10^3/uL (0.0-0.8); MONO % 5.4 % (0.0-5.0); NEUTROPHILS # 12.8 10^3/uL (1.8-7.7); NEUTROPHILS % 86.3 % (36.0-66.0); PLATELET COUNT, AUTOMATED 289 10^3/uL (150-450); RED BLOOD COUNT 4.71 10^6/uL (4.00-5.40); WHITE BLOOD COUNT 14.9 10^3/uL (4.0-10.0)
[2019-04-13 09:59] LABS: ALT/SGPT 21 U/L (12-78); BILIRUBIN,DIRECT 0.1 MG/DL (0.0-0.2); BILIRUBIN,TOTAL 0.2 MG/DL (0.2-1.0); BLOOD UREA NITROGEN 16 MG/DL (7-18); CALCIUM LEVEL 9.1 MG/DL (8.8-10.2); CARBON DIOXIDE LEVEL 23 MEQ/L (21-32); CHLORIDE LEVEL 107 MEQ/L (98-107); GLOMERULAR FILTRATION RATE > 60.0 (>45); GLUCOSE, FASTING 153 MG/DL (70-100); LIPASE 128 U/L (73-393); POTASSIUM SERUM 4.1 MEQ/L (3.5-5.1); SODIUM LEVEL 138 MEQ/L (136-145); TOTAL PROTEIN 7.8 GM/DL (6.4-8.2)
[2019-04-13] MEDS ORDERED: ONDANSETRON 4MG/2ML VIAL (J2405) IV ONE (10:00)
[2019-04-13] MEDS ORDERED: DICYCLOMINE INJ 20MG/2ML (J0500) IM ONE (10:00)
[2019-04-13] MEDS ORDERED: ISOVUE-370 76% 100ML VIAL (Q9967) As Ordered ONE (10:02)
--- NOTE | 2019-04-13 11:32 | REP ---
REASON FOR EXAM: Abdominal pain. COMPARISON: Noncontrast-enhanced examination of 02/19/2019 and contrast enhanced examination 10/30/2018. The lung bases are clear and unchanged. The liver, gallbladder, spleen, pancreas, adrenal glands, and kidneys are within normal limits and essentially unchanged from the prior exams. The abdominal aorta and para-aortic regions are essentially unchanged and again seen to be within normal limits. There is perigastric fatty infiltration with possible gastric wall thickening but difficult to evaluate with CT. There is a small amount of ascites with fluid seen along the hepatic edge and in the pericolic gutters. There is a small amount of fluid in the lesser sac. There is a small amount of fluid seen trapped in the leads of the small bowel mesentery. There is no evidence or free intraperitoneal air. CT PELVIS: There is a moderate amount of free pelvic fluid. There is no evidence of free air. The small bowel loops are, for the most part, collapsed. There is no evidence of a pelvic mass or sidewall adenopathy. Bone window technique throughout the examination shows no significant change compared in appearance to the osseous structures. IMPRESSION: There is perigastric fatty infiltration seen in conjunction with fluid collections as described above. The finding is consistent with a clinical diagnosis of gastritis. It should be remembered that CT poorly evaluates the stomach. Other findings as described above. Electronically Signed by Demetrius Reddy DO 04/13/2019 12:47 P
[2019-04-13] MEDS ORDERED: SIME40TA PO (11:57)
[2019-04-13] MEDS ORDERED: DICY20TA PO (11:57)
[2019-04-13 12:10] VITALS: BP 133/82
--- NOTE | 2019-04-13 20:40 | ECGEPIP ---
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
== END 2019-04-13 12:11 | disposition home or self-care (01) ==
LOC: M ED 08:48
DX: K58.9 Irritable bowel syndrome, unspecified (principal); I45.19 Other right bundle-branch block; I51.7 Cardiomegaly; J44.9 Chronic obstructive pulmonary disease, unspecified; M54.9 Dorsalgia, unspecified; Z72.0 Tobacco use; Z79.899 Other long term (current) drug therapy; Z88.5 Allergy status to narcotic agent; Z88.8 Allergy status to other drugs, medicaments and biological substances
CPT/HCPCS: 74177; 80048; 80076; 83690; 85025; 93005; 96372; 96374; 99284; J0500; J2405; Q9967

== ENCOUNTER → 2019-04-15 | Outpatient (REF) | payer MEDICARE ==
[~2019-04-15] MED LIST changes: +AMOX875T2 PO; +DICY20TA11 PO; +FLON1SPR NARES; +GABA-843 PO; -OMEP40CA2 PO; +OMEP40CA97 PO; +ONDA4TAB6 PO; +SIME40TA PO; +SIME80TA PO; +TYLETAB14 PO; +VITA500045 PO; +XALA0.007 OU; +ZONI100C17 PO; +ZONI50CA11 PO; -ZONI50CA3 PO; +[UNRECOGNIZED DRUG - OTHER] PO
[2019-04-15 16:55] LABS: ALBUMIN 3.5 GM/DL (3.2-5.2); BILIRUBIN,TOTAL 0.3 MG/DL (0.2-1.0); CALCIUM LEVEL 9.3 MG/DL (8.8-10.2); CREATININE FOR GFR 1.44 MG/DL (0.55-1.30); GLOMERULAR FILTRATION RATE 38.8 (>45); POTASSIUM SERUM 4.3 MEQ/L (3.5-5.1); TOTAL PROTEIN 7.4 GM/DL (6.4-8.2)
[2019-04-15 17:04] LABS: HEMATOCRIT 43.4 % (36.0-47.0); HEMOGLOBIN 14.1 g/dl (12.0-15.5); MEAN CORPUSCULAR HEMOGLOBIN 30.8 pg (27.0-33.0); MEAN CORPUSCULAR HGB CONC 32.5 g/dl (32.0-36.5); MEAN CORPUSCULAR VOLUME 94.8 fl (80.0-96.0); PLATELET COUNT, AUTOMATED 253 10^3/uL (150-450); RED BLOOD COUNT 4.58 10^6/uL (4.00-5.40); WHITE BLOOD COUNT 19.6 10^3/uL (4.0-10.0)
[2019-04-15 19:46] LABS: ATYPICAL LYMPH 2 % (0-5); LYMPHOCYTES 14 % (16-52); MONOCYTES 11 % (0-8); NEUTROPHILS 64 % (35-75)
[2019-04-15 19:47] LABS: PLATELET ESTIMATE NORMAL (NORMAL)
[2019-04-15 19:48] LABS: ANISOCYTOSIS 2+; OVALOCYTES 1+; POIKILOCYTOSIS 1+; POLYCHROMASIA 1+
== END ==
LOC: M SFHCADAM 11:34
PROVIDERS: ATTEND Physician Assistant
DX: R10.84 Generalized abdominal pain (principal); R11.2 Nausea with vomiting, unspecified
CPT/HCPCS: 80053; 82150; 83690; 85025; G0463

== ENCOUNTER 2019-04-18 22:05 | Inpatient (IN) | payer MEDICARE ==
[~2019-04-18] VITALS: Ht 162.6 cm; Wt 56.9 kg
[~2019-04-18 22:05] MED LIST changes: -AMOX875T2 PO; -DICY20TA11 PO; -FLON1SPR NARES; -GABA-843 PO; +OMEP40CA2 PO; -OMEP40CA97 PO; -ONDA4TAB6 PO; -SIME80TA PO; -TYLETAB14 PO; -VITA500045 PO; -XALA0.007 OU; -ZONI100C17 PO; -ZONI50CA11 PO; +ZONI50CA3 PO
[2019-04-18] MEDS ORDERED: NS 1,000 ML IV ONE (23:45)
[2019-04-18] MEDS ORDERED: ONDANSETRON 4MG/2ML VIAL (J2405) IV ONE (23:45)
[2019-04-18] MEDS ORDERED: MORPHINE 4 MG/ML 1ML VIAL/SYRINGE (J2270) IV PRN (23:45)
[2019-04-18 23:54] LABS: HEMATOCRIT 39.4 % (36.0-47.0); HEMOGLOBIN 13.3 g/dl (12.0-15.5); MEAN CORPUSCULAR HEMOGLOBIN 29.6 pg (27.0-33.0); MEAN CORPUSCULAR HGB CONC 33.8 g/dl (32.0-36.5); MEAN CORPUSCULAR VOLUME 87.8 fl (80.0-96.0); PLATELET COUNT, AUTOMATED 275 10^3/uL (150-450); RED BLOOD COUNT 4.49 10^6/uL (4.00-5.40); WHITE BLOOD COUNT 10.6 10^3/uL (4.0-10.0)
[2019-04-18 23:58] LABS: INR 1.07; PROTHROMBIN TIME 13.6 SECONDS (11.8-14.0)
[2019-04-19] VITALS (9 sets, daily range): BP systolic 121–151; BP diastolic 66–72
[2019-04-19 00:02] LABS: ALBUMIN 3.2 GM/DL (3.2-5.2); ALT/SGPT 23 U/L (12-78); BILIRUBIN,DIRECT 0.1 MG/DL (0.0-0.2); BILIRUBIN,TOTAL 0.4 MG/DL (0.2-1.0); CK-MB VALUE MASS 1.2 NG/ML (<3.6); CPK CREATINE PHOSPHOKINASE 50 U/L (26-192); LIPASE 109 U/L (73-393); TOTAL PROTEIN 7.6 GM/DL (6.4-8.2); TROPONIN I < 0.02 NG/ML (< 0.10)
[2019-04-19] MEDS ORDERED: ISOVUE-370 76% 100ML VIAL (Q9967) As Ordered ONE (00:17)
[2019-04-19 00:47] LABS: LYMPHOCYTES 20 % (16-52); MONOCYTES 12 % (0-8); NEUTROPHILS 68 % (35-75)
[2019-04-19 00:48] LABS: ANISOCYTOSIS 1+; PLATELET ESTIMATE NORMAL (NORMAL)
--- NOTE | 2019-04-19 03:23 | REPVR ---
EXAM: CT Abdomen and Pelvis With Contrast EXAM DATE/TIME: 04/19/2019 12:58 AM CLINICAL HISTORY: 68 years old, female; Abdominal pain; Generalized; Additional Info: generalized abd pain TECHNIQUE: Imaging protocol: Axial computed tomography images of the abdomen and pelvis with intravenous contrast. Coronal and sagittal reformatted images were created and reviewed. Radiation optimization: All CT scans at this facility use at least one of these dose optimization techniques: automated exposure control; mA and/or kV adjustment per patient size (includes targeted exams where dose is matched to clinical indication); or iterative reconstruction. Contrast material: ISOVUE 370;Contrast volume: 100 ml;Contrast route: IV; COMPARISON: CT ABD/PEL W/IV CONTRAST ONLY 04/13/2019 10:10 AM FINDINGS: Liver: Hypodensity in the left hepatic lobe adjacent to the fissure for the ligamentum teres. Consistent with transient hepatic attenuation difference versus focal fatty infiltration the Gallbladder and bile ducts: Normal. No calcified stones. No ductal dilation. Pancreas: Normal. No ductal dilation. Spleen: Normal. No splenomegaly. Adrenals: Normal. No mass. Kidneys and ureters: Normal. No hydronephrosis. Stomach and bowel: Diffuse dilated loops of small bowel measuring up to 3.8 cm. Cecum is dilated measures 8.7 cm in diameter. There is twisted appearance to the mid right colon consistent with cecal volvulus. Diffuse thickening of the cecum and terminal ileum. Distal colon is otherwise decompressed. Appendix: The appendix is not seen. However, there is no evidence of appendicitis. Intraperitoneal space: Small free fluid in the pelvis. No free air. Vasculature: No abdominal aortic aneurysm. Moderate atherosclerotic disease. Mild focal stenosis of the origin of the superior mesenteric artery. Lymph nodes: No enlarged lymph nodes. Multiple small pericecal nodes. Bladder: Unremarkable as visualized. Reproductive: Status post hysterectomy. Bones/joints: Mild degenerative spine. No acute fracture. Soft tissues: Unremarkable. IMPRESSION: 1. 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 2. Diffuse thickening of the cecum and terminal ileum suspicious for ischemic enterocolitis. 3. Small free fluid in the pelvis. 4. Additional findings as described. COMMENT: Consistent with the [employer]'s Incidental Findings Committee Report (J Am Praveen Radiol 2010): Unless the patient's specific circumstances suggest otherwise, any liver lesion 0.5 cm or less, any cystic kidney lesion less than 1.0 cm, and/or any adrenal lesion 1.0 cm or less not otherwise characterized in this report as possessing suspicious or indeterminate imaging features is/are highly likely to be benign and do not require follow-up imaging or biopsy. Electronically signed by: Suhas Pollock On 04/19/2019 03:23:17 AM
[2019-04-19] MEDS ORDERED: TYLETAB14 PO (05:31)
[2019-04-19] MEDS ORDERED: FLON1SPR NARES (05:31)
[2019-04-19] MEDS ORDERED: VITA500045 PO (05:31)
[2019-04-19] MEDS ORDERED: DICY20TA11 PO (05:31)
[2019-04-19] MEDS ORDERED: ZONI100C2 PO (05:31)
[2019-04-19] MEDS ORDERED: SIME80TA PO (05:31)
[2019-04-19] MEDS ORDERED: XALA0.007 OU (05:31)
[2019-04-19] MEDS ORDERED: GABA-843 PO (05:31)
[2019-04-19] MEDS ORDERED: ONDA4TAB6 PO (05:31)
[2019-04-19] MEDS ORDERED: MIDAZOLAM INJ 2 MG/2 ML VIAL (J2250) As Ordered ONE (05:57)
[2019-04-19] MEDS ORDERED: fentaNYL 100 MCG/2 ML INJECTION (J3010) As Ordered ONE (05:57)
[2019-04-19] MEDS ORDERED: PROPOFOL 200 MG/20 ML VIAL As Ordered ONE (05:58)
[2019-04-19] MEDS ORDERED: ONDANSETRON 4MG/2ML VIAL (J2405) IV PRN ×2 (06:30→09:45)
[2019-04-19] MEDS ORDERED: MORPHINE 4 MG/ML 1ML VIAL/SYRINGE (J2270) IV PRN (06:30)
[2019-04-19] MEDS ORDERED: ALBUTEROL SULFATE 2.5 MG/0.5 ML INH NEB SOLN INH PRN (06:30)
--- NOTE | 2019-04-19 06:37 | ECGEPIP ---
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
[2019-04-19] MEDS ORDERED: dexameTHASONE 4 MG/ML 1ML VIAL (J1100) As Ordered ONE (06:49)
[2019-04-19] MEDS ORDERED: ROCURONIUM BROMIDE 50 MG/5 ML VIAL As Ordered ONE (06:50)
[2019-04-19] MEDS ORDERED: ONDANSETRON 4MG/2ML VIAL (J2405) As Ordered ONE (07:27)
[2019-04-19] MEDS ORDERED: SUGAMMADEX SODIUM 500 MG/5 ML VIAL (BRIDION) As Ordered ONE (07:28)
[2019-04-19] MEDS ORDERED: ACETAMINOPHEN 1000MG 100ML IV BTL (OFIRMEV) (J0131 PER 10MG) As Ordered ONE (07:28)
[2019-04-19] MEDS ORDERED: KETAMINE HCL 200 MG/20 ML VIAL As Ordered ONE (07:43)
[2019-04-19] MEDS ORDERED: HYDROmorphone HCL 2 MG/ML 1ML VIAL (J1170) As Ordered ONE (07:44)
[2019-04-19] MEDS ORDERED: ceFAZolin 2 GM/D5W 50 ML IV BAG (J0690 PER 500MG) As Ordered ONE (07:48)
[2019-04-19] MEDS ORDERED: metroNIDAZOLE/NACL 500MG(5MG/ML)100 ML BAG (S0030) As Ordered ONE (07:50)
[2019-04-19] MEDS ORDERED: fentaNYL 100 MCG/2 ML INJECTION (J3010) IV PRN (09:45)
[2019-04-19] MEDS ORDERED: NS 1,000 ML IV SCH (09:45)
[2019-04-19] MEDS: PANTOPRAZOLE 40MG INJ (PROTONIX) (C9113) IV SCH (12:23)
[2019-04-19] MEDS: ENOXAPARIN 40 MG/0.4 ML SYRINGE (J1650) SC SCH (12:23)
[2019-04-19] MEDS: KCL 20MEQ IN D5/0.45NS 1000ML 1,000 ML IV SCH ×2 (12:23→17:56)
[2019-04-19] MEDS: POLYVINYL ALCOHOL OPHTH SOLN 15 ML(LIQUITEARS) OU SCH (12:24)
[2019-04-19] MEDS: FLUTICASONE PROP 0.05% NASAL SPRAY 16 GM (FLONASE) NARES SCH (12:24)
[2019-04-19] MEDS: GABAPENTIN 300 MG CAP PO SCH ×2 (12:39→21:53)
[2019-04-19] MEDS: DULoxetine 30 MG CAP (CYMBALTA) PO SCH ×2 (12:40→21:53)
[2019-04-19] MEDS: SENOKOT S TAB PO SCH ×2 (12:40→21:53)
[2019-04-19] MEDS: KETOROLAC 30 MG/ML VIAL (J1885) IV PRN ×2 (14:35→22:27)
[2019-04-19] MEDS ORDERED: NS 500 ML IV ONE (17:15)
[2019-04-19] MEDS: ROSUVASTATIN 10 MG TAB (CRESTOR) PO SCH (21:53)
[2019-04-19] MEDS: LATANOPROST 0.005% OPHTH SOLN 2.5 ML OU SCH (21:53)
[2019-04-19] MEDS: ZONISAMIDE 100 MG CAP (ZONEGRAN) PO SCH (21:53)
[2019-04-20] VITALS (8 sets, daily range): BP systolic 125–142; BP diastolic 67–72; O2SAT 97–98
[2019-04-20] MEDS: KCL 20MEQ IN D5/0.45NS 1000ML 1,000 ML IV SCH ×2 (01:28→08:33)
[2019-04-20] MEDS: KETOROLAC 30 MG/ML VIAL (J1885) IV PRN ×2 (04:18→14:14)
[2019-04-20 05:34] LABS: BLOOD UREA NITROGEN 20 MG/DL (7-18); CALCIUM LEVEL 7.5 MG/DL (8.8-10.2); CARBON DIOXIDE LEVEL 27 MEQ/L (21-32); CHLORIDE LEVEL 105 MEQ/L (98-107); CREATININE FOR GFR 0.84 MG/DL (0.55-1.30); GLOMERULAR FILTRATION RATE > 60.0 (>45); GLUCOSE, FASTING 139 MG/DL (70-100); POTASSIUM SERUM 4.4 MEQ/L (3.5-5.1); SODIUM LEVEL 137 MEQ/L (136-145)
[2019-04-20 05:38] LABS: HEMATOCRIT 33.4 % (36.0-47.0); HEMOGLOBIN 11.4 g/dl (12.0-15.5); MEAN CORPUSCULAR HEMOGLOBIN 30.6 pg (27.0-33.0); MEAN CORPUSCULAR HGB CONC 34.1 g/dl (32.0-36.5); MEAN CORPUSCULAR VOLUME 89.8 fl (80.0-96.0); PLATELET COUNT, AUTOMATED 235 10^3/uL (150-450); RED BLOOD COUNT 3.72 10^6/uL (4.00-5.40); WHITE BLOOD COUNT 13.5 10^3/uL (4.0-10.0)
--- NOTE | 2019-04-20 07:56 | HPE ---
DATE OF ADMISSION: 04/19/2019 CHIEF COMPLAINT: Abdominal pain. HISTORY OF PRESENT ILLNESS: The patient is a 68-year-old female who is had abnormal abdominal pains for just over a week now. She had an elevated white count at one point and CT findings suspicious for constipation. She was seen by her primary on Saturday and her labs were elevated still, but they were going to continue to watch it. Today she came in with increasing pains. In the ER she had labs that were normal, but she had abdominal distension and a CT scan showing a cecal volvulus with dilated proximal small bowel resulting a bowel obstruction. She has had a previous appendectomy, hysterectomy. No other recent problems or changes to her abdomen. No recent travel or trauma. No other complaints. PAST MEDICAL HISTORY: Chronic obstructive pulmonary disease (COPD). PAST SURGICAL HISTORY: Appendectomy. Hysterectomy. ALLERGIES: Please see med rec. MEDICATIONS: Please see med recommendation. SOCIAL HISTORY: Smokes pack a day. Denies drug or alcohol abuse. FAMILY HISTORY: Noncontributory. REVIEW OF SYSTEMS: Pertinent positives and negatives as stated in HPI. PHYSICAL EXAMINATION: General: Alert and oriented times three. No acute distress. Vitals: Temperature 95.5, pulse 100, respirations 18, blood pressure 126/75, pulse ox 100% room air. HEENT: Pupils equal round react to light and accommodation. Heart: S1-S2 regular rate and rhythm. Lungs: Clear to auscultation bilaterally. Abdomen: Soft, distended, tender to palpation in the right lower quadrant. No rebound, guarding or rigidity. Extremities: No clubbing, cyanosis or edema. LABS: White count 10.6, hemoglobin 13.3, platelets 275, lactic acid 0.8. IMAGING STUDIES: CT abdomen and pelvis shows a cecal volvulus with resultant colonic obstruction and diffuse thickening of the cecum and terminal ileum, suspicion for ischemic colitis. Small amount of free fluid in the pelvis. ASSESSMENT/PLAN: The patient 68-year-old female with suspicion of cecal volvulus on CT resulting in a small bowel obstruction. Recommendation is to proceed with colonoscopy, possible diagnostic laparoscopy versus laparotomy. Risks and benefits of procedure not limited to, but including bleeding, infection, hernia formation, damage to surrounding structures and need for further surgery were discussed in detail with the patient. Informed consent was obtained and procedure was planned. Postoperatively she will be kept in the hospital with an NG tube and treated like a bowel obstruction and likely treat for whatever findings intraoperatively. Plan on her stay being in least 48-72 hours.
[2019-04-20] MEDS: FLUTICASONE PROP 0.05% NASAL SPRAY 16 GM (FLONASE) NARES SCH (08:33)
[2019-04-20] MEDS: ENOXAPARIN 40 MG/0.4 ML SYRINGE (J1650) SC SCH (08:33)
[2019-04-20] MEDS: POLYVINYL ALCOHOL OPHTH SOLN 15 ML(LIQUITEARS) OU SCH (08:33)
[2019-04-20] MEDS: PANTOPRAZOLE 40MG INJ (PROTONIX) (C9113) IV SCH (08:34)
[2019-04-20] MEDS: ACETAMINOPHEN TAB 650MG DOSE (2X325MG) PO PRN ×2 (08:35→17:23)
[2019-04-20] MEDS: GABAPENTIN 300 MG CAP PO SCH ×2 (08:35→20:22)
[2019-04-20] MEDS: SENOKOT S TAB PO SCH ×2 (08:35→20:21)
[2019-04-20] MEDS: DULoxetine 30 MG CAP (CYMBALTA) PO SCH ×2 (08:35→20:23)
[2019-04-20] MEDS ORDERED: NS 500 ML IV ONE (11:45)
[2019-04-20] MEDS: NS 1,000 ML IV SCH ×2 (12:15→17:24)
[2019-04-20] MEDS: ZONISAMIDE 100 MG CAP (ZONEGRAN) PO SCH (20:21)
[2019-04-20] MEDS: ROSUVASTATIN 10 MG TAB (CRESTOR) PO SCH (20:23)
[2019-04-20] MEDS: LATANOPROST 0.005% OPHTH SOLN 2.5 ML OU SCH (20:24)
[2019-04-21] VITALS (10 sets, daily range): BP systolic 107–147; BP diastolic 62–74; O2SAT 93–100
[2019-04-21] MEDS: NS 1,000 ML IV SCH ×2 (01:54→11:45)
[2019-04-21] MEDS: KETOROLAC 30 MG/ML VIAL (J1885) IV PRN (03:55)
[2019-04-21 06:18] LABS: HEMATOCRIT 33.6 % (36.0-47.0); HEMOGLOBIN 11.4 g/dl (12.0-15.5); MEAN CORPUSCULAR HEMOGLOBIN 30.6 pg (27.0-33.0); MEAN CORPUSCULAR HGB CONC 33.9 g/dl (32.0-36.5); MEAN CORPUSCULAR VOLUME 90.1 fl (80.0-96.0); PLATELET COUNT, AUTOMATED 238 10^3/uL (150-450); RED BLOOD COUNT 3.73 10^6/uL (4.00-5.40); WHITE BLOOD COUNT 15.8 10^3/uL (4.0-10.0)
[2019-04-21 06:43] LABS: BLOOD UREA NITROGEN 10 MG/DL (7-18); CALCIUM LEVEL 8.2 MG/DL (8.8-10.2); CARBON DIOXIDE LEVEL 26 MEQ/L (21-32); CHLORIDE LEVEL 107 MEQ/L (98-107); CREATININE FOR GFR 0.61 MG/DL (0.55-1.30); GLOMERULAR FILTRATION RATE > 60.0 (>45); GLUCOSE, FASTING 90 MG/DL (70-100); SODIUM LEVEL 138 MEQ/L (136-145)
[2019-04-21] MEDS: PANTOPRAZOLE 40MG INJ (PROTONIX) (C9113) IV SCH (08:34)
[2019-04-21] MEDS: ENOXAPARIN 40 MG/0.4 ML SYRINGE (J1650) SC SCH (08:34)
[2019-04-21] MEDS: POLYVINYL ALCOHOL OPHTH SOLN 15 ML(LIQUITEARS) OU SCH (08:34)
[2019-04-21] MEDS: FLUTICASONE PROP 0.05% NASAL SPRAY 16 GM (FLONASE) NARES SCH (08:34)
[2019-04-21] MEDS: PIPERACILLIN/TAZOBACTAM SOD 3.375 GM in D5W MINI-BAG PLUS 50 ML IV SCH ×3 (08:34→20:10)
[2019-04-21] MEDS: DULoxetine 30 MG CAP (CYMBALTA) PO SCH ×2 (08:36→20:11)
[2019-04-21] MEDS: SENOKOT S TAB PO SCH ×2 (08:36→20:15)
[2019-04-21] MEDS: GABAPENTIN 300 MG CAP PO SCH ×2 (08:36→20:10)
[2019-04-21] MEDS ORDERED: PREVNAR 13 VACCINE SYRINGE (CPT CODE:90670) IM ONE (09:00)
--- NOTE | 2019-04-21 09:45 | IPNPDOC ---
Text Note Date of Service The patient was seen on 04/20/19. NOTE No acute events overnight. Her pain is much improved. Urine output has been poor and she had to be straight cathed once. VSSAF NAD abd - soft, TTP appropriate, no rebound or guarding, dressing c/d/i, drain is serosanguinous labs - below A) 68y/o female with internal hernia and cecal volvulus POD#1 s/p ex lap with rt hemicolectomy P) clamp NGT ice and water ambulate monitor labs IS await return of bowel function Mike Cortes DO VS,Sugey, I+O VS, Sugey, I+O Laboratory Tests 04/21/19 05:58 Red Blood Count 3.73 L, Mean Corpuscular Volume 90.1, Mean Corpuscular Hemoglobin 30.6, Mean Corpuscular Hemoglobin Concent 33.9, Red Cell Distribution Width 19.4 H, Calcium Level 8.2 L Vital Signs Date Time Temp Pulse Resp B/P (MAP) Pulse Ox O2 Delivery O2 Flow Rate FiO2 04/21/19 08:00 98.0 84 18 132/62 (85) 96 1.0 04/21/19 06:00 Nasal Cannula I&O- Last 24 Hours up to 6 AM 04/21/19 06:00 Intake Total 2853.50 ml Output Total 2515 ml Balance 338.50 ml ORA CORTES DO Apr 21, 2019 09:45
--- NOTE | 2019-04-21 09:47 | IPNPDOC ---
Text Note Date of Service The patient was seen on 04/21/19. NOTE No acute events overnight. Her pain is much improved. Urine output has been good with the gay in. Tolerating NGT clampped. She had a BM. VSSAF NAD abd - soft, TTP appropriate, no rebound or guarding, dressing c/d/i, drain is serosanguinous labs - below A) 68y/o female with internal hernia and cecal volvulus POD#2 s/p ex lap with rt hemicolectomy P) dc NGT dc gay reg diet ambulate monitor labs IS abx Mike Cortes DO VS,Fishbone, I+O VS, Fishbone, I+O Laboratory Tests 04/21/19 05:58 Red Blood Count 3.73 L, Mean Corpuscular Volume 90.1, Mean Corpuscular Hemoglobin 30.6, Mean Corpuscular Hemoglobin Concent 33.9, Red Cell Distribution Width 19.4 H, Calcium Level 8.2 L Vital Signs Date Time Temp Pulse Resp B/P (MAP) Pulse Ox O2 Delivery O2 Flow Rate FiO2 04/21/19 08:00 98.0 84 18 132/62 (85) 96 1.0 04/21/19 06:00 Nasal Cannula I&O- Last 24 Hours up to 6 AM 04/21/19 06:00 Intake Total 2853.50 ml Output Total 2515 ml Balance 338.50 ml ORA CORTES DO Apr 21, 2019 09:47
[2019-04-21] MEDS: ACETAMINOPHEN TAB 650MG DOSE (2X325MG) PO PRN (18:55)
[2019-04-21] MEDS: ZONISAMIDE 100 MG CAP (ZONEGRAN) PO SCH (20:10)
[2019-04-21] MEDS: ROSUVASTATIN 10 MG TAB (CRESTOR) PO SCH (20:11)
[2019-04-21] MEDS: LATANOPROST 0.005% OPHTH SOLN 2.5 ML OU SCH (20:11)
[2019-04-22] VITALS: O2SAT 99
--- NOTE | 2019-04-22 00:18 | RO ---
DATE OF PROCEDURE: 04/19/2019 PREOPERATIVE DIAGNOSIS: Cecal volvulus. 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 PROCEDURE: Colonoscopy to the hepatic flexure followed by diagnostic laparoscopy converted to laparotomy with a right hemicolectomy and primary anastomosis. SURGEON: Dr. Behzad Cortes PACKAGE SEALER: None. ANESTHESIA: General. ESTIMATED BLOOD LOSS: 50 mL. COMPLICATIONS: None. INDICATIONS FOR PROCEDURE: The patient is a 68-year-old female who presents with right lower quadrant abdominal pain, found have a cecal volvulus resulting in a bowel obstruction on CT. Labs were normal; however, she had significant tenderness and distension. Therefore, recommendation was to proceed with the procedure. The risks and benefits of the procedure not limited to but including bleeding, infection, perforation of colon, damage to surrounding structures and need for further surgery were discussed in detail. Informed consent was obtained and procedure was planned. DESCRIPTION OF PROCEDURE: The patient was brought back to operating room three. Due to obstruction, nasogastric (NG) tube was placed in preop, and she was intubated for the colonoscopy. She was then placed onto her left side. Colonoscope was passed through. It was difficult to really get through the sigmoid due to solid stools. I was able to eventually get the scope all way to the level of a hepatic flexure where I could see a twist in the ascending colon, but could not get the scope beyond that point. The scope was then removed. I was able to decompress her slightly from the scope, so we attempted a diagnostic laparoscopy. Placed a 5 mm incision in the left upper quadrant, Veress needle was inserted, and the abdomen was insufflated to 15 mmHg. Next, the Veress needle was removed and a 5 mm Optiview port was used to gain access to the abdomen. Once the abdomen was entered, there was multiple loops of dilated small bowel obscuring the view, but I was able to see the cecum and see that it was extremely distended and ischemic. The scope was then removed. A 15 blade scalpel was used to make a midline incision periumbilically and carried down towards the pubic bone. The abdomen was entered using electrocautery. Once the abdomen was entered, the cecum and terminal ileum were identified to have a few bands of tissue going across the mesentery resulting in a closed loop obstruction. I was able to release those bands and then a portion of the colon appeared to pink up, but there were still some portions that remained necrotic. The mesentery and the terminal ileum was entered with the cautery. The terminal ileum was then transected with GEOVANNI 100 blue load stapler. The rest of the adhesions were taken down along the ascending colon. The hepatic flexure was mobilized all along the ascending colon. The lateral peritoneal reflection was mobilized. I was then able to enter through the mesentery at the hepatic flexure and get another GEOVANNI 100 stapler across to transect the colon at that point. The mesentery was then transected using the Enseal until the ileocecal artery was reached. That was clamped with two Kellys, suture ligated with a #0 silk suture and then cut also using the Enseal. Once that was completed, the specimen was removed. The proximal transverse colon was mobilized a little bit more, removing the omentum off of the top of it. Once that was completed, I was able to bring the small bowel and the omentum side by side and did a [id number] anastomosis using a GEOVANNI 100 stapler with a blue load. Once the anastomosis was completed, I over sewed the staple line with #3-0 silk sutures, placed some Tisseel over the anastomosis, tucked that back inside the abdomen, put a #19-Japanese Jorge drain next to it, brought that out through the right lower quadrant, sutured that in place with a #3-0 silk suture as well. The abdomen was then closed with a running looped PDS and then skin ketan were used. Once this was completed, the abdomen was washed, dried, 4x4 and tape were applied thus ending procedure.
[2019-04-22 02:00] VITALS: O2SAT 98
[2019-04-22] MEDS: PIPERACILLIN/TAZOBACTAM SOD 3.375 GM in D5W MINI-BAG PLUS 50 ML IV SCH ×2 (02:31→08:16)
[2019-04-22 04:00] VITALS: BP 126/62
[2019-04-22 06:02] LABS: HEMATOCRIT 30.3 % (36.0-47.0); HEMOGLOBIN 10.3 g/dl (12.0-15.5); MEAN CORPUSCULAR HEMOGLOBIN 29.5 pg (27.0-33.0); MEAN CORPUSCULAR VOLUME 86.8 fl (80.0-96.0); PLATELET COUNT, AUTOMATED 226 10^3/uL (150-450); RED BLOOD COUNT 3.49 10^6/uL (4.00-5.40); WHITE BLOOD COUNT 12.2 10^3/uL (4.0-10.0)
[2019-04-22 06:27] LABS: BLOOD UREA NITROGEN 9 MG/DL (7-18); CARBON DIOXIDE LEVEL 28 MEQ/L (21-32); CHLORIDE LEVEL 107 MEQ/L (98-107); CREATININE FOR GFR 0.66 MG/DL (0.55-1.30); GLOMERULAR FILTRATION RATE > 60.0 (>45); GLUCOSE, FASTING 93 MG/DL (70-100); POTASSIUM SERUM 3.7 MEQ/L (3.5-5.1); SODIUM LEVEL 140 MEQ/L (136-145)
[2019-04-22] MEDS ORDERED: AMOX875T2 PO (07:33)
[2019-04-22 08:00] VITALS: BP 140/77
[2019-04-22] MEDS: GABAPENTIN 300 MG CAP PO SCH (08:18)
[2019-04-22] MEDS: DULoxetine 30 MG CAP (CYMBALTA) PO SCH (08:18)
[2019-04-22] MEDS: ACETAMINOPHEN TAB 650MG DOSE (2X325MG) PO PRN (08:18)
[2019-04-22] MEDS: SENOKOT S TAB PO SCH (08:18)
[2019-04-22] MEDS: FLUTICASONE PROP 0.05% NASAL SPRAY 16 GM (FLONASE) NARES SCH (08:18)
[2019-04-22] MEDS: PANTOPRAZOLE 40MG INJ (PROTONIX) (C9113) IV SCH (08:18)
[2019-04-22] MEDS: POLYVINYL ALCOHOL OPHTH SOLN 15 ML(LIQUITEARS) OU SCH (08:18)
[2019-04-22] MEDS: ENOXAPARIN 40 MG/0.4 ML SYRINGE (J1650) SC SCH (08:19)
--- NOTE | 2019-04-24 11:49 | DSES ---
DATE OF ADMISSION: 04/19/2019 DATE OF DISCHARGE: 04/22/2019 ADMISSION DIAGNOSIS: Cecal volvulus. DISCHARGE DIAGNOSIS: Cecal volvulus HOSPITAL COURSE: The patient is 68-year-old female who presented to the emergency room the evening of April 18. I was called early the morning of April 19 with a possible cecal volvulus. On exam, she was slightly tender. She was brought to the operating room for a colonoscopy, and I was unable to get the scope beyond a stricture in her descending colon. I then ended up doing a diagnostic laparoscopy, which again was unsuccessful due to the distended small bowel obscuring my view; however, I could visualize the cecum that was ischemic. I then did an exploratory laparotomy, found a cecal volvulus with an internal hernia that had caused it. I was able to release the internal hernia and untwist volvulus; however, there were some necrotic portions of the cecum that were nonviable. She then underwent a right hemicolectomy. Postoperatively she did well. Nasogastric (NG) tube was removed postoperative day #1. Menendez ended up being placed due to urinary retention. Postoperative day #2, the Menendez was removed again, and she was able to urinate adequately on her own without any problems. By the following day, she was having bowel movements, tolerating diet. Labs were back to normal. Plan was to discharge her home with antibiotics for a couple more days due to a little bit of stool that was leaked during the creation of her anastomosis. She already had pain medications at home. No lifting more than 20 pounds for 2 weeks. No baths for 5 days. She can shower. All of her questions were answered. She will followup with me in the office in 2 weeks.
== END 2019-04-22 10:18 | disposition home or self-care (01) | DRG 329 ==
LOC: M ED 22:05 → M SDC 04-19 05:30 → M ED INP 04-19 06:24 → M PED 04-19 10:20
PROVIDERS: ADMIT Surgery; ATTEND Surgery
PROC: 0DJD8ZZ Inspection of Lower Intestinal Tract, Via Natural or Artificial Opening Endoscopic (ICD-10-PCS; 2019-04-19)
PROC: 0DBB0ZZ Excision of Ileum, Open Approach (ICD-10-PCS; principal; 2019-04-19 06:30)
PROC: 0DBF0ZZ Excision of Right Large Intestine, Open Approach (ICD-10-PCS; 2019-04-19 06:30)
DX: K56.2 Volvulus (principal); K55.019 Acute (reversible) ischemia of small intestine, extent unspecified; F17.200 Nicotine dependence, unspecified, uncomplicated; J44.9 Chronic obstructive pulmonary disease, unspecified; Z90.49 Acquired absence of other specified parts of digestive tract; Z53.31 Laparoscopic surgical procedure converted to open procedure; K46.9 Unspecified abdominal hernia without obstruction or gangrene

== ENCOUNTER → 2019-05-01 | Outpatient (REF) | payer MEDICARE ==
[~2019-05-01] MED LIST changes: +AMOX875T2 PO; +DICY20TA11 PO; +FLON1SPR NARES; +GABA-843 PO; +ONDA4TAB6 PO; +SIME80TA PO; +TYLETAB14 PO; +VITA500045 PO; +XALA0.007 OU; +ZONI100C2 PO
[2019-05-01 12:45] LABS: HEMATOCRIT 34.5 % (36.0-47.0); HEMOGLOBIN 10.9 g/dl (12.0-15.5); MEAN CORPUSCULAR HEMOGLOBIN 30.8 pg (27.0-33.0); MEAN CORPUSCULAR HGB CONC 31.6 g/dl (32.0-36.5); MEAN CORPUSCULAR VOLUME 97.5 fl (80.0-96.0); PLATELET COUNT, AUTOMATED 537 10^3/uL (150-450); RED BLOOD COUNT 3.54 10^6/uL (4.00-5.40); WHITE BLOOD COUNT 10.2 10^3/uL (4.0-10.0)
[2019-05-01 12:48] LABS: ALBUMIN 2.6 GM/DL (3.2-5.2); ALT/SGPT 24 U/L (12-78); BILIRUBIN,TOTAL 0.2 MG/DL (0.2-1.0); BLOOD UREA NITROGEN 10 MG/DL (7-18); CALCIUM LEVEL 8.9 MG/DL (8.8-10.2); CARBON DIOXIDE LEVEL 26 MEQ/L (21-32); CHLORIDE LEVEL 108 MEQ/L (98-107); CREATININE FOR GFR 0.79 MG/DL (0.55-1.30); GLOMERULAR FILTRATION RATE > 60.0 (>45); GLUCOSE, FASTING 93 MG/DL (70-100); POTASSIUM SERUM 4.3 MEQ/L (3.5-5.1); SODIUM LEVEL 141 MEQ/L (136-145); TOTAL PROTEIN 6.5 GM/DL (6.4-8.2)
== END ==
LOC: M SFHCADAM 09:37
PROVIDERS: ATTEND Physician Assistant
DX: Z90.49 Acquired absence of other specified parts of digestive tract (principal); D64.9 Anemia, unspecified
CPT/HCPCS: 80053; 85027; G0463

== ENCOUNTER → 2019-05-20 | Outpatient (REF) | payer MEDICARE | LOC: M LABNEURO 08:57 | PROVIDERS: ATTEND Physician Assistant Medical | DX: G43.909 Migraine, unspecified, not intractable, without status migrainosus (principal) ==

== ENCOUNTER → 2019-07-22 | Outpatient (REF) | payer MEDICARE ==
[~2019-07-22] MED LIST changes: -OMEP40CA2 PO; +OMEP40CA97 PO
[2019-07-22 12:35] LABS: HEMATOCRIT 37.5 % (36.0-47.0); HEMOGLOBIN 11.2 g/dl (12.0-15.5); MEAN CORPUSCULAR HEMOGLOBIN 27.6 pg (27.0-33.0); MEAN CORPUSCULAR HGB CONC 29.9 g/dl (32.0-36.5); MEAN CORPUSCULAR VOLUME 92.4 fl (80.0-96.0); PLATELET COUNT, AUTOMATED 262 10^3/uL (150-450); RED BLOOD COUNT 4.06 10^6/uL (4.00-5.40); WHITE BLOOD COUNT 6.2 10^3/uL (4.0-10.0)
[2019-07-22 13:09] LABS: ALBUMIN 3.6 GM/DL (3.2-5.2); ALT/SGPT 21 U/L (12-78); BILIRUBIN,TOTAL 0.2 MG/DL (0.2-1.0); BLOOD UREA NITROGEN 22 MG/DL (7-18); CALCIUM LEVEL 9.4 MG/DL (8.8-10.2); CARBON DIOXIDE LEVEL 30 MEQ/L (21-32); CHLORIDE LEVEL 108 MEQ/L (98-107); CHOLESTEROL LEVEL 146 MG/DL (<200); CHOLESTEROL RISK RATIO 1.921 (<5); CREATININE FOR GFR 0.82 MG/DL (0.55-1.30); FREE T4 0.64 NG/DL (0.76-1.46); GLOMERULAR FILTRATION RATE > 60.0 (>45); GLUCOSE, FASTING 88 MG/DL (70-100); HDL CHOLESTEROL 76 MG/DL (>40); LDL CHOLESTEROL 50 MG/DL (<100); NON-HDL-C 70 MG/DL; POTASSIUM SERUM 4.7 MEQ/L (3.5-5.1); SODIUM LEVEL 141 MEQ/L (136-145); TOTAL PROTEIN 7.3 GM/DL (6.4-8.2); TRIGLYCERIDES LEVEL 98 MG/DL (<150)
[2019-07-22 13:12] LABS: TOTAL 25(OH) VITAMIN D 121.9 NG/ML (30.0-100.0)
== END ==
LOC: M SFHCADAM 08:33
PROVIDERS: ATTEND Physician Assistant
DX: J42 Unspecified chronic bronchitis (principal); G47.33 Obstructive sleep apnea (adult) (pediatric); F17.218 Nicotine dependence, cigarettes, with other nicotine-induced disorders; R03.0 Elevated blood-pressure reading, without diagnosis of hypertension; Z13.820 Encounter for screening for osteoporosis; E78.49 Other hyperlipidemia; Z79.51 Long term (current) use of inhaled steroids; Z79.899 Other long term (current) drug therapy

== ENCOUNTER → 2019-08-04 | Outpatient (CLI) | payer MEDICARE ==
--- NOTE | 2019-08-04 13:48 | REP ---
Clinical: Foreign body. Technique: Single supine view of the abdomen and pelvis. Findings: Distended loops of bowel in the mid abdomen and pelvis cannot be excluded. The known foreign bodies identified in the mid descending colon. No organomegaly. Skeletal structures demonstrate age-related degenerative changes. Impression: 1. Foreign body likely within the mid descending colon. 2. Moderately prominent distended air-filled loops of bowel in the mid abdomen/pelvis raise the possibility of possible partial small bowel obstruction. Electronically Signed by Marcio Jordan MD 08/04/2019 01:39 P
== END ==
LOC: M RAD 13:11
PROVIDERS: ATTEND Internal Medicine Gastroenterology
DX: T18.4XXA Foreign body in colon, initial encounter (principal)

== ENCOUNTER → 2019-08-21 | Outpatient (CLI) | payer MEDICARE ==
--- NOTE | 2019-08-21 11:18 | REP ---
LOW DOSE LUNG SCREENING CT: Low dose lung screening CT exam is accomplished. No IV contrast was administered. Comparison made with a prior study of 09/03/2018. Once again, there is linear scarring in the right upper lobe and lingula. No suspicious nodular opacity is seen bilaterally. No pleural effusion is seen. The heart is not enlarged. There is no evidence of aneurysm of the thoracic aorta. There are degenerative changes of the spine. No mediastinal contour abnormality is seen. IMPRESSION: Lung RADS category 2 benign findings with stable linear scarring. No suspicious nodule. Suggest followup screening CT in 1 year. Electronically Signed by Behzad Romero MD 08/21/2019 04:47 P
== END ==
LOC: M RAD 09:30
PROVIDERS: ATTEND Physician Assistant
DX: Z12.2 Encounter for screening for malignant neoplasm of respiratory organs (principal); F17.219 Nicotine dependence, cigarettes, with unspecified nicotine-induced disorders

== ENCOUNTER → 2019-09-06 | Outpatient (REF) | payer MEDICARE ==
[~2019-09-06] MED LIST changes: +ZONI100C17 PO; -ZONI100C2 PO; +ZONI50CA11 PO; -ZONI50CA3 PO
[2019-09-23 11:30] LABS: BLOOD UREA NITROGEN 15 MG/DL (7-18); CREATININE FOR GFR 0.85 MG/DL (0.55-1.30); GLOMERULAR FILTRATION RATE > 60.0 (>45)
== END ==
LOC: M LAB REF 12:39
PROVIDERS: ATTEND Internal Medicine Gastroenterology
DX: R93.3 Abnormal findings on diagnostic imaging of other parts of digestive tract (principal)

== ENCOUNTER → 2019-09-08 | Outpatient (CLI) | payer MEDICARE ==
[~2019-09-08] MED LIST changes: +GLUCAGON FOR INJ 1 MG VIAL (J1610) As Ordered ONE; +ISOVUE-370 76% 100ML VIAL (Q9967) As Ordered ONE; +VoLumen 0.1% SUSPENSION 450ML BOTTLE As Ordered ONE; -ZONI100C17 PO; +ZONI100C2 PO; -ZONI50CA11 PO; +ZONI50CA3 PO
--- NOTE | 2019-09-08 16:45 | REP ---
CT Enterography: With IV and oral contrast. History: Abnormal finding on CT scan. The patient is status post operative repair of internal hernia causing cecal volvulus with partial right hemicolectomy in April of 2019. Comparison study: Comparison CT study April 19, 2019. Comparison CT study from April 13, [address] Enterography Technique: The patient ingested oral Volumen for PO contrast per protocol. 0.6 mg of intravenous glucagon is administered. 100 ml of Isovue 370 is given intravenously for intravenous contrast. Helical scanning is acquired. Arterial phase and delayed phase imaging was acquired. Thick slab coronal and sagittal MIP images are generated. In addition coronal and sagittal multiplanar re-formation images are generated and reviewed along with axial images. CT enterography findings: Preliminary digital certified midwife radiograph demonstrates moderate stool in the descending colon and ascending colon. The lung bases are clear. The liver and the spleen are normal in size and homogeneous in texture. No gastric wall thickening or other gastric abnormality is observed on today's CT study. There is moderate stool throughout the colon. Right colonic anastomosis is unremarkable. No small bowel obstruction is seen. There is no evidence of bowel wall thickening or hyper enhancement in the small intestinal wall. No ascites is seen. There is no evidence of free air. There is ectasia of the infrarenal abdominal aorta, 2.4 cm in AP dimension. Kidneys enhance symmetrically and are morphologically intact. Urinary bladder is intact. No abdominal wall defect is appreciated. Impression: Status post partial right hemicolectomy. No acute abdominal or gastrointestinal abnormality seen. Electronically Signed by Baldomero Gil MD 09/08/2019 06:22 P
== END ==
LOC: M RAD 12:59
PROVIDERS: ATTEND Internal Medicine Gastroenterology
DX: R93.3 Abnormal findings on diagnostic imaging of other parts of digestive tract (principal)
CPT/HCPCS: 74177; J1610; Q9967

== ENCOUNTER → 2019-11-13 | Outpatient (CLI) | payer MEDICARE ==
[~2019-11-13] MED LIST changes: -GLUCAGON FOR INJ 1 MG VIAL (J1610) As Ordered ONE; -ISOVUE-370 76% 100ML VIAL (Q9967) As Ordered ONE; -VoLumen 0.1% SUSPENSION 450ML BOTTLE As Ordered ONE; +ZONI100C17 PO; -ZONI100C2 PO; +ZONI50CA11 PO; -ZONI50CA3 PO
--- NOTE | 2019-12-01 01:47 | ECWPNPC ---
PATIENT NAME: NATALI WILSON : 1950 GENDER: FEMALE VISIT DATE: 11/13/2019 DISCHARGE DATE: 11/13/19 1140 VISIT LOCKED DATE TIME: PHYSICIAN: JORGE MCCARTHY RESOURCE: JORGE MCCARTHY REASON FOR APPOINTMENT 1. BACK HISTORY OF PRESENT ILLNESS HISTORY OF PRESENT ILLNESS: HERE FOR ROUTINE FOLLOW-UP OF CHRONIC LOW BACK PAIN. RATING PAIN LEVEL A 5/10 VAS. CONTINUES TO BENEFIT SOMEWHAT FROM RADIOFREQUENCY DONE IN MARCH 2019. HAS BEEN USING INVERSION TABLE. TAKING CYMBALTA PRESCRIBED DAILY. INSURANCE HAS CHANGED AND THEY DO NOT COVER INTERVENTIONAL INJECTION THERAPY FOR CHRONIC PAIN PER PATIENT. PAIN THE PATIENT DESCRIBES THE PAINDURING THE LAST MONTH SEVERITY - PAIN SCORE OF5/10 LOCATIONSLOWER BACK QUALITYACHING , TENDER, SORE DURATIONALL DAY FALL RISK SCREENING: SCREENING :ONE FALL WITHOUT INJURY IN THE PAST YEAR CURRENT MEDICATIONS TAKING MUCINEX 600 MG TABLET EXTENDED RELEASE 12 HOUR 1 TABLET NEEDED ORALLY EVERY 12 HRS TAKING MULTIVITAMIN OTC TABLET 1 TAB(S) ORALLY ONCE DAILY TAKING LATANOPROST 0.005 % SOLUTION 1 DROP INTO AFFECTED EYE IN THE EVENING OPHTHALMIC ONCE A DAY TAKING SOOTHE XP - SOLUTION OPHTHALMIC TAKING ZONISAMIDE 100 MG CAPSULE 3 ORALLY BEFORE BEDTIME TAKING TYLENOL ARTHRITIS PAIN 2 TABLETS NEEDED ORALLY 2-3 TIMES/DAY TAKING DUONEB 0.5-2.5 (3) MG/3ML SOLUTION 3 ML INHALATION FOUR TIMES A DAY NEEDED TAKING FLONASE 50 MCG/ACT SUSPENSION 1 SPRAY IN EACH NOSTRIL NASALLY ONCE A DAY TAKING MIRALAX - POWDER 17 GRAMS ORALLY ONCE A DAY TAKING FISH OIL 500 MG CAPSULE 1 CAPSULE ORALLY TWICE A DAY TAKING BREO ELLIPTA 100-25 MCG/INH AEROSOL POWDER BREATH ACTIVATED 1 PUFF INHALATION ONCE A DAY TAKING COLON FORMULA 166.67-500 MG CAPSULE DIRECTED ORALLY TAKING PERCOCET 5-325 MG TABLET 1 TABLET NEEDED ORALLY EVERY 6 HRS PRN MDD4 TAKING DICYCLOMINE HCL 20 MG TABLET 1 TABLET ORALLY FOUR TIMES DAILY TAKING SIMETHICONE 80 MG TABLET CHEWABLE 1 TABLET AFTER MEALS AND AT BEDTIME NEEDED ORALLY FOUR TIMES A DAY TAKING ONDANSETRON 4 MG TABLET DISINTEGRATING 1 TABLET ON THE TONGUE AND ALLOW TO DISSOLVE ORALLY EVERY 8 HOURS NEEDED FOR NAUSEA/VOMITING TAKING OMEPRAZOLE 40 MG CAPSULE DELAYED RELEASE TAKE ONE CAPSULE BY MOUTH TWICE A DAY ORALLY TWICE DAILY TAKING GABAPENTIN 300 MG CAPSULE 1 CAPSULE ORALLY BID TAKING NICODERM CQ 21 MG/24HR PATCH 24 HOUR 1 PATCH TO SKIN TRANSDERMAL ONCE A DAY TAKING VITAMIN D (ERGOCALCIFEROL) 88432 UNIT CAPSULE TAKE ONE CAPSULE BY MOUTH ONCE WEEKLY TAKING CRESTOR 20 MG TABLET 1 TABLET ORALLY ONCE A DAY TAKING CYMBALTA 30 MG CAPSULE DELAYED RELEASE PARTICLES 1 CAPSULE ORALLY ONCE A DAY TTD=90 MG, NOTES: 2 DAYS TAKING CYMBALTA 60 MG CAPSULE DELAYED RELEASE PARTICLES 1 CAPSULE ORALLY ONCE A DAY TDD= 90MG MEDICATION LIST REVIEWED AND RECONCILED WITH THE PATIENT PAST MEDICAL HISTORY BACK PAIN CHRONIC/DDD - (PREVIOUSLY FOLLOWED BY DR. GUERRERO & DR. 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, FOLLOWED BY NEURO DAVID - ON CPAP PER NEUROLOGY STARTED 08/28/[address] ABD/PELVIS SHOWED "MATTING" OF SMALL BOWEL WITH APPARENT FECAL STASIS (01/2019) - EVALUATED BY GENERAL SURGERY 03/16/19 , 04/2019 RESECTION DUE TO ISCHEMIC BOWEL DEXA 09/2018 - FRAX 9.5/1.8% ALLERGIES VICODIN: ITCHING - SIDE EFFECTS ATORVASTATIN CALCIUM: ELEVATED LIVER ENZYMES - SIDE EFFECTS CHANTIX: HALLUCINATIONS AND SI - SIDE EFFECTS DEPAKOTE: TEMORS - SIDE EFFECTS SURGICAL HISTORY TONSILLECTOMY A CHILD APPENDECTOMY A CHILD CARPAL TUNNEL RELEASE/CORNELIO RIGHT/ FOOT - BABY TOE- BONE REMOVED D& C, 3 OR 4 INGUINAL HERNIA REPAIR- DOUBLE ONE HYSTERECTOMY & BSO (DUE TO UTERINE PROLAPSE) 2011 CARPAL TUNNEL RELEASE 2014 CATARACT SURGERY 01/17/17 EGD/COLONOSCOPY - NORMAL EGD/YUBULAR ADENOMATOUS AND HYPERPLASTIC POLYP (F/U IN 3 - [address] NOYOLA 11/2015 RIGHT KNEE ARTHROSCOPE- REPAIRED LIGAMENTS,MENISCUS, REMOVAL ARTHRITIS 01/30/2018 HEMORRHOIDECTOMY 01/2019 COLON RESECTION: COLONOSCOPY TO THE HEPATIC FLEXURE FOLLOWED BY DIAGNOSTIC LAPAROSCOPY WITH PARTIAL COLECTOMY - PATHOLOGY SHOWED ISCHEMIC COLITIS 04/2019 FAMILY HISTORY FATHER: 69 YRS, DIAGNOSED WITH UNSPECIFIED HEART DISEASE MOTHER: 80 YRS, DIABETES, HYPERTENSION 1 BROTHER(S) , 1 SISTER(S) - HEALTHY. BROTHER,25 MVA, BROTHER 30'S AIDS, BROTHER 58 HEART ATTACK, BROTHER 64 HEART, LUNGS . SOCIAL HISTORY GENERAL: TOBACCO USE ARE YOU A:CURRENT SMOKER ARE YOU INTERESTED IN QUITTING?READY TO QUIT PT HAS CUT WAY BACK TO 2 CIGS/DAY. USING THE NICOTINE PATCH PREVIOUS QUIT ATTEMPTS?YES, WITHIN THE LAST 6 MONTHS. COUNSELED THE PATIENT ON TOBACCO USE, CESSATION [id number]/13/2020 HOW MANY CIGARETTES A DAY DO YOU SMOKE?5 OR LESS HOW SOON AFTER YOU WAKE UP DO YOU SMOKE YOUR FIRST CIGARETTE?6-30 MIN HOW OFTEN DO YOU SMOKE CIGARETTES?EVERY DAY PATIENT COUNSELED ON THE DANGERS OF TOBACCO USE AND URGED TO QUIT:11/13/2019 SMOKING CESSATION INFORMATION GIVEN11/13/2019 OTHERS AT HOME: SPOUSE. DIET: REGULAR. LANGUAGE LANGUAGES SPOKEN:WELSH NEW PATIENT PAIN DIARY PATIENT DESCRIBES PAIN :ACHING, SHARP, TENDER, SORE FROM 0-10, WHAT LEVEL IS YOUR PAIN TODAY?7 PRECIPITATING FACTORS TURNING HEAD INCREASES PAIN ALLEVIATING FACTORS HEAT IMPACT ON FUNCTION DECREASED ABILITY TO DO HOUSEWORK, DAILY ACTIVITIES, SLOWS HER DOWN IS THERE A CHANCE YOU COULD BE ?NO HAVE YOU BEEN SICK IN THE LAST WEEK (COLD, COUGH, FEVER, FLU, ETC)NO DO YOU TAKE ANY BLOOD THINNERS?NO DO YOU HAVE ANY RASHES OR OPEN SORES?NO ANY CHANGE IN BOWEL OR BLADDER CONTROL?NO ARE YOU ALLERGIC TO SHELLFISH OR IV DYE?NO ARE YOU DIABETIC?NO DO YOU HAVE A PACEMAKER OR DEFIBRILLATOR?NO ANY NEW PROBLEMS WITH MEDICINES OR NEW ALLERGIESNO ANY NEW PATTERNS OF PAIN OR NUMBNESS?YES NECK PAIN HAVE YOU FALLEN IN THE LAST 6 MONTHS?YES PT STATES THAT SHE WAS HOME AND SLIPPED ON ICE OVER THE WINTER, NO INJURY FROM FALL NO REPORT TO ED ARE YOU ABUSED, NEGLECTED, OR IN AN UNSAFE ENVIRONMENT?NO DO YOU HAVE THOUGHTS OF HURTING YOURSELF OR SOMEONE ELSE?NO DO YOU NEED ANY PRESCRIPTIONS?NO RECREATIONAL DRUG USE DRUG USE?NO EXERCISE: NO REGULAR EXERCISE. LEARNING BARRIERS / SPECIAL NEEDS CHANGE FROM LAST VISIT?NO BARRIERS TO LEARNING?NO HEARING IMPAIRED?NO VISION IMPAIRED?YES COGNITIVELY IMPAIRED?NO :CORRECTIVE LENSES READINESS TO LEARN?YES LEARNING PREFERENCES?NO LEARNING CAPABILITIES PRESENT?YES EMOTIONAL BARRIERS?NO SPECIAL DEVICES?NO FILM AND VIDEO EDITOR NEEDED?NO LUNG CANCER SCREENING SMOKING STATUS:CURRENT SMOKER IS THE PATIENT BETWEEN THE AGE OF 57 AND 79?YES HAS THE PATIENT EVER BEEN DIAGNOSED WITH LUNG CANCER?NO PACK YEARS = NUMBER OF PACKS PER DAY SMOKED X NUMBER OF YEARS SMOKED:60 CREATE REFERRAL:GENERATE AND CREATE REFERRAL TO THE ONCOLOGY NURSE NAVIGATOR (SMP) LISTING USING THE LDCT SCAN PROCEDURE PAIN CLINIC PFS, CLERGY, PUBLIC HEALTH REFERRALS WAS THE PROVIDER NOTIFIED OF ANY PERTINENT INFO?YES HAS THE PATIENT BEEN EDUCATED REGARDING HIS/HER PLAN OF CARE?YES HAS THE PATIENT BEEN EDUCATED REGARDING PAIN, THE RISK FOR PAIN, THE IMPORTANCE OF EFFECTIVE PAIN MANAGEMENT, AND THE PAIN ASSESSMENT PROCESS?YES LATEX QUESTIONNAIRE LATEX ALLERGY : HAVE YOU EVER DEVELOPED ANY TYPE OF REACTION AFTER HANDLING LATEX PRODUCTS SUCH RUBBER GLOVES, CONDOMS, DIAPHRAGMS, BALLOONS, SOCKS, OR UNDERWEAR?NO LATEX ALLERGY : HAVE YOU EVER DEVELOPED ANY TYPE OF REACTION DURING OR AFTER DENTAL APPOINTMENT, VAGINAL/RECTAL EXAMINATION, SURGICAL PROCEDURE, OR ANY OTHER EXPOSURE?NO DATE ASKED : 02/12/2019 LATEX RISK : HAVE YOU EVER HAD ANY DIFFICULTY BREATHING OR HIVES AFTER EATING OR HANDLING ANY FRUITS, OR VEGETABLES; SUCH KIWI, BANANAS, STONE FRUITS, OR CHESTNUTSNO LATEX RISK : DO YOU HAVE A PREVIOUS PERSONAL HISTORY OF MORE THAN NINE SURGERIES, SPINA BIFIDA, OR REPEATED CATHERIZATIONS? YES - PLEASE INDICATE : > 9 SURGERIES LATEX RISK : ARE YOU FREQUENTLY EXPOSED TO LATEX PRODUCTS IN YOUR OCCUPATION?NO CAFFEINE CAFFEINE USE?YES TEA ADVANCE DIRECTIVE ADVANCE DIRECTIVE DISCUSSED WITH PATIENT:YES DECLINED HCP INFORMATION, STATES SHE HAS THE INFORMATION AT HOME. DECLINES ASSISTANCE AT THIS TIME. [employer] NO GNOSTICISM BELIEFS THAT WOULD IMPACT HEALTH CARE. MARITAL STATUS: . ALCOHOL SCREENING DID YOU HAVE A DRINK CONTAINING ALCOHOL IN THE PAST YEAR?NO POINTS0 INTERPRETATIONNEGATIVE SEXUAL HX HAD SEX IN THE LAST 12 MONTHS (VAGINAL, ORAL, OR ANAL)?YES WITHMEN ONLY USE PROTECTION?NO LMP:HYSTER HAVE YOU EVER HAD AN STD?NO REVIEWED WITH PT 05/16/18 1338 LASREVIEWED WITH PATIENT 08/15/18 1314 JSREVIEWED WITH PATIENT 09/16/18 0900 BVREVIEWED WITH PATIENT 12/11/18 1209 JSREVEIWED WITH PATIENT 02/12/19 0857 JS. HOSPITALIZATION/MAJOR DIAGNOSTIC PROCEDURE SURGERIES CHILDBIRTH X4 PNEUMONIA IBS 04/2019 REVIEW OF SYSTEMS REVIEWED BY: PROVIDER: JORGE CALIX . CONSTITUTIONAL: ANY CHANGE IN YOUR MEDICAL CONDITION? NO . CHILLS NO . FEVER NO . INFECTION: DO YOU HAVE NEW INFECTIONS? NO . DO YOU HAVE HISTORY OF MRSA? NO . MUSCULOSKELETAL: ANY NEW PATTERNS OF PAIN OR NUMBNESS? NO . GASTROENTEROLOGY: ANY NEW CHANGE IN BOWEL CONTROL? NO . GENITOURINARY: ANY NEW CHANGE IN BLADDER CONTROL? NO . IS THERE A CHANCE YOU COULD BE ? NO . HEMATOLOGY/LYMPH: DO YOU TAKE ANY BLOOD THINNERS? (FOR EXAMPLE- COUMADIN, PLAVIX, AGGRENOX, PLATEL, PRADAXA, OR XARELTO) NO . WHEN WAS YOUR LAST DOSE? DATE: TIME: . NEUROLOGY: HAVE YOU FALLEN IN THE PAST 12 MONTHS? YES, SLIPPED ON A WET FLOOR IN THE HOUSE LAST MONTH 10/2019 . ANY NEW EXTREMITY NUMBNESS OR WEAKNESS? NO . CARDIOLOGY: DO YOU HAVE A PACEMAKER OR DEFIBRILLATOR? NO . RESPIRATORY: HAVE YOU BEEN SICK IN THE PAST WEEK? NO . FEVER NO . FLU LIKE SYMPTOMS? NO . COUGH NO . INTEGUMENTARY: DO YOU HAVE ANY RASHES OR OPEN SORES? NO . ALLERGIC/IMMUNO: ARE YOU ALLERGIC TO IV DYE? NO . ANY NEW ALLERGIES? NO . PSYCHIATRIC: DO YOU HAVE THOUGHTS OF HURTING YOURSELF OR SOMEONE ELSE? NO . ARE YOU ABUSED, NEGLECTED, OR IN AN UNSAFE ENVIRONMENT? NO . ENDOCRINOLOGY: ARE YOU DIABETIC? NO . OTHER: DO YOU NEED ANY PRESCRIPTIONS? NO . IF YES, PLEASE LIST: ____ . ANY NEW PROBLEMS WITH YOUR MEDICATIONS? NO . WHEN DID YOU LAST EAT? ____ . WHEN DID YOU LAST DRINK? ____ . WHAT DID YOU LAST DRINK? ____ . NAME OF PERSON DRIVING YOU HOME? ____ . DO YOU HAVE ANY OTHER QUESTIONS OR CONCERNS NO . VITAL SIGNS WT 129.4 LBS, HT 64.5 IN, BMI 21.87 INDEX, BP 146/72 MM HG, HR 83 /MIN, RR 18 /MIN, TEMP 98.1 F, OXYGEN SAT % 92, SAFE IN ENV? (Y/N) YES, REVIEWED BY: YARELIS SILVESTRE LPN. EXAMINATION GENERAL EXAMINATION: GENERALAWAKE,ALERT ,PLEASANT . PSYCHAFFECT NORMAL . LUNGS:LUNG WALKER ARE CLEAR TO AUSCULTATION BILATERALLY. GOOD MOVEMENT OF AIR . HEART:S1, S2 IN A REGULAR RATE AND RHYTHM. NO SIGNIFICANT MURMURS, RUBS OR GALLOPS NOTED . 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 IT IS NOT A COPY OF THE [employer] PROGRESS NOTE. MTDD
== END ==
LOC: M PAIN 10:30
PROVIDERS: ATTEND Nurse Practitioner Family
DX: M43.07 Spondylolysis, lumbosacral region (principal); M47.816 Spondylosis without myelopathy or radiculopathy, lumbar region; G89.29 Other chronic pain; K21.9 Gastro-esophageal reflux disease without esophagitis; J44.9 Chronic obstructive pulmonary disease, unspecified; E78.5 Hyperlipidemia, unspecified; E55.9 Vitamin D deficiency, unspecified; G47.33 Obstructive sleep apnea (adult) (pediatric); F17.210 Nicotine dependence, cigarettes, uncomplicated; Z88.5 Allergy status to narcotic agent; Z88.8 Allergy status to other drugs, medicaments and biological substances; Z79.51 Long term (current) use of inhaled steroids; Z79.899 Other long term (current) drug therapy

== ENCOUNTER → 2020-01-07 | Outpatient (CLI) | payer MEDICARE ==
[~2020-01-07] MED LIST changes: +GASTROGRAFIN SOLUTION 30ML (Q9963) As Ordered ONE; +ISOVUE-370 76% 100ML VIAL As Ordered ONE
[2020-01-07 13:21] LABS: BASO # 0.1 10^3/uL (0.0-0.2); BASO % 0.7 % (0.0-1.0); EOS % 0.4 % (0.0-3.0); HEMOGLOBIN 13.9 g/dl (12.0-15.5); LYMPH # 2.2 10^3/uL (1.5-5.0); LYMPH % 32.1 % (24.0-44.0); MEAN CORPUSCULAR HEMOGLOBIN 30.5 pg (27.0-33.0); MEAN CORPUSCULAR HGB CONC 32.3 g/dl (32.0-36.5); MEAN CORPUSCULAR VOLUME 94.3 fl (80.0-96.0); MONO # 0.5 10^3/uL (0.0-0.8); MONO % 7.8 % (0.0-5.0); NEUTROPHILS % 58.9 % (36.0-66.0); PLATELET COUNT, AUTOMATED 222 10^3/uL (150-450); RED BLOOD COUNT 4.56 10^6/uL (4.00-5.40); WHITE BLOOD COUNT 6.9 10^3/uL (4.0-10.0)
[2020-01-07 13:49] LABS: ALT/SGPT 22 U/L (12-78); BILIRUBIN,TOTAL 0.3 MG/DL (0.2-1.0); BLOOD UREA NITROGEN 12 MG/DL (7-18); CALCIUM LEVEL 9.1 MG/DL (8.8-10.2); CARBON DIOXIDE LEVEL 28 MEQ/L (21-32); CHLORIDE LEVEL 106 MEQ/L (98-107); CREATININE FOR GFR 0.93 MG/DL (0.55-1.30); GLOMERULAR FILTRATION RATE > 60.0 (>45); GLUCOSE, FASTING 96 MG/DL (70-100); POTASSIUM SERUM 4.4 MEQ/L (3.5-5.1); SODIUM LEVEL 139 MEQ/L (136-145); TOTAL PROTEIN 7.5 GM/DL (6.4-8.2)
--- NOTE | 2020-01-07 15:30 | REP ---
CT ABDOMEN AND PELVIS WITH ORAL AND IV CONTRAST: TECHNIQUE: Axial contrast enhanced images from the lung bases to the pubic symphysis using 100 mL Isovue-370 intravenous contrast material with multiplanar reformations. In the visualized lung bases, no infiltrate is seen. The liver, gallbladder, spleen, adrenals, pancreas and kidneys are unremarkable in appearance. There is no hydronephrosis. There is mild atherosclerotic calcification and ectasia of the distal abdominal aorta without aneurysm. There is no adenopathy. There is no free air or free fluid. No bowel wall thickening is seen. The patient has had a hysterectomy. Urinary bladder is mildly distended and appears grossly unremarkable. There are mild degenerative changes of the spine. IMPRESSION: No acute abnormalities detected. Electronically Signed by Behzad Romero MD 01/07/2020 03:43 P
== END ==
LOC: M RAD 12:47
PROVIDERS: ATTEND Physician Assistant
DX: R10.31 Right lower quadrant pain (principal); E03.9 Hypothyroidism, unspecified; K21.9 Gastro-esophageal reflux disease without esophagitis; E78.00 Pure hypercholesterolemia, unspecified; M19.032 Primary osteoarthritis, left wrist; M19.042 Primary osteoarthritis, left hand; M25.532 Pain in left wrist
CPT/HCPCS: 36415; 73090; 73110; 73130; 74177; 80053; 84439; 84443; 85025; Q9963; Q9967

== ENCOUNTER → 2020-01-07 | Outpatient (CLI) | payer MEDICARE ==
[~2020-01-07] MED LIST changes: -GASTROGRAFIN SOLUTION 30ML (Q9963) As Ordered ONE; -ISOVUE-370 76% 100ML VIAL As Ordered ONE
--- NOTE | 2020-01-07 17:44 | REP ---
Clinical: Left wrist and forearm pain Technique: AP, lateral views of the left forearm Findings: The osseous structures and joint spaces are intact and normal. There is no evidence for acute fracture or dislocation. Surrounding soft tissues are unremarkable. No subcutaneous emphysema or radiodense foreign body. Impression: Normal examination. No acute fracture or dislocation. Electronically Signed by Marcio Jordan MD 01/07/2020 05:35 P
--- NOTE | 2020-01-07 17:46 | REP ---
Clinical: Left hand and wrist pain. Technique: AP, lateral, bilateral oblique views of the left hand. Findings: Generalized age-related changes include increased subchondral/periarticular sclerosis with minimal joint space narrowing primarily involving the interphalangeal joints. No acute fracture dislocation. No osteophytosis, periarticular calcifications/loose bodies or erosive changes are appreciated. Impression: Generalized age-related degenerative changes. Electronically Signed by Marcio Jordan MD 01/07/2020 05:37 P
--- NOTE | 2020-01-07 18:17 | REP ---
Clinical: Left wrist pain Technique: AP, lateral, bilateral oblique views left wrist . Findings: Generalized age-related changes are noted with increased sclerosis to the radial surface along with minimal narrowing at the radiocarpal joint space. Mild degenerative changes are also noted at the first and second carpometacarpal joints where machuca carpal sclerosis and minimal joint space narrowing is suggested. Impression: Generalized age-related degenerative changes. Electronically Signed by Marcio Jordan MD 01/07/2020 06:09 P
== END ==
LOC: M ADAMS 11:09
PROVIDERS: ATTEND Physician Assistant
DX: M19.032 Primary osteoarthritis, left wrist (principal); M19.042 Primary osteoarthritis, left hand; M25.532 Pain in left wrist; R10.31 Right lower quadrant pain

== ENCOUNTER → 2020-05-11 | Outpatient (REF) | payer MEDICARE ==
[~2020-05-11] MED LIST changes: +ESTR0.1C5; +FAMO40TA3 PO; +NAPR250T4 PO; +TRAM50TA2 PO
[2020-05-11 19:20] LABS: CHLAMYDIA DNA AMPLIFICATION NEGATIVE (NEGATIVE); GC DNA AMPLIFICATION NEGATIVE (NEGATIVE)
== END ==
LOC: M LAB REF 16:23
PROVIDERS: ATTEND Physician Assistant
DX: R30.0 Dysuria (principal); N89.8 Other specified noninflammatory disorders of vagina

== ENCOUNTER → 2020-05-24 | Outpatient (REF) | payer MEDICARE | LOC: M LAB REF 16:11 | PROVIDERS: ATTEND Internal Medicine Gastroenterology | DX: R10.31 Right lower quadrant pain (principal) ==

== ENCOUNTER → 2020-05-25 | Outpatient (CLI) | payer MEDICARE ==
--- NOTE | 2020-06-01 10:25 | REP ---
ABDOMINAL RADIOGRAPHS CLINICAL: Constipation, fecal impaction. TECHNIQUE: Two supine views of the abdomen and pelvis. FINDINGS: Bowel gas pattern is nonspecific and without evidence for obstruction or perforation. No significant fecal stasis or fecal impaction is appreciated. No organomegaly. No abnormal calcifications. Skeletal structures are intact. Vascular calcification outlining the common iliac artery is noted. IMPRESSION: Nonspecific bowel gas pattern. MTDD
== END ==
LOC: M RAD 10:52
PROVIDERS: ATTEND Internal Medicine Gastroenterology
DX: K56.41 Fecal impaction (principal); R19.7 Diarrhea, unspecified

== ENCOUNTER → 2020-06-29 | Outpatient (CLI) | payer MEDICARE ==
--- NOTE | 2020-07-05 00:57 | ECWPNPC ---
PATIENT NAME: NATALI WILSON : 1950 GENDER: FEMALE VISIT DATE: 06/29/2020 DISCHARGE DATE: 06/29/20 1138 VISIT LOCKED DATE TIME: PHYSICIAN: JORGE MCCARTHY PHYSICIAN PAGER NO: ACTIVE RESOURCE: JORGE MCCARTHY REASON FOR APPOINTMENT 1. BACK HISTORY OF PRESENT ILLNESS DEPRESSION SCREENING: PHQ-2 (2015 EDITION) LITTLE INTEREST OR PLEASURE IN DOING THINGS?NOT AT ALL FEELING DOWN, DEPRESSED, OR HOPELESS?NOT AT ALL TOTAL SCORE0 GENERAL: HERE FOR FOLLOW-UP OF CHRONIC LOW BACK PAIN. IT IS BEEN SEVERAL MONTHS SINCE HER LAST VISIT. STATES PAIN HAS GOTTEN SEVERE OVER THE PAST FEW MONTHS. PAIN IS LOCATED ACROSS THE LOWER BACK. REPORTING NEW ONSET OF RIGHT LUMBAR PARASPINAL PAIN FOR THE PAST 3 WEEKS. SHE ALSO REPORTS FALLING A FEW DAYS AGO AND THIS AGGRAVATED CHRONIC LOW BACK PAIN AND SHE SUSTAINED A CONTUSION TO HER OCCIPITAL REGION. SHE PLANS ON HAVING HER PRIMARY CARE PROVIDER EVALUATE RIGHT KIDNEY REGION PAIN. SHE IS ASKING FOR PAIN MEDICATION SHE IS TAKING TOO MUCH TYLENOL AND ASPIRIN. NO RECENT IMAGING OF HER LUMBAR SPINE. CONTINUES HOME EXERCISE AND STRETCHING FOR CHRONIC LOW BACK PAIN. CONSERVATIVE MEASURES HAVE FAILED TO IMPROVE HER SITUATION. SHE IS INTERESTED IN DOING SACROILIAC JOINT BLOCKS THAT HAVE BEEN EFFECTIVE IN THE PAST.-. FALL RISK SCREENING: SCREENING :NO FALLS REPORTED IN THE LAST YEAR SATURDAY FELL AND HIT BACK OF HEAD ON THE DECK PAIN SCREENING: PATIENT HAS A COMPLAINT OF ACUTE OR CHRONIC PAIN :YES LOCATION OF PAIN:LOW BACK INTENSITY OF PAIN (SCALE OF 1 TO 10):9 WHAT DOES YOUR PAIN FEEL LIKE:ACHING, SHARP DURATION:CONTINOUS, CONSTANT PAIN IS INCREASED BY:ACTIVITIES, PROLONGED STANDING PAIN IS DECREASED BY:USE OF PAIN MEDICATIONS, OTHERS HEATING PADS NURSING NOTE: -. PAIN CENTER INTAKE QUESTIONS: DO YOU HAVE A HISTORY OF MRSA? :NO DO YOU TAKE A BLOOD THINNERS? :NO DO YOU HAVE ANY BLEEDING DISORDERS? :NO ANY NEW NUMBNESS OR WEAKNESS IN YOUR LEGS OR ARMS? :NO ANY PACEMAKER,DEFIBRILLATOR, OR DORSAL COLUMN STIMULATOR? :NO DO YOU HAVE ANY RASHES OR OPEN SORES? :NO ARE YOU ALLERGIC TO IV DYE? :NO ARE YOU DIABETIC? :NO ANY NEW PROBLEMS WITH YOUR MEDICATIONS? :NO HAVE YOU RECEIVED A VACCINE IN THE PAST 30 DAYS? :NO DO YOU PLAN TO RECEIVE A VACCINE IN THE NEXT 21 DAYS? :NO DO YOU NEED ANY PRESCRIPTION? :NO DO YOU TAKE ANY IMMUNOSUPPRESSIVE MEDICATIONS? :NO IS THERE A CHANCE YOU COULD BE ? :NO ARE YOU BREAST FEEDING? :NO CURRENT MEDICATIONS TAKING MUCINEX 600 MG TABLET EXTENDED RELEASE 12 HOUR 1 TABLET NEEDED ORALLY EVERY 12 HRS TAKING MULTIVITAMIN OTC TABLET 1 TAB(S) ORALLY ONCE DAILY TAKING LATANOPROST 0.005 % SOLUTION 1 DROP INTO AFFECTED EYE IN THE EVENING OPHTHALMIC ONCE A DAY TAKING SOOTHE XP - SOLUTION OPHTHALMIC TAKING ZONISAMIDE 100 MG CAPSULE 3 ORALLY BEFORE BEDTIME TAKING TYLENOL ARTHRITIS PAIN 2 TABLETS NEEDED ORALLY 2-3 TIMES/DAY TAKING DUONEB 0.5-2.5 (3) MG/3ML SOLUTION 3 ML INHALATION FOUR TIMES A DAY NEEDED TAKING FLONASE 50 MCG/ACT SUSPENSION 1 SPRAY IN EACH NOSTRIL NASALLY ONCE A DAY TAKING MIRALAX - POWDER 17 GRAMS ORALLY ONCE A DAY TAKING FISH OIL 500 MG CAPSULE 1 CAPSULE ORALLY TWICE A DAY TAKING BREO ELLIPTA 100-25 MCG/INH AEROSOL POWDER BREATH ACTIVATED 1 PUFF INHALATION ONCE A DAY TAKING COLON FORMULA 166.67-500 MG CAPSULE DIRECTED ORALLY TAKING ONDANSETRON 4 MG TABLET DISINTEGRATING 1 TABLET ON THE TONGUE AND ALLOW TO DISSOLVE ORALLY EVERY 8 HOURS NEEDED FOR NAUSEA/VOMITING TAKING NICODERM CQ 21 MG/24HR PATCH 24 HOUR 1 PATCH TO SKIN TRANSDERMAL ONCE A DAY TAKING VITAMIN D (ERGOCALCIFEROL) 03272 UNIT CAPSULE TAKE ONE CAPSULE BY MOUTH ONCE WEEKLY TAKING CRESTOR 20 MG TABLET 1 TABLET ORALLY ONCE A DAY TAKING OMEPRAZOLE 40 MG CAPSULE DELAYED RELEASE TAKE ONE CAPSULE BY MOUTH TWICE A DAY ORALLY TWICE DAILY TAKING GABAPENTIN 300 MG CAPSULE 1 CAPSULE ORALLY BID TAKING CYMBALTA 60 MG CAPSULE DELAYED RELEASE PARTICLES 1 CAPSULE ORALLY ONCE A DAY TDD= 90MG TAKING CYMBALTA 30 MG CAPSULE DELAYED RELEASE PARTICLES 1 CAPSULE ORALLY ONCE A DAY TTD=90 MG NOT-TAKING DICYCLOMINE HCL 20 MG TABLET 1 TABLET ORALLY FOUR TIMES DAILY NOT-TAKING SIMETHICONE 80 MG TABLET CHEWABLE 1 TABLET AFTER MEALS AND AT BEDTIME NEEDED ORALLY FOUR TIMES A DAY NOT-TAKING PERCOCET 5-325 MG TABLET 1 TABLET NEEDED ORALLY EVERY 6 HRS PRN MDD4 MEDICATION LIST REVIEWED AND RECONCILED WITH THE PATIENT PAST MEDICAL HISTORY BACK PAIN CHRONIC/DDD - (PREVIOUSLY FOLLOWED BY DR. GUERRERO & DR. 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, FOLLOWED BY NEURO DAVID - ON CPAP PER NEUROLOGY STARTED 08/28/[address] ABD/PELVIS SHOWED "MATTING" OF SMALL BOWEL WITH APPARENT FECAL STASIS (01/2019) - EVALUATED BY GENERAL SURGERY 03/16/19 , 04/2019 RESECTION DUE TO ISCHEMIC BOWEL DEXA 09/2018 - FRAX 9.5/1.8% ALLERGIES VICODIN: ITCHING - SIDE EFFECTS ATORVASTATIN CALCIUM: ELEVATED LIVER ENZYMES - SIDE EFFECTS CHANTIX: HALLUCINATIONS AND SI - SIDE EFFECTS DEPAKOTE: TEMORS - SIDE EFFECTS SURGICAL HISTORY TONSILLECTOMY A CHILD APPENDECTOMY A CHILD CARPAL TUNNEL RELEASE/CORNELIO RIGHT/ FOOT - BABY TOE- BONE REMOVED D& C, 3 OR 4 INGUINAL HERNIA REPAIR- DOUBLE ONE HYSTERECTOMY & BSO (DUE TO UTERINE PROLAPSE) 2011 CARPAL TUNNEL RELEASE 2014 CATARACT SURGERY 01/17/17 EGD/COLONOSCOPY - NORMAL EGD/YUBULAR ADENOMATOUS AND HYPERPLASTIC POLYP (F/U IN 3 - [address] NOYOLA 11/2015 RIGHT KNEE ARTHROSCOPE- REPAIRED LIGAMENTS,MENISCUS, REMOVAL ARTHRITIS 01/30/2018 HEMORRHOIDECTOMY 01/2019 COLON RESECTION: COLONOSCOPY TO THE HEPATIC FLEXURE FOLLOWED BY DIAGNOSTIC LAPAROSCOPY WITH PARTIAL COLECTOMY - PATHOLOGY SHOWED ISCHEMIC COLITIS 04/2019 FAMILY HISTORY FATHER: 69 YRS, DIAGNOSED WITH UNSPECIFIED HEART DISEASE MOTHER: 80 YRS, HYPERTENSION, DIABETES 1 BROTHER(S) , 1 SISTER(S) - HEALTHY. BROTHER,25 MVA, BROTHER 30'S AIDS, BROTHER 58 HEART ATTACK, BROTHER 64 HEART, LUNGS . SOCIAL HISTORY GENERAL: TOBACCO USE ARE YOU A:CURRENT SMOKER HOW OFTEN DO YOU SMOKE CIGARETTES?EVERY DAY HOW SOON AFTER YOU WAKE UP DO YOU SMOKE YOUR FIRST CIGARETTE?6-30 MIN HOW MANY CIGARETTES A DAY DO YOU SMOKE?5 OR LESS ARE YOU INTERESTED IN QUITTING?READY TO QUIT PT HAS CUT WAY BACK TO 2 CIGS/DAY. USING THE NICOTINE PATCH PATIENT COUNSELED ON THE DANGERS OF TOBACCO USE AND URGED TO QUIT:11/13/2019 COUNSELED THE PATIENT ON TOBACCO USE, CESSATION [id number]/13/2020 SMOKING CESSATION INFORMATION GIVEN11/13/2019 PREVIOUS QUIT ATTEMPTS?YES, WITHIN THE LAST 6 MONTHS. LATEX QUESTIONNAIRE LATEX ALLERGY : HAVE YOU EVER DEVELOPED ANY TYPE OF REACTION AFTER HANDLING LATEX PRODUCTS SUCH RUBBER GLOVES, CONDOMS, DIAPHRAGMS, BALLOONS, SOCKS, OR UNDERWEAR?NO LATEX ALLERGY : HAVE YOU EVER DEVELOPED ANY TYPE OF REACTION DURING OR AFTER DENTAL APPOINTMENT, VAGINAL/RECTAL EXAMINATION, SURGICAL PROCEDURE, OR ANY OTHER EXPOSURE?NO LATEX RISK : HAVE YOU EVER HAD ANY DIFFICULTY BREATHING OR HIVES AFTER EATING OR HANDLING ANY FRUITS, OR VEGETABLES; SUCH KIWI, BANANAS, STONE FRUITS, OR CHESTNUTSNO LATEX RISK : DO YOU HAVE A PREVIOUS PERSONAL HISTORY OF MORE THAN NINE SURGERIES, SPINA BIFIDA, OR REPEATED CATHERIZATIONS? YES - PLEASE INDICATE : > 9 SURGERIES LATEX RISK : ARE YOU FREQUENTLY EXPOSED TO LATEX PRODUCTS IN YOUR OCCUPATION?NO DATE ASKED : 06/29/2020 LUNG CANCER SCREENING SMOKING STATUS:CURRENT SMOKER IS THE PATIENT BETWEEN THE AGE OF 57 AND 79?YES HAS THE PATIENT EVER BEEN DIAGNOSED WITH LUNG CANCER?NO PACK YEARS = NUMBER OF PACKS PER DAY SMOKED X NUMBER OF YEARS SMOKED:60 CREATE REFERRAL:GENERATE AND CREATE REFERRAL TO THE ONCOLOGY NURSE NAVIGATOR (SMP) LISTING USING THE LDCT SCAN PROCEDURE ALCOHOL SCREENING DID YOU HAVE A DRINK CONTAINING ALCOHOL IN THE PAST YEAR?NO POINTS0 INTERPRETATIONNEGATIVE RECREATIONAL DRUG USE DRUG USE?NO CAFFEINE CAFFEINE USE?YES TEA SEXUAL HX HAD SEX IN THE LAST 12 MONTHS (VAGINAL, ORAL, OR ANAL)?YES WITHMEN ONLY USE PROTECTION?NO LMP:HYSTER HAVE YOU EVER HAD AN STD?NO TAOIST TAOIST NO HOLINESS BELIEFS THAT WOULD IMPACT HEALTH CARE. LANGUAGE LANGUAGES SPOKEN:TURKISH LEARNING BARRIERS / SPECIAL NEEDS CHANGE FROM LAST VISIT?NO BARRIERS TO LEARNING?NO HEARING IMPAIRED?NO VISION IMPAIRED?YES COGNITIVELY IMPAIRED?NO :CORRECTIVE LENSES READINESS TO LEARN?YES LEARNING PREFERENCES?NO LEARNING CAPABILITIES PRESENT?YES EMOTIONAL BARRIERS?NO SPECIAL DEVICES?NO SCHOOL SPEECH LANGUAGE PATHOLOGIST NEEDED?NO DIET: REGULAR. EXERCISE: NO REGULAR EXERCISE. MARITAL STATUS: . OTHERS AT HOME: SPOUSE. PATIENT DESCRIBES PAIN : ACHING, SHARP, TENDER, SORE, FROM 0-10, WHAT LEVEL IS YOUR PAIN TODAY? 7, PRECIPITATING FACTORS TURNING HEAD INCREASES PAIN, ALLEVIATING FACTORS HEAT, IMPACT ON FUNCTION DECREASED ABILITY TO DO HOUSEWORK, DAILY ACTIVITIES, SLOWS HER DOWN, IS THERE A CHANCE YOU COULD BE ? NO, HAVE YOU BEEN SICK IN THE LAST WEEK (COLD, COUGH, FEVER, FLU, ETC) NO, DO YOU TAKE ANY BLOOD THINNERS? NO, DO YOU HAVE ANY RASHES OR OPEN SORES? NO, ANY CHANGE IN BOWEL OR BLADDER CONTROL? NO, ARE YOU ALLERGIC TO SHELLFISH OR IV DYE? NO, ARE YOU DIABETIC? NO, DO YOU HAVE A PACEMAKER OR DEFIBRILLATOR? NO, ANY NEW PROBLEMS WITH MEDICINES OR NEW ALLERGIES NO, ANY NEW PATTERNS OF PAIN OR NUMBNESS? YES NECK PAIN, HAVE YOU FALLEN IN THE LAST 6 MONTHS? YES PT STATES THAT SHE WAS HOME AND SLIPPED ON ICE OVER THE WINTER, NO INJURY FROM FALL NO REPORT TO ED, ARE YOU ABUSED, NEGLECTED, OR IN AN UNSAFE ENVIRONMENT? NO, DO YOU HAVE THOUGHTS OF HURTING YOURSELF OR SOMEONE ELSE? NO, DO YOU NEED ANY PRESCRIPTIONS? NO. PAIN CLINIC PFS, CLERGY, PUBLIC HEALTH REFERRALS WAS THE PROVIDER NOTIFIED OF ANY PERTINENT INFO?YES HAS THE PATIENT BEEN EDUCATED REGARDING HIS/HER PLAN OF CARE?YES HAS THE PATIENT BEEN EDUCATED REGARDING PAIN, THE RISK FOR PAIN, THE IMPORTANCE OF EFFECTIVE PAIN MANAGEMENT, AND THE PAIN ASSESSMENT PROCESS?YES ADVANCE DIRECTIVE ADVANCE DIRECTIVE DISCUSSED WITH PATIENT:YES DECLINED HCP INFORMATION, STATES SHE HAS THE INFORMATION AT HOME. DECLINES ASSISTANCE AT THIS TIME. REVIEWED WITH PT 05/16/18 1338 LASREVIEWED WITH PATIENT 08/15/18 1314 JSREVIEWED WITH PATIENT 09/16/18 0900 BVREVIEWED WITH PATIENT 12/11/18 1209 JSREVEIWED WITH PATIENT 02/12/19 0857 JS. HOSPITALIZATION/MAJOR DIAGNOSTIC PROCEDURE SURGERIES CHILDBIRTH X4 PNEUMONIA IBS 04/2019 REVIEW OF SYSTEMS CONSTITUTIONAL: ANY RECENT FEVER NO, NO . CHILLS NO, NO . WEIGHT CHANGE OF UNKNOWN REASONS NO, NO . GASTROENTEROLOGY: NEW UNEXPLAINABLE CHANGES IN BOWEL CONTROL NO, NO . CONSTIPATION NO, NO . GENITOURINARY: ANY NEW CHANGE IN BLADDER CONTROL? NO, NO . NEUROLOGY: NEW ONSET DIZZINESS OR NEUROLOGICAL CHANGES NOT MENTIONED NO, NO . NEW NUMBNESS OR PAIN PATTERNS NOT MENTIONED AND PERTINENT TO TODAY'S VISIT NO, NO . CARDIOLOGY: NEW CHEST PRESSURE NO, NO . NEW CHEST PAIN NO, NO . RESPIRATORY: UNEXPLAINABLE COUGH NO, NO . NEW SHORTNESS OF BREATH NO, NO . VITAL SIGNS WT 124.0 LBS, HT 64.5 IN, BMI 20.95 INDEX, BP 134/103 MM HG, HR 79 /MIN, RR 18 /MIN, TEMP 97.4 F, OXYGEN SAT % 93%, SAFE IN ENV? (Y/N) YES, NA INITIALS SC 10:45, REVIEWED BY: ESTEFANIA. EXAMINATION GENERAL EXAMINATION: GENERALAWAKE,ALERT ,PLEASANT . PSYCHAFFECT NORMAL . LUNGS:LUNG WALKER ARE CLEAR TO AUSCULTATION BILATERALLY. GOOD MOVEMENT OF AIR . HEART:S1, S2 IN A REGULAR RATE AND RHYTHM. NO SIGNIFICANT MURMURS, RUBS OR GALLOPS NOTED . ASSESSMENTS LUMBOSACRAL SPONDYLOLYSIS - M43.07 (PRIMARY) TREATMENT LUMBOSACRAL SPONDYLOLYSIS CONTINUE CYMBALTA CAPSULE DELAYED RELEASE PARTICLES, 60 MG, 1 CAPSULE, ORALLY, ONCE A DAY TDD= 90MG CONTINUE CYMBALTA CAPSULE DELAYED RELEASE PARTICLES, 30 MG, 1 CAPSULE, ORALLY, ONCE A DAY TTD=90 MG START TRAMADOL HCL TABLET, 50 MG, 1 TABLET NEEDED, ORALLY, EVERY 8 HOURS WHEN NECESSARY FOR PAIN MDD 3 #45 TABLETS SHOULD LAST 30 DAYS, 30 DAYS, 45, REFILLS 1 [facility] MRI LUMBAR W/O CONTRAST (CPT 82152)[id number] NOTES: PATIENT HAS BEEN HAVING INCREASES IN LOW BACK PAIN THAT HAS NOT RESPONDED TO HOME EXERCISE AND STRETCHING. WE WOULD LIKE TO CONSIDER DOING BILATERAL SACROILIAC JOINT BLOCK. SHE WILL NEED AN MRI OF THE LUMBOSACRAL SPINE TO DETERMINE PATHOLOGY AND TO MAKE RECOMMENDATIONS FOR TREATMENT OF ACUTE EXACERBATION OF CHRONIC LOW BACK PAIN. PROCEDURE CODES FA211 ESTABILISHED PATIENT [facility] CHARGE DISPOSITION & COMMUNICATION FOLLOW UP 6-8WKS (REASON: REVIEW MRI L/S SPINE) ELECTRONICALLY SIGNED BY YOGI CRUZ ON 07/04/2020 AT 01:05 PM EST DISCLAIMER : THIS IS A VISIT SUMMARY EXTRACTED FROM THE [employer] CHART. IT IS NOT A COPY OF THE [employer] PROGRESS NOTE. CINTIA
== END ==
LOC: M PAIN 10:30
PROVIDERS: ATTEND Nurse Practitioner Family
DX: M43.07 Spondylolysis, lumbosacral region (principal); K21.9 Gastro-esophageal reflux disease without esophagitis; J44.9 Chronic obstructive pulmonary disease, unspecified; E78.5 Hyperlipidemia, unspecified; E55.9 Vitamin D deficiency, unspecified; G47.33 Obstructive sleep apnea (adult) (pediatric); K58.1 Irritable bowel syndrome with constipation; F17.210 Nicotine dependence, cigarettes, uncomplicated; Z79.899 Other long term (current) drug therapy; Z88.8 Allergy status to other drugs, medicaments and biological substances; Z88.5 Allergy status to narcotic agent

== ENCOUNTER 2020-07-06 10:08 | Emergency (ER) | payer MEDICARE ==
[~2020-07-06] VITALS: Ht 162.6 cm; Wt 56.0 kg
[~2020-07-06 10:08] MED LIST changes: -ESTR0.1C5; -FAMO40TA3 PO; -NAPR250T4 PO; -TRAM50TA2 PO
[2020-07-06] MEDS ORDERED: TRAM50TA2 PO (10:42)
[2020-07-06] MEDS ORDERED: ESTR0.1C5 (10:42)
[2020-07-06] MEDS ORDERED: FAMO40TA3 PO (10:42)
[2020-07-06] MEDS ORDERED: ONDANSETRON 4MG/2ML VIAL IV ONE (11:30)
[2020-07-06] MEDS ORDERED: KETOROLAC 30 MG/ML 1ML VIAL IV ONE (11:30)
--- NOTE | 2020-07-06 11:57 | REP ---
INDICATION: right flank pain, pain with inispiration, smoker. COMPARISON: [facility] 05/25/2020, CT 01/07/2020 TECHNIQUE: Noncontrast imaging with coronal and sagittal reconstructions. FINDINGS: CT abdomen: Lung bases are clear. Heart not enlarged. No pericardial thickening or effusion. No hiatal hernia. Stomach unremarkable. The liver, spleen, gallbladder, pancreas and adrenal glands are unchanged. Thickening of adrenal limbs suggesting adrenal hyperplasia is stable. There are few calcifications in vessels at the renal hilus on the left. See no definite renal stone or hydronephrosis. Colon and small bowel loops without any acute finding. Anastomotic suture line seen in the right upper quadrant from prior colon surgery. There is no mass, adenopathy, perforation or free air. No ascites in the abdomen or pelvis. Bone windows show lumbar and thoracic spine with some minor degenerative changes but no acute compression deformity or destructive lesions. Visualized ribs intact. CT pelvis: Sacrum, SI joints, the pelvis and hips show minor degenerative change without destructive lesion or fracture. Bladder partially filled but without stone, mass or wall thickening. No distal ureteral dilatation or stone some pelvic phleboliths are evident. There are vascular calcifications in the abdominal aorta and iliac vessels. Small bowel loops and colon in the pelvis unremarkable. There is no ventral or inguinal hernia nor pathologic sized inguinal adenopathy. Uterus is absent and the vaginal cuff intact. No pelvic mass. IMPRESSION: 1. There is no renal, ureteral or bladder stone. No hydronephrosis, hydroureter or other abnormality of the kidneys. There are some arterial calcifications in the left renal hilus. 2. There are postoperative changes in the bowel loops from prior partial colon resection seen mid upper abdomen. No acute finding colon and small bowel loops. No ascites or adenopathy. 3. No other significant findings. <Electronically signed by Kwesi Crum > 07/06/20 3260
[2020-07-06 12:20] LABS: BASO # 0.1 10^3/uL (0.0-0.2); BASO % 1.1 % (0.0-1.0); EOS # 0.1 10^3/uL (0.0-0.5); EOS % 0.8 % (0.0-3.0); HEMATOCRIT 43.5 % (36.0-47.0); HEMOGLOBIN 13.7 g/dl (12.0-15.5); LYMPH # 1.6 10^3/uL (1.5-5.0); LYMPH % 26.6 % (24.0-44.0); MEAN CORPUSCULAR HEMOGLOBIN 31.7 pg (27.0-33.0); MEAN CORPUSCULAR HGB CONC 31.5 g/dl (32.0-36.5); MEAN CORPUSCULAR VOLUME 100.7 fl (80.0-96.0); MONO # 0.7 10^3/uL (0.0-0.8); MONO % 10.6 % (0.0-5.0); NEUTROPHILS # 3.7 10^3/uL (1.5-8.5); NEUTROPHILS % 60.7 % (36.0-66.0); PLATELET COUNT, AUTOMATED 248 10^3/uL (150-450); RED BLOOD COUNT 4.32 10^6/uL (4.00-5.40); WHITE BLOOD COUNT 6.2 10^3/uL (4.0-10.0)
[2020-07-06 12:39] LABS: ALBUMIN 3.7 GM/DL (3.2-5.2); ALT/SGPT 24 U/L (12-78); BILIRUBIN,DIRECT 0.1 MG/DL (0.0-0.2); BILIRUBIN,TOTAL 0.4 MG/DL (0.2-1.0); BLOOD UREA NITROGEN 14 MG/DL (7-18); CALCIUM LEVEL 9.5 MG/DL (8.8-10.2); CARBON DIOXIDE LEVEL 29 MEQ/L (21-32); CHLORIDE LEVEL 104 MEQ/L (98-107); CREATININE FOR GFR 0.78 MG/DL (0.55-1.30); GLOMERULAR FILTRATION RATE > 60.0 (>45); GLUCOSE, FASTING 80 MG/DL (70-100); LIPASE 257 U/L (73-393); POTASSIUM SERUM 4.6 MEQ/L (3.5-5.1); SODIUM LEVEL 137 MEQ/L (136-145); TOTAL PROTEIN 7.7 GM/DL (6.4-8.2)
[2020-07-06] MEDS ORDERED: NAPR250T4 PO (13:57)
[2020-07-06 14:36] VITALS: BP 127/74
== END 2020-07-06 14:42 | disposition home or self-care (01) ==
LOC: M ED 10:08
DX: S39.012A Strain of muscle, fascia and tendon of lower back, initial encounter (principal); X58.XXXA Exposure to other specified factors, initial encounter; Y92.89 Other specified places as the place of occurrence of the external cause; Z79.899 Other long term (current) drug therapy; Z88.5 Allergy status to narcotic agent; Z88.8 Allergy status to other drugs, medicaments and biological substances; F17.210 Nicotine dependence, cigarettes, uncomplicated
CPT/HCPCS: 74176; 80048; 80076; 81001; 83690; 85025; 96374; 96375; 99284; J1885; J2405

== ENCOUNTER → 2020-07-11 | Outpatient (CLI) | payer MEDICARE ==
[~2020-07-11] MED LIST changes: +ESTR0.1C5; +FAMO40TA3 PO; +NAPR250T4 PO; +TRAM50TA2 PO
--- NOTE | 2020-07-11 14:19 | REP ---
INDICATION: LUMBOSACRAL SPONDYLOSIS. COMPARISON: Comparison MRI study is from October 10, 2015.. TECHNIQUE: Sagittal and axial T1 and T2-weighted scans are acquired in the usual fashion with and without fat saturation. Sequences include spin echo, turbo spin-echo, and STIR imaging sequences. FINDINGS: Lumbar vertebral body heights are preserved. Alignment is normal. There is no evidence of spondylolysis or spondylolisthesis. No bony destructive lesion is seen. The tip of the conus medullaris is normal in appearance and position at L1. No extra vertebral abnormality is observed. There is mild abdominal aortic ectasia, 2.5 cm anteroposterior dimension. Axial and sagittal images taken at the L1-2 disc level demonstrates degenerative disc narrowing and mild diffuse disc bulging. This effaces the ventral subarachnoid space slightly. No spinal stenosis is seen. There is mild ligamentum flavum and facet hypertrophy on the right at L4-1 to. No neural foraminal narrowing is seen. At L2-L3, there is minimal ligamentum flavum hypertrophy present bilaterally. At L3-4, there is mild diffuse disc bulging. The disc is somewhat narrowed. No neural foraminal narrowing is seen. Canal size is borderline. There is facet and ligamentum flavum hypertrophy at L3-4. Midline AP dimension of the thecal sac is 9 mm. At L4-5, there is degenerative disc narrowing and mild diffuse disc bulging. Ligamentum flavum and facet hypertrophy is present. The thecal sac as a triangular cross-sectional shaped. There is mild foraminal disc bulging bilaterally per. No carlotta nerve root compression is seen but the right neural foramen is somewhat narrow. midline AP dimension of the thecal sac at L4-5 is 9.5 mm. There is a small left lateral a disc protrusion at L4-5. This is felt to be unchanged. At L5-S1, there is facet hypertrophy bilaterally. No disc protrusion, central canal stenosis, or foraminal narrowing is appreciated. IMPRESSION: Borderline canal size L3-4 and L4-5 unchanged from the 2016 prior study. Mild disc bulging L1-2 also unchanged. There is mild right L4-5 foraminal narrowing and a small left lateral L4-5 disc protrusion is seen unchanged from the prior study as well. <Electronically signed by Ryland Gil > 07/11/20 3999
== END ==
LOC: M RAD 11:09
PROVIDERS: ATTEND Nurse Practitioner Family
DX: M43.06 Spondylolysis, lumbar region (principal)

== ENCOUNTER → 2020-08-31 | Outpatient (CLI) | payer MEDICARE ==
--- NOTE | 2020-09-04 23:05 | ECWPNPC ---
PATIENT NAME: NATALI WILSON : 1950 GENDER: FEMALE VISIT DATE: 08/31/2020 DISCHARGE DATE: 08/31/20 1053 VISIT LOCKED DATE TIME: PHYSICIAN: JORGE MCCARTHY PHYSICIAN PAGER NO: ACTIVE RESOURCE: JORGE MCCARTHY REASON FOR APPOINTMENT 1. REVIEW MRI L/S SPINE HISTORY OF PRESENT ILLNESS GENERAL: HERE FOR FOLLOW-UP OF CHRONIC LOW BACK PAIN. REVIEWED MRI OF THE LUMBOSACRAL SPINE THAT I ORDERED AT HER LAST VISIT. THIS IS BASICALLY UNCHANGED FROM HER 2016 STUDY. SHOWING DEGENERATIVE CHANGES. CONTINUES WITH SIGNIFICANT LOW BACK PAIN THAT RADIATES INTO LEFT THIGH. HAS BENEFITED IN THE PAST FROM SACROILIAC JOINT BLOCKS. FINDS TRAMADOL SOMEWHAT EFFECTIVE AT REDUCING PAIN AND KEEPING HER FUNCTIONAL. DENIES ADVERSE SIDE EFFECTS. -. FALL RISK SCREENING: SCREENING :TWO OR MORE FALLS WITHOUT INJURY IN THE PAST YEAR PAIN SCREENING: PATIENT HAS A COMPLAINT OF ACUTE OR CHRONIC PAIN :YES LOCATION OF PAIN:LOW BACK, LEFT HIP, RIGHT HIP INTENSITY OF PAIN (SCALE OF 1 TO 10):8 WHAT DOES YOUR PAIN FEEL LIKE:ACHING, BURNING, CONTINOUS, SHARP PAIN IS INCREASED BY:ACTIVITIES, PROLONGED STANDING CANNOT STAND MORE THAN 15 MINUTES PAIN IS DECREASED BY:OTHERS REST "LAYING DOWN" TREATMENT/MEDICATIONS USED TO MANAGE PAIN: TRAMADOL IS" HELPING ALOT" NURSING NOTE: -. PAIN CENTER INTAKE QUESTIONS: DO YOU HAVE A HISTORY OF MRSA? :NO DO YOU TAKE A BLOOD THINNERS? :NO DO YOU HAVE ANY BLEEDING DISORDERS? :NO ANY NEW NUMBNESS OR WEAKNESS IN YOUR LEGS OR ARMS? :NO ANY PACEMAKER,DEFIBRILLATOR, OR DORSAL COLUMN STIMULATOR? :NO DO YOU HAVE ANY RASHES OR OPEN SORES? :NO ARE YOU ALLERGIC TO IV DYE? :NO ARE YOU DIABETIC? :NO ANY NEW PROBLEMS WITH YOUR MEDICATIONS? :NO HAVE YOU RECEIVED A VACCINE IN THE PAST 30 DAYS? :NO DO YOU PLAN TO RECEIVE A VACCINE IN THE NEXT 21 DAYS? :NO DO YOU NEED ANY PRESCRIPTION? :NO DO YOU TAKE ANY IMMUNOSUPPRESSIVE MEDICATIONS? :NO IS THERE A CHANCE YOU COULD BE ? :NO ARE YOU BREAST FEEDING? :NO CURRENT MEDICATIONS TAKING MUCINEX 600 MG TABLET EXTENDED RELEASE 12 HOUR 1 TABLET NEEDED ORALLY EVERY 12 HRS TAKING MULTIVITAMIN OTC TABLET 1 TAB(S) ORALLY ONCE DAILY TAKING LATANOPROST 0.005 % SOLUTION 1 DROP INTO AFFECTED EYE IN THE EVENING OPHTHALMIC ONCE A DAY TAKING SOOTHE XP - SOLUTION OPHTHALMIC TAKING ZONISAMIDE 100 MG CAPSULE 3 ORALLY BEFORE BEDTIME TAKING TYLENOL ARTHRITIS PAIN 2 TABLETS NEEDED ORALLY 2-3 TIMES/DAY TAKING DUONEB 0.5-2.5 (3) MG/3ML SOLUTION 3 ML INHALATION FOUR TIMES A DAY NEEDED TAKING FLONASE 50 MCG/ACT SUSPENSION 1 SPRAY IN EACH NOSTRIL NASALLY ONCE A DAY TAKING MIRALAX - POWDER 17 GRAMS ORALLY ONCE A DAY TAKING FISH OIL 500 MG CAPSULE 1 CAPSULE ORALLY TWICE A DAY TAKING BREO ELLIPTA 100-25 MCG/INH AEROSOL POWDER BREATH ACTIVATED 1 PUFF INHALATION ONCE A DAY TAKING COLON FORMULA 166.67-500 MG CAPSULE DIRECTED ORALLY TAKING NICODERM CQ 21 MG/24HR PATCH 24 HOUR 1 PATCH TO SKIN TRANSDERMAL ONCE A DAY TAKING GABAPENTIN 300 MG CAPSULE 1 CAPSULE ORALLY BID TAKING CYMBALTA 30 MG CAPSULE DELAYED RELEASE PARTICLES 1 CAPSULE ORALLY ONCE A DAY TTD=90 MG TAKING TRAMADOL HCL 50 MG TABLET 1 TABLET NEEDED ORALLY EVERY 8 HOURS WHEN NECESSARY FOR PAIN MDD 3 #45 TABLETS SHOULD LAST 30 DAYS TAKING CRESTOR 20 MG TABLET 1 TABLET ORALLY ONCE A DAY TAKING CYMBALTA 60 MG CAPSULE DELAYED RELEASE PARTICLES 1 CAPSULE ORALLY ONCE A DAY TAKING OMEPRAZOLE 40 MG CAPSULE DELAYED RELEASE TAKE ONE CAPSULE BY MOUTH TWICE A DAY ORALLY TWICE DAILY NOT-TAKING ONDANSETRON 4 MG TABLET DISINTEGRATING 1 TABLET ON THE TONGUE AND ALLOW TO DISSOLVE ORALLY EVERY 8 HOURS NEEDED FOR NAUSEA/VOMITING NOT-TAKING VITAMIN D (ERGOCALCIFEROL) [id number] UNIT CAPSULE TAKE ONE CAPSULE BY MOUTH ONCE WEEKLY NOT-TAKING DICYCLOMINE HCL 20 MG TABLET 1 TABLET ORALLY FOUR TIMES DAILY NOT-TAKING SIMETHICONE 80 MG TABLET CHEWABLE 1 TABLET AFTER MEALS AND AT BEDTIME NEEDED ORALLY FOUR TIMES A DAY NOT-TAKING PERCOCET 5-325 MG TABLET 1 TABLET NEEDED ORALLY EVERY 6 HRS PRN MDD4 MEDICATION LIST REVIEWED AND RECONCILED WITH THE PATIENT PAST MEDICAL HISTORY BACK PAIN CHRONIC/DDD - (PREVIOUSLY FOLLOWED BY DR. GUERRERO & DR. 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, FOLLOWED BY NEURO DAVID - ON CPAP PER NEUROLOGY STARTED 08/28/[address] ABD/PELVIS SHOWED "MATTING" OF SMALL BOWEL WITH APPARENT FECAL STASIS (01/2019) - EVALUATED BY GENERAL SURGERY 03/16/19 , 04/2019 RESECTION DUE TO ISCHEMIC BOWEL DEXA 09/2018 - FRAX 9.5/1.8% MIGRAINES OCCIPITAL NEUROLGIA ALLERGIES VICODIN: ITCHING - SIDE EFFECTS ATORVASTATIN CALCIUM: ELEVATED LIVER ENZYMES - SIDE EFFECTS CHANTIX: HALLUCINATIONS AND SI - SIDE EFFECTS DEPAKOTE: TEMORS - SIDE EFFECTS SURGICAL HISTORY TONSILLECTOMY A CHILD APPENDECTOMY A CHILD CARPAL TUNNEL RELEASE/CORNELIO RIGHT/ FOOT - BABY TOE- BONE REMOVED D& C, 3 OR 4 INGUINAL HERNIA REPAIR- DOUBLE ONE HYSTERECTOMY & BSO (DUE TO UTERINE PROLAPSE) 2011 CARPAL TUNNEL RELEASE 2014 CATARACT SURGERY 01/17/17 EGD/COLONOSCOPY - NORMAL EGD/YUBULAR ADENOMATOUS AND HYPERPLASTIC POLYP (F/U IN 3 - [address] NOYOLA 11/2015 RIGHT KNEE ARTHROSCOPE- REPAIRED LIGAMENTS,MENISCUS, REMOVAL ARTHRITIS 01/30/2018 HEMORRHOIDECTOMY 01/2019 COLON RESECTION: COLONOSCOPY TO THE HEPATIC FLEXURE FOLLOWED BY DIAGNOSTIC LAPAROSCOPY WITH PARTIAL COLECTOMY - PATHOLOGY SHOWED ISCHEMIC COLITIS 04/2019 FAMILY HISTORY FATHER: 69 YRS, DIAGNOSED WITH UNSPECIFIED HEART DISEASE MOTHER: 80 YRS, HYPERTENSION, DIABETES 1 BROTHER(S) , 1 SISTER(S) - HEALTHY. BROTHER,25 MVA, BROTHER 30'S AIDS, BROTHER 58 HEART ATTACK, BROTHER 64 HEART, LUNGS . SOCIAL HISTORY GENERAL: TOBACCO USE ARE YOU A:CURRENT SMOKER ARE YOU INTERESTED IN QUITTING?READY TO QUIT PT HAS CUT WAY BACK TO 2 CIGS/DAY. USING THE NICOTINE PATCH PREVIOUS QUIT ATTEMPTS?YES, WITHIN THE LAST 6 MONTHS. COUNSELED THE PATIENT ON TOBACCO USE, CESSATION [id number]/13/2020 HOW MANY CIGARETTES A DAY DO YOU SMOKE?5 OR LESS HOW SOON AFTER YOU WAKE UP DO YOU SMOKE YOUR FIRST CIGARETTE?6-30 MIN HOW OFTEN DO YOU SMOKE CIGARETTES?EVERY DAY PATIENT COUNSELED ON THE DANGERS OF TOBACCO USE AND URGED TO QUIT:08/31/2020 WE DISCUSSED HER STRADEGY TO "CUT DOWN " CURRENTLY SMOKING 3 A DAY SMOKING CESSATION INFORMATION GIVEN11/13/2019 LATEX QUESTIONNAIRE LATEX ALLERGY : HAVE YOU EVER DEVELOPED ANY TYPE OF REACTION AFTER HANDLING LATEX PRODUCTS SUCH RUBBER GLOVES, CONDOMS, DIAPHRAGMS, BALLOONS, SOCKS, OR UNDERWEAR?NO LATEX ALLERGY : HAVE YOU EVER DEVELOPED ANY TYPE OF REACTION DURING OR AFTER DENTAL APPOINTMENT, VAGINAL/RECTAL EXAMINATION, SURGICAL PROCEDURE, OR ANY OTHER EXPOSURE?NO DATE ASKED : 06/29/2020 LATEX RISK : HAVE YOU EVER HAD ANY DIFFICULTY BREATHING OR HIVES AFTER EATING OR HANDLING ANY FRUITS, OR VEGETABLES; SUCH KIWI, BANANAS, STONE FRUITS, OR CHESTNUTSNO LATEX RISK : DO YOU HAVE A PREVIOUS PERSONAL HISTORY OF MORE THAN NINE SURGERIES, SPINA BIFIDA, OR REPEATED CATHERIZATIONS? YES - PLEASE INDICATE : > 9 SURGERIES LATEX RISK : ARE YOU FREQUENTLY EXPOSED TO LATEX PRODUCTS IN YOUR OCCUPATION?NO LUNG CANCER SCREENING SMOKING STATUS:CURRENT SMOKER IS THE PATIENT BETWEEN THE AGE OF 57 AND 79?YES HAS THE PATIENT EVER BEEN DIAGNOSED WITH LUNG CANCER?NO PACK YEARS = NUMBER OF PACKS PER DAY SMOKED X NUMBER OF YEARS SMOKED:60 CREATE REFERRAL:GENERATE AND CREATE REFERRAL TO THE ONCOLOGY NURSE NAVIGATOR (SMP) LISTING USING THE LDCT SCAN PROCEDURE ALCOHOL SCREENING DID YOU HAVE A DRINK CONTAINING ALCOHOL IN THE PAST YEAR?NO POINTS0 INTERPRETATIONNEGATIVE RECREATIONAL DRUG USE DRUG USE?NO CAFFEINE CAFFEINE USE?YES TEA SEXUAL HX HAD SEX IN THE LAST 12 MONTHS (VAGINAL, ORAL, OR ANAL)?YES WITHMEN ONLY USE PROTECTION?NO LMP:HYSTER HAVE YOU EVER HAD AN STD?NO AMISH AMISH NO AMISH BELIEFS THAT WOULD IMPACT HEALTH CARE. LANGUAGE LANGUAGES SPOKEN:KITTITIAN LEARNING BARRIERS / SPECIAL NEEDS CHANGE FROM LAST VISIT?NO BARRIERS TO LEARNING?NO HEARING IMPAIRED?NO VISION IMPAIRED?YES COGNITIVELY IMPAIRED?NO :CORRECTIVE LENSES READINESS TO LEARN?YES LEARNING PREFERENCES?NO LEARNING CAPABILITIES PRESENT?YES EMOTIONAL BARRIERS?NO SPECIAL DEVICES?NO PAD MACHINE OFFBEARER NEEDED?NO DIET: REGULAR. EXERCISE: NO REGULAR EXERCISE. MARITAL STATUS: . OTHERS AT HOME: SPOUSE. PATIENT DESCRIBES PAIN : ACHING, SHARP, TENDER, SORE, FROM 0-10, WHAT LEVEL IS YOUR PAIN TODAY? 7, PRECIPITATING FACTORS TURNING HEAD INCREASES PAIN, ALLEVIATING FACTORS HEAT, IMPACT ON FUNCTION DECREASED ABILITY TO DO HOUSEWORK, DAILY ACTIVITIES, SLOWS HER DOWN, IS THERE A CHANCE YOU COULD BE ? NO, HAVE YOU BEEN SICK IN THE LAST WEEK (COLD, COUGH, FEVER, FLU, ETC) NO, DO YOU TAKE ANY BLOOD THINNERS? NO, DO YOU HAVE ANY RASHES OR OPEN SORES? NO, ANY CHANGE IN BOWEL OR BLADDER CONTROL? NO, ARE YOU ALLERGIC TO SHELLFISH OR IV DYE? NO, ARE YOU DIABETIC? NO, DO YOU HAVE A PACEMAKER OR DEFIBRILLATOR? NO, ANY NEW PROBLEMS WITH MEDICINES OR NEW ALLERGIES NO, ANY NEW PATTERNS OF PAIN OR NUMBNESS? YES NECK PAIN, HAVE YOU FALLEN IN THE LAST 6 MONTHS? YES PT STATES THAT SHE WAS HOME AND SLIPPED ON ICE OVER THE WINTER, NO INJURY FROM FALL NO REPORT TO ED, ARE YOU ABUSED, NEGLECTED, OR IN AN UNSAFE ENVIRONMENT? NO, DO YOU HAVE THOUGHTS OF HURTING YOURSELF OR SOMEONE ELSE? NO, DO YOU NEED ANY PRESCRIPTIONS? NO. PAIN CLINIC PFS, CLERGY, PUBLIC HEALTH REFERRALS WAS THE PROVIDER NOTIFIED OF ANY PERTINENT INFO?YES HAS THE PATIENT BEEN EDUCATED REGARDING HIS/HER PLAN OF CARE?YES HAS THE PATIENT BEEN EDUCATED REGARDING PAIN, THE RISK FOR PAIN, THE IMPORTANCE OF EFFECTIVE PAIN MANAGEMENT, AND THE PAIN ASSESSMENT PROCESS?YES ADVANCE DIRECTIVE ADVANCE DIRECTIVE DISCUSSED WITH PATIENT:YES DECLINED HCP INFORMATION, STATES SHE HAS THE INFORMATION AT HOME. DECLINES ASSISTANCE AT THIS TIME. REVIEWED WITH PT 05/16/18 1338 LASREVIEWED WITH PATIENT 08/15/18 1314 JSREVIEWED WITH PATIENT 09/16/18 0900 BVREVIEWED WITH PATIENT 12/11/18 1209 JSREVEIWED WITH PATIENT 02/12/19 0857 JS. HOSPITALIZATION/MAJOR DIAGNOSTIC PROCEDURE SURGERIES CHILDBIRTH X4 PNEUMONIA IBS 04/2019 REVIEW OF SYSTEMS CONSTITUTIONAL: ANY RECENT FEVER NO . CHILLS NO . WEIGHT CHANGE OF UNKNOWN REASONS NO . GASTROENTEROLOGY: NEW UNEXPLAINABLE CHANGES IN BOWEL CONTROL NO . CONSTIPATION NO . GENITOURINARY: ANY NEW CHANGE IN BLADDER CONTROL? NO . NEUROLOGY: NEW ONSET DIZZINESS OR NEUROLOGICAL CHANGES NOT MENTIONED NO . NEW NUMBNESS OR PAIN PATTERNS NOT MENTIONED AND PERTINENT TO TODAY'S VISIT NO . CARDIOLOGY: NEW CHEST PRESSURE NO . NEW CHEST PAIN NO . RESPIRATORY: UNEXPLAINABLE COUGH NO . NEW SHORTNESS OF BREATH NO . VITAL SIGNS WT 122.6 LBS, HT 64.5 IN, BMI 20.72 INDEX, BP 157/81 MM HG, HR 90 /MIN, RR 18 /MIN, TEMP 98.6 F, OXYGEN SAT % 91%, SAFE IN ENV? (Y/N) YES, NA INITIALS SC 10:24, REVIEWED BY: KG. EXAMINATION GENERAL EXAMINATION: GENERAL ALERT,NO DISTRESS . PSYCH AFFECT NORMAL . LUNGS: LUNG SOUNDS ARE CLEAR . HEART: HEART RATE REGULAR . MUSCULOSKELETAL: MST 5/5 BILAT. LOWER EXTREMITIES . LUMBAR: TENDERNESS BILAT. SIJ . DIAGNOSTIC TESTS REVIEWEDMRI L/S SPINE 07/11/2020. ASSESSMENTS SACROILIITIS - M46.1 (PRIMARY) TREATMENT SACROILIITIS REFILL TRAMADOL HCL TABLET, 50 MG, 1 TABLET NEEDED, ORALLY, EVERY 8 HOURS WHEN NECESSARY FOR PAIN MDD 3 #45 TABLETS SHOULD LAST 30 DAYS, 30 DAYS, 45, REFILLS 2 NOTES: BILATERAL SACROILIAC JOINT BLOCK NARCOTIC AGREEMENT WAS REVIEWED AND SIGNED. ADVISED TO BRING MEDICATION INTO EVERY CLINIC VISIT PER CLINIC POLICY. PROCEDURE CODES FA211 ESTABILISHED PATIENT [facility] CHAR[facility] DISPOSITION & COMMUNICATION FOLLOW UP POST PROCEDURE/URINE TOXICOLOGY (REASON: BILATERAL SACROILIAC JOINT BLOCK ) ELECTRONICALLY SIGNED BY YOGI CRUZ ON 09/04/2020 AT 03:44 PM EST DISCLAIMER : THIS IS A VISIT SUMMARY EXTRACTED FROM THE [employer] CHART. IT IS NOT A COPY OF THE [employer] PROGRESS NOTE. CINTIA
== END ==
LOC: M PAIN 10:00
PROVIDERS: ATTEND Nurse Practitioner Family
DX: M46.1 Sacroiliitis, not elsewhere classified (principal); G89.29 Other chronic pain; K21.9 Gastro-esophageal reflux disease without esophagitis; J44.9 Chronic obstructive pulmonary disease, unspecified; G47.33 Obstructive sleep apnea (adult) (pediatric); G43.909 Migraine, unspecified, not intractable, without status migrainosus; F17.210 Nicotine dependence, cigarettes, uncomplicated; Z88.5 Allergy status to narcotic agent; Z88.8 Allergy status to other drugs, medicaments and biological substances; Z79.51 Long term (current) use of inhaled steroids; Z79.899 Other long term (current) drug therapy

== ENCOUNTER → 2020-10-09 | Outpatient (CLI) | payer MEDICARE ==
[~2020-10-09] MED LIST changes: -DICY20TA PO; +DICY20TA3 PO; +GABA-282 PO; -GABA-843 PO; -SIME40TA PO; +SIME80CH5 PO; +SIME80CH6 PO; -SIME80TA PO
== END ==
LOC: M LABSMTC 08:22
PROVIDERS: ATTEND Anesthesiology
DX: Z20.822 Contact with and (suspected) exposure to COVID-19 (principal)

== ENCOUNTER → 2020-10-14 | Outpatient (CLI) | payer MEDICARE ==
[~2020-10-14] MED LIST changes: +BUPIVACAINE HCL 0.25% 30ML VIAL As Ordered ONE; +ISOVUE-M 300 61% 15ML VIAL As Ordered ONE; +LIDOCAINE 1% SDV 30ML VIAL As Ordered ONE; +TRIAMCINOLONE ACETONIDE SUSP 40 MG/ML VIAL (J3301) As Ordered ONE; +diazePAM 5MG TABLET As Ordered ONE; +oxyCODONE 5MG TAB As Ordered ONE
--- NOTE | 2020-10-14 12:00 | REP ---
INDICATION: CHRONIC SIJ PAIN. COMPARISON: None. TECHNIQUE: Two views. 16.3 seconds of fluoroscopy time is reported. FINDINGS: A sequence of 2 last image hold fluoroscopically obtained spot radiographs of the SI joints document needle position and contrast injection associated with injection procedure. IMPRESSION: Procedural imaging. <Electronically signed by Ryland Gil > 10/14/20 3085
--- NOTE | 2020-10-15 00:16 | ECWPNPC ---
PATIENT NAME: NATALI WILSON : 1950 GENDER: FEMALE VISIT DATE: 10/14/2020 DISCHARGE DATE: 10/14/20 1133 VISIT LOCKED DATE TIME: PHYSICIAN: HENRY PATEL MD PHYSICIAN PAGER NO: ACTIVE RESOURCE: HENRY PATEL MD REASON FOR APPOINTMENT 1. BILATERAL SACROILIAC JOINT BLOCK HISTORY OF PRESENT ILLNESS GENERAL: -. FALL RISK SCREENING: SCREENING :NO FALLS REPORTED IN THE LAST YEAR PAIN SCREENING: PATIENT HAS A COMPLAINT OF ACUTE OR CHRONIC PAIN :YES LOCATION OF PAIN:BACK INTENSITY OF PAIN (SCALE OF 1 TO 10):8 WHAT DOES YOUR PAIN FEEL LIKE:CONTINOUS, BURNING, TENDER, STABBING NURSING NOTE: PAIN HAS BEEN WAKING HER UP AT NIGHT -. PAIN CENTER INTAKE QUESTIONS: DO YOU HAVE A HISTORY OF MRSA? :NO DO YOU TAKE A BLOOD THINNERS? :NO DO YOU HAVE ANY BLEEDING DISORDERS? :NO ANY NEW NUMBNESS OR WEAKNESS IN YOUR LEGS OR ARMS? :NO ANY PACEMAKER,DEFIBRILLATOR, OR DORSAL COLUMN STIMULATOR? :NO DO YOU HAVE ANY RASHES OR OPEN SORES? :NO ARE YOU ALLERGIC TO IV DYE? :NO ARE YOU DIABETIC? :NO ANY NEW PROBLEMS WITH YOUR MEDICATIONS? :NO HAVE YOU RECEIVED A VACCINE IN THE PAST 30 DAYS? :NO DO YOU PLAN TO RECEIVE A VACCINE IN THE NEXT 21 DAYS? :NO DO YOU TAKE ANY IMMUNOSUPPRESSIVE MEDICATIONS? :NO ANY HISTORY OF SEIZURES? :NO ANY HISTORY OF CARDIAC ISSUES OR EVENTS? :NO DO YOU HAVE SLEEP APNEA? :NO ANY RECENT HEAD INJURY? :NO DO YOU HAVE ANY NEW INFECTIONS? :NO IS THERE A CHANCE YOU COULD BE ? :NO ARE YOU BREAST FEEDING? :NO WHEN DID YOU LAST EAT? : -10/13/20 WHEN DID YOU LAST DRINK? : -10/13/20 WHAT DID YOU LAST DRINK? : -SIPS OF WATER NAME OF PERSON DRIVING YOU HOME? : -ORA ALEJANDRE DO YOU HAVE ANY OTHER QUESTIONS OR CONCERNS? : - CURRENT MEDICATIONS TAKING MUCINEX 600 MG TABLET EXTENDED RELEASE 12 HOUR 1 TABLET NEEDED ORALLY EVERY 12 HRS TAKING MULTIVITAMIN OTC TABLET 1 TAB(S) ORALLY ONCE DAILY TAKING LATANOPROST 0.005 % SOLUTION 1 DROP INTO AFFECTED EYE IN THE EVENING OPHTHALMIC ONCE A DAY TAKING SOOTHE XP - SOLUTION OPHTHALMIC TAKING ZONISAMIDE 100 MG CAPSULE 3 ORALLY BEFORE BEDTIME TAKING TYLENOL ARTHRITIS PAIN 2 TABLETS NEEDED ORALLY 2-3 TIMES/DAY TAKING DUONEB 0.5-2.5 (3) MG/3ML SOLUTION 3 ML INHALATION FOUR TIMES A DAY NEEDED TAKING FLONASE 50 MCG/ACT SUSPENSION 1 SPRAY IN EACH NOSTRIL NASALLY ONCE A DAY TAKING MIRALAX - POWDER 17 GRAMS ORALLY ONCE A DAY TAKING FISH OIL 500 MG CAPSULE 1 CAPSULE ORALLY TWICE A DAY TAKING BREO ELLIPTA 100-25 MCG/INH AEROSOL POWDER BREATH ACTIVATED 1 PUFF INHALATION ONCE A DAY TAKING COLON FORMULA 166.67-500 MG CAPSULE DIRECTED ORALLY TAKING NICODERM CQ 21 MG/24HR PATCH 24 HOUR 1 PATCH TO SKIN TRANSDERMAL ONCE A DAY TAKING GABAPENTIN 300 MG CAPSULE 1 CAPSULE ORALLY BID TAKING CYMBALTA 30 MG CAPSULE DELAYED RELEASE PARTICLES 1 CAPSULE ORALLY ONCE A DAY TTD=90 MG TAKING CRESTOR 20 MG TABLET 1 TABLET ORALLY ONCE A DAY TAKING CYMBALTA 60 MG CAPSULE DELAYED RELEASE PARTICLES 1 CAPSULE ORALLY ONCE A DAY TAKING OMEPRAZOLE 40 MG CAPSULE DELAYED RELEASE TAKE ONE CAPSULE BY MOUTH TWICE A DAY ORALLY TWICE DAILY TAKING TRAMADOL HCL 50 MG TABLET 1 TABLET NEEDED ORALLY EVERY 8 HOURS WHEN NECESSARY FOR PAIN MDD 3 #45 TABLETS SHOULD LAST 30 DAYS, NOTES: 04/22 TAKING AIMOVIG 70 MG/ML SOLUTION AUTO-INJECTOR DIRECTED SUBCUTANEOUS NOT-TAKING ONDANSETRON 4 MG TABLET DISINTEGRATING 1 TABLET ON THE TONGUE AND ALLOW TO DISSOLVE ORALLY EVERY 8 HOURS NEEDED FOR NAUSEA/VOMITING NOT-TAKING VITAMIN D (ERGOCALCIFEROL) [id number] UNIT CAPSULE TAKE ONE CAPSULE BY MOUTH ONCE WEEKLY NOT-TAKING DICYCLOMINE HCL 20 MG TABLET 1 TABLET ORALLY FOUR TIMES DAILY NOT-TAKING SIMETHICONE 80 MG TABLET CHEWABLE 1 TABLET AFTER MEALS AND AT BEDTIME NEEDED ORALLY FOUR TIMES A DAY NOT-TAKING PERCOCET 5-325 MG TABLET 1 TABLET NEEDED ORALLY EVERY 6 HRS PRN MDD4 MEDICATION LIST REVIEWED AND RECONCILED WITH THE PATIENT PAST MEDICAL HISTORY BACK PAIN CHRONIC/DDD - (PREVIOUSLY FOLLOWED BY DR. GUERRERO & DR. 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, FOLLOWED BY NEURO DAVID - ON CPAP PER NEUROLOGY STARTED 08/28/[address] ABD/PELVIS SHOWED "MATTING" OF SMALL BOWEL WITH APPARENT FECAL STASIS (01/2019) - EVALUATED BY GENERAL SURGERY 03/16/19 , 04/2019 RESECTION DUE TO ISCHEMIC BOWEL DEXA 09/2018 - FRAX 9.5/1.8% MIGRAINES OCCIPITAL NEUROLGIA ALLERGIES VICODIN: ITCHING - SIDE EFFECTS ATORVASTATIN CALCIUM: ELEVATED LIVER ENZYMES - SIDE EFFECTS CHANTIX: HALLUCINATIONS AND SI - SIDE EFFECTS DEPAKOTE: TEMORS - SIDE EFFECTS FAMILY HISTORY FATHER: 69 YRS, DIAGNOSED WITH UNSPECIFIED HEART DISEASE MOTHER: 80 YRS, HYPERTENSION, DIABETES 1 BROTHER(S) , 1 SISTER(S) - HEALTHY. BROTHER,25 MVA, BROTHER 30'S AIDS, BROTHER 58 HEART ATTACK, BROTHER 64 HEART, LUNGS . VITAL SIGNS WT 119.2 LBS, HT 64.5 IN, BMI 20.14 INDEX, BP 178/81 MM HG, HR 78 /MIN, RR 18 /MIN, TEMP 97.0 F, OXYGEN SAT % 91%, SAFE IN ENV? (Y/N) Y, NA INITIALS SC 08:59, REVIEWED BY: YELENA. EXAMINATION GENERAL EXAMINATION: THE PATIENT IS ALERT, ORIENTED TIMES THREE AND COOPERATIVE. LUNGS ARE CLEAR TO AUSCULTATION. HEART SHOWS REGULAR RHYTHM, NO MURMURS AND NO GALLOPS. ASSESSMENTS SACROILIITIS, NOT ELSEWHERE CLASSIFIED - M46.1 (PRIMARY) TREATMENT SACROILIITIS, NOT ELSEWHERE CLASSIFIED [facility] FLUORO GUIDANCE (PAIN)[id number] MEDICATION: VALIUM TAB 10MG ORALLY (DIAZEPAM)MEAGHAN JOSHI 10/14/2020 9:20:39 AM > VERIFIED ALEJANDRO ALBRIGHT 10/14/2020 9:23:14 AM > ADMINISTERED MEDICATION: OXYCODONE HCL TAB 10MG ORALLYMEAGHAN JOSHI 10/14/2020 9:21:02 AM > VERIFIED ALEJANDRO ALBRIGHT 10/14/2020 9:23:59 AM > ADMINISTERED COMPLETION OF PROCEDURAL VISIT WHEN MEETS CRITERIAALEJANDRO ALBRIGHT 10/14/2020 11:34:17 AM > CRITERIA MET PROCEDURES PAIN NURSING RECORD PROCEDURE IN ROOM 1045, PHYSICIAN IN ROOM 1059, START 1103, FINISH 1108, PHYSICIAN OUT OF ROOM 1109, OUT OF ROOM 1116, ECG NORMAL SINUS, PATIENT SHIELDED YES, SAFETY STRAP YES, PREP CHLOROPREP BY YELENA, DRESSING TEGADERM BY DR PATEL LOC: 1. ALERT, ORIENTED, ALEJANDRO ALBRIGHT 10/14/2020 11:00AM > RESP: 1. REGULAR, NO DYSPNEA, ALEJANDRO ALBRIGHT 10/14/2020 11:00 AM > COLOR: 1. PINKJOSE RAMON TOM 10/14/2020 11:00 AM > SKIN: 1. WARM, DRY, ALEJANDRO ALBRIGHT 10/14/2020 11:00 AM > POSITION: 1. PRONEJOSE RAMON TOM 10/14/2020 11:00 AM > VITALS: 1051- HR88, 128/68, 88% 1100- HR 70, 153/78, 93% EXIT VITALS 1125 - HR77, 168/83, 93%, PAIN 0/10 NOTES Abdon ALBRIGHT RN COMPLETION OF PROCEDURE APPOINTMENT: POST PAIN 0, DRESSING SITE DRY AND INTACT, IV N/A, GAIT STEADY, TEACHING COMPLETED, PATIENT ACKNOWLEDGES UNDERSTANDING YES, PROCEDURE APPOINTMENT COMPLETED AT 1128 : PROCEDURE MEDICATIONS DRAWN UP BY Kayy MCLAIN. MEDICATIONS AND DOSAGES VERIFIED BY YELENA PN SI PRE PROCEDURE DIAGNOSIS SACROILIITIS, SACROILIAC JOINT DYSFUNCTION POST PROCEDURE DIAGNOSIS SACROILIITIS, SACROILIAC JOINT DYSFUNCTION PROCEDURE BILATERAL SACROILIAC JOINT BLOCK SURGEON DR. HENRY PATEL TERMITE HELPER NONE ANESTHESIA LOCAL PRE PROCEDURE NOTE THE PATIENT WITH HISTORY OF CHRONIC LOW BACK PAIN. I EVALUATED THE PATIENT AND REVIEWED THE CHART. I WENT OVER THE RISKS, ALTERNATIVES, AND BENEFITS ASSOCIATED WITH THIS PROCEDURE. THE PATIENT WOULD LIKE TO PROCEED AND GAVE CONSENT TO PERFORM THE PROCEDURE. THE PATIENT DENIES UNEXPLAINABLE WEIGHT LOSS, FEVER, CHILLS, OR NEW CHANGES IN URINARY OR BOWEL CONTROL. THE PATIENT IS COVID-19 NEGATIVE DESCRIPTION OF PROCEDURE THE PATIENT WAS BROUGHT TO THE PROCEDURE ROOM AND PLACED IN THE PRONE POSITION. THE LUMBOSACRAL AREA WAS CLEANED WITH CHLORAPREP SOLUTION AND DRAPED ASEPTICALLY. THE PROCEDURE WAS DONE UNDER STERILE CONDITIONS. A TIMEOUT WAS PERFORMED WHERE THE CONSENTED SITE WAS VERIFIED WITH EVERYONE IN THE ROOM. UNDER FLUOROSCOPIC GUIDANCE, THE TARGET POINT WAS SELECTED AT THE LOWER BORDER OF THE RIGHT AND LEFT SACROILIAC JOINT. TARGET POINT WAS SELECTED AFTER MEDIAL ROTATION AND TILT OF THE MAGNIFIER OR THE C-ARM. I CONFIRMED AGAIN THE SITE OF THE TARGET. LIDOCAINE 0.5% WAS USED TO NUMB THE SKIN AND THE SUBCUTANEOUS TISSUE BELOW IT. SPINAL NEEDLES, 22-GAUGE, WERE ADVANCED UNDER FLUOROSCOPIC GUIDANCE AND FOLLOWING PATIENT FEEDBACK UNTIL THE TARGETS WERE TOUCHED. THE POSITION OF THE NEEDLES WAS VERIFIED WITH AP AND OBLIQUE VIEWS. AFTER PROPER POSITION OF THE NEEDLES WAS ACHIEVED, ISOVUE-M DYE 30%, 0.1 ML, WAS INJECTED SHOWING ADEQUATE SPREAD OF THE DYE. KENALOG 20 MG WAS INJECTED AT EACH SITE. THEN, A SOLUTION OF 3.0 ML OF BUPIVACAINE 0.125% WAS USED TO FLUSH EACH NEEDLE. THE MEDICATIONS WERE VERIFIED WITH THE NURSE. THERE WAS NO EVIDENCE OF BLOOD, PARESTHESIA OR CEREBROSPINAL FLUID DURING THE PROCEDURE. THE PATIENT WAS SENT TO THE RECOVERY ROOM. THE PATIENT WAS MOVING THE EXTREMITIES AND DOING WELL. THERE WERE NO COMPLICATIONS DURING THE PROCEDURE. ESTIMATED BLOOD LOSS WAS LESS THAN 5 ML. FLUOROSCOPIC TIME WAS 16 SECONDS. POST PROCEDURE NOTE THE PROCEDURE DONE WAS DISCUSSED WITH THE PATIENT. THE PATIENT WILL BE SEEN IN A FOLLOW UP IN THE NEXT FEW WEEKS. I AM LOOKING FOR LONG LASTING PAIN RELIEF FOR THE PATIENT WITH THIS INTERVENTION. INSTRUCTIONS WERE GIVEN, QUESTIONS WERE ANSWERED, AND THE PATIENT EXPRESSED UNDERSTANDING AND AGREES WITH THE PLAN. I, TORRIE MOTA, DOCUMENTED THE ABOVE INFORMATION ACTING A SCRIBE FOR DR. PATEL. I HAVE REVIEWED THE ABOVE DOCUMENT, WRITTEN BY TORRIE MOTA, SCHOOL OCCUPATIONAL THERAPIST, AND I VERIFY THAT IT IS ACCURATE PROCEDURE CODES 38274 INJECT SACROILIAC JOINT, MODIFIERS: 50 DISPOSITION & COMMUNICATION FOLLOW UP FOLLOW UP WITH PHOTOGRAPHIC INTELLIGENCE OFFICER (REASON: POST BILATERAL SACROILIAC JOINT BLOCK) ELECTRONICALLY SIGNED BY HENRY PATEL MD, MD ON 10/14/2020 AT 04:08 PM EST DISCLAIMER : THIS IS A VISIT SUMMARY EXTRACTED FROM THE [facility] CHART. IT IS NOT A COPY OF THE [facility] PROGRESS NOTE. [facility]INT[facility]
== END ==
LOC: M PAIN 09:00
PROVIDERS: ATTEND Anesthesiology
DX: M46.1 Sacroiliitis, not elsewhere classified (principal); K21.9 Gastro-esophageal reflux disease without esophagitis; J44.9 Chronic obstructive pulmonary disease, unspecified; E78.5 Hyperlipidemia, unspecified; E55.9 Vitamin D deficiency, unspecified; G47.33 Obstructive sleep apnea (adult) (pediatric); K58.1 Irritable bowel syndrome with constipation; G43.909 Migraine, unspecified, not intractable, without status migrainosus; M54.81 Occipital neuralgia; Z79.891 Long term (current) use of opiate analgesic; Z79.899 Other long term (current) drug therapy; Z88.5 Allergy status to narcotic agent; Z88.8 Allergy status to other drugs, medicaments and biological substances
CPT/HCPCS: G0260; J3301; Q9967

== ENCOUNTER 2020-10-25 13:44 | Emergency (ER) | payer MEDICARE ==
[~2020-10-25] VITALS: Ht 162.6 cm; Wt 53.7 kg
[~2020-10-25 13:44] MED LIST changes: -BUPIVACAINE HCL 0.25% 30ML VIAL As Ordered ONE; -ISOVUE-M 300 61% 15ML VIAL As Ordered ONE; -LIDOCAINE 1% SDV 30ML VIAL As Ordered ONE; -TRIAMCINOLONE ACETONIDE SUSP 40 MG/ML VIAL (J3301) As Ordered ONE; -diazePAM 5MG TABLET As Ordered ONE; -oxyCODONE 5MG TAB As Ordered ONE
--- OUTSIDE RECORDS SUMMARY | 2020-10-25 14:13 | CCD ---
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 0 Active confirmed 337355014 Problem Unspecified vitamin D deficiency E55.9 Active conf irmed 99563822 Problem Constipation, unspecified constipation type K59.00 Active confirmed 79394203 Problem Nicotine dependence F17.200 Active confirmed 06250026 Problem Irritable bowel syndrome with constipation K58.1 Active confirmed 375626752 Problem Other hyperlipidemia E78.4 Active confirmed 56117008 Problem Low back pain M54.5 Active confirmed 065050 007 Problem Vitamin deficiency E56.9 Active confirmed 8 9928197 Problem Lumbosacral spondylolysis M43.07 Active confirmed 991973188 Problem Vaginal prolapse N81.10 Active confirmed 398 119893 Problem Spondylosis of lumbar region without myelopathy or radiculopathy M47.816 Active confirmed 13605926 Problem Spondylosis of lumbosacral region without myelop athy or radiculopathy M47.817 Active confirmed 20070608 Problem Obstructive sleep apnea (adult) (pediatric) G47.33 Active confirmed 38235507 Problem Dependence on other enabling machines and devices Z99.89 Active confirmed 715134571 Problem Chronic bronchitis, unspecified chronic bronchitis type J42 Active confirmed 80595122 Problem Pulmonary emphysema, unspecified emphysema type J4 3.9 Active confirmed 21650474 Problem Other spondylosis, cervical region M47.892 Activ e confirmed 0508545 Problem Spondylosis of cervical region without myelopath y or radiculopathy M47.812 Active confirmed 580403932 Problem Sacroiliitis M46.1 Active confirmed 0441554 9 Problem Medicare annual wellness visit, subsequent Z00.00 Active confirmed 198768801 Problem Enlarged lymph node R59.9 Active confirmed 95975207 Problem Sacroiliitis, not elsewhere classified M46.1 A ctive confirmed 16824738 Problem Pure hypercholesterolemia E78.00 Active confirmed 164411695 Problem Cigarette nicotine dependence with other nicotin e-induced disorder F17.218 Active confirmed 68336486 Problem Irritable bowel syndrome with both constipation and diarrh ea K58.2 Active confirmed 48029124 Problem S/P right hemicolectomy Z90.49 Active confirmed 019755245 Problem Cigarette nicotine dependence with nicotine-induced di sorder F17.219 Active confirmed 34719747 Problem Acquired hypothyroidism E03.9 Active confirmed 967623258 ALLERGIES Allergen (clinical drug ingredient) Drug/Non Drug Allergy do cumented on EMR Reaction Allergy Type Onset Date Status varenicline Chantix(NDC Code:[address]-01) hallucinations and SI Drug Allergy Active atorvastatin Atorvastatin Calcium(NDC Code:[address] -98) elevated liver enzymes Drug Allergy Active Vicodin itching Drug Allergy Active valproate Depakote(NDC Code:[address]-40) temors Drug Allergy Active ENCOUNTERS from 1952 to 2020-10-14 Encounter Location Date Provider Diagnosis [facility] [address] [place] [address] Oct, Jeff Childers Sacroiliitis, not elsewhere classified M 46.1 IMMUNIZATIONS Vaccine Route Administration Date Status Influenza (18 yrs & older) Flublok IM Intramuscular Jul 28, 2019 Administered Influenza (18 yrs & older) Flublok IM Intramuscular Aug 20, 2018 Administered Influenza (High Dose 65 & up) IM Intramuscular Aug 16, 2017 A dministered Pneumococcal Adult 0.5mL (Pneumovax 23) IM Intramuscular Aug 20, 2018 Administered Pneumococcal 0.5mL (Prevnar 13) IM Intramuscular Aug 16, 2017 Administered Influenza (6mo & up) Fluzone IM Intramuscular Jun 06, 2016 Ad ministered Influenza (6mo & up) Fluzone IM Intramuscular Aug 05, 2015 Ad ministered SOCIAL HISTORY Tobacco Use: Social History Observation Description Date Details (start date - stop date) Current Smoker Sex Assigned At : Social History Observation Description Sex Assigned At Unknown Audit Question Answer Notes Total Score: 0 Interpretation: Alcohol Education Language: Question Answer Notes Languages spoken: Kosovan Christianity: Question Answer Notes Christianity No adventist beliefs that would impact health care. Sexual Hx: Question Answer Notes Had sex in the last 12 months (vaginal, oral, or anal)? Yes LMP: hyster Have you ever had an STD? No with Men only Use protection? No Drug and Alcohol Question Answer Notes Total Score: 0 Interpretation: No problems reported Alcohol Screening: Question Answer Notes Did you have a drink containing alcohol in the past year? No Points 0 Interpretation Negative Tobacco Use: Question Answer Notes Are you a: current smoker Smoking Cessation Information Given 11/13/2019 Patient counseled on the dangers of tobacco use and urged to quit: 08/31/2020 we discussed her stradegy to "cut down " currently smoking 3 a day How many cigarettes a day do you smoke? 5 or less Are you interested in quitting? Ready to quit pt has c ut way back to 2 cigs/day. Using the nicotine patch Counseled the patient on tobacco use, cessation provided REASON FOR REFERRAL No Information VITAL SIGNS Weight 119.2 lbs Oct, Height 64.5 in Oct, BMI 20.14 kg/m2 Oct, Heart Rate 78 /min Oct, Respiratory Rate 18 /min Oct, Temperature 97.0 degrees Fahrenheit Oct, Oximetry 91% Oct, Blood pressure systolic 178 mm Hg Oct, Blood pressure diastolic 81 mm Hg Oct, MEDICATIONS Medication SIG (Take, Route, Frequency, Duration) Notes Start Da te End Date Status Flonase 50 MCG/ACT 1 spray in each nostril Nasally Once a day for 30 Active Omeprazole 40 MG TAKE ONE CAPSULE BY MOUTH TW ICE A DAY Orally twice daily for 30 Active Ondansetron 4 MG 1 tablet on the tongue and a llow to dissolve Orally every 8 hours as needed for nausea/vomiting for 5 day(s) Apr, Not-Taking Zonisamide 100 MG 3 Orally before bedtime Active MiraLax - 17 grams Orally Once a day for 30 day(s) Oct Active Aimovig 70 MG/ML as directed Subcutaneous Active Cymbalta 60 MG 1 capsule Orally Once a day for 30 Days Sep, Active Tylenol Arthritis Pain 2 tablets as needed Orally 2-3 times/day Active Simethicone 80 MG 1 tablet after meals and at bedtime as needed Orally Four times a day Not-Taking Colon Formula 166.67-500 MG as directed Orally Active Vitamin D (Ergocalciferol) 84610 UNIT TAKE ONE CAPSULE BY MOUTH ONCE WEEKLY for 30 Not-Taking Breo Ellipta 100-25 MCG/INH 1 puff Inhalation Once a day for 30 Active DuoNeb 0.5-2.5 (3) MG/3ML 3 ml Inhalation Four times a day as needed for 30 day(s) Active Nicoderm CQ 21 MG/24HR 1 patch to skin Transdermal Once a day fo r 30 day(s) Jul, Active Dicyclomine HCl 20 MG 1 tablet Orally four times daily Not-Taking Tramadol HCl 50 MG 1 tablet as needed Orally Ev luna 8 hours when necessary for pain MDD 3 #45 tablets should last 30 days for 30 Days Jun, 020 Active Soothe XP - Ophthalmic Active Gabapentin 300 MG 1 capsule Orally bid for 30 Active Fish Oil 500 MG 1 capsule Orally Twice a day for 30 day(s) Active Percocet 5-325 MG 1 tablet as needed Orally every 6 hrs prn mdd4 for 30 days Mar, Not-Taking Cymbalta 30 MG 1 capsule Orally Once a day TTD=90 mg 2016 Active Crestor 20 MG 1 tablet Orally Once a day for 30 Active Multivitamin otc 1 tab(s) Orally once daily Active Mucinex 600 MG 1 tablet as needed Orally every 12 hrs 04 D 2017 Active Latanoprost 0.005 % 1 drop into affected eye in the evening Ophthalmic Once a day Active PROCEDURES from 1952 to 2020-10-14 Procedure Date Ordered Result Body Site Completion of procedural visit when meets criteria 2020-10-14 N/A Medication: Valium Tab 10mg Orally (Diazepam) 2020-10-14 N/ A Medication: Oxycodone HCL Tab 10mg Orally 2020-10-14 N/A RESULTS No Results REASON FOR VISIT Bilateral sacroiliac joint block MEDICAL (GENERAL) HISTORY Type Description Date Medical History back pain chronic/DDD - (Pr eviously followed by Dr. Gastelum & Dr. Cuadra, goes to [facility] now) Medical History acid reflux Medical History heels and spine spurs Medical History Arthritis Medical History hemorrhoids Medical History Moderate COPD per PFTs 2013 Medical History Hyperlipidemia Medical History Vitamin D deficiency Medical History DDD/DJD MRI cervical spine 04/17, mild sp inal stenosis Medical History occipital neuralgia - On Depakote - foll owed by Neurology Medical History bilateral cataracts Medical History Chiari malformation w/o syrinx, followed by neuro Medical History DAVID - on CPAP per Neurology started 08/03 03/19 Medical History IBS with Constipation Medical History CT abd/pelvis showed "mattin g" of small bowel with apparent fecal stasis (01/2019) - evaluated by General Surgery 03/16/19 , 04/2019 resection due to Ischemic Bowel Medical History DEXA 09/2018 - FRAX 9.5/1.8% Medical History migraines Medical History occipital neurolgia Surgical History tonsillectomy as a child Surgical History appendectomy as a child Surgical History carpal tunnel release/wai Surgical History right/ foot - baby toe- bone removed 199 0's Surgical History D& C, 3 or 4 Surgical History inguinal hernia repair- double one Surgical History hysterectomy & BSO (due to uterine prol apse) 2011 Surgical History carpal tunnel release 2014 Surgical History cataract surgery 01/17/17 Surgical History EGD/Colonoscopy - normal EGD /Yubular adenomatous and hyperplastic polyp (F/U in 3 - [address]) [address] Liu 11/2015 Surgical History RIGHT KNEE ARTHROSCOPE- REPA IRED LIGAMENTS,MENISCUS, REMOVAL ARTHRITIS 01/30/2018 Surgical History Hemorrhoidectomy 01/2019 Surgical History colon resection: Colonoscopy to the hepatic flexure followed by diagnostic laparoscopy with partial colectomy - Pathology showed ischemic colitis 04/2019 Hospitalization History surgeries Hospitalization History childbirth x4 Hospitalization History pneumonia Hospitalization History IBS 04/2019 Goals Section No Information Health Concerns No Information MEDICAL EQUIPMENT No Information MENTAL STATUS No Information FUNCTIONAL STATUS No Information ASSESSMENTS Encounter Date Diagnosis Assessment Notes Treatment Notes Treatm ent Clinical Notes Oct, Sacroiliitis, not elsewhere classified (ICD-10 - M46.1) PLAN OF TREATMENT Treatment Notes Test Name Order Date [facility]O [facility] (PAIN) 2020-10-14 Next Appt Details 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
--- OUTSIDE RECORDS SUMMARY | 2020-10-25 14:13 | CCD ---
Author Author [facility] Organization 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 0 Active confirmed 518786690 Problem Unspecified vitamin D deficiency E55.9 Active conf irmed 04754537 Problem Constipation, unspecified constipation type K59.00 Active confirmed 45222747 Problem Nicotine dependence F17.200 Active confirmed 83382914 Problem Irritable bowel syndrome with constipation K58.1 Active confirmed 520231890 Problem Other hyperlipidemia E78.4 Active confirmed 69073660 Problem Low back pain M54.5 Active confirmed 867388 007 Problem Vitamin deficiency E56.9 Active confirmed 8 3468779 Problem Lumbosacral spondylolysis M43.07 Active confirmed 205704642 Problem Vaginal prolapse N81.10 Active confirmed 398 071108 Problem Spondylosis of lumbar region without myelopathy or radiculopathy M47.816 Active confirmed 01231846 Problem Spondylosis of lumbosacral region without myelop athy or radiculopathy M47.817 Active confirmed 78138214 Problem Obstructive sleep apnea (adult) (pediatric) G47.33 Active confirmed 75821067 Problem Dependence on other enabling machines and devices Z99.89 Active confirmed 545457516 Problem Chronic bronchitis, unspecified chronic bronchitis type J42 Active confirmed 29549890 Problem Pulmonary emphysema, unspecified emphysema type J4 3.9 Active confirmed 12334570 Problem Other spondylosis, cervical region M47.892 Activ e confirmed 1812587 Problem Spondylosis of cervical region without myelopath y or radiculopathy M47.812 Active confirmed 020997844 Problem Sacroiliitis M46.1 Active confirmed 4791942 9 Problem Medicare annual wellness visit, subsequent Z00.00 Active confirmed 017983084 Problem Enlarged lymph node R59.9 Active confirmed 06097845 Problem Sacroiliitis, not elsewhere classified M46.1 A ctive confirmed 99215402 Problem Pure hypercholesterolemia E78.00 Active confirmed 556953494 Problem Cigarette nicotine dependence with other nicotin e-induced disorder F17.218 Active confirmed 61425890 Problem Irritable bowel syndrome with both constipation and diarrh ea K58.2 Active confirmed 38118870 Problem S/P right hemicolectomy Z90.49 Active confirmed 097384902 Problem Cigarette nicotine dependence with nicotine-induced di sorder F17.219 Active confirmed 14435395 Problem Acquired hypothyroidism E03.9 Active confirmed 138310315 ALLERGIES Allergen (clinical drug ingredient) Drug/Non Drug Allergy do cumented on EMR Reaction Allergy Type Onset Date Status varenicline Chantix(NDC Code:[address]-95) hallucinations and SI Drug Allergy Active atorvastatin Atorvastatin Calcium(NDC Code:[address] -98) elevated liver enzymes Drug Allergy Active Vicodin itching Drug Allergy Active valproate Depakote(NDC Code:[address]-12) temors Drug Allergy Active ENCOUNTERS from 1950 to 2020-10-18 Encounter Location Date Provider Diagnosis [facility] [address] [place] [id number] Oct, 2020 Louise Green IMMUNIZATIONS Vaccine Route Administration Date Status Influenza [...] Education Language: Question Answer Notes Languages spoken: Citizen Of [place] Baptism: Question Answer Notes Baptism No confucianist beliefs that would impact health care. Sexual [...] REASON FOR REFERRAL No Information VITAL SIGNS No information MEDICATIONS Medication SIG (Take, Route, Frequency, Duration) Notes Start Da te End Date Status Flonase 50 MCG/ACT 1 spray in each nostril Nasally Once a day for 30 Active Omeprazole 40 MG TAKE ONE CAPSULE BY MOUTH TW ICE A DAY Orally twice daily for 30 Active Cymbalta 30 MG 1 capsule Orally Once a day TTD=90 mg for 30 Days Oct, Active Zonisamide 100 MG 3 Orally before bedtime Active MiraLax - 17 grams Orally Once a day for 30 day(s) Oct Active Aimovig 70 MG/ML as directed Subcutaneous Active Cymbalta 60 MG 1 capsule Orally Once a day for 30 Days Sep, Active Tylenol Arthritis Pain 2 tablets as needed Orally 2-3 times/day Active Dicyclomine HCl 20 MG 1 tablet Orally four times daily Not-Taking Simethicone 80 MG 1 tablet after meals and at bedtime as needed Orally Four times a day Not-Taking Gabapentin 300 MG 1 capsule Orally bid for 30 Active Fish Oil 500 MG 1 capsule Orally Twice a day for 30 day(s) Active DuoNeb 0.5-2.5 (3) MG/3ML 3 ml Inhalation Four times a day as needed for 30 day(s) Active Percocet 5-325 MG 1 tablet as needed Orally every 6 hrs prn mdd4 for 30 days Mar, Not-Taking Breo Ellipta 100-25 MCG/INH 1 puff Inhalation Once a day for 30 Active Tramadol HCl 50 MG 1 tablet as needed Orally Ev luna 8 hours when necessary for pain MDD 3 #45 tablets should last 30 days for 30 Days Jun, 2 020 Active Soothe XP - Ophthalmic Active Nicoderm CQ 21 MG/24HR 1 patch to skin Transdermal Once a day fo r 30 day(s) Jul, Active Ondansetron 4 MG 1 tablet on the tongue and a llow to dissolve Orally every 8 hours as needed for nausea/vomiting for 5 day(s) Apr, Not-Taking Colon Formula 166.67-500 MG as directed Orally Active Vitamin D (Ergocalciferol) 89117 UNIT TAKE ONE CAPSULE BY MOUTH ONCE WEEKLY for 30 Not-Taking Crestor 20 MG 1 tablet Orally Once a day for 30 Active Multivitamin otc 1 tab(s) Orally once daily Active Mucinex 600 MG 1 tablet as needed Orally every 12 hrs 04 D 2017 Active Latanoprost 0.005 % 1 drop into affected eye in the evening Ophthalmic Once a day Active PROCEDURES No Information RESULTS No Results REASON FOR VISIT HANDICAP TAG? MEDICAL (GENERAL) HISTORY Type Description Date Medical History back pain chronic/DDD - (Pr eviously followed by Dr. Gastelum & Dr. Cuadra, goes to [facility] now) Medical History acid reflux [...] a child Surgical History carpal tunnel release/wai 1999' Surgical History right/ foot - baby toe- [...] No Information FUNCTIONAL STATUS No Information ASSESSMENTS No Information PLAN OF TREATMENT Medication Medication Name Sig Start Date Stop Date Cymbalta 30 MG 1 capsule Orally Once a day TTD=90 mg for 30 Day s Oct, Next Appt Details Provider Name:Louise Green, 2020-10-28 10 :15:00 AM, [address] [place], [address], Insurance Providers Payer Name Payer Address Payer Phone Insured Name Patient Relati onship to Insured Coverage Start Date Coverage End Date [facility] [employer] [facility] [address] [facility] [address] [phone] NATALI WILSON self
--- OUTSIDE RECORDS SUMMARY | 2020-10-25 14:13 | CCD ---
Author Author [facility] [facility] Organization [facility] [facility] Address Unknown Phone Unavailable Care Team Providers Care Protective Service Specialist Name Role Phone Louise Green Unavailable PROBLEMS Type Condition ICD9-CM Code EAA41-TO Code Onset Dates Condition S tatus SNOMED Code Notes Problem Low back pain M54.5 Active 629125144 Problem Hyperlipidemia E78.5 Active 24906495 Problem Gastro-esophageal reflux disease without esophagitis K21.9 Active 805282961 Problem Sacroiliac joint pain M53.3 Active 047783471 Problem Lumbar radicular pain M54.16 Active 17627652 Problem Unspecified vitamin D deficiency E55.9 Active 26191090 Problem Occipital neuralgia of left side M54.81 Active 37870115 Problem Irritable bowel syndrome with constipation K58.1 Active 963045275 Problem Other hyperlipidemia E78.4 Active 58726509 Problem Chronic bronchitis, unspecified chronic bronchitis type J42 Active 00223849 Problem Vitamin deficiency E56.9 Active 32967736 Problem Nicotine dependence F17.200 Active 98741997 Problem Vaginal prolapse N81.10 Active 027860649 Problem Cigarette nicotine dependence with other nicotin e-induced disorder F17.218 Active 65219804 Problem Spondylosis of lumbosacral region without myelop athy or radiculopathy M47.817 Active 80489066 Problem Lumbosacral spondylolysis M43.07 Active 770182 008 Problem Dependence on other enabling machines and devices Z99.89 Active 227173281 Problem Spondylosis of lumbar region without myelopathy or radiculopathy M47.816 Active 05330079 Problem Pulmonary emphysema, unspecified emphysema type J4 3.9 Active 43479882 Problem Obstructive sleep apnea (adult) (pediatric) G47.33 Active 70638888 Problem Constipation, unspecified constipation type K59.00 Active 68536790 Problem Other spondylosis, cervical region M47.892 Activ e 0658277 Problem Spondylosis of cervical region without myelopath y or radiculopathy M47.812 Active 929539832 Problem Acquired hypothyroidism E03.9 Active 76431908 2 Problem Pure hypercholesterolemia E78.00 Active 790914 004 Problem Medicare annual wellness visit, subsequent Z00.00 Active 506679932 Problem Elevated BP without diagnosis of hypertension R03. 0 Active 831019523 Problem Enlarged lymph node R59.9 Active 19981576 Problem Sacroiliitis M46.1 Active 38069924 Problem Irritable bowel syndrome with both constipation and diarrh ea K58.2 Active 31220433 Problem S/P right hemicolectomy Z90.49 Active 66338644 5 Problem Cigarette nicotine dependence with nicotine-induced di sorder F17.219 Active 25269809 ALLERGIES Allergen (clinical drug ingredient) Drug/Non Drug Allergy do cumented on EMR Reaction Allergy Type Onset Date Status varenicline Chantix(NDC Code:[address]-69) hallucinations and SI Drug Allergy Active atorvastatin Atorvastatin Calcium(NDC Code:[address] -98) elevated liver enzymes Drug Allergy Active Vicodin itching Drug Allergy Active valproate Depakote(NDC Code:[address]-25) temors Drug Allergy Active ENCOUNTERS from 1950 to 2020-09-04 Encounter Location Date Provider Diagnosis [facility] [address] [place] [id number] Aug, Louise Green Sacroiliitis M46.1 IMMUNIZATIONS Vaccine Route Administration Date Status Influenza [...] Assigned At Unknown Audit Question Answer Notes Interpretation: Alcohol Education Total Score: 0 Language: Question Answer Notes Languages spoken: Singaporean Gnosticism: Question Answer Notes Gnosticism No buddhism beliefs that would impact health care. Sexual Hx: Question Answer Notes Had sex in the last 12 months (vaginal, oral, or anal)? Yes LMP: hyster Have you ever had an STD? No with Men only Use protection? No Drug and Alcohol Question Answer Notes Interpretation: No problems reported Total Score: 0 Alcohol Screening: Question Answer Notes Did you [...] FOR REFERRAL No Information VITAL SIGNS Weight 122.6 lbs Aug, Height 64.5 in Aug, BMI 20.72 kg/m2 Aug, Heart Rate 90 /min Aug, Respiratory Rate 18 /min Aug, Temperature 98.6 degrees Fahrenheit Aug, Oximetry 91% Aug, Blood pressure systolic 157 mm Hg Aug, Blood pressure diastolic 81 mm Hg Aug, MEDICATIONS Medication SIG (Take, Route, Frequency, Duration) Notes Start Da te End Date Status DuoNeb 0.5-2.5 (3) MG/3ML 3 ml Inhalation Four times a day as needed for 30 day(s) Active Omeprazole 40 MG TAKE ONE CAPSULE BY MOUTH TW ICE A DAY Orally twice daily for 30 Active Cymbalta 30 MG 1 capsule Orally Once a day TTD=90 mg 2016 Active Fish Oil 500 MG 1 capsule Orally Twice a day for 30 day(s) Active Dicyclomine HCl 20 MG 1 tablet Orally four times daily Not-Taking Latanoprost 0.005 % 1 drop into affected eye in the evening Ophthalmic Once a day Active Breo Ellipta 100-25 MCG/INH 1 puff Inhalation Once a day for 30 Active Multivitamin otc 1 tab(s) Orally once daily Active Mucinex 600 MG 1 tablet as needed Orally every 12 hrs 04 D 2017 Active Zonisamide 100 MG 3 Orally before bedtime Active Gabapentin 300 MG 1 capsule Orally bid for 30 Active Vitamin D (Ergocalciferol) 45333 UNIT TAKE ONE CAPSULE BY MOUTH ONCE WEEKLY for 30 Not-Taking Flonase 50 MCG/ACT 1 spray in each nostril Nasally Once a day for 30 Active Nicoderm CQ 21 MG/24HR 1 patch to skin Transdermal Once a day fo r 30 day(s) Jul, Active Ondansetron 4 MG 1 tablet on the tongue and a llow to dissolve Orally every 8 hours as needed for nausea/vomiting for 5 day(s) Apr, Not-Taking MiraLax - 17 grams Orally Once a day for 30 day(s) Oct Active Simethicone 80 MG 1 tablet after meals and at bedtime as needed Orally Four times a day Not-Taking Tramadol HCl 50 MG 1 tablet as needed Orally Ev luna 8 hours when necessary for pain MDD 3 #45 tablets should last 30 days for 30 Days Jun, 020 Active Crestor 20 MG 1 tablet Orally Once a day for 30 Active Colon Formula 166.67-500 MG as directed Orally Active Cymbalta 60 MG 1 capsule Orally Once a day for 30 Days Sep, Active Soothe XP - Ophthalmic Active Percocet 5-325 MG 1 tablet as needed Orally every 6 hrs prn mdd4 for 30 days Mar, Not-Taking Tylenol Arthritis Pain 2 tablets as needed Orally 2-3 times/day Active PROCEDURES No Information RESULTS No Results REASON FOR VISIT review mri L/S Spine MEDICAL (GENERAL) HISTORY Type Description Date Medical History back pain chronic/DDD - (Pr eviously followed by Dr. Gastelum & Dr. Cuadra, goes to [facility] now) Medical History acid reflux [...] Notes Treatment Notes Treatm ent Clinical Notes Aug, Sacroiliitis (ICD-10 - M46.1) Bilateral sacroiliac joint block Narcotic agreement was reviewed and signed. Advised to bring medication into every clinic visit per clinic policy. PLAN OF TREATMENT Medication Medication Name Sig Start Date Stop Date Tramadol HCl 50 MG 1 tablet as needed Orally Ev luna 8 hours when necessary for pain MDD 3 #45 tablets should last 30 days for 30 Days Jun, Treatment Notes Assessment Notes Clinical Notes Sacroiliitis Bilateral sacroiliac joint b lockNarcotic agreement was reviewed and signed. Advised to bring medication into every clinic visit per clinic policy. Next Appt Details post procedure/urine toxicology Reason:B ilateral sacroiliac joint block Follow Up:post procedure/urine toxicologyBilateral sacroiliac joint block Insurance Providers Payer Name Payer Address Payer Phone Insured Name Patient Relati onship to Insured Coverage Start Date Coverage End Date [facility] [address] [address] [facility] [id number] NATALI WILSON self
--- OUTSIDE RECORDS SUMMARY | 2020-10-25 14:13 | CCD | Continuity of Care Document ---
Author Author Cheri DELAROSA MD Organization Unknown Address [address] [place] [address], [address] [place] [address] Phone [phone] Care Team Providers Care Foster Care Worker Name Role Phone Sherlyn Pruitt AUTM [phone] Tameka Interiano AUTM [phone] Problems Active Problems Provider Date Pure hypercholesterolemia Bonita Delarosa PA-C Onset: 018 Social History Type Date Description Comments Sex Unknown ETOH Use Denies alcohol use Tobacco Use Start: Unknown Patient is a current smoker, smo kes every day Allergies, Adverse Reactions, Alerts Active Allergies Reaction Severity Comments Date Vicodin 10/11/2017 Statins 10/11/2017 Valproic Acid 02/20/2019 Atrovastatin 11/10/2019 Medications Active Medications SIG Qnty Indications Ordering Provide r Date Gabapentin 300mg Capsules 1 tab po qhs for one week, then one tab po bid for one week then one tab po tid Unknown Omeprazole 40mg Capsules DR 1 by mouth every day Unknown Duloxetine HCL 60mg Caps DR Part 1 by mouth every day Unknown Rosuvastatin Calcium 20mg Tablets 1 by mouth every day Unknown Zonisamide 100mg Capsules 1 by mouth twice a day Unknown Breo Ellipta 100-25mcg/Inh Aerosol G56.02 Unknown Duloxetine HCL 30mg Caps DR Part G56.02 Unknown Ipratropium [place]/Albuterol Sulfate 0.5-2.5(3)mg/3ML Solution Unknown 0 Immunizations Description No Information Available Vital Signs Date Vital Result Comment 11/09/2019 10:34am Height 64 inches 5'4" Weight 120.00 lb BMI (Body Mass Index) 20.6 kg/m2 12/01/2018 10:27am Body Temperature 98.4 F Height 63.75 inches 5'3.75" Weight 139.00 lb BMI (Body Mass Index) 24.0 kg/m2 Results Description No Information Available Procedures Date Code Description Status 08/01/202080483 Inject Tendon Sheath, Ligament C ompleted 02/10/202006643 Inject Tendon Sheath, Ligament C ompleted Medical Devices Description No Information Available Encounters Type Date Location Provider Dx Diagnosis Office Visit 08/01/2020 1:45p Abiodun Delarosa MD G56.02 Carpal tunnel syndrome, left upper limb G56.22 Lesion of ulnar nerve, left upper limb M65.4 Radial styloid tenosynovitis [de Quervain] Office Visit 02/10/2020 9:15a Abiodun Delarosa MD G56.02 Carpal tunnel syndrome, left upper limb G56.22 Lesion of ulnar nerve, left upper limb M65.4 Radial styloid tenosynovitis [de Quervain] Assessments Date Code Description Provider 08/01/2020 G56.02 Carpal tunnel syndrome, left upp er limb Cesar Delarosa MD 08/01/2020 G56.22 Lesion of ulnar nerve, left uppe r limb Cesar Delarosa MD 08/01/2020 M65.4 Radial styloid tenosynovitis [de Quervain] Cesar Delarosa MD 04/11/2020 G56.02 Carpal tunnel syndrome, left upp er limb Cesar Delarosa MD 02/10/2020 G56.02 Carpal tunnel syndrome, left upp er limb Cesar Delarosa MD 02/10/2020 G56.22 Lesion of ulnar nerve, left uppe r limb Cesar Delarosa MD 02/10/2020 G56.02 Carpal tunnel syndrome, left upp er limb Cesar Delarosa MD 02/10/2020 M65.4 Radial styloid tenosynovitis [de Quervain] Cesar Delarosa MD 02/10/2020 G56.22 Lesion of ulnar nerve, left uppe r limb Cesar Delarosa MD 02/10/2020 M65.4 Radial styloid tenosynovitis [de Quervain] Cesar Delarosa MD Plan of Treatment 08/01/2020 - Cesar Delarosa MD* G56.02 Carpal tunnel syndrome, left upper limb * New Orders:* Surgery, Ordered: 08/01/20 * Follow up:* post op * G56.22 Lesion of ulnar nerve, left upper limb * M65.4 Radial styloid tenosynovitis [de Quervain] Functional Status Description No Information Available Mental Status Description No Information Available Referrals Refer to Reason for Referral Status Appt Date Cesar Delarosa MD DME LT WRIST APOLLO BRACE OK TO SUPPLY HERE. LS Created [facility], [address] [place] [address] [phone]
--- OUTSIDE RECORDS SUMMARY | 2020-10-25 14:13 | CCD | Continuity of Care Document ---
Author Author Cheri DELAROSA MD Organization Unknown Address [address] [place] [address], [address] [place] [address] Phone [phone] Care Team Providers Care Residential Real Estate Agent Name Role Phone Sherlyn Pruitt AUTM [phone] Tameka Interiano AUTM [phone] Problems Active Problems Provider Date Pure hypercholesterolemia [...] 30mg Caps DR Part G56.02 Unknown Ipratropium Simpson/Albuterol Sulfate 0.5-2.5(3)mg/3ML Solution Unknown 0 Immunizations Description No Information Available Vital Signs Date Vital Result Comment 11/09/2019 10:34am Height 64 inches 5'4" Weight 120.00 lb BMI (Body Mass Index) 20.6 kg/m2 12/01/2018 10:27am Body Temperature 98.4 F Height 63.75 inches 5'3.75" Weight 139.00 lb BMI (Body Mass Index) 24.0 kg/m2 Results Description No Information Available Procedures Date Code Description Status 08/01/202094556 Inject Tendon Sheath, Ligament C ompleted 02/10/202054791 Inject Tendon Sheath, Ligament C ompleted Medical [...] BRACE OK TO SUPPLY HERE. LS Created [facility], [address] [place] [address] [phone]
--- OUTSIDE RECORDS SUMMARY | 2020-10-25 14:13 | CCD ---
Author Author [facility] [employer] [facility] Organization [facility] [employer] [facility] Address Unknown Phone Unavailable Care Team Providers Care Supervisor Irrigation Name Role Phone Louise Green Unavailable PROBLEMS Type Condition ICD9-CM Code BBT16-QQ Code Onset Dates Condition S tatus W/U Status Risk SNOMED Code Notes Problem Gastro-esophageal reflux disease without esophagitis K21.9 Active confirmed 598602095 Problem Lumbar radicular pain M54.16 Active confirmed 18272727 Problem Hyperlipidemia E78.5 Active confirmed 38632 004 Problem Occipital neuralgia of left side M54.81 Active conf irmed 77308553 Problem Sacroiliac joint pain M53.3 Active confirmed 425916618 Problem Elevated BP without diagnosis of hypertension R03. 0 Active confirmed 938744568 Problem Unspecified vitamin D deficiency E55.9 Active conf irmed 59689462 Problem Constipation, unspecified constipation type K59.00 Active confirmed 01502753 Problem Nicotine dependence F17.200 Active confirmed 03954339 Problem Irritable bowel syndrome with constipation K58.1 Active confirmed 211460537 Problem Other hyperlipidemia E78.4 Active confirmed 52852386 Problem Low back pain M54.5 Active confirmed 947635 007 Problem Vitamin deficiency E56.9 Active confirmed 8 9835700 Problem Lumbosacral spondylolysis M43.07 Active confirmed 337950849 Problem Vaginal prolapse N81.10 Active confirmed 398 743992 Problem Spondylosis of lumbar region without myelopathy or radiculopathy M47.816 Active confirmed 72617453 Problem Spondylosis of lumbosacral region without myelop athy or radiculopathy M47.817 Active confirmed 97287663 Problem Obstructive sleep apnea (adult) (pediatric) G47.33 Active confirmed 30973142 Problem Dependence on other enabling machines and devices Z99.89 Active confirmed 854615048 Problem Chronic bronchitis, unspecified chronic bronchitis type J42 Active confirmed 02437233 Problem Pulmonary emphysema, unspecified emphysema type J4 3.9 Active confirmed 59727876 Problem Other spondylosis, cervical region M47.892 Activ e confirmed 4647691 Problem Spondylosis of cervical region without myelopath y or radiculopathy M47.812 Active confirmed 851134089 Problem Sacroiliitis M46.1 Active confirmed 1136458 9 Problem Medicare annual wellness visit, subsequent Z00.00 Active confirmed 297077143 Problem Enlarged lymph node R59.9 Active confirmed 14557681 Problem Sacroiliitis, not elsewhere classified M46.1 A ctive confirmed 30155560 Problem Pure hypercholesterolemia E78.00 Active confirmed 515858938 Problem Cigarette nicotine dependence with other nicotin e-induced disorder F17.218 Active confirmed 23106391 Problem Irritable bowel syndrome with both constipation and diarrh ea K58.2 Active confirmed 96926589 Problem S/P right hemicolectomy Z90.49 Active confirmed 158452249 Problem Cigarette nicotine dependence with nicotine-induced di sorder F17.219 Active confirmed 64500318 Problem Acquired hypothyroidism E03.9 Active confirmed 147367970 ALLERGIES Allergen (clinical drug ingredient) Drug/Non Drug Allergy do cumented on EMR Reaction Allergy Type Onset Date Status varenicline Chantix(ND Code:[address]-60) hallucinations and SI Drug Allergy Active atorvastatin Atorvastatin Calcium(NDC Code:[address] -98) elevated liver enzymes Drug Allergy Active Vicodin itching Drug Allergy Active valproate Depakote(NDC Code:[address]-21) temors Drug Allergy Active ENCOUNTERS from 1950 to 2020-10-18 Encounter Location Date Provider Diagnosis [facility] [address] [place] [address] 15 Oct, 2020 Louise Green Lumbosacral spondylolysis M43.07 IMMUNIZATIONS Vaccine Route Administration Date Status Influenza [...] Education Language: Question Answer Notes Languages spoken: Icelandic Jew: Question Answer Notes Jew No jew beliefs that would impact health care. Sexual [...] as directed Orally Active Vitamin D (Ergocalciferol) 67777 UNIT TAKE ONE CAPSULE BY MOUTH ONCE [...] Information RESULTS No Results REASON FOR VISIT refill Duloxetine 30mg MEDICAL (GENERAL) HISTORY Type Description Date Medical History back pain chronic/DDD - (Pr eviously followed by Dr. Gastelum & Dr. Cuadra, goes to [facility] now) Medical History [...] Treatment Notes Treatm ent Clinical Notes Oct, Lumbosacral spondylolysis (ICD-10 - M43.07) PLAN OF TREATMENT Medication Medication Name Sig Start Date Stop Date Cymbalta 30 MG 1 capsule Orally Once a day TTD=90 mg for 30 Day s Oct, Next Appt Details Provider Name:Louise Green, 2020-10-28 10 :15:00 AM, [address] [place], [address], Insurance Providers Payer Name Payer Address Payer Phone Insured Name Patient Relati onship to Insured Coverage Start Date Coverage End Date [employer] [facility] [address] [facility] [address] [phone] NATALI WILSON
--- OUTSIDE RECORDS SUMMARY | 2020-10-25 14:14 | CCD ---
Author Author [facility] Organization [facility] Address Unknown Phone Unavailable Care Team Providers Care Resin Remover Name Role Phone [facility], PA-C Unavailable Unavailabl e Fish, [facility], PA-C Unavailable Unavailabl e Fish, [facility], PA-C Unavailable Unavailabl e Fish, [facility], PA-C Unavailable Unavailabl e Fish, [facility], PA-C Unavailable Unavailabl e Fish, [facility], PA-C Unavailable Unavailabl e Fish, [facility], PA-C Unavailable Unavailabl e Fish, [facility], PA-C Unavailable Unavailabl e Fish, [facility], PA-C Unavailable Unavailabl e Fish, [facility], PA-C Unavailable Unavailabl e Fish, [facility], PA-C Unavailable Unavailabl e Fish, [facility], PA-C Unavailable Unavailabl e Fish, [facility], PA-C Unavailable Unavailabl e Fish, [facility], PA-C Unavailable Unavailabl e Fish, [facility], PA-C Unavailable Unavailabl e Fish, [facility], PA-C Unavailable Unavailabl e Fish, Shelley Bonita [facility], PA-C Unavailable Unavailabl e Fish, Shelley [facility], PA-C Unavailable Unavailabl e Fish, Shelley [facility], PA-C Unavailable Unavailabl e Fish, Shelley [facility], PA-C Unavailable Unavailabl e Fish, Shelley [facility], PA-C Unavailable Unavailabl e Fish, Shelley [facility], PA-C Unavailable Unavailabl e Fish, Shelley [facility], PA-C Unavailable Unavailabl e Fish, Shelley [facility], PA-C Unavailable Unavailabl e Fish, Shelley [facility], PA-C Unavailable Unavailabl e Fish, Shelley [facility], PA-C Unavailable Unavailabl e Fish, Shelley [facility], PA-C Unavailable Unavailabl e Fish, Shelley [facility], PA-C Unavailable Unavailabl e Fish, Shelley [facility], PA-C Unavailable Unavailabl e Fish, Shelley [facility], PA-C Unavailable Unavailabl e Fish, Shelley [facility], PA-C Unavailable Unavailabl e Fish, Shelley [facility], PA-C Unavailable Unavailabl e Fish, Shelley [facility], PA-C Unavailable Unavailabl e Fish, Shelley [facility], PA-C Unavailable Unavailabl e Trickey, J Loree PA Unavailable Unavailable Trickey, J Loree PA Unavailable Unavailable Trickey, J Loree PA Unavailable Unavailable Trickey, J Loree PA Unavailable Unavailable Trickey, J Loree PA Unavailable Unavailable Trickey, J Loree PA Unavailable Unavailable Trickey, J Loree PA Unavailable Unavailable Trickey, J Loere PA Unavailable Unavailable Trickey, J Loree PA Unavailable Unavailable Trickey, J Loree PA Unavailable Unavailable Trickey, J Loree PA Unavailable Unavailable Trickey, J Loree PA Unavailable Unavailable Trickey, J Loree PA Unavailable Unavailable Trickey, J Loree PA Unavailable Unavailable Trickey, J Loree PA Unavailable Unavailable Trickey, J Loree PA Unavailable Unavailable Trickey, J Loree PA Unavailable Unavailable Trickey, J Loree PA Unavailable Unavailable Trickey, J Loree PA Unavailable Unavailable Trickey, J Loree PA Unavailable Unavailable Trickey, J Loree PA Unavailable Unavailable Trickey, J Loree PA Unavailable Unavailable Trickey, J Loree PA Unavailable Unavailable Trickey, J Loree PA Unavailable Unavailable Trickey, J Loree PA Unavailable Unavailable Trickey, J Loree PA Unavailable Unavailable Trickey, J Loree PA Unavailable Unavailable Trickey, J Loree PA Unavailable Unavailable Trickey, J Loree PA Unavailable Unavailable Trickey, J Loree PA Unavailable Unavailable Trickey, J Loree PA Unavailable Unavailable Trickey, J Loree PA Unavailable Unavailable Trickey, J Loree PA Unavailable Unavailable Trickey, J Loree PA Unavailable Unavailable Trickey, J Loree PA Unavailable Unavailable Trickey, J Loree PA Unavailable Unavailable Trickey, J Loree PA Unavailable Unavailable Trickey, J Loree PA Unavailable Unavailable Trickey, J Loree PA Unavailable Unavailable Trickey, J Loree PA Unavailable Unavailable Trickey, J Loree PA Unavailable Unavailable Trickey, J Loree PA Unavailable Unavailable Trickey, J Loree PA Unavailable Unavailable Trickey, J Loree PA Unavailable Unavailable Trickey, J Loree PA Unavailable Unavailable Trickey, J Loree PA Unavailable Unavailable Trickey, J Loree PA Unavailable Unavailable Trickey, J Loree PA Unavailable Unavailable Fish, B Cesar MATHUR Unavailable Unavailable Fish, B Cesar MATHUR Unavailable Unavailable Fish, B Cesar MATHUR Unavailable Unavailable Fish, B Cesar MATHUR Unavailable Unavailable Fish, B Cesar MATHUR Unavailable Unavailable Fish, B Cesar MATHUR Unavailable Unavailable Fish, B Cesar MATHUR Unavailable Unavailable Fish, B Cesar MATHUR Unavailable Unavailable Fish, B Cesar MATHUR Unavailable Unavailable Fish, B Cesar MATHUR Unavailable Unavailable Fish, B Cesar MATHUR Unavailable Unavailable Fish, B Cesar MATHUR Unavailable Unavailable Fish, B Cesar MATHUR Unavailable Unavailable Fish, B Cesar MATHUR Unavailable Unavailable Fish, B Cesar MATHUR Unavailable Unavailable Fish, B Cesar MATHUR Unavailable Unavailable Fish, B Cesar MATHUR Unavailable Unavailable Fish, B Cesar MATHUR Unavailable Unavailable Fish, B Cesar MATHUR Unavailable Unavailable Fish, B Cesar MATHUR Unavailable Unavailable Fish, B Cesar MATHUR Unavailable Unavailable Fish, B Cesar MATHUR Unavailable Unavailable Fish, B Cesar MATHUR Unavailable Unavailable Fish, B Cesar MATHUR Unavailable Unavailable Fish, B Cesar MATHUR Unavailable Unavailable Fish, B Cesar MATHUR Unavailable Unavailable Fish, B Cesar MATHUR Unavailable Unavailable Fish, B Cesar MATHUR Unavailable Unavailable Fish, B Cesar MATHUR Unavailable Unavailable Fish, B Cesar MATHUR Unavailable Unavailable Fish, B Cesar MATHUR Unavailable Unavailable Fish, B Cesar MATHUR Unavailable Unavailable Fish, B Cesar MATHUR Unavailable Unavailable Fish, B Cesar MATHUR Unavailable Unavailable Fish, B Cesar MATHUR Unavailable Unavailable Fish, B Cesar MATHUR Unavailable Unavailable Fish, B Cesar MD Unavailable Unavailable Fish, Ariane Guerrero MD Unavailable Unavailable Fish, Ariane Guerrero MD Unavailable Unavailable Fish, Ariane Guerrero MD Unavailable Unavailable Fish, Ariane Guerrero MD Unavailable Unavailable Fish, Ariane Guerrero MD Unavailable Unavailable Fish, Ariane Guerrero MD Unavailable Unavailable Fish, Ariane Guerrero MD Unavailable Unavailable Fish, Ariane Guerrero MD Unavailable Unavailable Fish, Ariane Guerrero MD Unavailable Unavailable Fish, Ariane Guerrero MD Unavailable Unavailable Fish, Ariane Guerrero MD Unavailable Unavailable Fish, Ariane Guerrero MD Unavailable Unavailable Fish, Ariane Guerrero MD Unavailable Unavailable Fish, Ariane Guerrero MD Unavailable Unavailable Fish, Ariane Guerrero MD Unavailable Unavailable Fish, Ariane Guerrero MD Unavailable Unavailable REINDL, TEJINDER MATHUR Unavailable Unavailable REINDL, TEJINDER MATHUR Unavailable Unavailable REINDL, TEJINDER MATHUR Unavailable Unavailable REINDL, TEJINDER MATHUR Unavailable Unavailable REINDL, TEJINDER MATHUR Unavailable Unavailable REINDL, TEJINDER MATHUR Unavailable Unavailable REINDL, TEJINDER MATHUR Unavailable Unavailable REINDL, TEJINDER MATHUR Unavailable Unavailable REINDL, TEJINDER MATHUR Unavailable Unavailable REINDL, TEJINDER MATHUR Unavailable Unavailable REINDL, TEJINDER MATHUR Unavailable Unavailable REINDL, TEJINDER MATHUR Unavailable Unavailable REINDL, TEJINDER MATHUR Unavailable Unavailable REINDL, TEJINDER MATHUR Unavailable Unavailable REINDL, TEJINDER MATHUR Unavailable Unavailable REINDL, TEJINDER MATHUR Unavailable Unavailable REINDL, TEJINDER MATHUR Unavailable Unavailable REINDL, TEJINDER MATHUR Unavailable Unavailable REINDL, TEJINDER MATHUR Unavailable Unavailable REINDL, TEJINDER MATHUR Unavailable Unavailable REINDL, TEJINDER MATHUR Unavailable Unavailable REINDL, TEJINDER MATHUR Unavailable Unavailable REINDL, TEJINDER MATHUR Unavailable Unavailable REINDL, TEJINDER MATHUR Unavailable Unavailable REINDL, TEJINDER MATHUR Unavailable Unavailable REINDL, TEJINDER MATHUR Unavailable Unavailable REINDL, TEJINDER MATHUR Unavailable Unavailable REINDL, TEJINDER MATHUR Unavailable Unavailable REINDL, TEJINDER MATHUR Unavailable Unavailable REINDL, TEJINDER MATHUR Unavailable Unavailable REINDL, TEJINDER MATHUR Unavailable Unavailable REINDL, TEJINDER MATHUR Unavailable Unavailable REINDL, TEJINDER MATHUR Unavailable Unavailable REINDL, TEJINDER MATHUR Unavailable Unavailable REINDL, TEJINDER MATHUR Unavailable Unavailable REINDL, TEJINDER MATHUR Unavailable Unavailable REINDL, TEJINDER MATHUR Unavailable Unavailable REINDL, TEJINDER MATHUR Unavailable Unavailable REINDL, TEJINDER MATHUR Unavailable Unavailable REINDL, TEJINDER MATHUR Unavailable Unavailable REINDL, TEJINDER MATHUR Unavailable Unavailable REINDL, TEJINDER MATHUR Unavailable Unavailable REINDL, TEJINDER MATHUR Unavailable Unavailable REINDL, TEJINDER MATHUR Unavailable Unavailable BRYDEN, A ORA DO Unavailable Unavailable BRYDEN, A ORA DO Unavailable Unavailable BRYDEN, A ORA DO Unavailable Unavailable BRYDEN, A ORA DO Unavailable Unavailable BRYDEN, A ORA DO Unavailable Unavailable BRYDEN, A ORA DO Unavailable Unavailable BRYDEN, A ORA DO Unavailable Unavailable BRYDEN, A ORA DO Unavailable Unavailable BRYDEN, A ORA DO Unavailable Unavailable BRYDEN, A ORA DO Unavailable Unavailable BRYDEN, A ORA DO Unavailable Unavailable BRYDEN, A ORA DO Unavailable Unavailable BRYDEN, A ORA DO Unavailable Unavailable BRYDEN, A ORA DO Unavailable Unavailable BRYDEN, A ORA DO Unavailable Unavailable BRYDEN, A ORA DO Unavailable Unavailable BRYDEN, A ORA DO Unavailable Unavailable BRYDEN, A ORA DO Unavailable Unavailable BRYDEN, A ORA DO Unavailable Unavailable BRYDEN, A ORA DO Unavailable Unavailable BRYDEN, A ORA DO Unavailable Unavailable BRYDEN, A ORA DO Unavailable Unavailable BRYDEN, A ORA DO Unavailable Unavailable BRYDEN, A ORA DO Unavailable Unavailable BRYDEN, A ORA DO Unavailable Unavailable BRYDEN, A ORA DO Unavailable Unavailable BRYDEN, A ORA DO Unavailable Unavailable BRYDEN, A ORA DO Unavailable Unavailable Re-disclosure Warning The records that you are about to access may contain information from federally-assisted alcohol or drug abuse programs. If such information is present, then the following federally mandated warning applies: This information has been disclosed to you from records protected by federal confidentiality rules (42 CFR part 2). The federal rules prohibit you from making any further disclosure of this information unless further disclosure is expressly permitted by the written consent of the person to whom it pertains or as otherwise permitted by 42 CFR part 2. A general authorization for the release of medical or other information is NOT sufficient for this purpose. The Federal rules restrict any use of the information to criminally investigate or prosecute any alcohol or drug abuse patient.The records that you are about to access may contain highly sensitive health information, the redisclosure of which is protected by Article 27-F of the [facility] Public Health law. If you continue you may have access to information: Regarding HIV / AIDS; Provided by facilities licensed or operated by the [facility] Office of Mental Health; or Provided by the [facility] Office for People With Developmental Disabilities. If such information is present, then the following [facility] mandated warning applies: This information has been disclosed to you from confidential records which are protected by state law. State law prohibits you from making any further disclosure of this information without the specific written consent of the person to whom it pertains, or as otherwise permitted by law. Any unauthorized further disclosure in violation of state law may result in a fine or shelter sentence or both. A general authorization for the release of medical or other information is NOT sufficient authorization for further disc losure. Allergies and Adverse Reactions Type Description Substance Reaction Status Data Source(s ) Drug allergy Depakote Valproate temors Active eCW1 ([facility] Drug allergy Atorvastatin Calcium atorvastatin elevated liver enzymes Active eCW1 ([facility]) Drug allergy Chantix varenicline hallucinations and SI Active eCW1 ([facility]) Vicodin Vicodin Vicodin itching Active eCW1 ([facility]) Vicodin Vicodin Vicodin itching Active eCW1 ([facility]) Family History Family Member Name Family Member Gender Family Member Status Date o f Status Description Data Source(s) Unknown Unknown Problem MEDENT ([facility]) Unknown Male Problem MEDENT ([facility]) Unknown Unknown Problem MEDENT ([facility]) Encounters Encounter Providers Location Date Indications Data Source(s ) Unknown [address] [facility], [facility] [address] 10/17/2020 12:00:00 AM EST eCW1 (Critical access hospital) Unknown [address] [facility] [address] 10/17/2020 12:00:00 AM EST eCW1 (Critical access hospital) (PN Proc 45) Pain Procedure 45 [address] [place] [address] 10/14/2020 12:00:00 AM EST eCW1 ([facility]) Outpatient [address] [facility] [address] 08/31/2020 12:00:00 AM EST eCW1 (Critical access hospital) Outpatient Attender: Cesar Pinto MD Physical Therapy 08/01/2020 1 2:45:00 PM EST MEDENT ([facility]) Outpatient Attender: Loree SALDIVAR Main office - [facility] 07/20/2020 07:45:00 AM EST MED[facility] ([facility]) Unknown [address] [facility] [address] 07/20/2020 12:00:00 AM EST eCW1 ([facility]) Unknown [address] [facility] [address] 07/13/2020 12:00:00 AM EST eCW1 ([facility]) Outpatient Attender: TEJINDER Gutierrez/Neal/Soren/Rein dl 06/29/2020 02:30:00 PM EDT [facility] ([facility] Unknown [address] [facility] [address] 06/29/2020 12:00:00 AM EDT eCW1 ([facility]) Outpatient [address] [facility] [address] 06/29/2020 12:00:00 AM EDT eCW1 ([facility]) Unknown [address] [facility] [address] 06/17/2020 12:00:00 AM EDT [facility]CW1 [facility] Unknown [address] [facility] [address] 06/14/2020 12:00:00 AM EDT eCW1 ([facility]) Unknown [address] [facility] [address] 06/08/2020 12:00:00 AM EDT eCW1 ([facility]) Outpatient Attender: TEJINDER Gutierrez/Neal/Soren/Rein dl 05/24/2020 10:30:00 AM EDT [facility] ([facility]) Outpatient Attender: Cesar Pinto MD Physical Therapy 04/11/2020 0 9:45:00 AM EDT MEDENT ([facility]) [facility] [address] [place] [address] 03/15/2020 12:00:00 AM EDT eCW1 ([facility]) Outpatient Attender: Cesar Pinto MD Physical Therapy 02/10/2020 0 9:15:00 AM EDT MEDENT ([facility]) Outpatient Attender: ORA Robbins/Neal/Soren/Bobby ndl 01/21/2020 09:50:00 AM EDT MED[facility] ([facility] [address] [place] [phone] 01/18/2020 12:00:00 AM EDT eCW1 ([facility]) Outpatient Attender: Cesar Pinto MD Physical Therapy 01/13/2020 0 2:30:00 PM EDT MEDENT ([facility]) [facility] [address] [place] [phone] 01/13/2020 12:00:00 AM EDT eCW1 ([facility]) [facility] [address] [place] [phone] 01/08/2020 12:00:00 AM EDT eCW1 ([facility]) [facility] [address] [place] [phone] 01/07/2020 12:00:00 AM EDT eCW1 ([facility]) [facility] [address] [place] [phone] 12/11/2019 12:00:00 AM EDT eCW1 ([facility]) [facility] [address] [place] [address] 11/13/2019 12:00:00 AM EDT eCW1 ([facility]) [facility] [address] [place] [phone] 11/12/2019 12:00:00 AM EDT eCW1 ([facility]) [facility] [address] [place] [phone] 11/12/2019 12:00:00 AM EDT eCW1 ([facility]) [facility] [address] [place] [phone] 11/11/2019 12:00:00 AM EDT eCW1 ([facility]) Outpatient Attender: Loree SALDIVAR [facility] 11/10/2019 10:45:00 AM EDT MEDENT ([facility]) Outpatient Attender: Cesar Pinto MD Physical Therapy 11/09/2019 0 9:45:00 AM EDT MEDENT ([facility]) [facility] [address] [place] [phone] 11/09/2019 12:00:00 AM EDT eCW1 (Critical access hospital) Outpatient Referrer: Bonita DÍAZ, PAFloydC 09/10/2019 12:0 3:00 PM EST [facility] Immunizations Vaccine Date Status Description Data Source(s) INFLUENZA VACCINE QUADRIVALENT (65 YR UP)/MF59 C.1/PF 08/31/2020 12:00:00 AM EST completed [facility] Medications Medication Brand Name Start Date Product Form Dose Route Admi nistrative Instructions Pharmacy Instructions Status Indications Reaction Description Data Source(s) 30 mg 10/17/2020 12:00:00 AM EST capsule,delayed release (DR/EC) 30 TAKE ONE CAPSULE BY MOUTH EVERY DAY TAKE ONE CAPSULE BY MOUTH EVERY DAY SOLD: 10/17/2020 [facility] 30 mg 09/15/2020 12:00:00 AM EST capsule,delayed release (DR/EC) 30 TAKE ONE CAPSULE BY MOUTH EVERY DAY TAKE ONE CAPSULE BY MOUTH EVERY DAY SOLD: 09/18/2020 [facility] 50 mg 08/31/2020 12:00:00 AM EST tablet 45 TAKE ONE TABLET BY MOUTH EVERY 8 HOURS WHEN NECESSARY FOR PAIN SHOULD LAST 30 DAYS MAXIMUM DAILY DOSE = 3 TAKE ONE TABLET BY MOUTH EVERY 8 HOURS WHEN NECESSARY FOR PAIN SHOULD LAST 30 DAYS MAXIMUM DAILY DOSE = 3 SOLD: 08/31/2020 [facility] 100 mg 08/17/2020 12:00:00 AM EST capsule 90 TAKE THREE CAPSULES BY MOUTH EVERY EVENING TAKE THREE CAPSULES BY MOUTH EVERY EVENING SOLD: 08/20/2020 [facility] 100 mg 08/17/2020 12:00:00 AM EST capsule 90 TAKE THREE CAPSULES BY MOUTH EVERY EVENING TAKE THREE CAPSULES BY MOUTH EVERY EVENING SOLD: 09/18/2020 [facility] 100 mg 08/17/2020 12:00:00 AM EST capsule 90 TAKE THREE CAPSULES BY MOUTH EVERY EVENING TAKE THREE CAPSULES BY MOUTH EVERY EVENING SOLD: 10/17/2020 [facility] 70 mg/mL 07/29/2020 12:00:00 AM EST auto-injector 1 INJECT 1 SYRINGE (70 MG) UNDER THE SKIN ONCE A MONTH INJECT 1 SYRINGE (70 MG) UNDER THE SKIN ONCE A MONTH SOLD: 08/01/2020 [facility] 70 mg/mL 07/29/2020 12:00:00 AM EST auto-injector 1 INJECT 1 SYRINGE (70 MG) UNDER THE SKIN ONCE A MONTH INJECT 1 SYRINGE (70 MG) UNDER THE SKIN ONCE A MONTH SOLD: 09/26/2020 [facility] 70 mg/mL 07/29/2020 12:00:00 AM EST auto-injector 1 INJECT 1 SYRINGE (70 MG) UNDER THE SKIN ONCE A MONTH INJECT 1 SYRINGE (70 MG) UNDER THE SKIN ONCE A MONTH SOLD: 08/30/2020 [facility] 60 mg 07/20/2020 12:00:00 AM EST capsule,delayed release (DR/EC) 30 TAKE ONE CAPSULE BY MOUTH EVERY DAY TAKE ONE CAPSULE BY MOUTH EVERY DAY SOLD: 10/17/2020 [facility] Aimovig Aimovig 07/20/2020 12:00:00 AM EST SUBCUTANEOUS active MEDENT ([facility]) 60 mg 07/20/2020 12:00:00 AM EST capsule,delayed release (DR/EC) 30 TAKE ONE CAPSULE BY MOUTH EVERY DAY TAKE ONE CAPSULE BY MOUTH EVERY DAY SOLD: 09/18/2020 [facility] 0.005 % 07/20/2020 12:00:00 AM EST drops 7 INSTILL ONE DROP INTO BOTH EYES AT BEDTIME DIRECTED INSTILL ONE DROP INTO BOTH EYES AT BEDTIME DIRECTED SOLD: 07/20/2020 [facility] 60 mg 07/20/2020 12:00:00 AM EST capsule,delayed release (DR/EC) 30 TAKE ONE CAPSULE BY MOUTH EVERY DAY TAKE ONE CAPSULE BY MOUTH EVERY DAY SOLD: 07/20/2020 [facility] 60 mg 07/20/2020 12:00:00 AM EST capsule,delayed release (DR/EC) 30 TAKE ONE CAPSULE BY MOUTH EVERY DAY TAKE ONE CAPSULE BY MOUTH EVERY DAY SOLD: 08/20/2020 [facility] 0.005 % 07/20/2020 12:00:00 AM EST drops 7 INSTILL ONE DROP INTO BOTH EYES AT BEDTIME DIRECTED INSTILL ONE DROP INTO BOTH EYES AT BEDTIME DIRECTED SOLD: 09/26/2020 [facility] 100 mg 07/13/2020 12:00:00 AM EST capsule 90 TAKE THREE CAPSULES BY MOUTH EVERY EVENING TAKE THREE CAPSULES BY MOUTH EVERY EVENING SOLD: 07/20/2020 [facility] Rosuvastatin calcium 20 MG Oral Tablet ROSUVASTATIN CALCIUM 07/12/2020 12:00:00 AM EST tablet 30 TAKE ONE TABLET BY MOUTH JUSTIN RY DAY TAKE ONE TABLET BY MOUTH EVERY DAY SOLD: 08/20/2020 [facility] Rosuvastatin calcium 20 MG Oral Tablet ROSUVASTATIN CALCIUM 07/12/2020 12:00:00 AM EST tablet 30 TAKE ONE TABLET BY MOUTH JUSTIN RY DAY TAKE ONE TABLET BY MOUTH EVERY DAY SOLD: 09/18/2020 [facility] Rosuvastatin calcium 20 MG Oral Tablet ROSUVASTATIN CALCIUM 07/12/2020 12:00:00 AM EST tablet 30 TAKE ONE TABLET BY MOUTH JUSTIN RY DAY TAKE ONE TABLET BY MOUTH EVERY DAY SOLD: 07/20/2020 [facility] Rosuvastatin calcium 20 MG Oral Tablet ROSUVASTATIN CALCIUM 07/12/2020 12:00:00 AM EST tablet 30 TAKE ONE TABLET BY MOUTH JUSTIN RY DAY TAKE ONE TABLET BY MOUTH EVERY DAY SOLD: 10/17/2020 [facility] 250 mg 07/06/2020 12:00:00 AM EST tablet 30 TAKE ONE TABLET BY MOUTH TWICE A DAY NEEDED FOR PAIN TAKE ONE TABLET BY MOUTH TWICE A DAY NEEDED FOR DAWNA N SOLD: 07/20/2020 [facility] Famotidine 40 MG Oral Tablet FAMOTIDINE 06/30/2020 12:00:00 AM EDT tab let 60 TAKE ONE TABLET BY MOUTH TWICE A DAY FOR GERD TAKE ONE TABLET BY MOUTH TWICE A DAY FOR GERD SOLD: 09/18/2020 [facility] Famotidine 40 MG Oral Tablet FAMOTIDINE 06/30/2020 12:00:00 AM EDT tab let 60 TAKE ONE TABLET BY MOUTH TWICE A DAY FOR GERD TAKE ONE TABLET BY MOUTH TWICE A DAY FOR GERD SOLD: 08/20/2020 [facility] Famotidine 40 MG Oral Tablet FAMOTIDINE 06/30/2020 12:00:00 AM EDT tab let 36 TAKE ONE TABLET BY MOUTH TWICE A DAY FOR GERD TAKE ONE TABLET BY MOUTH TWICE A DAY FOR GERD SOLD: 08/01/2020 [facility] 40 mg 06/30/2020 12:00:00 AM EDT tablet 60 TAKE ONE TABLET BY MOUTH TWICE A DAY FOR GERD TAKE ONE TABLET BY MOUTH TWICE A DAY FOR GERD SOLD: 07/01/2020 [facility] 40 mg 06/30/2020 12:00:00 AM EDT tablet 60 TAKE ONE TABLET BY MOUTH TWICE A DAY FOR GERD TAKE ONE TABLET BY MOUTH TWICE A DAY FOR GERD SOLD: 10/17/2020 [facility] tramadol hydrochloride 50 MG Oral Tablet Tramadol HCl 50 MG Tramadol HCl 50 MG 06/29/2020 12:00:00 AM EDT 1.0 {tablet_as_needed} active Tramadol HCl 50 MG eCW1 ([facility]) tramadol hydrochloride 50 MG Oral Tablet Tramadol HCl 50 MG Tramadol HCl 50 MG 06/29/2020 12:00:00 AM EDT 1.0 {tablet_as_needed} active Tramadol HCl 50 MG eCW1 ([facility]) tramadol hydrochloride 50 MG Oral Tablet Tramadol HCl 50 MG Tramadol HCl 50 MG 06/29/2020 12:00:00 AM EDT 1.0 {tablet_as_needed} active Tramadol HCl 50 MG eCW1 ([facility]) tramadol hydrochloride 50 MG Oral Tablet Tramadol HCl 50 MG Tramadol HCl 50 MG 06/29/2020 12:00:00 AM EDT 1.0 {tablet_as_needed} active Tramadol HCl 50 MG eCW1 ([facility]) 50 mg 06/29/2020 12:00:00 AM EDT tablet 45 TAKE ONE TABLET BY MOUTH EVERY 8 HOURS NEEDED FOR PAIN MAXIMUM DAILY DOSE = 3 SHOULD LAST 30 DAYS TAKE ONE TABLET BY MOUTH EVERY 8 HOURS NEEDED FOR PAIN MAXIMUM DAILY DOSE = 3 SHOULD LAST 30 DAYS SOLD: 08/01/2020 [facility] 50 mg 06/29/2020 12:00:00 AM EDT tablet 21 TAKE ONE TABLET BY MOUTH EVERY 8 HOURS NEEDED FOR PAIN MAXIMUM DAILY DOSE = 3 SHOULD LAST 30 DAYS TAKE ONE TABLET BY MOUTH EVERY 8 HOURS NEEDED FOR PAIN MAXIMUM DAILY DOSE = 3 SHOULD LAST 30 DAYS SOLD: 06/29/2020 [facility] tramadol hydrochloride 50 MG Oral Tablet Tramadol HCl 50 MG Tramadol HCl 50 MG 06/29/2020 12:00:00 AM EDT 1.0 {tablet_as_needed} active Tramadol HCl 50 MG eCW1 ([facility]) Famotidine 40 MG Oral Tablet [Pepcid] Pepcid 06/29/2020 12:00:00 AM EDT ORAL active MEDENT ([facility], ) tramadol hydrochloride 50 MG Oral Tablet Tramadol HCl 50 MG Tramadol HCl 50 MG 06/29/2020 12:00:00 AM EDT 1.0 {tablet_as_needed} active Tramadol HCl 50 MG eCW1 ([facility]) 10 mg 06/29/2020 12:00:00 AM EDT capsule 90 TAKE 1 TO 2 CAPSULES BY MOUTH EVERY 6 HOURS NEEDED FOR ABDOMINAL CRAMPING TAKE 1 TO 2 CAPSULES BY MOUTH EVERY 6 HOURS NEEDED FOR ABDOMINAL CRAMPING SOLD: 06/29/2020 [facility] tramadol hydrochloride 50 MG Oral Tablet Tramadol HCl 50 MG Tramadol HCl 50 MG 06/29/2020 12:00:00 AM EDT 1.0 {tablet_as_needed} active Tramadol HCl 50 MG eCW1 ([facility]) tramadol hydrochloride 50 MG Oral Tablet Tramadol HCl 50 MG Tramadol HCl 50 MG 06/29/2020 12:00:00 AM EDT 1.0 {tablet_as_needed} active Tramadol HCl 50 MG eCW1 ([facility]) 60 mg 06/20/2020 12:00:00 AM EDT capsule,delayed release (DR/EC) 30 TAKE ONE CAPSULE BY MOUTH EVERY DAY TAKE ONE CAPSULE BY MOUTH EVERY DAY SOLD: 06/20/2020 [facility] 100 mg 06/20/2020 12:00:00 AM EDT capsule 90 TAKE THREE CAPSULES BY MOUTH EVERY EVENING TAKE THREE CAPSULES BY MOUTH EVERY EVENING SOLD: 06/20/2020 [facility] 300 mg 06/09/2020 12:00:00 AM EDT capsule 60 TAKE ONE CAPSULE BY MOUTH TWICE A DAY TAKE ONE CAPSULE BY MOUTH TWICE A DAY SOLD: 09/18/2020 [facility] 300 mg 06/09/2020 12:00:00 AM EDT capsule 60 TAKE ONE CAPSULE BY MOUTH TWICE A DAY TAKE ONE CAPSULE BY MOUTH TWICE A DAY SOLD: 06/16/2020 [facility] 300 mg 06/09/2020 12:00:00 AM EDT capsule 60 TAKE ONE CAPSULE BY MOUTH TWICE A DAY TAKE ONE CAPSULE BY MOUTH TWICE A DAY SOLD: 08/20/2020 [facility] 300 mg 06/09/2020 12:00:00 AM EDT capsule 60 TAKE ONE CAPSULE BY MOUTH TWICE A DAY TAKE ONE CAPSULE BY MOUTH TWICE A DAY SOLD: 07/20/2020 [facility] 40 mg 06/09/2020 12:00:00 AM EDT capsule,delayed release (DR/EC) 60 TAKE ONE CAPSULE BY MOUTH TWICE A DAY TAKE ONE CAPSULE BY MOUTH TWICE A DAY SOLD: 06/16/2020 [facility] 300 mg 06/09/2020 12:00:00 AM EDT capsule 60 TAKE ONE CAPSULE BY MOUTH TWICE A DAY TAKE ONE CAPSULE BY MOUTH TWICE A DAY SOLD: 10/17/2020 [facility] 30 mg 06/08/2020 12:00:00 AM EDT capsule,delayed release (DR/EC) 30 TAKE ONE CAPSULE BY MOUTH EVERY DAY TAKE ONE CAPSULE BY MOUTH EVERY DAY SOLD: 08/20/2020 [facility] 30 mg 06/08/2020 12:00:00 AM EDT capsule,delayed release (DR/EC) 30 TAKE ONE CAPSULE BY MOUTH EVERY DAY TAKE ONE CAPSULE BY MOUTH EVERY DAY SOLD: 06/16/2020 [facility] 30 mg 06/08/2020 12:00:00 AM EDT capsule,delayed release (DR/EC) 30 TAKE ONE CAPSULE BY MOUTH EVERY DAY TAKE ONE CAPSULE BY MOUTH EVERY DAY SOLD: 07/20/2020 [facility] 10 mg 05/24/2020 12:00:00 AM EDT capsule 45 TAKE 1 TO 2 CAPSULES BY MOUTH EVERY 6 HOURS NEEDED FOR ABDOMINAL CRAMPING TAKE 1 TO 2 CAPSULES BY MOUTH EVERY 6 HOURS NEEDED FOR ABDOMINAL CRAMPING SOLD: 05/25/2020 [facility] Dicyclomine Hydrochloride 10 MG Oral Capsule Dicyclomine HCL 05/24/2020 12:00:00 AM EDT ORAL active MEDENT ([facility], ) 100 mg 05/13/2020 12:00:00 AM EDT capsule 14 TAKE ONE CAPSULE BY MOUTH TWO TIMES A DAY TAKE ONE CAPSULE BY MOUTH TWO TIMES A DAY SOLD: 05/14/2020 [facility] 100 mg 05/12/2020 12:00:00 AM EDT capsule 90 TAKE THREE CAPSULES BY MOUTH EVERY EVENING MAXIMUM DAILY DOSE = 3 TAKE THREE CAPSULES BY MOUTH EVERY EVENI NG MAXIMUM DAILY DOSE = 3 SOLD: 05/14/2020 [facility] 150 mg 05/11/2020 12:00:00 AM EDT tablet 1 TAKE ONE TABLET BY MOUTH EVERY DAY FOR A SINGLE DOSE TAKE ONE TABLET BY MOUTH EVERY DAY FOR A SINGLE DOSE S OLD: 05/14/2020 [facility] 0.01 % (0.1 mg/gram) 05/11/2020 12:00:00 AM EDT cream 42 USE 1 GRAM VAGINALLY ONCE A WEEK (3 WEEKS ON, 1 WEEK OFF) USE 1 GRAM VAGINALLY ONCE A WEEK (3 WEEKS ON, 1 WEEK OFF) SOLD: 05/14/2020 [facility] 0.005 % 02/19/2020 12:00:00 AM EDT drops 7 INSERT 1 DROP INTO BOTH EYES DAILY AT BEDTIME INSERT 1 DROP INTO BOTH EYES DAILY AT BEDTIME SOLD: 02/19/20 20 [facility] Rosuvastatin calcium 20 MG Oral Tablet ROSUVASTATIN CALCIUM 01/13/2020 12:00:00 AM EDT tablet 30 TAKE ONE TABLET BY MOUTH TAKE ONE TABLET BY MOUTH EVERY DAY SOLD: 06/16/2020 [facility] Rosuvastatin calcium 20 MG Oral Tablet ROSUVASTATIN CALCIUM 01/13/2020 12:00:00 AM EDT tablet 30 TAKE ONE TABLET BY MOUTH TAKE ONE TABLET BY MOUTH EVERY DAY SOLD: 04/16/2020 [facility] 20 mg 01/13/2020 12:00:00 AM EDT tablet 30 TAKE ONE TABLET BY MOUTH EVERY DAY TAKE ONE TABLET BY MOUTH EVERY DAY SOLD: 03/16/2020 [facility] 20 mg 01/13/2020 12:00:00 AM EDT tablet 30 TAKE ONE TABLET BY MOUTH EVERY DAY TAKE ONE TABLET BY MOUTH EVERY DAY SOLD: 01/21/2020 [facility] 20 mg 01/13/2020 12:00:00 AM EDT tablet 30 TAKE ONE TABLET BY MOUTH EVERY DAY TAKE ONE TABLET BY MOUTH EVERY DAY SOLD: 02/19/2020 [facility] Rosuvastatin calcium 20 MG Oral Tablet ROSUVASTATIN CALCIUM 01/13/2020 12:00:00 AM EDT tablet 30 TAKE ONE TABLET BY MOUTH TAKE ONE TABLET BY MOUTH EVERY DAY SOLD: 05/14/2020 [facility] 30 mg 12/12/2019 12:00:00 AM EDT capsule,delayed release (DR/EC) 30 TAKE ONE CAPSULE BY MOUTH EVERY DAY WITH 60MG CAPSULE TAKE ONE CAPSULE BY MOUTH EVERY DAY WITH 60MG CAPSULE SOLD: 03/16/2020 [facility] 30 mg 12/12/2019 12:00:00 AM EDT capsule,delayed release (DR/EC) 30 TAKE ONE CAPSULE BY MOUTH EVERY DAY WITH 60MG CAPSULE TAKE ONE CAPSULE BY MOUTH EVERY DAY WITH 60MG CAPSULE SOLD: 01/21/2020 [facility] 30 mg 12/12/2019 12:00:00 AM EDT capsule,delayed release (DR/EC) 30 TAKE ONE CAPSULE BY MOUTH EVERY DAY WITH 60MG CAPSULE TAKE ONE CAPSULE BY MOUTH EVERY DAY WITH 60MG CAPSULE SOLD: 05/14/2020 [facility] 60 mg 12/12/2019 12:00:00 AM EDT capsule,delayed release (DR/EC) 30 TAKE ONE CAPSULE BY MOUTH EVERY DAY WITH 30MG CAPSULE TAKE ONE CAPSULE BY MOUTH EVERY DAY WITH 30MG CAPSULE SOLD: 02/19/2020 [facility] 60 mg 12/12/2019 12:00:00 AM EDT capsule,delayed release (DR/EC) 30 TAKE ONE CAPSULE BY MOUTH EVERY DAY WITH 30MG CAPSULE TAKE ONE CAPSULE BY MOUTH EVERY DAY WITH 30MG CAPSULE SOLD: 12/17/2019 [facility] 60 mg 12/12/2019 12:00:00 AM EDT capsule,delayed release (DR/EC) 30 TAKE ONE CAPSULE BY MOUTH EVERY DAY WITH 30MG CAPSULE TAKE ONE CAPSULE BY MOUTH EVERY DAY WITH 30MG CAPSULE SOLD: 04/16/2020 [facility] 30 mg 12/12/2019 12:00:00 AM EDT capsule,delayed release (DR/EC) 30 TAKE ONE CAPSULE BY MOUTH EVERY DAY WITH 60MG CAPSULE TAKE ONE CAPSULE BY MOUTH EVERY DAY WITH 60MG CAPSULE SOLD: 04/16/2020 [facility] 60 mg 12/12/2019 12:00:00 AM EDT capsule,delayed release (DR/EC) 30 TAKE ONE CAPSULE BY MOUTH EVERY DAY WITH 30MG CAPSULE TAKE ONE CAPSULE BY MOUTH EVERY DAY WITH 30MG CAPSULE SOLD: 03/16/2020 [facility] 30 mg 12/12/2019 12:00:00 AM EDT capsule,delayed release (DR/EC) 30 TAKE ONE CAPSULE BY MOUTH EVERY DAY WITH 60MG CAPSULE TAKE ONE CAPSULE BY MOUTH EVERY DAY WITH 60MG CAPSULE SOLD: 02/19/2020 [facility] 30 mg 12/12/2019 12:00:00 AM EDT capsule,delayed release (DR/EC) 30 TAKE ONE CAPSULE BY MOUTH EVERY DAY WITH 60MG CAPSULE TAKE ONE CAPSULE BY MOUTH EVERY DAY WITH 60MG CAPSULE SOLD: 12/17/2019 [facility] 60 mg 12/12/2019 12:00:00 AM EDT capsule,delayed release (DR/EC) 30 TAKE ONE CAPSULE BY MOUTH EVERY DAY WITH 30MG CAPSULE TAKE ONE CAPSULE BY MOUTH EVERY DAY WITH 30MG CAPSULE SOLD: 05/14/2020 [facility] 60 mg 12/12/2019 12:00:00 AM EDT capsule,delayed release (DR/EC) 30 TAKE ONE CAPSULE BY MOUTH EVERY DAY WITH 30MG CAPSULE TAKE ONE CAPSULE BY MOUTH EVERY DAY WITH 30MG CAPSULE SOLD: 01/21/2020 [facility] 300 mg 12/10/2019 12:00:00 AM EDT capsule 60 TAKE ONE CAPSULE BY MOUTH TWICE A DAY TAKE ONE CAPSULE BY MOUTH TWICE A DAY SOLD: 04/16/2020 [facility] 40 mg 12/10/2019 12:00:00 AM EDT capsule,delayed release (DR/EC) 60 TAKE ONE CAPSULE BY MOUTH TWICE A DAY TAKE ONE CAPSULE BY MOUTH TWICE A DAY SOLD: 01/21/2020 [facility] 40 mg 12/10/2019 12:00:00 AM EDT capsule,delayed release (DR/EC) 60 TAKE ONE CAPSULE BY MOUTH TWICE A DAY TAKE ONE CAPSULE BY MOUTH TWICE A DAY SOLD: 02/19/2020 [facility] 300 mg 12/10/2019 12:00:00 AM EDT capsule 60 TAKE ONE CAPSULE BY MOUTH TWICE A DAY TAKE ONE CAPSULE BY MOUTH TWICE A DAY SOLD: 03/16/2020 [facility] 300 mg 12/10/2019 12:00:00 AM EDT capsule 60 TAKE ONE CAPSULE BY MOUTH TWICE A DAY TAKE ONE CAPSULE BY MOUTH TWICE A DAY SOLD: 01/21/2020 [facility] 40 mg 12/10/2019 12:00:00 AM EDT capsule,delayed release (DR/EC) 60 TAKE ONE CAPSULE BY MOUTH TWICE A DAY TAKE ONE CAPSULE BY MOUTH TWICE A DAY SOLD: 12/17/2019 [facility] 40 mg 12/10/2019 12:00:00 AM EDT capsule,delayed release (DR/EC) 60 TAKE ONE CAPSULE BY MOUTH TWICE A DAY TAKE ONE CAPSULE BY MOUTH TWICE A DAY SOLD: 05/14/2020 [facility] 40 mg 12/10/2019 12:00:00 AM EDT capsule,delayed release (DR/EC) 60 TAKE ONE CAPSULE BY MOUTH TWICE A DAY TAKE ONE CAPSULE BY MOUTH TWICE A DAY SOLD: 04/16/2020 [facility] 40 mg 12/10/2019 12:00:00 AM EDT capsule,delayed release (DR/EC) 60 TAKE ONE CAPSULE BY MOUTH TWICE A DAY TAKE ONE CAPSULE BY MOUTH TWICE A DAY SOLD: 03/16/2020 [facility] 300 mg 12/10/2019 12:00:00 AM EDT capsule 60 TAKE ONE CAPSULE BY MOUTH TWICE A DAY TAKE ONE CAPSULE BY MOUTH TWICE A DAY SOLD: 05/14/2020 [facility] 300 mg 12/10/2019 12:00:00 AM EDT capsule 60 TAKE ONE CAPSULE BY MOUTH TWICE A DAY TAKE ONE CAPSULE BY MOUTH TWICE A DAY SOLD: 12/17/2019 [facility] 300 mg 12/10/2019 12:00:00 AM EDT capsule 60 TAKE ONE CAPSULE BY MOUTH TWICE A DAY TAKE ONE CAPSULE BY MOUTH TWICE A DAY SOLD: 02/19/2020 [facility] 30 mg 11/21/2019 12:00:00 AM EDT capsule,delayed release (DR/EC) 30 TAKE ONE CAPSULE BY MOUTH EVERY DAY TAKE ONE CAPSULE BY MOUTH EVERY DAY SOLD: 11/21/2019 [facility] 20 mg 11/13/2019 12:00:00 AM EDT capsule,delayed release (DR/EC) 30 TAKE ONE CAPSULE BY MOUTH EVERY DAY TAKE ONE CAPSULE BY MOUTH EVERY DAY SOLD: 11/15/2019 [facility] 60 mg 11/13/2019 12:00:00 AM EDT capsule,delayed release (DR/EC) 30 TAKE ONE CAPSULE BY MOUTH EVERY DAY TAKE ONE CAPSULE BY MOUTH EVERY DAY SOLD: 11/15/2019 [facility] 100 mg 11/12/2019 12:00:00 AM EDT capsule 90 TAKE THREE CAPSULES BY MOUTH EVERY EVENING MAXIMUM DAILY DOSE = 3 TAKE THREE CAPSULES BY MOUTH EVERY EVENI NG MAXIMUM DAILY DOSE = 3 SOLD: 11/15/2019 [facility] 100 mg 11/12/2019 12:00:00 AM EDT capsule 90 TAKE THREE CAPSULES BY MOUTH EVERY EVENING MAXIMUM DAILY DOSE = 3 TAKE THREE CAPSULES BY MOUTH EVERY EVENI NG MAXIMUM DAILY DOSE = 3 SOLD: 01/21/2020 [facility] 100 mg 11/12/2019 12:00:00 AM EDT capsule 90 TAKE THREE CAPSULES BY MOUTH EVERY EVENING MAXIMUM DAILY DOSE = 3 TAKE THREE CAPSULES BY MOUTH EVERY EVENI NG MAXIMUM DAILY DOSE = 3 SOLD: 12/17/2019 [facility] 100 mg 11/12/2019 12:00:00 AM EDT capsule 90 TAKE THREE CAPSULES BY MOUTH EVERY EVENING MAXIMUM DAILY DOSE = 3 TAKE THREE CAPSULES BY MOUTH EVERY EVENI NG MAXIMUM DAILY DOSE = 3 SOLD: 04/16/2020 [facility] 100 mg 11/12/2019 12:00:00 AM EDT capsule 90 TAKE THREE CAPSULES BY MOUTH EVERY EVENING MAXIMUM DAILY DOSE = 3 TAKE THREE CAPSULES BY MOUTH EVERY EVENI NG MAXIMUM DAILY DOSE = 3 SOLD: 02/19/2020 [facility] 100 mg 11/12/2019 12:00:00 AM EDT capsule 90 TAKE THREE CAPSULES BY MOUTH EVERY EVENING MAXIMUM DAILY DOSE = 3 TAKE THREE CAPSULES BY MOUTH EVERY EVENI NG MAXIMUM DAILY DOSE = 3 SOLD: 03/16/2020 [facility] 0.005 % 11/11/2019 12:00:00 AM EDT drops 2 INSTILL 1 DROP INTO BOTH EYES EVERY NIGHT INSTILL 1 DROP INTO BOTH EYES EVERY NIGHT SOLD: 11/11/2019 [facility] 20 mg 09/12/2019 12:00:00 AM EST tablet 30 TAKE ONE TABLET BY MOUTH EVERY DAY TAKE ONE TABLET BY MOUTH EVERY DAY SOLD: 10/14/2019 [facility] 20 mg 09/12/2019 12:00:00 AM EST tablet 30 TAKE ONE TABLET BY MOUTH EVERY DAY TAKE ONE TABLET BY MOUTH EVERY DAY SOLD: 09/17/2019 [facility] 20 mg 09/12/2019 12:00:00 AM EST tablet 30 TAKE ONE TABLET BY MOUTH EVERY DAY TAKE ONE TABLET BY MOUTH EVERY DAY SOLD: 11/15/2019 [facility] 20 mg 09/12/2019 12:00:00 AM EST tablet 30 TAKE ONE TABLET BY MOUTH EVERY DAY TAKE ONE TABLET BY MOUTH EVERY DAY SOLD: 12/17/2019 [facility] 300 mg 06/09/2019 12:00:00 AM EDT capsule 60 TAKE ONE CAPSULE BY MOUTH TWICE A DAY TAKE ONE CAPSULE BY MOUTH TWICE A DAY SOLD: 10/14/2019 [facility] 40 mg 06/09/2019 12:00:00 AM EDT capsule,delayed release (DR/EC) 60 TAKE ONE CAPSULE BY MOUTH TWICE A DAY TAKE ONE CAPSULE BY MOUTH TWICE A DAY SOLD: 10/14/2019 [facility] 300 mg 06/09/2019 12:00:00 AM EDT capsule 60 TAKE ONE CAPSULE BY MOUTH TWICE A DAY TAKE ONE CAPSULE BY MOUTH TWICE A DAY SOLD: 09/17/2019 [facility] 300 mg 06/09/2019 12:00:00 AM EDT capsule 60 TAKE ONE CAPSULE BY MOUTH TWICE A DAY TAKE ONE CAPSULE BY MOUTH TWICE A DAY SOLD: 11/15/2019 [facility] 40 mg 06/09/2019 12:00:00 AM EDT capsule,delayed release (DR/EC) 60 TAKE ONE CAPSULE BY MOUTH TWICE A DAY TAKE ONE CAPSULE BY MOUTH TWICE A DAY SOLD: 09/17/2019 [facility] 40 mg 06/09/2019 12:00:00 AM EDT capsule,delayed release (DR/EC) 60 TAKE ONE CAPSULE BY MOUTH TWICE A DAY TAKE ONE CAPSULE BY MOUTH TWICE A DAY SOLD: 11/15/2019 [facility] 60 mg 05/13/2019 12:00:00 AM EDT capsule,delayed release (DR/EC) 30 TAKE ONE CAPSULE BY MOUTH ONCE DAILY TAKE ONE CAPSULE BY MOUTH ONCE DAILY SOLD: 10/14/2019 [facility] 30 mg 05/13/2019 12:00:00 AM EDT capsule,delayed release (DR/EC) 30 TAKE ONE CAPSULE BY MOUTH ONCE DAILY TAKE ONE CAPSULE BY MOUTH ONCE DAILY SOLD: 09/17/2019 [facility] 60 mg 05/13/2019 12:00:00 AM EDT capsule,delayed release (DR/EC) 30 TAKE ONE CAPSULE BY MOUTH ONCE DAILY TAKE ONE CAPSULE BY MOUTH ONCE DAILY SOLD: 09/17/2019 [facility] 30 mg 05/13/2019 12:00:00 AM EDT capsule,delayed release (DR/EC) 30 TAKE ONE CAPSULE BY MOUTH ONCE DAILY TAKE ONE CAPSULE BY MOUTH ONCE DAILY SOLD: 10/14/2019 [facility] 100 mg 05/12/2019 12:00:00 AM EDT capsule 90 TAKE 3 CAPSULES BY MOUTH IN THE EVENING TAKE 3 CAPSULES BY MOUTH IN THE EVENING SOLD: 10/14/2019 [facility] 100 mg 05/12/2019 12:00:00 AM EDT capsule 90 TAKE 3 CAPSULES BY MOUTH IN THE EVENING TAKE 3 CAPSULES BY MOUTH IN THE EVENING SOLD: 09/17/2019 [facility] 0.005 % 02/26/2019 12:00:00 AM EDT drops 2 INSTILL 1 DROP IN EACH EYE AT BEDTIME DIRECTED INSTILL 1 DROP IN EACH EYE AT BEDTIME DIRECTED SOLD : 12/24/2019 [facility] 0.005 % 02/26/2019 12:00:00 AM EDT drops 2 INSTILL 1 DROP IN EACH EYE AT BEDTIME DIRECTED INSTILL 1 DROP IN EACH EYE AT BEDTIME DIRECTED SOLD : 01/21/2020 [facility] 0.005 % 02/26/2019 12:00:00 AM EDT drops 2 INSTILL 1 DROP IN EACH EYE AT BEDTIME DIRECTED INSTILL 1 DROP IN EACH EYE AT BEDTIME DIRECTED SOLD : 09/17/2019 [facility] Insurance Providers Payer name Policy type / Coverage type Policy ID Covered constitution party ID Covered constitution party's relationship to garcia Policy Garcia Plan Information WELLCARE [id number] SP [id number] WELLCARE O [id number] S [id number] [facility] OPTIONS [id number] SP [id number] MEDICARE [id number] SP [id number] N39 [facility] HEALTH CARE OPTIONS [id number] SP [id number] MEDICARE C [id number] S [id number] N39 AARP O [id number] S [id number] ANSI-Commercial [id number] ANSI-Medicare Part B [id number] [facility] Healthcare Options Medigap Part B [id number] Self [id number] Medicare [facility] [id number] Self [id number] [place] Primary [id number] Self [id number] Lisha Claims () Workers Compensation [id number] Self [id number] ANSI-Commercial [id number] ANSI-Medicare Part B [id number] ANSI-Medicare Part B [id number] ANSI-Commercial [id number] ANSI-Medicare Part B [id number] ANSI-Commercial [id number] ANSI-Medicare Part B [id number] ANSI-Commercial [id number] ANSI-Commercial [id number] ANSI-Medicare Part B [id number] ANSI-Medicare Part B [id number] ANSI-Commercial [id number] ANSI-Commercial [id number] ANSI-Medicare Part B [id number] ANSI-Commercial [id number] ANSI-Medicare Part B [id number] ANSI-Commercial [id number] ANSI-Medicare Part B [id number] ANSI-Commercial [id number] ANSI-Medicare Part B [id number] ANSI-Commercial [id number] ANSI-Medicare Part B [id number] ANSI-Medicare Part B [id number] ANSI-Commercial [id number] ANSI-Medicare Part B [id number] ANSI-Commercial [id number] ANSI-Commercial [id number] ANSI-Medicare Part B [id number] ANSI-Commercial [id number] ANSI-Medicare Part B [id number] [facility] [id number] Self [id number] Medicare Dme Supplies Medigap Part B [id number] Self [id number] [place] Primary [id number] Self [id number] ANSI-Medicare Part B [id number] ANSI-Commercial [id number] [facility] Part [facility] [id number] Self [id number] Medicare [place]/[facility] [place] Medicare Primary [id number] Self [id number] [facility] Healthcare [facility] Part B [id number] Self [id number] Medicare Dme Supplies [facility] Part B [id number] Self [id number] [place] Primary [id number] Self [id number] [employer] Workers Compensation [id number] Self [id number] Special [employer]-[place] ([place]) Workers Compensation [id number] Self [id number] [employer] Workers Compensation [id number] Self [id number] MVP (pr) Commercial [id number] Self [id number] ANSI-Medicare Part B [id number] ANSI-Commercial [id number] ANSI-Medicare Part B [id number] kx22ig70-29j0-9v33-01nq-9m87z8192x4n ANSI-Commercial m00176p1-au12-59i7-3n7e-sy345l847422 w72075f4-vu87-90z5-1e8w-ex756i546143 [facility] Commercial [id number] Self [id number] [facility] [id number] Self [id number] Medicare Part B Medicare Primary [id number] Self [id number] ANSI-Commercial x5315ry3-4z4h-7ti6-tb97-91171im7u093 h6767hd3-4r8s-0ft3-tz97-78090er6g573 ANSI-Medicare Part B 67xop22u-qeg1-866f-z102-7rjl7449sh12 17plq85x-mwm9-070k-d904-9imf9276zt79 ANSI-Medicare Part B nwq9hx9g-zxwa-921x-27j7-21k3o4u2x4a6 onj3dl0z-jpyr-714q-73h7-09d7v5l3i1v2 ANSI-Commercial 326anb87-7r76-36n3-1i85-p3384kqp92ux 552hkm17-1z70-73d6-3m43-d2645lzy89ry ANSI-Commercial 910z89ll-o9t2-3e65-k7n5-0469he6c4961 893l84px-p6o8-8t38-i5y3-8433lq7x8101 ANSI-Medicare Part B 70519l38-v14n-3d1p-b97t-1496ucy40f2a 69577m82-h45o-8p2b-l74u-9105wob76y7i ANSI-Medicare Part B 1lx8egf3-rd4y-33yo-i410-y9u67557v967 6il7hro9-nc3q-20sd-k176-t6l81409q492 ANSI-Commercial 441d324l-hu33-513c-683n-76c6dgv4n79s 299g444r-yq65-787l-253o-69n4dah9p90v ANSI-Commercial t2l7115z-k34k-1a53-13s0-5g6180dv1ca2 x6g2944x-z37e-3x33-63p8-1j7103mu4wi0 ANSI-Medicare Part B 470653t2-xizo-16b5-65ht-929g811p9qnd 565548z8-kvul-09f3-22dd-713e548k6ata ANSI-Medicare Part B [id number]-x7k8-ce7mm067c3l0 6g426860-2601-3774-v8s4-xi9jg183n9f7 ANSI-Commercial f5hs03t4-tlx9-6732-1qeq-8376b7990y1k v5gs98o5-wzf9-8837-4nkn-9905w9054x8d ANSI-Medicare Part B 386l8652-m660-8366-669v-z49a1cw8d18j 910y9300-m734-3615-261o-f47q6ci8x86p ANSI-Commercial 8227467u-zse9-8q63-pr32-l8vn0pd3v357 9133353x-dze6-9t37-ao14-w1to2al7z551 ANSI-Medicare Part B 75j72s11-7002-14a2-f812-w5w2j3a95637 19d58l56-9858-62f0-j773-a3k0t7b86082 ANSI-Commercial 686239ew-n9ad-7sh5-y939-s80u27zy7va2 520659kb-p7qm-5cc4-x712-z09d85dp4zb7 ANSI-Commercial 288j3987-953a-5074-nglf-ib5uu2y1k4g1 990c4651-728o-8587-snwd-kj1wz2m1w2z6 ANSI-Medicare Part B tu22z3rq-0a39-9066-7716-r34f7fi5dvzr yz22i4el-3k05-6105-5710-c58e3hr3vkuz ANSI-Commercial wt7h79j5-iu8s-391x-jmzv-go08y0c3664y ol5c22n3-ce0q-169n-cizl-kf12m3j1091t ANSI-Medicare Part B 5aw24w0h-82d3-39f4-l701-a7q80324r0y3 1tf98c4r-02j9-42b2-f772-p5f68212w3k1 ANSI-Medicare Part B 00a5r7qk-60r8-18h4-f46x-hub275u3xm74 51d7h7ux-46p5-55c1-w37m-ygu268a5uy37 ANSI-Commercial 5w2g9037-n89n-1f49-s4o3-9400szx3e186 5x5j5433-m94k-3p84-y1n8-8691juu6n168 ANSI-Medicare Part B h70223hu-ah2a-8t6y-3816-174k0e46678s b25380se-xk9o-4q5f-1064-769v6z36145f ANSI-Commercial 0ldf52f9-l411-1046-qv7x-ya59494067h1 6ysj93q6-n068-2479-vp6h-ka36157539d2 ANSI-Commercial b5se4r97-sk79-2423-h00z-e32g39fo6ldc w2fj7t89-oq34-1139-d47j-l83j82sh6glu ANSI-Medicare Part B k3rq5701-ftk6-83s6-28u0-ivte6y56h0xw g4ik1637-atv6-05z6-30p3-vqhn1f24w0lv ANSI-Medicare Part B 11r12269-6z12-4mo0-ih08-j0e46849uh42 08n90069-0n94-2sl9-jw63-w1a82810jq00 ANSI-Commercial l289qa28-xi15-6s93-48la-xl9772ttl004 r457iq95-qs79-6d68-77tm-hz7770nhb068 ANSI-Commercial nu55v758-s244-5nd4-4954-02b2102g1758 jo63c451-v904-8me1-0769-95h3445x6767 ANSI-Medicare Part B h010nqp4-5039-0e59-b09d-fv69ds3k406e w370klh2-7821-3v60-j08u-fk27us9w935b [facility] OPTIONS [id number] SP [id number] MEDICARE [id number] SP [id number] N39 ANSI-Medicare Part B 9s130963-7143-48s1-5989-ky5l0n7p4608 5e398095-9347-68t7-6270-ze6h5j1d0043 ANSI-Commercial ldu7sj5e-z006-4246-n085-9a2dutld17z8 wpg3bd3h-n381-8769-f087-2q0spsjn52u0 ANSI-Medicare Part B mj86w35u-fbv1-6h0j-2o39-5910m9e6be13 wb72d93n-jtd5-1p6w-1z34-8773h6y0wx35 ANSI-Commercial 8500x83p-i32l-81g4-ha89-b00b3v0u9109 6216m03n-y94k-54j2-tv48-d10x0g3b0329 ANSI-Commercial m79al3q0-55y6-4252-92tz-f1874577t1le j10qr6y2-29x3-8310-20df-k8160668s7cd ANSI-Medicare Part B 4k657n62-34vm-6vuk-083v-cg612164g1mv [id number] MEDICARE [id number] A ANSI-Medicare Part B [id number] ANSI-Commercial [id number] MEDICARE C [id number] A ANSI-Medicare Part B [id number] ANSI-Commercial [id number] ANSI-Medicare Part B [id number] ANSI-Commercial [id number] [facility] Medigap Part B [id number] Self [id number] Medicare Dme Supplies Medigap Part B [id number] Self [id number] [place] Primary [id number] Self [id number] [facility] Medigap Part B [id number] Self [id number] Medicare Dme Supplies Medigap Part B [id number] Self [id number] [place] Primary [id number] Self [id number] [facility] Medigap Part B [id number] Self [id number] Medicare Dme Supplies Medigap Part B [id number] Self [id number] [place] Primary [id number] Self [id number] [facility] Medigap Part B [id number] Self [id number] Medicare Dme Supplies Medigap Part B [id number] Self [id number] [place] Primary [id number] Self [id number] [facility] Medigap Part B [id number] Self [id number] Medicare Dme Supplies Medigap Part B [id number] Self [id number] [place] Primary [id number] Self [id number] [facility] Medigap Part B [id number] Self [id number] [place] Medicare Primary [id number] Self [id number] [facility] Medigap Part B [id number] Self [id number] [place] Primary [id number] Self [id number] [facility] [id number] SP [id number] [facility] Medigap Part B [id number] Self [id number] Medicare [place] Gov't Servi Medicare Primary [id number] Self [id number] [facility] Medigap Part B [id number] Self [id number] [place] Medicare Primary [id number] Self [id number] [facility] Medigap Part B [id number] Self [id number] Medicare [place] Gov't Servi Medicare Primary [id number] Self [id number] [facility] O [id number] S [id number] [facility] Organization (HMO) [id number] Self [id number] [facility] Health Maintenance Organization (HMO) [id number] Self [id number] [id number] SP [id number] UN COMMUNITY PLAN [facility] [id number] SP [id number] NAVIN [id number] SP [id number] NAVIN [facility] [id number] SP [id number] [place] [id number] S [id number] [place] [id number] SP [id number] [facility] [place] [facility] [id number] 18 [id number] SELF PAY UNAVAILABLE UNAVAILA BLE [facility] [place] [facility] [place] [id number] 18 [id number] [facility] PHY [id number] SP [id number] [facility] [id number] 18 [id number] [facility] P [id number] S [id number] [facility]-O/P [id number] 18 [id number] Problems, Conditions, and Diagnoses Code Display Name Description Problem Type Effective Dates Data Source(s) M46.1 [id number] Sacroiliitis, not elsewhere classified Pr oblem 10/14/2020 12:00:00 AM EST eCW1 ([facility]) Z00.00 [id number] Medicare annual wellness visit, subsequen t Problem 01/07/2020 12:00:00 AM EDT eCW1 ([facility]) Z00.00 [id number] Medicare annual wellness visit, subsequen t Problem 01/07/2020 12:00:00 AM EDT eCW1 ([facility]) Surgeries/Procedures Procedure Description Date Indications Data Source(s) Unclassified drugs 10/14/2020 12:00:00 AM EST eCW1 ([facility]) Completion of procedural visit when meets criteria 10/14/2020 12:00:00 AM EST eCW1 ([facility]) INJECTION 1 TENDON SHEATH/LIGAMENT APONEUROSIS 020 12:00:00 AM EST MEDENT ([facility] ) INJECTION 1 TENDON SHEATH/LIGAMENT APONEUROSIS 020 12:00:00 AM EDT [facility] ) Office Visit, Est Pt., Level 4 PC 01/07/2020 12:00:00 AM EDT eCW1 ([facility]) Annual wellness visit, includes a person alized prevention plan of service (pps), subsequent visit 01/07/2020 12:00:00 AM EDT eCW 1 ([facility]) ESTABILISHED PATIENT [facility] CHARGE 020 12:00:00 AM EDT eCW1 ([facility]) Results ID Date Data Source [id number] 10/09/2020 08:30:00 AM EST [facility] Name Value Range Interpretation Code Description Data Letitia rce(s) Supporting Document(s) SARS coronavirus 2 RNA Not Detected [facility] [place] This lab was ordered by [facility] and reported by [facility]. ID Date Data Source [id number] 05/24/2020 12:42:00 PM EDT [facility] ([facility], ) Name Value Range Interpretation Code Description Data Letitia rce(s) Supporting Document(s) Gastrointestinal (GI) Panel Laboratory test result [facility] ([facility], ) This Gastrointestinal PCR Panel detects the following bacteria, parasites and viruses: Campylobacter (jejuni, coli and upsaliensis), Clostridium difficile (toxin A/B), Plesiomonas shigelloides, Salmonella, Yersinia enterocolitica, Vibrio (parahaemolyticus, vulnificus and cholerae), Vibrio clolerae, Enteroaggregative E. coli (EAEC), Enteropathogenis E. coli (EPEC), Enterotoxigenic E. coli (ETEC) it/st, Shiga-like producing E. coli (STEC) stx1/stc2, E.coli O157, Shigella/Enteroinvasive E. coli (EIEC), Cryptosporidium, Cyclospora cayetanensis, Entamoeba histolytica, Giardia lamblia, Adenovirus F 40/41, Astrovirus, Norovirus GI/GII, Rotavirus A and Sapovirus (I, II, IV, V). NEGATIVE by MULTIPLEXED NUCLEIC ACID PCR ID Date Data Source FREE T4 & TSH PANEL 01/07/2020 12:00:00 AM EDT eCW1 ([facility]) Name Value Range Interpretation Code Description Data Letitia rce(s) Supporting Document(s) 0.80 0.76-1.46 FREE T4 eCW1 ([facility]) 2.120 0.358-3.740 THYROID STIMULATING HORM ONE eCW1 ([facility]) ID Date Data Source Comprehensive Metabolic Profile (CMP) 01/07/2020 12:00:00 AM EDT eCW1 ([facility]) Name Value Range Interpretation Code Description Data Letitia rce(s) Supporting Document(s) 96 70-100 GLUCOSE, FASTING eCW1 ([facility]) 139 136-145 SODIUM LEVEL eCW1 ([facility]) 12 7-18 BLOOD UREA NITROGEN eCW1 ([facility]) 0.93 0.55-1.30 CREATININE FOR GFR eCW1 ([facility]) > 60.0 >45 GLOMERULAR FILTRATION RATE eCW 1 ([facility]) 9.1 8.8-10.2 CALCIUM LEVEL eCW1 ([facility]) 28 21-32 CARBON DIOXIDE LEVEL eCW1 ([facility]) 106 98-107 CHLORIDE LEVEL eCW1 ([facility]) 4.4 3.5-5.1 POTASSIUM SERUM eCW1 ([facility]) 22 12-78 ALT/SGPT eCW1 ([facility]) 89 45-117 ALKALINE PHOSPHATASE eCW1 ([facility]) 19 7-37 AST/SGOT eCW1 ([facility]) 0.3 0.2-1.0 BILIRUBIN,TOTAL eCW1 ([facility]) 4.0 3.2-5.2 ALBUMIN eCW1 ([facility]) 7.5 6.4-8.2 TOTAL PROTEIN eCW1 ([facility]) 1.14 1.00-1.93 ALBUMIN/GLOBULIN RATIO eCW1 ([facility]) ID Date Data Source CBC with Differential 01/07/2020 12:00:00 AM EDT eCW1 ([facility]) Name Value Range Interpretation Code Description Data Letitia rce(s) Supporting Document(s) 6.9 4.0-10.0 WHITE BLOOD COUNT eCW1 ([facility]) 13.9 12.0-15.5 HEMOGLOBIN eCW1 ([facility]) 4.56 4.00-5.40 RED BLOOD COUNT eCW1 ([facility]) 43.0 36.0-47.0 HEMATOCRIT eCW1 ([facility]) 32.3 32.0-36.5 MEAN CORPUSCULAR HGB CONC eCW1 ([facility]) 30.5 27.0-33.0 MEAN CORPUSCULAR HEMOGLOB IN eCW1 ([facility]) 94.3 80.0-96.0 MEAN CORPUSCULAR VOLUME e CW1 ([facility]) 32.1 24.0-44.0 LYMPH % eCW1 ([facility]) 18.6 11.5-14.5 RED CELL DISTRIBUTION WID TH eCW1 ([facility]) 58.9 36.0-66.0 NEUTROPHILS % eCW1 ([facility]) 222 150-450 PLATELET COUNT, AUTOMATED eCW1 ([facility]) 4.0 1.5-8.5 NEUTROPHILS # eCW1 ([facility]) 0.4 0.0-3.0 EOS % eCW1 ([facility]) 0.7 0.0-1.0 BASO % eCW1 ([facility]) 7.8 0.0-5.0 MONO % eCW1 ([facility]) 2.2 1.5-5.0 LYMPH # eCW1 ([facility]) 0.5 0.0-0.8 MONO # eCW1 ([facility]) 0.0 0.0-0.5 EOS # eCW1 ([facility]) 0.1 0.0-0.2 BASO # eCW1 ([facility]) ID Date Data Source [id number] 09/07/2019 10:28:[address] [facility] ([place], [place])) Name Value Range Interpretation Code Description Data Letitia rce(s) Supporting Document(s) Creatinine For GFR 0.85 mg/dL 0.55-1.30 Normal (applies to non -numeric results) [facility] ([facility]) Glomerular Filtration Rate Laboratory test result Normal (applies to non- numeric results) [facility]) <content>Units are mL/min/1.73 m2</content>
<content></content>
<content>Chronic Kidney Disease Staging per NKF:</content>
<content></content>
<content>Stage I & II GFR >=60 Normal to Mildly Decreased</content>
<content>Stage III GFR 30- 59 Moderately Decreased</content>
<content>Stage IV GFR 15-29 Severely Decreased</content>
<content>Stage V GFR <15 Very Little GFR Left</content>
<content>ESRD GFR <15 on HIDE HANDLER</content>
<content></content> ID Date Data Source [id number] 09/07/2019 10:28:00 AM EST [facility] ([facility]) Name Value Range Interpretation Code Description Data Letitia rce(s) Supporting Document(s) Urea nitrogen [Mass/volume] in Serum or Plasma 15 mg/dL 7 -18 Normal (applies to non-numeric results) [facility] ([facility]) ID Date Data Source [id number] 09/06/2019 10:28:00 AM EST [facility]) Name Value Range Interpretation Code Description Data Letitia rce(s) Supporting Document(s) Creatinine For GFR 0.85 mg/dL 0.55-1.30 Normal (applies to non -numeric results) [facility] ([facility]) Glomerular Filtration Rate Laboratory test result Normal (applies to non- numeric results) [facility]) <content>Units are mL/min/1.73 m2</content>
<content></content>
<content>Chronic Kidney Disease Staging per NKF:</content>
<content></content>
<content>Stage I & II GFR >=60 Normal to Mildly Decreased</content>
<content>Stage III GFR 30- 59 Moderately Decreased</content>
<content>Stage IV GFR 15-29 Severely Decreased</content>
<content>Stage V GFR <15 Very Little GFR Left</content>
<content>ESRD GFR <15 on HIDE HANDLER</content>
<content></content> ID Date Data Source [id number] 09/06/2019 10:28:00 AM EST P[facility]LO ([facility], ) Name Value Range Interpretation Code Description Data Letitia rce(s) Supporting Document(s) Urea nitrogen [Mass/volume] in Serum or Plasma 15 mg/dL 7 -18 Normal (applies to non-numeric results) [facility] ([facility], ) Procedure Social History Code Duration Value Status Description Data Source(s ) Smoking 10/14/2020 12:00:00 AM EST Current Smoker completed Curre nt Smoker eCW1 ([facility]) Smoking 10/14/2020 12:00:00 AM EST Current Smoker completed Curre nt Smoker eCW1 ([facility]) Smoking 10/14/2020 12:00:00 AM EST Current Smoker completed Curre nt Smoker eCW1 ([facility]) Smoking 08/31/2020 12:00:00 AM EST Current Smoker completed Curre nt Smoker eCW1 ([facility]) Smoking 06/29/2020 12:00:00 AM EDT Current Smoker completed Curre nt Smoker eCW1 ([facility]) Smoking 06/29/2020 12:00:00 AM EDT Current Smoker completed Curre nt Smoker eCW1 ([facility]) Smoking 06/29/2020 12:00:00 AM EDT Current Smoker completed Curre nt Smoker eCW1 ([facility]) Smoking 06/29/2020 12:00:00 AM EDT Current Smoker completed Curre nt Smoker eCW1 ([facility]) Smoking 01/07/2020 12:00:00 AM EDT Current Smoker completed Curre nt Smoker eCW1 ([facility]) Smoking 01/07/2020 12:00:00 AM EDT Current Smoker completed Curre nt Smoker eCW1 ([facility]) Smoking 01/07/2020 12:00:00 AM EDT Current Smoker completed Curre nt Smoker eCW1 ([facility]) Vital Signs ID Date Data Source UNK Name Value Range Interpretation Code Description Data Source(s) Diastolic blood pressure 81 mm[Hg] 81 mm[Hg] eCW1 ([facility]) Systolic blood pressure 178 mm[Hg] 178 mm[Hg] e CW1 ([facility]) Body temperature 97.0 [degF] 97.0 [degF] eCW1 ( [facility]) Respiratory rate 18 /min 18 /min eCW1 ([facility]) Heart rate 78 /min 78 /min eCW1 ([facility]) Body mass index (BMI) [Ratio] 20.14 kg/m2 20.14 kg/m2 W1 ([facility]) Body height 64.5 [in_i] 64.5 [in_i] eCW1 ([facility]) Body weight 119.2 [lb_av] 119.2 [lb_av] eCW1 ([facility]) Diastolic blood pressure 81 mm[Hg] 81 mm[Hg] eCW1 ([facility]) Systolic blood pressure 157 mm[Hg] 157 mm[Hg] e CW1 ([facility]) Body temperature 98.6 [degF] 98.6 [degF] eCW1 ( [facility]) Respiratory rate 18 /min 18 /min eCW1 ([facility]) Heart rate 90 /min 90 /min eCW1 ([facility]) Body mass index (BMI) [Ratio] 20.72 kg/m2 20.72 kg/m2 eCW1 ([facility]) Body height 64.5 [in_i] 64.5 [in_i] eCW1 ([facility]) Body weight 122.6 [lb_av] 122.6 [lb_av] eCW1 ([facility]) Respiratory rate 20 /min 20 /min MEDENT ( [facility], ) Heart rate 80 /min 80 /min [facility] ([facility]) Diastolic blood pressure 80 mm[Hg] 80 mm[Hg] [facility] ([facility]) Systolic blood pressure 140 mm[Hg] 140 mm[Hg] M EDENT ([facility]) Body weight 55.793 kg 55.793 kg [facility] ([facility]) [place] body weight 120 [lb_av] 120 [lb_av] MEDEN T ([facility]) Body mass index (BMI) [Ratio] 21.1 kg/m2 21.1 k g/m2 [facility] ([facility]) Body weight 123.00 [lb_av] 123.00 [lb_av] MEDEN T ([facility]) Body height 64 [in_i] 64 [in_i] MEDENT ([facility]) 5'4" Diastolic blood pressure 70 mm[Hg] 70 mm[Hg] [facility] ([facility]) Systolic blood pressure 141 mm[Hg] 141 mm[Hg] [facility] Diastolic blood pressure 103 mm[Hg] 103 mm[Hg] eCW1 ([facility]) Systolic blood pressure 134 mm[Hg] 134 mm[Hg] e CW1 ([facility]) Body temperature 97.4 [degF] 97.4 [degF] eCW1 ( [facility]) Respiratory rate 18 /min 18 /min eCW1 ([facility]) Heart rate 79 /min 79 /min eCW1 ([facility]) Body mass index (BMI) [Ratio] 20.95 kg/m2 20.95 kg/m2 eCW1 ([facility]) Body height 64.5 [in_i] 64.5 [in_i] eCW1 ([facility]) Body weight 124.0 [lb_av] 124.0 [lb_av] eCW1 ([facility]) Body weight 54.886 kg 54.886 kg MEDENT ([facility]) [place] body weight 120 [lb_av] 120 [lb_av] MEDEN T ([facility]) Body mass index (BMI) [Ratio] 20.8 kg/m2 20.8 k g/m2 [facility] ([facility]) Body weight 121.00 [lb_av] 121.00 [lb_av] MEDEN T ([facility]) Body height 64 [in_i] 64 [in_i] MEDENT ([facility]) 5'4" Diastolic blood pressure 66 mm[Hg] 66 mm[Hg] [facility] ([facility]) Systolic blood pressure 124 mm[Hg] 124 mm[Hg] [facility] Body weight 57.154 kg 57.154 kg [facility] ([facility]) Body mass index (BMI) [Ratio] 21.6 kg/m2 21.6 k g/m2 [facility] ([facility]) Body weight 126.00 [lb_av] 126.00 [lb_av] MEDEN T ([facility]) Body height 64 [in_i] 64 [in_i] [facility] ([facility]) 5'4" Diastolic blood pressure 80 mm[Hg] 80 mm[Hg] [facility] ([facility]) Systolic blood pressure 130 mm[Hg] 130 mm[Hg] M EDENT ([facility]) Diastolic blood pressure 80 mm[Hg] 80 mm[Hg] eCW1 ([facility]) Systolic blood pressure 120 mm[Hg] 120 mm[Hg] e CW1 ([facility]) Body temperature 96.8 [degF] 96.8 [degF] eCW1 ( [facility]) Respiratory rate 18 /min 18 /min eCW1 ([facility]) Heart rate 106 /min 106 /min eCW1 ([facility]) Body mass index (BMI) [Ratio] 21.39 kg/m2 21.39 kg/m2 eCW1 ([facility]) Body height 64.5 [in_us] 64.5 [in_us] eCW1 ([facility]) Body weight Measured 126.6 [lb_av] 126.6 [lb_av ] eCW1 ([facility]) Diastolic blood pressure 72 mm[Hg] 72 mm[Hg] eCW1 ([facility]) Systolic blood pressure 146 mm[Hg] 146 mm[Hg] e CW1 ([facility]) Body temperature 98.1 [degF] 98.1 [degF] eCW1 ( [facility]) Respiratory rate 18 /min 18 /min eCW1 ([facility]) Heart rate 83 /min 83 /min eCW1 ([facility]) Body mass index (BMI) [Ratio] 21.87 kg/m2 21.87 kg/m2 eCW1 ([facility]) Body height 64.5 [in_us] 64.5 [in_us] eCW1 ([facility]) Body weight Measured 129.4 [lb_av] 129.4 [lb_av ] eCW1 ([facility]) [place] body weight 120 [lb_av] 120 [lb_av] MEDEN T ([facility], ) Body mass index (BMI) [Ratio] 20.4 kg/m2 20.4 k g/m2 [facility] ([facility], ) Body weight 120.00 [lb_av] 120.00 [lb_av] MEDEN T ([facility], ) Body height 64.25 [in_i] 64.25 [in_i] MEDENT ([facility], ) 5'4.25" Respiratory rate 16 /min 16 /min MED[facility] ( [facility], ) Heart rate 76 /min 76 /min [facility] ([facility], ) Diastolic blood pressure 80 mm[Hg] 80 mm[Hg] [facility] ([facility], ) Systolic blood pressure 110 mm[Hg] 110 mm[Hg] M EDENT ([facility], ) Body mass index (BMI) [Ratio] 20.6 kg/m2 20.6 k g/m2 [facility] ([facility]) Body weight 120.00 [lb_av] 120.00 [lb_av] MEDEN T ([facility]) Body height 64 [in_i] 64 [in_i] [facility] ([facility]) 5'4" Patient Treatment Plan of Care Planned Activity Planned Date Details Description Data Source (s) tramadol hydrochloride 50 MG Oral Tablet 06/29/2020 12:00:00 AM EDT eCW1 ([facility]) tramadol hydrochloride 50 MG Oral Tablet 06/29/2020 12:00:00 AM EDT eCW1 ([facility]) tramadol hydrochloride 50 MG Oral Tablet 06/29/2020 12:00:00 AM EDT eCW1 ([facility]) tramadol hydrochloride 50 MG Oral Tablet 06/29/2020 12:00:00 AM EDT eCW1 ([facility]) tramadol hydrochloride 50 MG Oral Tablet 06/29/2020 12:00:00 AM EDT eCW1 ([facility])
[2020-10-25 15:01] LABS: HEMATOCRIT 47.3 % (36.0-47.0); HEMOGLOBIN 15.1 g/dl (12.0-15.5); MEAN CORPUSCULAR HEMOGLOBIN 31.8 pg (27.0-33.0); MEAN CORPUSCULAR HGB CONC 31.9 g/dl (32.0-36.5); MEAN CORPUSCULAR VOLUME 99.6 fl (80.0-96.0); PLATELET COUNT, AUTOMATED 205 10^3/uL (150-450); RED BLOOD COUNT 4.75 10^6/uL (4.00-5.40); WHITE BLOOD COUNT 7.3 10^3/uL (4.0-10.0)
[2020-10-25 15:10] LABS: INR 0.88; PROTHROMBIN TIME 12.1 SECONDS (12.5-14.3)
[2020-10-25 15:16] LABS: BLOOD UREA NITROGEN 21 MG/DL (7-18); CALCIUM LEVEL 9.3 MG/DL (8.8-10.2); CARBON DIOXIDE LEVEL 26 MEQ/L (21-32); CHLORIDE LEVEL 103 MEQ/L (98-107); CREATININE FOR GFR 0.81 MG/DL (0.55-1.30); GLOMERULAR FILTRATION RATE > 60.0 (>45); GLUCOSE, FASTING 104 MG/DL (70-100); SODIUM LEVEL 137 MEQ/L (136-145)
--- NOTE | 2020-10-25 15:20 | REP ---
INDICATION: errythema. COMPARISON: None TECHNIQUE: Multiple ultrasonographic images of the deep venous structures of the bilateral thighs were obtained from the level of the common femoral vein to the popliteal vein in the longitudinal and transverse scan planes along with Doppler interrogation and color flow Doppler imaging. FINDINGS: There is no abnormal echogenic material seen within any of the visualized deep venous structures that would suggest acute thrombosis. Coaptation is unremarkable throughout. Doppler interrogation shows an expected response to respiratory variability and augmentation. The color flow Doppler images show what appears to be a normal vascular pattern throughout. IMPRESSION: There is no ultrasonographic evidence of deep venous thrombosis involving any of the visualized deep venous structures of the bilateral thighs as described above. Accredited by the [employer] in Vascular Peripheral Ultrasound. <Electronically signed by Kwesi Crum > 10/25/20 [id number]
[2020-10-25] MEDS ORDERED: DOXY100C37 PO (16:05)
[2020-10-25 16:19] VITALS: BP 136/94
== END 2020-10-25 16:20 | disposition home or self-care (01) ==
LOC: M ED 13:44
DX: I77.6 Arteritis, unspecified (principal); I99.8 Other disorder of circulatory system; J44.9 Chronic obstructive pulmonary disease, unspecified; E78.5 Hyperlipidemia, unspecified; K58.9 Irritable bowel syndrome, unspecified; K21.9 Gastro-esophageal reflux disease without esophagitis; Z79.899 Other long term (current) drug therapy; Z88.5 Allergy status to narcotic agent; Z88.8 Allergy status to other drugs, medicaments and biological substances; F17.210 Nicotine dependence, cigarettes, uncomplicated

== ENCOUNTER → 2020-11-01 | Outpatient (CLI) | payer MEDICARE ==
[~2020-11-01] MED LIST changes: +DOXY100C37 PO; +NAPR-849 PO; -NAPR250T4 PO
--- NOTE | 2020-11-08 00:55 | ECWPNPC ---
PATIENT NAME: NATALI WILSON : 1950 GENDER: FEMALE VISIT DATE: 11/01/2020 DISCHARGE DATE: 11/01/20 1124 VISIT LOCKED DATE TIME: PHYSICIAN: JORGE MCCARTHY PHYSICIAN PAGER NO: ACTIVE RESOURCE: JORGE MCCARTHY REASON FOR APPOINTMENT 1. POST BILATERAL SACROILIAC JOINT BLOCK HISTORY OF PRESENT ILLNESS GENERAL: HERE FOR POST PROCEDURE FOLLOW-UP. HAD BILATERAL SACROILIAC JOINT BLOCK ON 10/14/2020. REPORTING MARKED REDUCTION IN LOW BACK PAIN THAT CONTINUES TODAY. CURRENTLY BEING FOLLOWED BY PRIMARY CARE FOR CELLULITIS OF HER LOWER EXTREMITIES. SHE HAS MARKED DISCOLORATION, BLUE PURPLE OF BOTH FEET. SHE WAS SEEN AT THE ER AND STARTED ON ANTIBIOTIC LAST WEEK. I'VE ENCOURAGED HER TO CONTACT HER PRIMARY CARE PROVIDER AND GET APPOINTMENT SOON POSSIBLE THIS IS NOT IMPROVING. -. FALL RISK SCREENING: SCREENING : NO FALLS REPORTED IN THE LAST YEAR. PAIN SCREENING: PATIENT HAS A COMPLAINT OF ACUTE OR CHRONIC PAIN :YES LOCATION OF PAIN:FEET INTENSITY OF PAIN (SCALE OF 1 TO 10):8 WHAT DOES YOUR PAIN FEEL LIKE:OTHER, SHARP [place]INGL[place] DURATION:CONTINOUS, AWAKENS FROM SLEEP PAIN IS INCREASED BY:ACTIVITIES, PROLONGED STANDING PAIN IS DECREASED BY:USE OF PAIN MEDICATIONS, OTHERS ELEVATION TREATMENT/MEDICATIONS USED TO MANAGE PAIN:NSAIDS PLAN/GOALS/TREATMENT/INTERVENTION/FOLLOW UP:SEE PLAN NURSING NOTE: -. PAIN CENTER INTAKE QUESTIONS: DO YOU HAVE A HISTORY OF MRSA? :NO DO YOU TAKE A BLOOD THINNERS? :NO DO YOU HAVE ANY BLEEDING DISORDERS? :NO ANY NEW NUMBNESS OR WEAKNESS IN YOUR LEGS OR ARMS? :YES ER VISIT [id number] DX OF VASCULITIS/DEPENDENT RUBOR ANY PACEMAKER,DEFIBRILLATOR, OR DORSAL COLUMN STIMULATOR? :NO DO YOU HAVE ANY RASHES OR OPEN SORES? :NO ARE YOU ALLERGIC TO IV DYE? :NO ARE YOU DIABETIC? :NO ANY NEW PROBLEMS WITH YOUR MEDICATIONS? :NO HAVE YOU RECEIVED A VACCINE IN THE PAST 30 DAYS? :NO DO YOU PLAN TO RECEIVE A VACCINE IN THE NEXT 21 DAYS? :NO DO YOU NEED ANY PRESCRIPTION? :NO DO YOU TAKE ANY IMMUNOSUPPRESSIVE MEDICATIONS? :NO IS THERE A CHANCE YOU COULD BE ? :NO ARE YOU BREAST FEEDING? :NO CURRENT MEDICATIONS TAKING MUCINEX 600 MG TABLET EXTENDED RELEASE 12 HOUR 1 TABLET NEEDED ORALLY EVERY 12 HRS TAKING MULTIVITAMIN OTC TABLET 1 TAB(S) ORALLY ONCE DAILY TAKING LATANOPROST 0.005 % SOLUTION 1 DROP INTO AFFECTED EYE IN THE EVENING OPHTHALMIC ONCE A DAY TAKING SOOTHE XP - SOLUTION OPHTHALMIC TAKING ZONISAMIDE 100 MG CAPSULE 3 ORALLY BEFORE BEDTIME TAKING TYLENOL ARTHRITIS PAIN 2 TABLETS NEEDED ORALLY 2-3 TIMES/DAY TAKING DUONEB 0.5-2.5 (3) MG/3ML SOLUTION 3 ML INHALATION FOUR TIMES A DAY NEEDED TAKING FLONASE 50 MCG/ACT SUSPENSION 1 SPRAY IN EACH NOSTRIL NASALLY ONCE A DAY TAKING MIRALAX - POWDER 17 GRAMS ORALLY ONCE A DAY TAKING FISH OIL 500 MG CAPSULE 1 CAPSULE ORALLY TWICE A DAY TAKING BREO ELLIPTA 100-25 MCG/INH AEROSOL POWDER BREATH ACTIVATED 1 PUFF INHALATION ONCE A DAY TAKING COLON FORMULA 166.67-500 MG CAPSULE DIRECTED ORALLY TAKING NICODERM CQ 21 MG/24HR PATCH 24 HOUR 1 PATCH TO SKIN TRANSDERMAL ONCE A DAY TAKING GABAPENTIN 300 MG CAPSULE 1 CAPSULE ORALLY BID TAKING CRESTOR 20 MG TABLET 1 TABLET ORALLY ONCE A DAY TAKING CYMBALTA 60 MG CAPSULE DELAYED RELEASE PARTICLES 1 CAPSULE ORALLY ONCE A DAY TAKING OMEPRAZOLE 40 MG CAPSULE DELAYED RELEASE TAKE ONE CAPSULE BY MOUTH TWICE A DAY ORALLY TWICE DAILY TAKING TRAMADOL HCL 50 MG TABLET 1 TABLET NEEDED ORALLY EVERY 8 HOURS WHEN NECESSARY FOR PAIN MDD 3 #45 TABLETS SHOULD LAST 30 DAYS, NOTES: 04/22 TAKING AIMOVIG 70 MG/ML SOLUTION AUTO-INJECTOR DIRECTED SUBCUTANEOUS TAKING CYMBALTA 30 MG CAPSULE DELAYED RELEASE PARTICLES 1 CAPSULE ORALLY ONCE A DAY TTD=90 MG TAKING DOXYCYCLINE MONOHYDRATE 100 MG CAPSULE 1 CAPSULE ORALLY TWICE A DAY, NOTES: RX STARTED 10/25/20 NOT-TAKING ONDANSETRON 4 MG TABLET DISINTEGRATING 1 TABLET ON THE TONGUE AND ALLOW TO DISSOLVE ORALLY EVERY 8 HOURS NEEDED FOR NAUSEA/VOMITING NOT-TAKING VITAMIN D (ERGOCALCIFEROL) [id number] UNIT CAPSULE TAKE ONE CAPSULE BY MOUTH ONCE WEEKLY NOT-TAKING DICYCLOMINE HCL 20 MG TABLET 1 TABLET ORALLY FOUR TIMES DAILY NOT-TAKING SIMETHICONE 80 MG TABLET CHEWABLE 1 TABLET AFTER MEALS AND AT BEDTIME NEEDED ORALLY FOUR TIMES A DAY NOT-TAKING PERCOCET 5-325 MG TABLET 1 TABLET NEEDED ORALLY EVERY 6 HRS PRN MDD4 MEDICATION LIST REVIEWED AND RECONCILED WITH THE PATIENT PAST MEDICAL HISTORY BACK PAIN CHRONIC/DDD - (PREVIOUSLY FOLLOWED BY DR. GUERRERO & DR. 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, FOLLOWED BY NEURO DAVID - ON CPAP PER NEUROLOGY STARTED 08/28/[address] ABD/PELVIS SHOWED "MATTING" OF SMALL BOWEL WITH APPARENT FECAL STASIS (01/2019) - EVALUATED BY GENERAL SURGERY 03/16/19 , 04/2019 RESECTION DUE TO ISCHEMIC BOWEL DEXA 09/2018 - FRAX 9.5/1.8% MIGRAINES OCCIPITAL NEUROLGIA ALLERGIES VICODIN: ITCHING - SIDE EFFECTS ATORVASTATIN CALCIUM: ELEVATED LIVER ENZYMES - SIDE EFFECTS CHANTIX: HALLUCINATIONS AND SI - SIDE EFFECTS DEPAKOTE: TREMORS - SIDE EFFECTS SURGICAL HISTORY TONSILLECTOMY A CHILD APPENDECTOMY A CHILD CARPAL TUNNEL RELEASE/CORNELIO RIGHT/ FOOT - BABY TOE- BONE REMOVED D& C, 3 OR 4 INGUINAL HERNIA REPAIR- DOUBLE ONE HYSTERECTOMY & BSO (DUE TO UTERINE PROLAPSE) 2011 CARPAL TUNNEL RELEASE 2014 CATARACT SURGERY 01/17/17 EGD/COLONOSCOPY - NORMAL EGD/YUBULAR ADENOMATOUS AND HYPERPLASTIC POLYP (F/U IN 3 - [address] NOYOLA 11/2015 RIGHT KNEE ARTHROSCOPE- REPAIRED LIGAMENTS,MENISCUS, REMOVAL ARTHRITIS 01/30/2018 HEMORRHOIDECTOMY 01/2019 COLON RESECTION: COLONOSCOPY TO THE HEPATIC FLEXURE FOLLOWED BY DIAGNOSTIC LAPAROSCOPY WITH PARTIAL COLECTOMY - PATHOLOGY SHOWED ISCHEMIC COLITIS 04/2019 SOCIAL HISTORY GENERAL: TOBACCO USE ARE YOU A:CURRENT SMOKER ARE YOU INTERESTED IN QUITTING?READY TO QUIT PT HAS CUT WAY BACK TO 2 CIGS/DAY. USING THE NICOTINE PATCH PREVIOUS QUIT ATTEMPTS?YES, WITHIN THE LAST 6 MONTHS. COUNSELED THE PATIENT ON TOBACCO USE, CESSATION [id number]/02/2021 HOW MANY CIGARETTES A DAY DO YOU SMOKE?5 OR LESS HOW SOON AFTER YOU WAKE UP DO YOU SMOKE YOUR FIRST CIGARETTE?6-30 MIN HOW OFTEN DO YOU SMOKE CIGARETTES?EVERY DAY PATIENT COUNSELED ON THE DANGERS OF TOBACCO USE AND URGED TO QUIT:11/01/2020 WE DISCUSSED HER STRADEGY TO "CUT DOWN " CURRENTLY SMOKING 3 A DAY SMOKING CESSATION INFORMATION GIVEN11/01/2020 LATEX QUESTIONNAIRE LATEX ALLERGY : HAVE YOU EVER DEVELOPED ANY TYPE OF REACTION AFTER HANDLING LATEX PRODUCTS SUCH RUBBER GLOVES, CONDOMS, DIAPHRAGMS, BALLOONS, SOCKS, OR UNDERWEAR?NO LATEX ALLERGY : HAVE YOU EVER DEVELOPED ANY TYPE OF REACTION DURING OR AFTER DENTAL APPOINTMENT, VAGINAL/RECTAL EXAMINATION, SURGICAL PROCEDURE, OR ANY OTHER EXPOSURE?NO DATE ASKED : 06/29/2020 LATEX RISK : HAVE YOU EVER HAD ANY DIFFICULTY BREATHING OR HIVES AFTER EATING OR HANDLING ANY FRUITS, OR VEGETABLES; SUCH KIWI, BANANAS, STONE FRUITS, OR CHESTNUTSNO LATEX RISK : DO YOU HAVE A PREVIOUS PERSONAL HISTORY OF MORE THAN NINE SURGERIES, SPINA BIFIDA, OR REPEATED CATHERIZATIONS? YES - PLEASE INDICATE : > 9 SURGERIES LATEX RISK : ARE YOU FREQUENTLY EXPOSED TO LATEX PRODUCTS IN YOUR OCCUPATION?NO LUNG CANCER SCREENING SMOKING STATUS:CURRENT SMOKER IS THE PATIENT BETWEEN THE AGE OF 57 AND 79?YES HAS THE PATIENT EVER BEEN DIAGNOSED WITH LUNG CANCER?NO PACK YEARS = NUMBER OF PACKS PER DAY SMOKED X NUMBER OF YEARS SMOKED:60 CREATE REFERRAL:GENERATE AND CREATE REFERRAL TO THE ONCOLOGY NURSE NAVIGATOR (SMP) LISTING USING THE LDCT SCAN PROCEDURE ALCOHOL SCREENING DID YOU HAVE A DRINK CONTAINING ALCOHOL IN THE PAST YEAR?NO POINTS0 INTERPRETATIONNEGATIVE RECREATIONAL DRUG USE DRUG USE?NO CAFFEINE CAFFEINE USE?YES TEA SEXUAL HX HAD SEX IN THE LAST 12 MONTHS (VAGINAL, ORAL, OR ANAL)?YES WITHMEN ONLY USE PROTECTION?NO LMP:HYSTER HAVE YOU EVER HAD AN STD?NO MANDAEN MANDAEN NO MORAVIAN BELIEFS THAT WOULD IMPACT HEALTH CARE. LANGUAGE LANGUAGES SPOKEN:[place] LEARNING BARRIERS / SPECIAL NEEDS CHANGE FROM LAST VISIT?NO BARRIERS TO LEARNING?NO HEARING IMPAIRED?NO VISION IMPAIRED?YES COGNITIVELY IMPAIRED?NO :CORRECTIVE LENSES READINESS TO LEARN?YES LEARNING PREFERENCES?NO LEARNING CAPABILITIES PRESENT?YES EMOTIONAL BARRIERS?NO SPECIAL DEVICES?NO POLISHER HAND NEEDED?NO DIET: REGULAR. EXERCISE: NO REGULAR EXERCISE. MARITAL STATUS: . OTHERS AT HOME: SPOUSE. - WAS THE PROVIDER NOTIFIED OF ANY PERTINENT INFO?YES HAS THE PATIENT BEEN EDUCATED REGARDING HIS/HER PLAN OF CARE?YES HAS THE PATIENT BEEN EDUCATED REGARDING PAIN, THE RISK FOR PAIN, THE IMPORTANCE OF EFFECTIVE PAIN MANAGEMENT, AND THE PAIN ASSESSMENT PROCESS?YES ADVANCE DIRECTIVE ADVANCE DIRECTIVE DISCUSSED WITH PATIENT:YES DECLINED HCP INFORMATION, STATES SHE HAS THE INFORMATION AT HOME. DECLINES ASSISTANCE AT THIS TIME. HOSPITALIZATION/MAJOR DIAGNOSTIC PROCEDURE SURGERIES CHILDBIRTH X4 PNEUMONIA IBS 04/2019 ER VISIT DX OF VASCULITIS/DEPENDENT RUBOR 10/25/20 REVIEW OF SYSTEMS CONSTITUTIONAL: ANY RECENT FEVER NO . CHILLS NO . WEIGHT CHANGE OF UNKNOWN REASONS NO . GASTROENTEROLOGY: NEW UNEXPLAINABLE CHANGES IN BOWEL CONTROL NO . CONSTIPATION NO . GENITOURINARY: ANY NEW CHANGE IN BLADDER CONTROL? NO . NEUROLOGY: NEW ONSET DIZZINESS OR NEUROLOGICAL CHANGES NOT MENTIONED NO . NEW NUMBNESS OR PAIN PATTERNS NOT MENTIONED AND PERTINENT TO TODAY'S VISIT NO . CARDIOLOGY: NEW CHEST PRESSURE NO . PATIENT DENIES NO . RESPIRATORY: UNEXPLAINABLE COUGH NO . NEW SHORTNESS OF BREATH NO . VITAL SIGNS WT 117.8 LBS, HT 64.5 IN, BMI 19.91 INDEX, BP 157/71 MM HG, HR 85 /MIN, RR 18 /MIN, TEMP 96.4 F, OXYGEN SAT % 93%, NA INITIALS SC 10:39, REVIEWED BY: Jordi DICK DIETETIC AIDE. EXAMINATION GENERAL EXAMINATION: GENERALAWAKE,ALERT ,PLEASANT . PSYCHAFFECT NORMAL . LUNGS:LUNG WALKER ARE CLEAR TO AUSCULTATION BILATERALLY. GOOD MOVEMENT OF AIR . HEART:S1, S2 IN A REGULAR RATE AND RHYTHM. NO SIGNIFICANT MURMURS, RUBS OR GALLOPS NOTED . ASSESSMENTS OTHER CHRONIC PAIN - G89.29 (PRIMARY) SACROILIITIS - M46.1 TREATMENT OTHER CHRONIC PAIN PAIN PROCEDURE LOGDATE OF PROCEDURE10/14/20PROCEDURE:BILATERAL SACROILIAC BLOCKAMOUNT OF PRE SEDATEVALIUM 10MG, OXYCODONE 10MGRESULT:MARKED REDUCTION IN PAIN CONTINUES TODAY PROCEDURE CODES FA211 ESTABILISHED PATIENT [facility] FACILITY CHARGE DISPOSITION & COMMUNICATION FOLLOW UP 2 MONTHS (REASON: LOW BACK PAIN/CONSIDER LUMBAR THERAPEUTIC FACET BLOCK IF CELLULITIS LOWER EXTREMITIES IS CLEARED) ELECTRONICALLY SIGNED BY YOGI CRUZ ON 11/07/2020 AT 04:38 PM EST DISCLAIMER : THIS IS A VISIT SUMMARY EXTRACTED FROM THE [employer] CHART. IT IS NOT A COPY OF THE [employer] PROGRESS NOTE. CINTIA
== END ==
LOC: M PAIN 10:00
PROVIDERS: ATTEND Nurse Practitioner Family
DX: G89.29 Other chronic pain (principal); M46.1 Sacroiliitis, not elsewhere classified; K21.9 Gastro-esophageal reflux disease without esophagitis; J44.9 Chronic obstructive pulmonary disease, unspecified; E55.9 Vitamin D deficiency, unspecified; M54.81 Occipital neuralgia; G47.33 Obstructive sleep apnea (adult) (pediatric); K58.1 Irritable bowel syndrome with constipation; G43.909 Migraine, unspecified, not intractable, without status migrainosus; F17.210 Nicotine dependence, cigarettes, uncomplicated; Z79.899 Other long term (current) drug therapy; Z88.5 Allergy status to narcotic agent; Z88.8 Allergy status to other drugs, medicaments and biological substances

== ENCOUNTER → 2020-11-03 | Outpatient (REF) | payer MEDICARE ==
[2020-11-03 15:05] LABS: C REACTIVE PROTEIN QUANTITATIV < 0.30 MG/DL (0.00-0.30); FOLATE > 24.0 NG/ML; RHEUMATOID FACTOR QUANT < 10.0 IU/ML (<15.0); TOTAL 25(OH) VITAMIN D 40.3 NG/ML (30.0-100.0); VITAMIN B12 LEVEL 1164 PG/ML
[2020-11-04 21:11] LABS: ANA (HEP2) Negative (.)
== END ==
LOC: M SFHCADAM 08:11
PROVIDERS: ATTEND Physician Assistant
DX: I87.2 Venous insufficiency (chronic) (peripheral) (principal); G62.9 Polyneuropathy, unspecified; R09.89 Other specified symptoms and signs involving the circulatory and respiratory systems; Z79.899 Other long term (current) drug therapy

== ENCOUNTER → 2020-11-22 | Outpatient (REF) | payer MEDICARE ==
[2020-11-22 16:41] LABS: HEMATOCRIT 44.7 % (36.0-47.0); HEMOGLOBIN 14.3 g/dl (12.0-15.5); MEAN CORPUSCULAR HEMOGLOBIN 32.1 pg (27.0-33.0); MEAN CORPUSCULAR VOLUME 100.4 fl (80.0-96.0); PLATELET COUNT, AUTOMATED 209 10^3/uL (150-450); RED BLOOD COUNT 4.45 10^6/uL (4.00-5.40); WHITE BLOOD COUNT 7.3 10^3/uL (4.0-10.0)
[2020-11-22 17:07] LABS: BLOOD UREA NITROGEN 14 MG/DL (7-18); CALCIUM LEVEL 9.1 MG/DL (8.8-10.2); CARBON DIOXIDE LEVEL 33 MEQ/L (21-32); CHLORIDE LEVEL 106 MEQ/L (98-107); CREATININE FOR GFR 0.84 MG/DL (0.55-1.30); GLOMERULAR FILTRATION RATE > 60.0 (>45); GLUCOSE, FASTING 105 MG/DL (70-100); POTASSIUM SERUM 4.2 MEQ/L (3.5-5.1); SODIUM LEVEL 142 MEQ/L (136-145)
== END ==
LOC: M SFHCADAM 14:17
PROVIDERS: ATTEND Physician Assistant
DX: Z01.818 Encounter for other preprocedural examination (principal)

== ENCOUNTER → 2020-11-28 | Outpatient (CLI) | payer MEDICARE ==
--- NOTE | 2020-11-28 10:15 | REP ---
INDICATION: LUNG SCREENING COMPARISON: 08/21/2019 TECHNIQUE: Axial noncontrast images from the thoracic inlet to the upper abdomen using low-dose lung screening technique (LDCT). FINDINGS: Lung english demonstrate chronic moderate emphysematous changes and minimal scattered scarring essentially unchanged when compared with prior examination. Very subtle airspace disease at the right base is again noted and likely represents chronic atelectasis and minimal dependent changes. No focal consolidation, suspicious nodule, or mass. No effusion. No pneumothorax. Tracheobronchial tree is patent. No cardiomegaly.. IMPRESSION: Relatively stable chronic changes. Lung-RADS category 2. Benign appearing findings. Management recommendations include annual low-dose CT surveillance. <Electronically signed by Marcio Jordan > 11/28/20 1012
== END ==
LOC: M RAD 09:15
PROVIDERS: ATTEND Physician Assistant
DX: F17.218 Nicotine dependence, cigarettes, with other nicotine-induced disorders (principal)

== ENCOUNTER → 2021-01-02 | Outpatient (CLI) | payer MEDICARE ==
--- NOTE | 2021-01-04 04:19 | ECWPNPC ---
PATIENT NAME: NATALI WILSON : 1950 GENDER: FEMALE VISIT DATE: 01/02/2021 DISCHARGE DATE: 01/02/21 1019 VISIT LOCKED DATE TIME: PHYSICIAN: JORGE MCCARTHY PHYSICIAN PAGER NO: ACTIVE RESOURCE: JORGE MCCARTHY REASON FOR APPOINTMENT 1. LOW BACK PAIN/CONSIDER LUMBAR THERAPEUTIC FACET BLOCK IF CELLULITIS LOWER EXTREMITIES IS CLEARED HISTORY OF PRESENT ILLNESS DEPRESSION SCREENING: PHQ-2 (2015 EDITION) LITTLE INTEREST OR PLEASURE IN DOING THINGS?NOT AT ALL FEELING DOWN, DEPRESSED, OR HOPELESS?NOT AT ALL TOTAL SCORE0 GENERAL: HERE FOR FOLLOW-UP OF CHRONIC LOW BACK PAIN. CELLULITIS IN THE LOWER EXTREMITIES HAS RESOLVED. SHE IS NOT CURRENTLY ON AN ANTIBIOTIC. CHIEF AREA OF PAIN IS ACROSS HER LOWER BACK. PAIN IS AGGRAVATED BY EXTENSION OF SPINE AND RELIEVED SOMEWHAT WITH FLEXION. REVIEWED MRI OF THE LS-SPINE. DISCUSSED TREATMENT OPTIONS. -. FALL RISK SCREENING: SCREENING : NO FALLS REPORTED IN THE LAST YEAR. PAIN SCREENING: PATIENT HAS A COMPLAINT OF ACUTE OR CHRONIC PAIN :YES LOCATION OF PAIN:LOW BACK INTENSITY OF PAIN (SCALE OF 1 TO 10):8 WHAT DOES YOUR PAIN FEEL LIKE:SHARP, SORE ON THE RIGHT SIDE OF THE BACK DURATION:ONLY WITH SPECIFIC ACTIVITIES PAIN IS INCREASED BY:ACTIVITIES, PROLONGED STANDING PAIN IS DECREASED BY:OTHERS HEAT AND ICE NURSING NOTE: -. PAIN CENTER INTAKE QUESTIONS: DO YOU HAVE A HISTORY OF MRSA? :NO DO YOU TAKE A BLOOD THINNERS? :NO DO YOU HAVE ANY BLEEDING DISORDERS? :NO ANY NEW NUMBNESS OR WEAKNESS IN YOUR LEGS OR ARMS? :YES ER VISIT [id number] DX OF VASCULITIS/DEPENDENT RUBOR ANY PACEMAKER,DEFIBRILLATOR, OR DORSAL COLUMN STIMULATOR? :NO DO YOU HAVE ANY RASHES OR OPEN SORES? :NO ARE YOU ALLERGIC TO IV DYE? :NO ARE YOU DIABETIC? :NO ANY NEW PROBLEMS WITH YOUR MEDICATIONS? :NO HAVE YOU RECEIVED A VACCINE IN THE PAST 30 DAYS? :NO DO YOU PLAN TO RECEIVE A VACCINE IN THE NEXT 21 DAYS? :NO DO YOU NEED ANY PRESCRIPTION? :NO DO YOU TAKE ANY IMMUNOSUPPRESSIVE MEDICATIONS? :NO IS THERE A CHANCE YOU COULD BE ? :NO ARE YOU BREAST FEEDING? :NO CURRENT MEDICATIONS TAKING MUCINEX 600 MG TABLET EXTENDED RELEASE 12 HOUR 1 TABLET NEEDED ORALLY EVERY 12 HRS TAKING MULTIVITAMIN OTC TABLET 1 TAB(S) ORALLY ONCE DAILY TAKING LATANOPROST 0.005 % SOLUTION 1 DROP INTO AFFECTED EYE IN THE EVENING OPHTHALMIC ONCE A DAY TAKING SOOTHE XP - SOLUTION OPHTHALMIC TAKING ZONISAMIDE 100 MG CAPSULE 3 ORALLY BEFORE BEDTIME TAKING TYLENOL ARTHRITIS PAIN 2 TABLETS NEEDED ORALLY 2-3 TIMES/DAY TAKING DUONEB 0.5-2.5 (3) MG/3ML SOLUTION 3 ML INHALATION FOUR TIMES A DAY NEEDED TAKING FLONASE 50 MCG/ACT SUSPENSION 1 SPRAY IN EACH NOSTRIL NASALLY ONCE A DAY TAKING MIRALAX - POWDER 17 GRAMS ORALLY ONCE A DAY TAKING FISH OIL 500 MG CAPSULE 1 CAPSULE ORALLY TWICE A DAY TAKING COLON FORMULA 166.67-500 MG CAPSULE DIRECTED ORALLY TAKING NICODERM CQ 21 MG/24HR PATCH 24 HOUR 1 PATCH TO SKIN TRANSDERMAL ONCE A DAY TAKING CRESTOR 20 MG TABLET 1 TABLET ORALLY ONCE A DAY TAKING CYMBALTA 60 MG CAPSULE DELAYED RELEASE PARTICLES 1 CAPSULE ORALLY ONCE A DAY TAKING TRAMADOL HCL 50 MG TABLET 1 TABLET NEEDED ORALLY EVERY 8 HOURS WHEN NECESSARY FOR PAIN MDD 3 #45 TABLETS SHOULD LAST 30 DAYS, NOTES: 04/22 TAKING BREO ELLIPTA 100-25 MCG/INH AEROSOL POWDER BREATH ACTIVATED 1 PUFF INHALATION ONCE A DAY TAKING CYMBALTA 30 MG CAPSULE DELAYED RELEASE PARTICLES 1 CAPSULE ORALLY ONCE A DAY TTD=90 MG TAKING GABAPENTIN 300 MG CAPSULE 1 CAPSULE ORALLY BID TAKING OMEPRAZOLE 40 MG CAPSULE DELAYED RELEASE TAKE ONE CAPSULE BY MOUTH TWICE A DAY ORALLY TWICE DAILY NOT-TAKING AIMOVIG 70 MG/ML SOLUTION AUTO-INJECTOR DIRECTED SUBCUTANEOUS MEDICATION LIST REVIEWED AND RECONCILED WITH THE PATIENT PAST MEDICAL HISTORY BACK PAIN CHRONIC/DDD - (PREVIOUSLY FOLLOWED BY DR. GUERRERO & DR. 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, FOLLOWED BY NEURO DAVID - ON CPAP PER NEUROLOGY STARTED 08/28/[address] ABD/PELVIS SHOWED "MATTING" OF SMALL BOWEL WITH APPARENT FECAL STASIS (01/2019) - EVALUATED BY GENERAL SURGERY 03/16/19 , 04/2019 RESECTION DUE TO ISCHEMIC BOWEL DEXA 09/2018 - FRAX 9.5/1.8% MIGRAINES OCCIPITAL NEUROLGIA ALLERGIES VICODIN: ITCHING - SIDE EFFECTS ATORVASTATIN CALCIUM: ELEVATED LIVER ENZYMES - SIDE EFFECTS CHANTIX: HALLUCINATIONS AND SI - SIDE EFFECTS DEPAKOTE: TREMORS - SIDE EFFECTS SURGICAL HISTORY TONSILLECTOMY A CHILD APPENDECTOMY A CHILD CARPAL TUNNEL RELEASE/CORNELIO RIGHT/ FOOT - BABY TOE- BONE REMOVED D& C, 3 OR 4 INGUINAL HERNIA REPAIR- DOUBLE ONE HYSTERECTOMY & BSO (DUE TO UTERINE PROLAPSE) 2011 CARPAL TUNNEL RELEASE 2014 CATARACT SURGERY 01/17/17 EGD/COLONOSCOPY - NORMAL EGD/YUBULAR ADENOMATOUS AND HYPERPLASTIC POLYP (F/U IN 3 - [address]) [address] NOYOLA 11/2015 RIGHT KNEE ARTHROSCOPE- REPAIRED LIGAMENTS,MENISCUS, REMOVAL ARTHRITIS 01/30/2018 HEMORRHOIDECTOMY 01/2019 COLON RESECTION: COLONOSCOPY TO THE HEPATIC FLEXURE FOLLOWED BY DIAGNOSTIC LAPAROSCOPY WITH PARTIAL COLECTOMY - PATHOLOGY SHOWED ISCHEMIC COLITIS 04/2019 SOCIAL HISTORY GENERAL: TOBACCO USE ARE YOU A:CURRENT SMOKER ARE YOU INTERESTED IN QUITTING?READY TO QUIT PT HAS CUT WAY BACK TO 2 CIGS/DAY. USING THE NICOTINE PATCH PREVIOUS QUIT ATTEMPTS?YES, WITHIN THE LAST 6 MONTHS. COUNSELED THE PATIENT ON TOBACCO USE, CESSATION [id number]/03/2021 HOW MANY CIGARETTES A DAY DO YOU SMOKE?6-10 HOW SOON AFTER YOU WAKE UP DO YOU SMOKE YOUR FIRST CIGARETTE?6-30 MIN HOW OFTEN DO YOU SMOKE CIGARETTES?EVERY DAY PATIENT COUNSELED ON THE DANGERS OF TOBACCO USE AND URGED TO QUIT:11/01/2020 WE DISCUSSED HER STRADEGY TO "CUT DOWN " CURRENTLY SMOKING 3 A DAY SMOKING CESSATION INFORMATION GIVEN11/01/2020 LATEX QUESTIONNAIRE LATEX ALLERGY : HAVE YOU EVER DEVELOPED ANY TYPE OF REACTION AFTER HANDLING LATEX PRODUCTS SUCH RUBBER GLOVES, CONDOMS, DIAPHRAGMS, BALLOONS, SOCKS, OR UNDERWEAR?NO LATEX ALLERGY : HAVE YOU EVER DEVELOPED ANY TYPE OF REACTION DURING OR AFTER DENTAL APPOINTMENT, VAGINAL/RECTAL EXAMINATION, SURGICAL PROCEDURE, OR ANY OTHER EXPOSURE?NO LATEX RISK : HAVE YOU EVER HAD ANY DIFFICULTY BREATHING OR HIVES AFTER EATING OR HANDLING ANY FRUITS, OR VEGETABLES; SUCH KIWI, BANANAS, STONE FRUITS, OR CHESTNUTSNO LATEX RISK : DO YOU HAVE A PREVIOUS PERSONAL HISTORY OF MORE THAN NINE SURGERIES, SPINA BIFIDA, OR REPEATED CATHERIZATIONS? YES - PLEASE INDICATE : > 9 SURGERIES LATEX RISK : ARE YOU FREQUENTLY EXPOSED TO LATEX PRODUCTS IN YOUR OCCUPATION?NO DATE ASKED : 01/02/2021 ALCOHOL USE: NO. LUNG CANCER SCREENING SMOKING STATUS:CURRENT SMOKER IS THE PATIENT BETWEEN THE AGE OF 57 AND 79?YES HAS THE PATIENT EVER BEEN DIAGNOSED WITH LUNG CANCER?NO PACK YEARS = NUMBER OF PACKS PER DAY SMOKED X NUMBER OF YEARS SMOKED:60 CREATE REFERRAL:GENERATE AND CREATE REFERRAL TO THE ONCOLOGY NURSE NAVIGATOR (SMP) LISTING USING THE LDCT SCAN PROCEDURE ALCOHOL SCREENING DID YOU HAVE A DRINK CONTAINING ALCOHOL IN THE PAST YEAR?NO POINTS0 INTERPRETATIONNEGATIVE RECREATIONAL DRUG USE DRUG USE?NO CAFFEINE CAFFEINE USE?YES TEA SEXUAL HX HAD SEX IN THE LAST 12 MONTHS (VAGINAL, ORAL, OR ANAL)?YES WITHMEN ONLY USE PROTECTION?NO LMP:HYSTER HAVE YOU EVER HAD AN STD?NO YARSANISM YARSANISM NO ADVENTIST BELIEFS THAT WOULD IMPACT HEALTH CARE. LANGUAGE LANGUAGES SPOKEN:PORTUGUESE LEARNING BARRIERS / SPECIAL NEEDS CHANGE FROM LAST VISIT?NO BARRIERS TO LEARNING?NO HEARING IMPAIRED?NO VISION IMPAIRED?YES :CORRECTIVE LENSES COGNITIVELY IMPAIRED?NO READINESS TO LEARN?YES LEARNING PREFERENCES?NO LEARNING CAPABILITIES PRESENT?YES EMOTIONAL BARRIERS?NO SPECIAL DEVICES?YES : NEEDED PROMOTIONAL MARKETING ANALYST NEEDED?NO DIET: REGULAR. EXERCISE: NO REGULAR EXERCISE. MARITAL STATUS: . OTHERS AT HOME: SPOUSE. - WAS THE PROVIDER NOTIFIED OF ANY PERTINENT INFO?YES HAS THE PATIENT BEEN EDUCATED REGARDING HIS/HER PLAN OF CARE?YES HAS THE PATIENT BEEN EDUCATED REGARDING PAIN, THE RISK FOR PAIN, THE IMPORTANCE OF EFFECTIVE PAIN MANAGEMENT, AND THE PAIN ASSESSMENT PROCESS?YES ADVANCE DIRECTIVE ADVANCE DIRECTIVE DISCUSSED WITH PATIENT:YES DECLINED HCP INFORMATION, STATES SHE HAS THE INFORMATION AT HOME. DECLINES ASSISTANCE AT THIS TIME. HOSPITALIZATION/MAJOR DIAGNOSTIC PROCEDURE SURGERIES CHILDBIRTH X4 PNEUMONIA IBS 04/2019 ER VISIT DX OF VASCULITIS/DEPENDENT RUBOR 10/25/20 REVIEW OF SYSTEMS CONSTITUTIONAL: ANY RECENT FEVER NO . CHILLS NO . WEIGHT CHANGE OF UNKNOWN REASONS NO . GASTROENTEROLOGY: NEW UNEXPLAINABLE CHANGES IN BOWEL CONTROL NO . CONSTIPATION NO . GENITOURINARY: ANY NEW CHANGE IN BLADDER CONTROL? NO . NEUROLOGY: NEW ONSET DIZZINESS OR NEUROLOGICAL CHANGES NOT MENTIONED NO . NEW NUMBNESS OR PAIN PATTERNS NOT MENTIONED AND PERTINENT TO TODAY'S VISIT NO . CARDIOLOGY: NEW CHEST PRESSURE NO . PATIENT DENIES NO . RESPIRATORY: UNEXPLAINABLE COUGH NO . NEW SHORTNESS OF BREATH NO . VITAL SIGNS WT 116.2 LBS, HT 64.5 IN, BMI 19.64 INDEX, BP 142/80 MM HG, HR 84 /MIN, RR 18 /MIN, TEMP 98.1 F, OXYGEN SAT % 92%, SAFE IN ENV? (Y/N) YES, NA INITIALS DE 09:40Maddy.COLETTE GUAJARDO. EXAMINATION GENERAL EXAMINATION: LUNGS: LUNG SOUNDS ARE CLEAR . HEART: HEART RATE REGULAR . MUSCULOSKELETAL:*, MUSCLE STRENGTH TESTING 5/5 BILATERAL LOWER EXTREMITIES., ,PALPATION: POSITIVE FOR PAIN OVER L/S SPINE. POSITIVE FOR PAIN OVER L/S PARSPINALS.SPECIFIC POINT TENDERNESS OVER BILAT L4/5-L5/S1 LUMBR FACETS WITH FACET LOADING . DIAGNOSTIC:MRI L/S SPINE -07/2020. ASSESSMENTS LUMBOSACRAL SPONDYLOLYSIS - M43.07 (PRIMARY) TREATMENT LUMBOSACRAL SPONDYLOLYSIS MEDICATION: OXYCODONE HCL TAB 5MG ORALLY (ORDERED FOR 01/09/2021) MEDICATION: VALIUM TAB 5MG ORALLY (DIAZEPAM) (ORDERED FOR 01/09/2021) NOTES: BILATERAL THERAPEUTIC LUMBAR FACET BLOCK L4-5,L5-S1 PRINTED AND REVIEWED PRE PROCEDURE TEACHING, PATIENT VERBALIZED UNDERSTANDING RIC GUAJARDO. PROCEDURE CODES FA211 ESTABILISHED PATIENT [facility] FACILITY CHARGE DISPOSITION & COMMUNICATION FOLLOW UP POST (REASON: BILATERAL THERAPEUTIC LUMBAR FACET BLOCK L4-5,L5-S1) ELECTRONICALLY SIGNED BY YOGI CRUZ ON 01/03/2021 AT 08:15 AM EDT DISCLAIMER : THIS IS A VISIT SUMMARY EXTRACTED FROM THE [employer] CHART. IT IS NOT A COPY OF THE [employer] PROGRESS NOTE. STEFFANIED
== END ==
LOC: M PAIN 09:30
PROVIDERS: ATTEND Nurse Practitioner Family
DX: M43.07 Spondylolysis, lumbosacral region (principal); K21.9 Gastro-esophageal reflux disease without esophagitis; K64.8 Other hemorrhoids; J44.9 Chronic obstructive pulmonary disease, unspecified; E78.5 Hyperlipidemia, unspecified; E55.9 Vitamin D deficiency, unspecified; M48.02 Spinal stenosis, cervical region; M54.81 Occipital neuralgia; G47.33 Obstructive sleep apnea (adult) (pediatric); K58.1 Irritable bowel syndrome with constipation; G43.909 Migraine, unspecified, not intractable, without status migrainosus; Z98.41 Cataract extraction status, right eye; Z98.42 Cataract extraction status, left eye; F17.210 Nicotine dependence, cigarettes, uncomplicated; Z79.891 Long term (current) use of opiate analgesic; Z79.899 Other long term (current) drug therapy; Z88.5 Allergy status to narcotic agent; Z88.8 Allergy status to other drugs, medicaments and biological substances

== ENCOUNTER → 2021-01-13 | Outpatient (CLI) | payer MEDICARE ==
--- NOTE | 2021-01-13 23:39 | ECWPNPC ---
PATIENT NAME: NATALI WILSON : 1950 GENDER: FEMALE VISIT DATE: 01/13/2021 DISCHARGE DATE: 01/13/21 1021 VISIT LOCKED DATE TIME: PHYSICIAN: JORGE MCCARTHY PHYSICIAN PAGER NO: ACTIVE RESOURCE: JORGE MCCARTHY REASON FOR APPOINTMENT 1. DISCUSS DIAGNOSTIC FACET BLOCKS HISTORY OF PRESENT ILLNESS GENERAL: HERE FOR FOLLOW-UP OF CHRONIC LOW BACK PAIN. CONTINUES TO HAVE SIGNIFICANT LOW BACK PAIN THAT IS AGGRAVATED BY PROLONGED STANDING. REVIEWED MRI OF THE LS-SPINE. DISCUSSED DIAGNOSTIC BLOCKS AND RADIOFREQUENCY. PATIENT WOULD LIKE TO PROCEED. -. FALL RISK SCREENING: SCREENING MULIPLY FALLS REPORTED IN THE LAST YEAR, NO INJURIES. PAIN SCREENING: PATIENT HAS A COMPLAINT OF ACUTE OR CHRONIC PAIN :YES LOCATION OF PAIN:LOW BACK INTENSITY OF PAIN (SCALE OF 1 TO 10):7 WHAT DOES YOUR PAIN FEEL LIKE:SHARP, STABBING DURATION:ALL DAY, INTERMITTENT PAIN IS INCREASED BY:ACTIVITIES, PROLONGED STANDING PAIN IS DECREASED BY:OTHERS LAYING DOWN NURSING NOTE: -. PAIN CENTER INTAKE QUESTIONS: DO YOU HAVE A HISTORY OF MRSA? :NO DO YOU TAKE A BLOOD THINNERS? :NO DO YOU HAVE ANY BLEEDING DISORDERS? :NO ANY NEW NUMBNESS OR WEAKNESS IN YOUR LEGS OR ARMS? :YES ER VISIT [id number] DX OF VASCULITIS/DEPENDENT RUBOR ANY PACEMAKER,DEFIBRILLATOR, OR DORSAL COLUMN STIMULATOR? :NO DO YOU HAVE ANY RASHES OR OPEN SORES? :NO ARE YOU ALLERGIC TO IV DYE? :NO ARE YOU DIABETIC? :NO ANY NEW PROBLEMS WITH YOUR MEDICATIONS? :NO HAVE YOU RECEIVED A VACCINE IN THE PAST 30 DAYS? :NO DO YOU PLAN TO RECEIVE A VACCINE IN THE NEXT 21 DAYS? :NO DO YOU NEED ANY PRESCRIPTION? :YES CYMBALTA 60 MG DO YOU TAKE ANY IMMUNOSUPPRESSIVE MEDICATIONS? :NO IS THERE A CHANCE YOU COULD BE ? :NO ARE YOU BREAST FEEDING? :NO CURRENT MEDICATIONS TAKING MUCINEX 600 MG TABLET EXTENDED RELEASE 12 HOUR 1 TABLET NEEDED ORALLY EVERY 12 HRS TAKING MULTIVITAMIN OTC TABLET 1 TAB(S) ORALLY ONCE DAILY TAKING LATANOPROST 0.005 % SOLUTION 1 DROP INTO AFFECTED EYE IN THE EVENING OPHTHALMIC ONCE A DAY TAKING SOOTHE XP - SOLUTION OPHTHALMIC TAKING ZONISAMIDE 100 MG CAPSULE 3 ORALLY BEFORE BEDTIME TAKING TYLENOL ARTHRITIS PAIN 2 TABLETS NEEDED ORALLY 2-3 TIMES/DAY TAKING DUONEB 0.5-2.5 (3) MG/3ML SOLUTION 3 ML INHALATION FOUR TIMES A DAY NEEDED TAKING FLONASE 50 MCG/ACT SUSPENSION 1 SPRAY IN EACH NOSTRIL NASALLY ONCE A DAY TAKING MIRALAX - POWDER 17 GRAMS ORALLY ONCE A DAY TAKING FISH OIL 500 MG CAPSULE 1 CAPSULE ORALLY TWICE A DAY TAKING COLON FORMULA 166.67-500 MG CAPSULE DIRECTED ORALLY TAKING NICODERM CQ 21 MG/24HR PATCH 24 HOUR 1 PATCH TO SKIN TRANSDERMAL ONCE A DAY TAKING TRAMADOL HCL 50 MG TABLET 1 TABLET NEEDED ORALLY EVERY 8 HOURS WHEN NECESSARY FOR PAIN MDD 3 #45 TABLETS SHOULD LAST 30 DAYS, NOTES: 04/22 TAKING BREO ELLIPTA 100-25 MCG/INH AEROSOL POWDER BREATH ACTIVATED 1 PUFF INHALATION ONCE A DAY TAKING CYMBALTA 30 MG CAPSULE DELAYED RELEASE PARTICLES 1 CAPSULE ORALLY ONCE A DAY TTD=90 MG TAKING GABAPENTIN 300 MG CAPSULE 1 CAPSULE ORALLY BID TAKING OMEPRAZOLE 40 MG CAPSULE DELAYED RELEASE TAKE ONE CAPSULE BY MOUTH TWICE A DAY ORALLY TWICE DAILY TAKING CRESTOR 20 MG TABLET 1 TABLET ORALLY ONCE A DAY TAKING CYMBALTA 60 MG CAPSULE DELAYED RELEASE PARTICLES 1 CAPSULE ORALLY ONCE A DAY NOT-TAKING AIMOVIG 70 MG/ML SOLUTION AUTO-INJECTOR DIRECTED SUBCUTANEOUS MEDICATION LIST REVIEWED AND RECONCILED WITH THE PATIENT PAST MEDICAL HISTORY BACK PAIN CHRONIC/DDD - (PREVIOUSLY FOLLOWED BY DR. GUERRERO & DR. 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, FOLLOWED BY NEURO DAVID - ON CPAP PER NEUROLOGY STARTED 08/28/[address] ABD/PELVIS SHOWED "MATTING" OF SMALL BOWEL WITH APPARENT FECAL STASIS (01/2019) - EVALUATED BY GENERAL SURGERY 03/16/19 , 04/2019 RESECTION DUE TO ISCHEMIC BOWEL DEXA 09/2018 - FRAX 9.5/1.8% MIGRAINES OCCIPITAL NEUROLGIA ALLERGIES VICODIN: ITCHING - SIDE EFFECTS ATORVASTATIN CALCIUM: ELEVATED LIVER ENZYMES - SIDE EFFECTS CHANTIX: HALLUCINATIONS AND SI - SIDE EFFECTS DEPAKOTE: TREMORS - SIDE EFFECTS SOCIAL HISTORY GENERAL: TOBACCO USE ARE YOU A:CURRENT SMOKER ARE YOU INTERESTED IN QUITTING?READY TO QUIT PT HAS CUT WAY BACK TO 2 CIGS/DAY. USING THE NICOTINE PATCH PREVIOUS QUIT ATTEMPTS?YES, WITHIN THE LAST 6 MONTHS. COUNSELED THE PATIENT ON TOBACCO USE, CESSATION [id number]/14/2021 HOW MANY CIGARETTES A DAY DO YOU SMOKE?6-10 HOW SOON AFTER YOU WAKE UP DO YOU SMOKE YOUR FIRST CIGARETTE?6-30 MIN HOW OFTEN DO YOU SMOKE CIGARETTES?EVERY DAY PATIENT COUNSELED ON THE DANGERS OF TOBACCO USE AND URGED TO QUIT:11/01/2020 WE DISCUSSED HER STRADEGY TO "CUT DOWN " CURRENTLY SMOKING 3 A DAY SMOKING CESSATION INFORMATION GIVEN11/01/2020 LATEX QUESTIONNAIRE LATEX ALLERGY : HAVE YOU EVER DEVELOPED ANY TYPE OF REACTION AFTER HANDLING LATEX PRODUCTS SUCH RUBBER GLOVES, CONDOMS, DIAPHRAGMS, BALLOONS, SOCKS, OR UNDERWEAR?NO LATEX ALLERGY : HAVE YOU EVER DEVELOPED ANY TYPE OF REACTION DURING OR AFTER DENTAL APPOINTMENT, VAGINAL/RECTAL EXAMINATION, SURGICAL PROCEDURE, OR ANY OTHER EXPOSURE?NO LATEX RISK : HAVE YOU EVER HAD ANY DIFFICULTY BREATHING OR HIVES AFTER EATING OR HANDLING ANY FRUITS, OR VEGETABLES; SUCH KIWI, BANANAS, STONE FRUITS, OR CHESTNUTSNO LATEX RISK : DO YOU HAVE A PREVIOUS PERSONAL HISTORY OF MORE THAN NINE SURGERIES, SPINA BIFIDA, OR REPEATED CATHERIZATIONS? YES - PLEASE INDICATE : > 9 SURGERIES LATEX RISK : ARE YOU FREQUENTLY EXPOSED TO LATEX PRODUCTS IN YOUR OCCUPATION?NO DATE ASKED : 01/13/2021 ALCOHOL USE: NO. LUNG CANCER SCREENING SMOKING STATUS:CURRENT SMOKER IS THE PATIENT BETWEEN THE AGE OF 57 AND 79?YES HAS THE PATIENT EVER BEEN DIAGNOSED WITH LUNG CANCER?NO PACK YEARS = NUMBER OF PACKS PER DAY SMOKED X NUMBER OF YEARS SMOKED:60 CREATE REFERRAL:GENERATE AND CREATE REFERRAL TO THE ONCOLOGY NURSE NAVIGATOR (SMP) LISTING USING THE LDCT SCAN PROCEDURE ALCOHOL SCREENING DID YOU HAVE A DRINK CONTAINING ALCOHOL IN THE PAST YEAR?NO POINTS0 INTERPRETATIONNEGATIVE RECREATIONAL DRUG USE DRUG USE?NO CAFFEINE CAFFEINE USE?YES TEA SEXUAL HX HAD SEX IN THE LAST 12 MONTHS (VAGINAL, ORAL, OR ANAL)?YES WITHMEN ONLY USE PROTECTION?NO LMP:HYSTER HAVE YOU EVER HAD AN STD?NO ADVENTISM ADVENTISM NO RESTORATION BELIEFS THAT WOULD IMPACT HEALTH CARE. 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 EXERCISE: NO REGULAR EXERCISE. MARITAL STATUS: . OTHERS AT HOME: SPOUSE. - WAS THE PROVIDER NOTIFIED OF ANY PERTINENT INFO?YES HAS THE PATIENT BEEN EDUCATED REGARDING HIS/HER PLAN OF CARE?YES HAS THE PATIENT BEEN EDUCATED REGARDING PAIN, THE RISK FOR PAIN, THE IMPORTANCE OF EFFECTIVE PAIN MANAGEMENT, AND THE PAIN ASSESSMENT PROCESS?YES ADVANCE DIRECTIVE ADVANCE DIRECTIVE DISCUSSED WITH PATIENT:YES DECLINED HCP INFORMATION, STATES SHE HAS THE INFORMATION AT HOME. DECLINES ASSISTANCE AT THIS TIME. REVIEW OF SYSTEMS CONSTITUTIONAL: ANY RECENT FEVER NO . CHILLS NO . WEIGHT CHANGE OF UNKNOWN REASONS NO . GASTROENTEROLOGY: NEW UNEXPLAINABLE CHANGES IN BOWEL CONTROL NO . CONSTIPATION NO . GENITOURINARY: ANY NEW CHANGE IN BLADDER CONTROL? NO . NEUROLOGY: NEW ONSET DIZZINESS OR NEUROLOGICAL CHANGES NOT MENTIONED NO . NEW NUMBNESS OR PAIN PATTERNS NOT MENTIONED AND PERTINENT TO TODAY'S VISIT NO . CARDIOLOGY: NEW CHEST PRESSURE NO . PATIENT DENIES NO . RESPIRATORY: UNEXPLAINABLE COUGH NO . NEW SHORTNESS OF BREATH NO . VITAL SIGNS WT 116.4 LBS, HT 64.5 IN, BMI 19.67 INDEX, BP 131/80 MM HG, HR 89 /MIN, RR 18 /MIN, TEMP 95.6 F, OXYGEN SAT % 91%, SAFE IN ENV? (Y/N) YES, NA INITIALS AW [id number].COLETTE GUAJARDO. EXAMINATION GENERAL EXAMINATION: GENERAL AWAKE,ALERT ,PLEAASANT . PSYCH AFFECT NORMAL . LUNGS: LUNG WALKER ARE CLEAR TO AUSCULTATION BILATERALLY. GOOD MOVEMENT OF AIR . HEART: S1, S2 IN A REGULAR RATE AND RHYTHM. NO SIGNIFICANT MURMURS, RUBS OR GALLOPS NOTED . LUMBAR:PALPATION:TENDER OVER BILAT. L3/4-L4-5 LUMBAR FACETS WITH FACET LOADING.. DIAGNOSTIC TESTS REVIEWED MRI L/S SPINE-07/2020. 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 CLINICAL NOTES: PREPROCEDURE AND PROCEDURE INFORMATION PRINTED AND PROVIDED TO PATIENT. PATIENT VERBALIZED AN UNDERSTANDING. SHREE YORK MA. PROCEDURE CODES FA211 ESTABILISHED PATIENT [facility] F[facility]ILITY CHARGE DISPOSITION & COMMUNICATION FOLLOW UP POST (REASON: BILATERAL DIAGNOSTIC LUMBAR FACET BLOCK #1 L3-4,L4-5) ELECTRONICALLY SIGNED BY YOGI CRUZ ON 01/13/2021 AT 12:29 PM EDT DISCLAIMER : THIS IS A VISIT SUMMARY EXTRACTED FROM THE [facility] CHART. IT IS NOT A COPY OF THE [facility] PROGRESS NOTE. CINTIA
== END ==
LOC: M PAIN 09:30
PROVIDERS: ATTEND Nurse Practitioner Family
DX: M47.817 Spondylosis without myelopathy or radiculopathy, lumbosacral region (principal); G89.29 Other chronic pain; K21.9 Gastro-esophageal reflux disease without esophagitis; J44.9 Chronic obstructive pulmonary disease, unspecified; G47.33 Obstructive sleep apnea (adult) (pediatric); G43.909 Migraine, unspecified, not intractable, without status migrainosus; F17.210 Nicotine dependence, cigarettes, uncomplicated; Z88.5 Allergy status to narcotic agent; Z88.8 Allergy status to other drugs, medicaments and biological substances; Z79.51 Long term (current) use of inhaled steroids; Z79.899 Other long term (current) drug therapy

== ENCOUNTER 2021-02-24 11:18 | Emergency (ER) | payer MEDICARE ==
[~2021-02-24] VITALS: Ht 160 cm; Wt 53.4 kg
[~2021-02-24 11:18] MED LIST changes: -DOXY100C37 PO; +DOXY1CAP62 PO; +OMEP40CA4 PO; -OMEP40CA97 PO
[2021-02-24 11:58] LABS: HEMATOCRIT 45.1 % (36.0-47.0); HEMOGLOBIN 14.3 g/dl (12.0-15.5); MEAN CORPUSCULAR HEMOGLOBIN 32.4 pg (27.0-33.0); MEAN CORPUSCULAR HGB CONC 31.7 g/dl (32.0-36.5); MEAN CORPUSCULAR VOLUME 102.3 fl (80.0-96.0); PLATELET COUNT, AUTOMATED 188 10^3/uL (150-450); RED BLOOD COUNT 4.41 10^6/uL (4.00-5.40); WHITE BLOOD COUNT 6.8 10^3/uL (4.0-10.0)
[2021-02-24 12:31] LABS: ALBUMIN 3.8 GM/DL (3.2-5.2); ALT/SGPT 24 U/L (12-78); BILIRUBIN,DIRECT < 0.1 MG/DL (0.0-0.2); BILIRUBIN,TOTAL 0.3 MG/DL (0.2-1.0); LIPASE 199 U/L (73-393); TOTAL PROTEIN 7.7 GM/DL (6.4-8.2)
[2021-02-24 12:45] LABS: ATYPICAL LYMPH 4 % (0-5); BASOPHILS 2 % (0-1); LYMPHOCYTES 44 % (16-44); MONOCYTES 6 % (0-5); NEUTROPHILS 44 % (28-66)
[2021-02-24] MEDS ORDERED: NS 1,000 ML IV ONE (12:45)
[2021-02-24] MEDS ORDERED: ONDANSETRON 4MG/2ML VIAL IV ONE (12:45)
[2021-02-24] MEDS ORDERED: MORPHINE 2 MG/ML 1ML VIAL (J2270) IV ONE (12:45)
[2021-02-24 12:46] LABS: PLATELET ESTIMATE NORMAL (NORMAL)
[2021-02-24] MEDS: GASTROGRAFIN SOLUTION 30ML PO SCH ×2 (13:48→14:14)
[2021-02-24] MEDS ORDERED: ISOVUE-370 76% 100ML VIAL As Ordered ONE (14:13)
[2021-02-24 15:24] VITALS: BP 168/82
--- NOTE | 2021-02-24 15:41 | REP ---
INDICATION: RLQ pain, s/p appendectomy/hernia repair/partial colectomy COMPARISON: 07/06/2020. TECHNIQUE: CT Scan of the abdomen and pelvis was performed with intravenous administration of 100 cc of Isovue 370, and oral contrast. FINDINGS: Lung bases: Mild fibro atelectatic changes. Liver: Normal Gallbladder: Unremarkable. Spleen: Normal. Adrenals: Normal. Pancreas: Normal. Kidneys: Normal. Small and large bowel: Prior partial colon resection. Moderate fecal material seen throughout the right colon and transverse colon. There is no free air or obstruction. Free fluid: None. Abdominal aorta: No aneurysm or dissection. There is mild ectasia of the distal abdominal aorta. Adenopathy: None. Appendix: Prior appendectomy. Osseous structures: There are mild degenerative changes of the spine with mild chronic compression deformities of T11 and T12. Pelvis: No mass. Prior hysterectomy. The bladder is moderately distended. IMPRESSION: Moderate retained feces. No free air, free fluid or obstruction. <Electronically signed by Behzad Romero > 02/24/21 [id number]
[2021-02-24] MEDS ORDERED: COLA100C5 PO (15:56)
[2021-02-24] MEDS ORDERED: MIRA3350 PO (15:56)
[2021-02-24] MEDS ORDERED: GLYCERIN ADULT SUPP PR ONE (16:00)
[2021-02-24] MEDS ORDERED: DOCUSATE SODIUM 100MG CAPSULE PO ONE (16:00)
== END 2021-02-24 16:26 | disposition home or self-care (01) ==
LOC: M ED 11:18
DX: K58.1 Irritable bowel syndrome with constipation (principal); Z87.19 Personal history of other diseases of the digestive system; E78.5 Hyperlipidemia, unspecified; J44.9 Chronic obstructive pulmonary disease, unspecified; G47.33 Obstructive sleep apnea (adult) (pediatric); M54.9 Dorsalgia, unspecified; G89.29 Other chronic pain; F17.200 Nicotine dependence, unspecified, uncomplicated; Z79.899 Other long term (current) drug therapy; Z79.51 Long term (current) use of inhaled steroids; Z79.890 Hormone replacement therapy; Z88.5 Allergy status to narcotic agent; Z88.8 Allergy status to other drugs, medicaments and biological substances; Z90.49 Acquired absence of other specified parts of digestive tract; Z98.890 Other specified postprocedural states
CPT/HCPCS: 36415; 74177; 80047; 80076; 81001; 83605; 83690; 85025; 96374; 96375; 99284; J2270; J2405; Q9963; Q9967

== ENCOUNTER 2021-03-20 12:05 | Emergency (ER) | payer MEDICARE ==
[~2021-03-20] VITALS: Ht 162.6 cm; Wt 52.6 kg
[~2021-03-20 12:05] MED LIST changes: +COLA100C5 PO
[2021-03-20] MEDS ORDERED: ACET-907 PO (12:15)
[2021-03-20] MEDS ORDERED: KETOROLAC 30 MG/ML 1ML VIAL IV ONE (13:30)
[2021-03-20] MEDS ORDERED: ONDANSETRON 4MG/2ML VIAL IV ONE (13:30)
[2021-03-20] MEDS ORDERED: NS 1,000 ML IV SCH (13:30)
[2021-03-20 14:08] LABS: HEMATOCRIT 44.2 % (36.0-47.0); HEMOGLOBIN 14.3 g/dl (12.0-15.5); MEAN CORPUSCULAR HEMOGLOBIN 32.4 pg (27.0-33.0); MEAN CORPUSCULAR HGB CONC 32.4 g/dl (32.0-36.5); MEAN CORPUSCULAR VOLUME 100.2 fl (80.0-96.0); PLATELET COUNT, AUTOMATED 189 10^3/uL (150-450); RED BLOOD COUNT 4.41 10^6/uL (4.00-5.40); WHITE BLOOD COUNT 10.1 10^3/uL (4.0-10.0)
--- NOTE | 2021-03-20 14:16 | REP ---
INDICATION: RLQ PAIN R/O STONE, BOWEL OBSTRUCTION. COMPARISON: 02/24/2021 CT with contrast TECHNIQUE: Noncontrast scanning through the abdomen pelvis with coronal and sagittal reconstructions. FINDINGS: CT abdomen: Lung bases are stable with no acute findings. A few stable subpleural nodules again seen. Heart is not grossly enlarged there is no pericardial thickening or effusion. I see no hiatal hernia. Liver is without acute finding. No biliary dilatation, mass or adjacent ascites. Gallbladder shows no calcified stone or mass. Spleen is unremarkable. Adrenals are unchanged and with some findings suggesting some adrenal hyperplasia. Common duct and pancreas grossly unremarkable. Kidneys show no hydronephrosis or intrarenal stone. No mass. Some vascular calcifications at the left hilum and faint punctate density in the low upper pole pyramid on the left may be a small pyramidal calcification but no stone in the collecting system. Extrarenal pelves are noted without dilatation. The ureters do not show definite stone or dilatation on either side. Small bowel loops were unremarkable colon shows no sign of colitis or diverticulitis. There are some surgical clips in mid abdomen bowel loops. There is some diastasis of the rectus muscles without carlotta herniation of bowel. Is a vascular calcification in the aorta and iliac vessels. There is a tortuosity of the abdominal aorta with no aneurysm. Lung window review of all CT slices shows no perforation or free air. No air-fluid levels. Bone windows show the spine and ribs unchanged. CT pelvis: Bony sacrum, SI joints pelvis and hips show some minor degenerative changes without destructive lesions or fractures. Bladder is quite well filled no wall thickening or mass or stone seen no distal ureteral dilatation or stone. Numerous common, external and internal iliac artery calcifications present. Uterus absent the vaginal cuff intact. No pelvic mass. Distal left colon sigmoid and rectum without any acute finding with moderate stool but no colitis or diverticulitis. There is no ventral or inguinal hernia nor pathologic sized inguinal adenopathy. IMPRESSION: 1. No hydronephrosis, mass, cyst or other acute renal abnormality. There is tiny punctate 1-2 mm hyperdense focus in a pyramid in the upper pole on the left. Extrarenal pelves noted without ureteral dilatation or stone on either side. No bladder stone or or mass. 2. Vascular calcification aorta and branches a without aneurysm. 3. There are postoperative changes with anastomotic sutures in a bowel loop in the mid abdomen but no signs of obstruction, mass or free air. Few air-fluid levels in nonspecific pattern. No inflammatory changes in the mesentery. 4. Solid organs in the upper abdomen without acute finding. No hiatal hernia. Gallbladder intact. Nothing acute <Electronically signed by Kwesi Crum > 03/20/21 [id number]
[2021-03-20 14:36] LABS: ALBUMIN 3.6 GM/DL (3.2-5.2); ALT/SGPT 29 U/L (12-78); BILIRUBIN,DIRECT < 0.1 MG/DL (0.0-0.2); BILIRUBIN,TOTAL 0.3 MG/DL (0.2-1.0); BLOOD UREA NITROGEN 14 MG/DL (7-18); CARBON DIOXIDE LEVEL 29 MEQ/L (21-32); CHLORIDE LEVEL 108 MEQ/L (98-107); GLOMERULAR FILTRATION RATE > 60.0 (>45); GLUCOSE, FASTING 84 MG/DL (70-100); LIPASE 246 U/L (73-393); POTASSIUM SERUM 4.4 MEQ/L (3.5-5.1); SODIUM LEVEL 141 MEQ/L (136-145); TOTAL PROTEIN 7.2 GM/DL (6.4-8.2)
[2021-03-20 14:58] LABS: ATYPICAL LYMPH 6 % (0-5); LYMPHOCYTES 27 % (16-44); MONOCYTES 3 % (0-5); NEUTROPHILS 64 % (28-66)
[2021-03-20 14:59] LABS: PLATELET CLUMPS SMALL AMT; PLATELET ESTIMATE NORMAL (NORMAL)
[2021-03-20] MEDS ORDERED: ACET500P3 PO (15:19)
[2021-03-20 16:07] VITALS: BP 135/75
== END 2021-03-20 16:08 | disposition home or self-care (01) ==
LOC: M ED 12:05
DX: R10.31 Right lower quadrant pain (principal); R93.5 Abnormal findings on diagnostic imaging of other abdominal regions, including retroperitoneum; R11.0 Nausea; R91.8 Other nonspecific abnormal finding of lung field; D72.829 Elevated white blood cell count, unspecified; E78.5 Hyperlipidemia, unspecified; J45.909 Unspecified asthma, uncomplicated; J44.9 Chronic obstructive pulmonary disease, unspecified; K58.1 Irritable bowel syndrome with constipation; H40.9 Unspecified glaucoma; F17.200 Nicotine dependence, unspecified, uncomplicated; Z90.710 Acquired absence of both cervix and uterus; Z98.890 Other specified postprocedural states; Z88.6 Allergy status to analgesic agent; Z88.8 Allergy status to other drugs, medicaments and biological substances; Z79.899 Other long term (current) drug therapy
CPT/HCPCS: 74176; 80048; 80076; 81001; 83690; 85025; 96361; 96374; 96375; 99284; J1885; J2405

== ENCOUNTER → 2021-03-31 | Outpatient (CLI) | payer MEDICARE ==
[~2021-03-31] MED LIST changes: +ACET-907 PO; +ACET500P3 PO
== END ==
LOC: M LABSMTC 12:31
PROVIDERS: ATTEND Anesthesiology
DX: Z01.812 Encounter for preprocedural laboratory examination (principal); Z20.822 Contact with and (suspected) exposure to COVID-19

== ENCOUNTER 2021-04-05 12:01 | Day surgery (SDC) | payer MEDICARE ==
[~2021-04-05] VITALS: Ht 162.6 cm; Wt 51.7 kg
[~2021-04-05 12:01] MED LIST changes: -DICY20TA11 PO; +DICY20TA20 PO; +DOXY-443 PO; -DOXY1CAP62 PO; +LIDOCAINE 2% 100MG/5ML SDV (FOR ANES.) As Ordered ONE; +NS 1,000 ML IV ONE; +propofoL 200 MG/20 ML VIAL As Ordered ONE
[2021-04-05 13:43] VITALS: BP 116/62
[2021-09-25] MEDS ORDERED: PAINTAB PO (07:54)
[2021-09-25] MEDS ORDERED: MUCI30TA5 PO (07:54)
[2021-09-25] MEDS ORDERED: FISH1000 PO (07:54)
[2021-09-25] MEDS ORDERED: DICY1CAP8 PO (07:54)
[2021-09-25] MEDS ORDERED: PROAAER10 INH (07:54)
[2021-09-25] MEDS ORDERED: TRAM50TA2 PO (07:54)
[2021-09-25] MEDS ORDERED: TREL1AER IN (08:03)
[2021-09-25] MEDS ORDERED: GABA-1171 PO (08:03)
[2021-09-25] MEDS ORDERED: OCUVCAP PO (08:03)
[2021-09-25] MEDS ORDERED: POLY30DR2 OU (08:03)
[2021-09-25] MEDS ORDERED: PROBCAP14 PO (08:03)
== END 2021-04-05 13:45 | disposition home or self-care (01) ==
LOC: M OPP 12:01
PROVIDERS: ATTEND Surgery
DX: K63.5 Polyp of colon (principal); K64.1 Second degree hemorrhoids; R10.31 Right lower quadrant pain; K22.8 Other specified diseases of esophagus; K29.70 Gastritis, unspecified, without bleeding; K59.00 Constipation, unspecified; K21.9 Gastro-esophageal reflux disease without esophagitis; Z79.82 Long term (current) use of aspirin; Z79.891 Long term (current) use of opiate analgesic; Z79.899 Other long term (current) drug therapy; Z88.5 Allergy status to narcotic agent; Z88.8 Allergy status to other drugs, medicaments and biological substances; Z80.49 Family history of malignant neoplasm of other genital organs; Z90.49 Acquired absence of other specified parts of digestive tract

== ENCOUNTER → 2021-04-06 | Outpatient (CLI) | payer MEDICARE ==
[~2021-04-06] MED LIST changes: +DICY1CAP8 PO; +FISH1000 PO; -LIDOCAINE 2% 100MG/5ML SDV (FOR ANES.) As Ordered ONE; +MUCI30TA5 PO; -NS 1,000 ML IV ONE; +OCUVCAP PO; +PAINTAB PO; +POLY30DR2 OU; +PROAAER10 INH; +PROBCAP14 PO; +TREL1AER IN; -propofoL 200 MG/20 ML VIAL As Ordered ONE
== END ==
LOC: M LABSMTC 09:39
PROVIDERS: ATTEND Anesthesiology
DX: Z01.818 Encounter for other preprocedural examination (principal); Z20.822 Contact with and (suspected) exposure to COVID-19

== ENCOUNTER → 2021-04-10 | Outpatient (CLI) | payer MEDICARE ==
[~2021-04-10] MED LIST changes: +BUPIVACAINE HCL 0.25% 30ML VIAL As Ordered ONE; -DICY1CAP8 PO; +DICY20TA11 PO; -DICY20TA20 PO; -DOXY-443 PO; +DOXY1CAP62 PO; -FISH1000 PO; +ISOVUE-M 300 61% 15ML VIAL As Ordered ONE; +LIDOCAINE 1% SDV 30ML VIAL As Ordered ONE; -MUCI30TA5 PO; -OCUVCAP PO; -PAINTAB PO; -POLY30DR2 OU; -PROAAER10 INH; -PROBCAP14 PO; -TREL1AER IN
--- NOTE | 2021-04-10 16:56 | REP ---
INDICATION: BILAT LFBD #1. COMPARISON: None. TECHNIQUE: Four views. 32.8 seconds of fluoroscopy time is reported. FINDINGS: A sequence of 4 last image hold fluoroscopically obtained spot radiograph(s) of the lumbar spine document(s) needle position(s) and contrast injection associated with injection procedure. IMPRESSION: Procedural imaging. <Electronically signed by Ryland Gil > 04/10/21 [id number]
--- NOTE | 2021-04-13 01:55 | ECWPNPC ---
PATIENT NAME: NATALI WILSON : 1950 GENDER: FEMALE VISIT DATE: 04/10/2021 DISCHARGE DATE: 04/10/21 1221 VISIT LOCKED DATE TIME: PHYSICIAN: HENRY PATEL MD PHYSICIAN PAGER NO: ACTIVE RESOURCE: HENRY PATEL MD REASON FOR APPOINTMENT 1. BILATERAL DIAGNOSTIC LUMBAR FACET BLOCK L3-4,L4-5 HISTORY OF PRESENT ILLNESS GENERAL: -. FALL RISK SCREENING: SCREENING : NO FALLS REPORTED IN THE LAST YEAR. PAIN SCREENING: PATIENT HAS A COMPLAINT OF ACUTE OR CHRONIC PAIN :YES LOCATION OF PAIN:LOW BACK INTENSITY OF PAIN (SCALE OF 1 TO 10):8 WHAT DOES YOUR PAIN FEEL LIKE:SHARP DURATION:CONTINOUS, CONSTANT PAIN IS INCREASED BY:ACTIVITIES PAIN IS DECREASED BY: LYING FLAT, HEAT NURSING NOTE: -. PAIN CENTER INTAKE QUESTIONS: DO YOU HAVE A HISTORY OF MRSA? :NO DO YOU TAKE A BLOOD THINNERS? :NO DO YOU HAVE ANY BLEEDING DISORDERS? :NO ANY NEW NUMBNESS OR WEAKNESS IN YOUR LEGS OR ARMS? :NO ANY PACEMAKER,DEFIBRILLATOR, OR DORSAL COLUMN STIMULATOR? :NO DO YOU HAVE ANY RASHES OR OPEN SORES? :NO ARE YOU ALLERGIC TO IV DYE? :NO ARE YOU DIABETIC? :NO ANY NEW PROBLEMS WITH YOUR MEDICATIONS? :NO HAVE YOU RECEIVED A VACCINE IN THE PAST 30 DAYS? :NO DO YOU PLAN TO RECEIVE A VACCINE IN THE NEXT 21 DAYS? :NO DO YOU TAKE ANY IMMUNOSUPPRESSIVE MEDICATIONS? :NO ANY HISTORY OF SEIZURES? :NO ANY HISTORY OF CARDIAC ISSUES OR EVENTS? :NO DO YOU HAVE ANY KIDNEY OR LIVER DISEASE? :NO DO YOU HAVE SLEEP APNEA? :YES DO YOU WEAR A CPAP?YES NON-COMPLIANT ANY RECENT HEAD INJURY? :NO DO YOU HAVE ANY NEW INFECTIONS? :NO IS THERE A CHANCE YOU COULD BE ? :NO ARE YOU BREAST FEEDING? :NO WHEN DID YOU LAST EAT? : 04/09/21 WHEN DID YOU LAST DRINK? : 04/10/21 0700 WHAT DID YOU LAST DRINK? : WATER NAME OF PERSON DRIVING YOU HOME? : DO YOU HAVE ANY OTHER QUESTIONS OR CONCERNS? : - CURRENT MEDICATIONS TAKING MUCINEX 600 MG TABLET EXTENDED RELEASE 12 HOUR 1 TABLET NEEDED ORALLY EVERY 12 HRS TAKING MULTIVITAMIN OTC TABLET 1 TAB(S) ORALLY ONCE DAILY TAKING LATANOPROST 0.005 % SOLUTION 1 DROP INTO AFFECTED EYE IN THE EVENING OPHTHALMIC ONCE A DAY TAKING SOOTHE XP - SOLUTION OPHTHALMIC TAKING ZONISAMIDE 100 MG CAPSULE 3 ORALLY BEFORE BEDTIME TAKING TYLENOL ARTHRITIS PAIN 2 TABLETS NEEDED ORALLY 2-3 TIMES/DAY, NOTES: 04/09/21 TAKING DUONEB 0.5-2.5 (3) MG/3ML SOLUTION 3 ML INHALATION FOUR TIMES A DAY NEEDED TAKING FLONASE 50 MCG/ACT SUSPENSION 1 SPRAY IN EACH NOSTRIL NASALLY ONCE A DAY TAKING MIRALAX - POWDER 17 GRAMS ORALLY ONCE A DAY TAKING FISH OIL 500 MG CAPSULE 1 CAPSULE ORALLY TWICE A DAY TAKING COLON FORMULA 166.67-500 MG CAPSULE DIRECTED ORALLY TAKING TRAMADOL HCL 50 MG TABLET 1 TABLET NEEDED ORALLY EVERY 8 HOURS WHEN NECESSARY FOR PAIN MDD 3 #45 TABLETS SHOULD LAST 30 DAYS, NOTES: 2 WEEKS AGO TAKING BREO ELLIPTA 100-25 MCG/INH AEROSOL POWDER BREATH ACTIVATED 1 PUFF INHALATION ONCE A DAY TAKING CYMBALTA 30 MG CAPSULE DELAYED RELEASE PARTICLES 1 CAPSULE ORALLY ONCE A DAY TTD=90 MG, NOTES: 04/10/21 TAKING GABAPENTIN 300 MG CAPSULE 1 CAPSULE ORALLY BID, NOTES: 04/10/21 TAKING CRESTOR 20 MG TABLET 1 TABLET ORALLY ONCE A DAY TAKING CYMBALTA 60 MG CAPSULE DELAYED RELEASE PARTICLES 1 CAPSULE ORALLY ONCE A DAY TAKING MIRALAX 17 GM PACKET 1 PACKET MIXED WITH 8 OUNCES OF FLUID ORALLY TWICE A DAY TAKING FLEET ENEMA 7-19 GM/118ML ENEMA DIRECTED RECTAL TAKING DULCOLAX 5 MG TABLET DELAYED RELEASE 1 TABLET NEEDED ORALLY AT BEDTIME DAILY TAKING OMEPRAZOLE 40 MG CAPSULE DELAYED RELEASE TAKE ONE CAPSULE BY MOUTH TWICE A DAY ORALLY TWICE DAILY NOT-TAKING NICODERM CQ 21 MG/24HR PATCH 24 HOUR 1 PATCH TO SKIN TRANSDERMAL ONCE A DAY NOT-TAKING AIMOVIG 70 MG/ML SOLUTION AUTO-INJECTOR DIRECTED SUBCUTANEOUS MEDICATION LIST REVIEWED AND RECONCILED WITH THE PATIENT PAST MEDICAL HISTORY BACK PAIN CHRONIC/DDD - (PREVIOUSLY FOLLOWED BY DR. GUERRERO & DR. 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, FOLLOWED BY NEURO DAVID - ON CPAP PER NEUROLOGY STARTED 12/27/[address] ABD/PELVIS SHOWED "MATTING" OF SMALL BOWEL WITH APPARENT FECAL STASIS (01/2019) - EVALUATED BY GENERAL SURGERY 03/16/19 , 04/2019 RESECTION DUE TO ISCHEMIC BOWEL DEXA 09/2018 - FRAX 9.5/1.8% MIGRAINES OCCIPITAL NEUROLGIA ALLERGIES VICODIN: ITCHING - SIDE EFFECTS ATORVASTATIN CALCIUM: ELEVATED LIVER ENZYMES - SIDE EFFECTS CHANTIX: HALLUCINATIONS AND SI - SIDE EFFECTS DEPAKOTE: TREMORS - SIDE EFFECTS SOCIAL HISTORY GENERAL: TOBACCO USE ARE YOU A:CURRENT SMOKER ARE YOU INTERESTED IN QUITTING?READY TO QUIT PT HAS CUT WAY BACK TO 2 CIGS/DAY. USING THE NICOTINE PATCH PREVIOUS QUIT ATTEMPTS?YES, WITHIN THE LAST 6 MONTHS. COUNSELED THE PATIENT ON TOBACCO USE, CESSATION [id number]/14/2021 HOW MANY CIGARETTES A DAY DO YOU SMOKE?6-10 HOW SOON AFTER YOU WAKE UP DO YOU SMOKE YOUR FIRST CIGARETTE?6-30 MIN HOW OFTEN DO YOU SMOKE CIGARETTES?EVERY DAY PATIENT COUNSELED ON THE DANGERS OF TOBACCO USE AND URGED TO QUIT:11/01/2020 WE DISCUSSED HER STRADEGY TO "CUT DOWN " CURRENTLY SMOKING 3 A DAY SMOKING CESSATION INFORMATION GIVEN11/01/2020 LATEX QUESTIONNAIRE LATEX ALLERGY : HAVE YOU EVER DEVELOPED ANY TYPE OF REACTION AFTER HANDLING LATEX PRODUCTS SUCH RUBBER GLOVES, CONDOMS, DIAPHRAGMS, BALLOONS, SOCKS, OR UNDERWEAR?NO LATEX ALLERGY : HAVE YOU EVER DEVELOPED ANY TYPE OF REACTION DURING OR AFTER DENTAL APPOINTMENT, VAGINAL/RECTAL EXAMINATION, SURGICAL PROCEDURE, OR ANY OTHER EXPOSURE?NO LATEX RISK : HAVE YOU EVER HAD ANY DIFFICULTY BREATHING OR HIVES AFTER EATING OR HANDLING ANY FRUITS, OR VEGETABLES; SUCH KIWI, BANANAS, STONE FRUITS, OR CHESTNUTSNO LATEX RISK : DO YOU HAVE A PREVIOUS PERSONAL HISTORY OF MORE THAN NINE SURGERIES, SPINA BIFIDA, OR REPEATED CATHERIZATIONS? YES - PLEASE INDICATE : > 9 SURGERIES LATEX RISK : ARE YOU FREQUENTLY EXPOSED TO LATEX PRODUCTS IN YOUR OCCUPATION?NO DATE ASKED : 01/13/2021 ALCOHOL USE: NO. LUNG CANCER SCREENING SMOKING STATUS:CURRENT SMOKER IS THE PATIENT BETWEEN THE AGE OF 57 AND 79?YES HAS THE PATIENT EVER BEEN DIAGNOSED WITH LUNG CANCER?NO PACK YEARS = NUMBER OF PACKS PER DAY SMOKED X NUMBER OF YEARS SMOKED:60 CREATE REFERRAL:GENERATE AND CREATE REFERRAL TO THE ONCOLOGY NURSE NAVIGATOR (SMP) LISTING USING THE LDCT SCAN PROCEDURE ALCOHOL SCREENING DID YOU HAVE A DRINK CONTAINING ALCOHOL IN THE PAST YEAR?NO POINTS0 INTERPRETATIONNEGATIVE RECREATIONAL DRUG USE DRUG USE?NO CAFFEINE CAFFEINE USE?YES TEA SEXUAL HX HAD SEX IN THE LAST 12 MONTHS (VAGINAL, ORAL, OR ANAL)?YES WITHMEN ONLY USE PROTECTION?NO HAVE YOU EVER HAD AN STD?NO LMP:HYSTER DRUZE DRUZE NO EPISCOPAL BELIEFS THAT WOULD IMPACT HEALTH CARE. LANGUAGE LANGUAGES SPOKEN:AMHARIC LEARNING BARRIERS / SPECIAL NEEDS CHANGE FROM LAST VISIT?NO BARRIERS TO LEARNING?NO HEARING IMPAIRED?NO VISION IMPAIRED?YES :CORRECTIVE LENSES COGNITIVELY IMPAIRED?NO READINESS TO LEARN?YES LEARNING PREFERENCES?NO LEARNING CAPABILITIES PRESENT?YES EMOTIONAL BARRIERS?NO SPECIAL DEVICES?YES :CANE, BRACE HAND BRACE NEEDED SUPERVISOR PUMPING NEEDED?NO DIET: REGULAR. EXERCISE: NO REGULAR EXERCISE. MARITAL STATUS: . OTHERS AT HOME: SPOUSE. - WAS THE PROVIDER NOTIFIED OF ANY PERTINENT INFO?YES HAS THE PATIENT BEEN EDUCATED REGARDING HIS/HER PLAN OF CARE?YES HAS THE PATIENT BEEN EDUCATED REGARDING PAIN, THE RISK FOR PAIN, THE IMPORTANCE OF EFFECTIVE PAIN MANAGEMENT, AND THE PAIN ASSESSMENT PROCESS?YES ADVANCE DIRECTIVE ADVANCE DIRECTIVE DISCUSSED WITH PATIENT:YES DECLINED HCP INFORMATION, STATES SHE HAS THE INFORMATION AT HOME. DECLINES ASSISTANCE AT THIS TIME. VITAL SIGNS WT 115.2 LBS, WT-KG 52.25 KG, HT 64.5 IN, BMI 19.47 INDEX, BP 141/79 MM HG, HR 82 /MIN, RR 16 /MIN, TEMP 97.2 F, OXYGEN SAT % 93%, SAFE IN ENV? (Y/N) Y, NA INITIALS SC 10:17, REVIEWED BY: GLADYS. EXAMINATION GENERAL: THE PATIENT IS ALERT, ORIENTED TIMES THREE AND COOPERATIVE. LUNGS ARE CLEAR TO AUSCULTATION. HEART SHOWS REGULAR RHYTHM, NO MURMURS AND NO GALLOPS. 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 PATEL LOC: 1. ALERT, ORIENTED, MEAGHAN JOSHI 04/10/2021 11:53:40 AM > RESP: 1. REGULAR, NO DYSPNEA, MEAGHAN JOSHI 04/10/2021 11:53:44 AM > COLOR: 1. PINK, MEAGHAN JOSHI 04/10/2021 11:53:48 AM > SKIN: 1. WARM, DRY, SAHIL JOSHIBETH 04/10/2021 11:53:52 AM > POSITION: 1. PRONE, SAHIL JOSHIBETH 04/10/2021 11:43:10 AM > VITALS: 150/67, 77, 16, 95% SAHIL JOSHIBETH 04/10/2021 11:35:00 PM > , 149/69, 74, 16, 95%, SAHIL JOSHIBETH 04/10/2021 11:43:24 AM > 156/74, 74, 16, 95%, SAHIL JOSHIBETH 04/10/2021 11:54:13 AM > 155/83, 84, 16, 95%, SAHIL JOSHIBETH 04/10/2021 12:19:29 PM > NOTES Evie JOSHI RN, SAHIL JOSHIBETH 04/10/2021 11:43:29 AM > COMPLETION OF PROCEDURE APPOINTMENT: POST PAIN 6, DRESSING SITE DRY AND INTACT, IV N/A, GAIT STEADY, TEACHING COMPLETED, PATIENT ACKNOWLEDGES UNDERSTANDING YES, PROCEDURE APPOINTMENT COMPLETED AT 1219 PN LUMBAR FACET BLOCK DIAGNOSTIC PRE PROCEDURE DIAGNOSIS LUMBAR SPONDYLOSIS POST PROCEDURE DIAGNOSIS LUMBAR SPONDYLOSIS PROCEDURE BILATERAL L3-L4 AND BILATERAL L4-L5 FACET BLOCK DIAGNOSTIC NUMBER [address] HENRY PATEL DIGITAL DESIGNER NONE ANESTHESIA LOCAL PRE PROCEDURE NOTE THE PATIENT WITH HISTORY OF CHRONIC LOW BACK PAIN. I EVALUATED THE PATIENT AND REVIEWED THE CHART. I WENT OVER THE RISKS, ALTERNATIVES, AND BENEFITS ASSOCIATED WITH THIS PROCEDURE. THE PATIENT WOULD LIKE TO PROCEED AND GAVE CONSENT TO PERFORM THE PROCEDURE. AGREED WITH THE PATIENT, WE ARE DOING THIS PROCEDURE TO DETERMINE IF THE PATIENT IS A CANDIDATE FOR A RADIOFREQUENCY ABLATION OF THE FACETS JOINTS. THE PATIENT DENIES UNEXPLAINABLE WEIGHT LOSS, FEVER, CHILLS, OR NEW CHANGES IN URINARY OR BOWEL CONTROL. THE PATIENT IS COVID-19 ENGATIVE. I CHECKED THE PATIENT UNDER X-RAY AND SHE SEEMS TO HAVE PAIN AT L5-S1 WELL. DESCRIPTION OF PROCEDURE THE PATIENT WAS BROUGHT TO THE PROCEDURE ROOM AND PLACED IN THE PRONE POSITION. THE LUMBOSACRAL AREA WAS CLEANED WITH CHLORAPREP SOLUTION AND DRAPED ASEPTICALLY. THE PROCEDURE WAS DONE UNDER STERILE CONDITIONS. A TIMEOUT WAS PERFORMED WHERE THE CONSENTED SITE WAS VERIFIED WITH EVERYONE IN THE ROOM. UNDER FLUOROSCOPIC GUIDANCE, TARGETS WERE SELECTED AT THE INTERSECTION OF THE RIGHT AND LEFT TRANSVERSE PROCESS OF L3, L4 AND L5 WITH ITS RESPECTIVE SUPERIOR ARTICULAR PROCESS WITH A TARGET OF THE MEDIAN BRANCHES OF L2. L3 AND L4. I CONFIRMED AGAIN THE SITE OF TARGET. LIDOCAINE WAS USED TO NUMB THE SKIN AND THE SUBCUTANEOUS TISSUE BELOW IT. SPINAL NEEDLE, 22-GAUGE, WAS ADVANCED UNDER FLUOROSCOPIC GUIDANCE AND FOLLOWING PATIENT FEEDBACK UNTIL THE TARGETS WERE REACHED. POSITION OF THE NEEDLES WAS VERIFIED WITH AP AND LATERAL VIEWS. AFTER PROPER POSITION OF THE NEEDLES WAS ACHIEVED, ISOVUE-M DYE 30%, 0.1 ML, WAS INJECTED AT EACH SITE SHOWING ADEQUATE SPREAD OF THE DYE. THEN, A SOLUTION OF 0.4 ML OF BUPIVACAINE 0.25% WAS INJECTED AT EACH SITE. THE MEDICATIONS WERE VERIFIED WITH THE NURSE. THERE WAS NO EVIDENCE OF BLOOD, PARESTHESIA OR CEREBROSPINAL FLUID DURING THE PROCEDURE. THE PATIENT WAS SENT TO THE RECOVERY ROOM. THE PATIENT WAS MOVING THE EXTREMITIES AND DOING WELL. THERE WERE NO COMPLICATIONS DURING THE PROCEDURE. ESTIMATED BLOOD LOSS WAS LESS THAN 5 ML. FLUOROSCOPY TIME WAS 32 SECONDS POST PROCEDURE NOTE IF THE PATIENT HAS RESIDUAL PAIN IN THE BACK, WE SHOULD WORK WITH THE FACET OF L5-S1. THE PATIENT WILL DOCUMENT THE PAIN LEVEL AND RESPONSE TO THIS PROCEDURE PER PAIN DIARY. THE PATIENT WILL BE SEEN IN A FOLLOW UP IN THE NEXT FEW WEEKS. FURTHER DETERMINATION FOR THE PATIENT'S CASE WILL BE DONE AT THE NEXT VISIT. INSTRUCTIONS WERE GIVEN, QUESTIONS WERE ANSWERED, AND THE PATIENT EXPRESSED UNDERSTANDING AND AGREED WITH THE PLAN. I, TORRIE MOTA, DOCUMENTED THE ABOVE INFORMATION ACTING A SCRIBE FOR DR. PATEL. I HAVE REVIEWED THE ABOVE DOCUMENT, WRITTEN BY TORRIE MOAT, IMPROVEMENT LEAD, AND I VERIFY THAT IT IS ACCURATE VISIT CODES PROCEDURE CODES 34333 INJ PARAVERT F JNT L/S 1 LEV, MODIFIERS: 50 [id number] INJ PARAVERT F JNT L/S 2 LEV, MODIFIERS: 50 DISPOSITION & COMMUNICATION FOLLOW UP FOLLOW UP WITH AREA REPRESENTATIVE (REASON: POST BILATERAL DIAGNOSTIC LUMBAR FACET BLOCK L3-L4, L4-L5 #1) ELECTRONICALLY SIGNED BY HENRY PATEL MD, ON 04/12/2021 AT 06:05 PM EDT DISCLAIMER : THIS IS A VISIT SUMMARY EXTRACTED FROM THE [employer] CHART. IT IS NOT A COPY OF THE [email or web address] PROGRESS NOTE. CINTIA
== END ==
LOC: M PAIN 10:20
PROVIDERS: ATTEND Anesthesiology
DX: M47.817 Spondylosis without myelopathy or radiculopathy, lumbosacral region (principal); G47.33 Obstructive sleep apnea (adult) (pediatric); K21.9 Gastro-esophageal reflux disease without esophagitis; J44.9 Chronic obstructive pulmonary disease, unspecified; G43.909 Migraine, unspecified, not intractable, without status migrainosus; F17.210 Nicotine dependence, cigarettes, uncomplicated; Z88.5 Allergy status to narcotic agent; Z88.8 Allergy status to other drugs, medicaments and biological substances; Z79.51 Long term (current) use of inhaled steroids; Z79.899 Other long term (current) drug therapy
CPT/HCPCS: 64493; 64494; Q9967

== ENCOUNTER → 2021-05-10 | Outpatient (CLI) | payer MEDICARE ==
[~2021-05-10] MED LIST changes: -BUPIVACAINE HCL 0.25% 30ML VIAL As Ordered ONE; -ISOVUE-M 300 61% 15ML VIAL As Ordered ONE; -LIDOCAINE 1% SDV 30ML VIAL As Ordered ONE
== END ==
LOC: M PAIN 11:00
PROVIDERS: ATTEND Anesthesiology
DX: Z79.891 Long term (current) use of opiate analgesic (principal)

== ENCOUNTER → 2021-06-16 | Outpatient (REF) | payer MEDICARE ==
[~2021-06-16] MED LIST changes: +DOXY-443 PO; -DOXY1CAP62 PO
[2021-06-16 15:37] LABS: BASO # 0.1 10^3/uL (0.0-0.2); BASO % 0.7 % (0.0-1.0); EOS # 0.1 10^3/uL (0.0-0.5); EOS % 0.3 % (0.0-3.0); HEMATOCRIT 40.6 % (36.0-47.0); HEMOGLOBIN 13.1 g/dl (12.0-15.5); LYMPH # 2.9 10^3/uL (1.5-5.0); LYMPH % 15.4 % (24.0-44.0); MEAN CORPUSCULAR HEMOGLOBIN 31.8 pg (27.0-33.0); MEAN CORPUSCULAR HGB CONC 32.3 g/dl (32.0-36.5); MEAN CORPUSCULAR VOLUME 98.5 fl (80.0-96.0); MONO # 1.3 10^3/uL (0.0-0.8); MONO % 6.8 % (2.0-8.0); NEUTROPHILS # 14.4 10^3/uL (1.5-8.5); NEUTROPHILS % 76.3 % (36.0-66.0); PLATELET COUNT, AUTOMATED 441 10^3/uL (150-450); RED BLOOD COUNT 4.12 10^6/uL (4.00-5.40); WHITE BLOOD COUNT 18.8 10^3/uL (4.0-10.0)
[2021-06-16 16:01] LABS: ALBUMIN 2.7 GM/DL (3.2-5.2); ALT/SGPT 14 U/L (12-78); BILIRUBIN,TOTAL 0.3 MG/DL (0.2-1.0); BLOOD UREA NITROGEN 16 MG/DL (7-18); CALCIUM LEVEL 9.4 MG/DL (8.8-10.2); CARBON DIOXIDE LEVEL 29 MEQ/L (21-32); CHLORIDE LEVEL 101 MEQ/L (98-107); CHOLESTEROL LEVEL 117 MG/DL (<200); CHOLESTEROL RISK RATIO 1.857 (<5); CREATININE FOR GFR 0.76 MG/DL (0.55-1.30); FREE T4 0.86 NG/DL (0.76-1.46); GLOMERULAR FILTRATION RATE > 60.0 (>45); GLUCOSE, FASTING 73 MG/DL (70-100); HDL CHOLESTEROL 63 MG/DL (>40); LDL CHOLESTEROL 37 MG/DL (<100); NON-HDL-C 54 MG/DL; SODIUM LEVEL 135 MEQ/L (136-145); TOTAL PROTEIN 7.8 GM/DL (6.4-8.2); TRIGLYCERIDES LEVEL 84 MG/DL (<150)
[2021-06-16 16:02] LABS: TOTAL 25(OH) VITAMIN D 50.6 NG/ML (30.0-100.0)
== END ==
LOC: M SFHCADAM 11:12
PROVIDERS: ATTEND Physician Assistant
DX: J42 Unspecified chronic bronchitis (principal); R63.4 Abnormal weight loss; F17.218 Nicotine dependence, cigarettes, with other nicotine-induced disorders; E03.9 Hypothyroidism, unspecified; E78.00 Pure hypercholesterolemia, unspecified; R19.7 Diarrhea, unspecified; Z13.820 Encounter for screening for osteoporosis; Z79.899 Other long term (current) drug therapy
CPT/HCPCS: 80053; 80061; 82306; 84439; 84443; 85025; 86255; G0463

== ENCOUNTER → 2021-06-19 | Outpatient (CLI) | payer MEDICARE ==
--- NOTE | 2021-06-19 10:12 | REP ---
INDICATION: LEUKOCYTOSIS, UNSPECIFIED TYPE COMPARISON: CT dated 11/28/2020 TECHNIQUE: PA and lateral. FINDINGS: There is a thick walled cavitary lesion in the right apex measuring approximately 4.8 cm diameter with air-fluid level. This is a new finding as compared with most recent chest CT dated 11/28/2020. Remainder of lung english demonstrate chronic stable changes including chronic blunting at the costophrenic angles. The mediastinum and cardiac silhouette appear normal. The skeletal structures are intact. IMPRESSION: New cavitary lesion in the right apex with air-fluid level. This represents a new finding as compared with CT dated 11/28/2020 and may represent an infectious process. Correlation and follow-up is required. <Electronically signed by Marcoi Jordan > 06/19/21 2256
== END ==
LOC: M ADAMS 09:48
PROVIDERS: ATTEND Physician Assistant
DX: R91.8 Other nonspecific abnormal finding of lung field (principal); D72.829 Elevated white blood cell count, unspecified; J42 Unspecified chronic bronchitis; R63.4 Abnormal weight loss; F17.218 Nicotine dependence, cigarettes, with other nicotine-induced disorders; E03.9 Hypothyroidism, unspecified; E78.00 Pure hypercholesterolemia, unspecified; R19.7 Diarrhea, unspecified; Z13.820 Encounter for screening for osteoporosis

== ENCOUNTER → 2021-06-19 | Outpatient (REF) | payer MEDICARE ==
[~2021-06-19] MED LIST changes: -DOXY-443 PO; +DOXY1CAP62 PO
[2021-06-19 13:27] LABS: BASO # 0.1 10^3/uL (0.0-0.2); BASO % 0.7 % (0.0-1.0); EOS # 0.1 10^3/uL (0.0-0.5); EOS % 0.7 % (0.0-3.0); HEMATOCRIT 42.6 % (36.0-47.0); HEMOGLOBIN 13.5 g/dl (12.0-15.5); LYMPH # 2.6 10^3/uL (1.5-5.0); LYMPH % 19.3 % (24.0-44.0); MEAN CORPUSCULAR HEMOGLOBIN 31.3 pg (27.0-33.0); MEAN CORPUSCULAR HGB CONC 31.7 g/dl (32.0-36.5); MEAN CORPUSCULAR VOLUME 98.6 fl (80.0-96.0); MONO # 1.3 10^3/uL (0.0-0.8); MONO % 9.5 % (2.0-8.0); NEUTROPHILS # 9.5 10^3/uL (1.5-8.5); NEUTROPHILS % 69.4 % (36.0-66.0); PLATELET COUNT, AUTOMATED 348 10^3/uL (150-450); RED BLOOD COUNT 4.32 10^6/uL (4.00-5.40); WHITE BLOOD COUNT 13.7 10^3/uL (4.0-10.0)
== END ==
LOC: M SFHCADAM 09:42
PROVIDERS: ATTEND Physician Assistant
DX: D72.829 Elevated white blood cell count, unspecified (principal); J42 Unspecified chronic bronchitis; R63.4 Abnormal weight loss; F17.218 Nicotine dependence, cigarettes, with other nicotine-induced disorders; E03.9 Hypothyroidism, unspecified; Z13.820 Encounter for screening for osteoporosis; E78.00 Pure hypercholesterolemia, unspecified; R19.7 Diarrhea, unspecified

== ENCOUNTER → 2021-06-30 | Outpatient (CLI) | payer MEDICARE ==
[~2021-06-30] MED LIST changes: +DOXY-443 PO; -DOXY1CAP62 PO
--- NOTE | 2021-06-30 17:43 | ECHO ---
ECHOCARDIOGRAM DATE OF PROCEDURE: 06/30/2021 Age: 70 Gender: Female Height: 63 inches Weight: 109 pounds Body Surface Area: 1.49 m2 PATIENT LOCATION: Outpatient REFERRING PROVIDER: Ashley Kohler INDICATION: Heart Murmur MEASUREMENTS: 2D Measurements: RV - 3.0 cm LV - 4.0 cm Septum 1.0 cm Posterior wall 1.0 cm Aortic root 3.2 cm LA - 3.2 cm LVEF 75% Doppler Measurements: AV - 1.31 m/sec LVOT - 1.14 m/sec LVOT diameter 2.0 cm MV-E 87, A 102, EA ratio 0.9 Early mitral deceleration time 325 msec E prime medial 5.9 A prime medial 11.7 E prime lateral 7 Average E/E prime ratio 13.9/PCWP 19.2 mmHg PV - 0.87 m/sec Pulmonary artery acceleration time 113 msec PASP 32 mmHg IVC - 1.4 cm COMMENTS: Normal sinus rhythm without intraventricular conduction disturbance. M-mode and 2-dimensional cardiography was performed with pulse, continuous wave, color flow and tissue Doppler studies. . Normal left ventricular size, wall thickness and hyperkinetic wall motion. Normal left atrial size with grade 1 left ventricular (LV) diastolic dysfunction and current mean left atrial pressure upper limits of normal to slightly elevated. Normal right heart chamber sizes and motion with Doppler evidence of borderline pulmonary hypertension. Somewhat reduced inferior vena cava (IVC) size with adequate respiratory collapse suggestive of a central venous pressure that was relatively low. Normal aortic dimensions. Normal appearing and functioning aortic valve. Normal appearing and functioning mitral valve with only trace insufficiency. Normal appearing tricuspid valve with mild insufficiency (physiologic). No apparent intracardiac mass or pericardial effusion.
== END ==
LOC: M CARPUL 09:57
PROVIDERS: ATTEND Physician Assistant
DX: R01.1 Cardiac murmur, unspecified (principal)

== ENCOUNTER → 2021-07-14 | Outpatient (REF) | payer MEDICARE ==
[~2021-07-14] MED LIST changes: +DICY1CAP8 PO; -DICY20TA11 PO; +DICY20TA20 PO; +FISH1000 PO; +MUCI30TA5 PO; +OCUVCAP PO; +PAINTAB PO; +POLY30DR2 OU; +PROAAER10 INH; +PROBCAP14 PO; +TREL1AER IN
[2021-07-14 13:33] LABS: BASO # 0.1 10^3/uL (0.0-0.2); BASO % 1.3 % (0.0-1.0); EOS # 0.1 10^3/uL (0.0-0.5); HEMATOCRIT 42.1 % (36.0-47.0); LYMPH # 2.1 10^3/uL (1.5-5.0); MEAN CORPUSCULAR HGB CONC 30.9 g/dl (32.0-36.5); MEAN CORPUSCULAR VOLUME 100.2 fl (80.0-96.0); MONO # 0.5 10^3/uL (0.0-0.8); MONO % 8.5 % (2.0-8.0); NEUTROPHILS # 3.3 10^3/uL (1.5-8.5); NEUTROPHILS % 53.9 % (36.0-66.0); PLATELET COUNT, AUTOMATED 243 10^3/uL (150-450)
[2021-07-14 14:16] LABS: BLOOD UREA NITROGEN 15 MG/DL (7-18); CALCIUM LEVEL 9.2 MG/DL (8.8-10.2); CARBON DIOXIDE LEVEL 28 MEQ/L (21-32); CHLORIDE LEVEL 106 MEQ/L (98-107); CREATININE FOR GFR 0.82 MG/DL (0.55-1.30); GLOMERULAR FILTRATION RATE > 60.0 (>45); GLUCOSE, FASTING 82 MG/DL (70-100); POTASSIUM SERUM 4.6 MEQ/L (3.5-5.1); SODIUM LEVEL 139 MEQ/L (136-145)
== END ==
LOC: M SFHCADAM 10:25
PROVIDERS: ATTEND Physician Assistant
DX: R93.89 Abnormal findings on diagnostic imaging of other specified body structures (principal); Z79.899 Other long term (current) drug therapy

== ENCOUNTER → 2021-07-14 | Outpatient (REF) | payer MEDICARE | LOC: M LABDRWAD 13:24 | PROVIDERS: ATTEND Physician Assistant Medical | DX: G43.909 Migraine, unspecified, not intractable, without status migrainosus (principal); R91.8 Other nonspecific abnormal finding of lung field; R93.89 Abnormal findings on diagnostic imaging of other specified body structures; Z51.81 Encounter for therapeutic drug level monitoring; Z79.899 Other long term (current) drug therapy | CPT/HCPCS: 71046; 80048; 80203; 85025; G0463 ==

== ENCOUNTER → 2021-07-14 | Outpatient (CLI) | payer MEDICARE | LOC: M ADAMS 10:32 | PROVIDERS: ATTEND Physician Assistant | DX: R91.8 Other nonspecific abnormal finding of lung field (principal); R93.89 Abnormal findings on diagnostic imaging of other specified body structures ==

== ENCOUNTER → 2021-07-21 | Outpatient (REF) | payer MEDICARE ==
[~2021-07-21] MED LIST changes: -DICY1CAP8 PO; +DICY20TA11 PO; -DICY20TA20 PO; -FISH1000 PO; -MUCI30TA5 PO; -OCUVCAP PO; -PAINTAB PO; -POLY30DR2 OU; -PROAAER10 INH; -PROBCAP14 PO; -TREL1AER IN
[2021-07-21 13:39] LABS: BLOOD UREA NITROGEN 15 MG/DL (7-18); CALCIUM LEVEL 9.2 MG/DL (8.8-10.2); CARBON DIOXIDE LEVEL 29 MEQ/L (21-32); CHLORIDE LEVEL 107 MEQ/L (98-107); CREATININE FOR GFR 0.89 MG/DL (0.55-1.30); GLOMERULAR FILTRATION RATE > 60.0 (>45); GLUCOSE, FASTING 106 MG/DL (70-100); POTASSIUM SERUM 4.2 MEQ/L (3.5-5.1); SODIUM LEVEL 141 MEQ/L (136-145)
== END ==
LOC: M SFHCADAM 09:08
PROVIDERS: ATTEND Physician Assistant
DX: J98.4 Other disorders of lung (principal)

== ENCOUNTER → 2021-07-24 | Outpatient (CLI) | payer MEDICARE ==
[~2021-07-24] MED LIST changes: +ISOVUE-370 76% 100ML VIAL ONE
--- NOTE | 2021-07-24 14:38 | REP ---
INDICATION: LUNG ABNORMALITY COMPARISON: Multiple the latest 11/28/2020 a low-dose screening CT of the lungs TECHNIQUE: Standard helical technique after the intravenous administration of 100 cc Isovue 370 FINDINGS: There is no mediastinal or hilar adenopathy. There are no pleural or pericardial effusions. The imaged upper abdomen is within normal limits. The imaged osseous structures show chronic spinal degenerative changes. Evaluation of the lung english shows a large abnormal right apical opacity with air bronchograms and multiple cystic airspaces. This is seen contacting the lateral pleural surface of the right upper lobe with spiculation. This represents a significant change compared to the latest prior chest CT. The lung english are otherwise stable. IMPRESSION: Abnormal right upper lobe opacity and filling the right lung cupola as described above. Etiology uncertain. Infectious and/or neoplastic change. Pulmonary consultation is recommended. <Electronically signed by Demetrius Reddy > 07/24/21 1479
== END ==
LOC: M PLAIMG 13:46
PROVIDERS: ATTEND Physician Assistant
DX: R91.8 Other nonspecific abnormal finding of lung field (principal); J98.4 Other disorders of lung
CPT/HCPCS: 71260; Q9967

== ENCOUNTER → 2021-09-06 | Outpatient (CLI) | payer MEDICARE ==
[~2021-09-06] MED LIST changes: -ISOVUE-370 76% 100ML VIAL ONE
== END ==
LOC: M PAIN 10:15
PROVIDERS: ATTEND Anesthesiology
DX: M47.816 Spondylosis without myelopathy or radiculopathy, lumbar region (principal); K21.9 Gastro-esophageal reflux disease without esophagitis; K64.8 Other hemorrhoids; J44.9 Chronic obstructive pulmonary disease, unspecified; E78.5 Hyperlipidemia, unspecified; E55.9 Vitamin D deficiency, unspecified; G47.33 Obstructive sleep apnea (adult) (pediatric); K58.1 Irritable bowel syndrome with constipation; G43.909 Migraine, unspecified, not intractable, without status migrainosus; F17.210 Nicotine dependence, cigarettes, uncomplicated; Z79.891 Long term (current) use of opiate analgesic; Z79.899 Other long term (current) drug therapy; Z88.5 Allergy status to narcotic agent; Z88.8 Allergy status to other drugs, medicaments and biological substances

== ENCOUNTER → 2021-09-15 | Outpatient (CLI) | payer MEDICARE ==
[~2021-09-15] MED LIST changes: -DICY20TA11 PO; +DICY20TA20 PO
== END ==
LOC: M RAD 08:19
PROVIDERS: ATTEND Internal Medicine Pulmonary Disease
DX: R91.8 Other nonspecific abnormal finding of lung field (principal)

== ENCOUNTER → 2021-09-22 | Outpatient (CLI) | payer MEDICARE | LOC: M LABSMTC 11:00 | PROVIDERS: ATTEND Internal Medicine Pulmonary Disease | DX: Z01.812 Encounter for preprocedural laboratory examination (principal); Z20.822 Contact with and (suspected) exposure to COVID-19 ==

== ENCOUNTER 2021-09-27 06:48 | Day surgery (SDC) | payer MEDICARE ==
[~2021-09-27] VITALS: Ht 163.2 cm; Wt 53.9 kg
[~2021-09-27 06:48] MED LIST changes: +ALBUTEROL SULFATE 2.5 MG/0.5 ML INH NEB SOLN INH ONE; +DICY1CAP8 PO; +FISH1000 PO; +LIDOCAINE 4% INJ 5ML AMP NEB ONE; +LR 1,000 ML IV ONE; +MUCI30TA5 PO; +OCUVCAP PO; +PAINTAB PO; +POLY30DR2 OU; +PROAAER10 INH; +PROBCAP14 PO; +TREL1AER IN
[2021-09-27] MEDS ORDERED: ONDANSETRON 4MG/2ML VIAL As Ordered ONE (07:58)
[2021-09-27] MEDS ORDERED: LIDOCAINE 2% 100MG/5ML SDV (FOR ANES.) As Ordered ONE (07:58)
[2021-09-27] MEDS ORDERED: KETOROLAC 60MG 2ML VIAL As Ordered ONE (07:58)
[2021-09-27] MEDS ORDERED: propofoL 200 MG/20 ML VIAL As Ordered ONE (07:58)
[2021-09-27] MEDS ORDERED: SUGAMMADEX SODIUM 500 MG/5 ML VIAL (BRIDION) As Ordered ONE (07:58)
[2021-09-27] MEDS ORDERED: dexameTHASONE 4 MG/ML 1ML VIAL (J1100 PER 1MG) As Ordered ONE (07:58)
[2021-09-27] MEDS ORDERED: ROCURONIUM BROMIDE 50 MG/5 ML VIAL As Ordered ONE (07:58)
[2021-09-27] MEDS ORDERED: MIDAZOLAM INJ 2MG/2ML VIAL (J2250 PER 1MG) As Ordered ONE (07:59)
[2021-09-27] MEDS ORDERED: fentaNYL 100 MCG/2 ML INJECTION As Ordered ONE (07:59)
[2021-09-27] MEDS ORDERED: CETACAINE SPRAY 5GM As Ordered ONE (08:27)
[2021-09-27] MEDS ORDERED: EPINEPHrine 1MG/10ML SYRINGE 1.5IN As Ordered ONE (10:33)
[2021-09-27] MEDS ORDERED: fentaNYL 100 MCG/2 ML INJECTION IV PRN (10:45)
[2021-09-27] MEDS ORDERED: ONDANSETRON 4MG/2ML VIAL IV PRN (10:45)
[2021-09-27] MEDS ORDERED: LR 1,000 ML IV SCH (10:45)
[2021-09-27 12:40] VITALS: BP 165/86
== END 2021-09-27 12:40 | disposition home or self-care (01) ==
LOC: M SDC 06:48
PROVIDERS: ATTEND Internal Medicine Pulmonary Disease
DX: J98.4 Other disorders of lung (principal); G47.30 Sleep apnea, unspecified; J44.9 Chronic obstructive pulmonary disease, unspecified; F17.218 Nicotine dependence, cigarettes, with other nicotine-induced disorders; Z79.899 Other long term (current) drug therapy; Z88.5 Allergy status to narcotic agent; Z88.8 Allergy status to other drugs, medicaments and biological substances
CPT/HCPCS: 31623; 31624; 31627; 31628; 31654; 71045; 76000; 87070; 87102; 87116; 87205; 87206; 88104; 88108; 88305; 88313; 93005; J1100; J1885; J2250; J2405; J3010

== ENCOUNTER → 2021-10-04 | Outpatient (CLI) | payer MEDICARE ==
[~2021-10-04] MED LIST changes: -ALBUTEROL SULFATE 2.5 MG/0.5 ML INH NEB SOLN INH ONE; -LIDOCAINE 4% INJ 5ML AMP NEB ONE; -LR 1,000 ML IV ONE
== END ==
LOC: M LABSMTC 09:08
PROVIDERS: ATTEND Anesthesiology
DX: Z01.812 Encounter for preprocedural laboratory examination (principal); Z11.52 Encounter for screening for COVID-19

== ENCOUNTER → 2021-10-09 | Outpatient (CLI) | payer MEDICARE ==
[~2021-10-09] MED LIST changes: +BUPIVACAINE HCL 0.25% 30ML VIAL As Ordered ONE; +ISOVUE-M 300 61% 15ML VIAL As Ordered ONE; +LIDOCAINE 1% SDV 30ML VIAL As Ordered ONE
== END ==
LOC: M PAIN 10:00
PROVIDERS: ATTEND Anesthesiology
DX: M47.816 Spondylosis without myelopathy or radiculopathy, lumbar region (principal); G47.33 Obstructive sleep apnea (adult) (pediatric); K21.9 Gastro-esophageal reflux disease without esophagitis; J44.9 Chronic obstructive pulmonary disease, unspecified; G43.909 Migraine, unspecified, not intractable, without status migrainosus; F17.210 Nicotine dependence, cigarettes, uncomplicated; Z88.5 Allergy status to narcotic agent; Z88.8 Allergy status to other drugs, medicaments and biological substances; Z79.51 Long term (current) use of inhaled steroids; Z79.899 Other long term (current) drug therapy
CPT/HCPCS: 64493; 64494; Q9967

== ENCOUNTER → 2021-11-08 | Outpatient (CLI) | payer MEDICARE ==
[~2021-11-08] MED LIST changes: -BUPIVACAINE HCL 0.25% 30ML VIAL As Ordered ONE; -ISOVUE-M 300 61% 15ML VIAL As Ordered ONE; -LIDOCAINE 1% SDV 30ML VIAL As Ordered ONE
== END ==
LOC: M PAIN 09:30
PROVIDERS: ATTEND Anesthesiology
DX: M47.816 Spondylosis without myelopathy or radiculopathy, lumbar region (principal); K21.9 Gastro-esophageal reflux disease without esophagitis; K64.8 Other hemorrhoids; J44.9 Chronic obstructive pulmonary disease, unspecified; E78.5 Hyperlipidemia, unspecified; E55.9 Vitamin D deficiency, unspecified; M54.81 Occipital neuralgia; G47.33 Obstructive sleep apnea (adult) (pediatric); K58.1 Irritable bowel syndrome with constipation; G43.909 Migraine, unspecified, not intractable, without status migrainosus; F17.210 Nicotine dependence, cigarettes, uncomplicated; Z79.891 Long term (current) use of opiate analgesic; Z79.899 Other long term (current) drug therapy; Z88.5 Allergy status to narcotic agent; Z88.8 Allergy status to other drugs, medicaments and biological substances

== ENCOUNTER → 2021-12-04 | Outpatient (CLI) | payer MEDICARE | LOC: M PLARAD 14:02 | PROVIDERS: ATTEND Internal Medicine Pulmonary Disease | DX: R91.8 Other nonspecific abnormal finding of lung field (principal) | CPT/HCPCS: 78815; A9552 ==

== ENCOUNTER → 2022-01-26 | Outpatient (CLI) | payer MEDICARE ==
[~2022-01-26] MED LIST changes: +ALBU2.5V10 INH; -ALBU83IN INH; -ZONI100C17 PO; +ZONI100C67 PO
== END ==
LOC: M PLAIMG 11:18
PROVIDERS: ATTEND Physician Assistant
DX: R05.9 Cough, unspecified (principal)

== ENCOUNTER 2022-03-06 14:50 | Emergency (ER) | payer MEDICARE ==
[~2022-03-06] VITALS: Ht 162.6 cm; Wt 57.7 kg
[2022-03-06 14:51] VITALS: BP 153/90
[2022-03-06] MEDS ORDERED: KETOROLAC 60MG 2ML VIAL IM ONE (18:45)
[2022-03-06] MEDS ORDERED: methocarbamoL 750 MG TAB PO ONE (18:45)
[2022-03-06] MEDS ORDERED: LIDOCAINE 5% (LIDODERM) PATCH TD ONE (18:45)
[2022-03-06] MEDS ORDERED: traMADol 50 MG TAB PO ONE (18:45)
[2022-03-06] MEDS ORDERED: LIDO5DIS41 TD (19:39)
[2022-03-06] MEDS ORDERED: TRAM50TA2 PO (19:39)
[2022-03-06] MEDS ORDERED: METH-1165 PO (19:39)
[2022-03-06] MEDS ORDERED: **NOTE PATIENT COMMENT** MISC XX SCH (21:00)
== END 2022-03-06 19:58 | disposition home or self-care (01) ==
LOC: M ED 14:50
DX: G89.29 Other chronic pain (principal); M54.50 Low back pain, unspecified; J45.909 Unspecified asthma, uncomplicated; E78.5 Hyperlipidemia, unspecified; K58.9 Irritable bowel syndrome, unspecified; G47.33 Obstructive sleep apnea (adult) (pediatric); Z87.19 Personal history of other diseases of the digestive system; Z86.69 Personal history of other diseases of the nervous system and sense organs; Z79.899 Other long term (current) drug therapy; Z88.5 Allergy status to narcotic agent; Z88.8 Allergy status to other drugs, medicaments and biological substances; F17.200 Nicotine dependence, unspecified, uncomplicated
CPT/HCPCS: 96372; 99282; J1885

== ENCOUNTER → 2022-03-28 | Outpatient (CLI) | payer MEDICARE ==
[~2022-03-28] MED LIST changes: +LIDO5DIS41 TD; +METH-1165 PO
== END ==
LOC: M PAIN 11:15
PROVIDERS: ATTEND Anesthesiology
DX: M47.816 Spondylosis without myelopathy or radiculopathy, lumbar region (principal); K21.9 Gastro-esophageal reflux disease without esophagitis; K64.8 Other hemorrhoids; M19.90 Unspecified osteoarthritis, unspecified site; J44.9 Chronic obstructive pulmonary disease, unspecified; E78.5 Hyperlipidemia, unspecified; E55.9 Vitamin D deficiency, unspecified; M48.062 Spinal stenosis, lumbar region with neurogenic claudication; M50.30 Other cervical disc degeneration, unspecified cervical region; M54.81 Occipital neuralgia; G47.33 Obstructive sleep apnea (adult) (pediatric); K58.1 Irritable bowel syndrome with constipation; G43.909 Migraine, unspecified, not intractable, without status migrainosus; F17.210 Nicotine dependence, cigarettes, uncomplicated; Z79.891 Long term (current) use of opiate analgesic; Z79.899 Other long term (current) drug therapy; Z88.5 Allergy status to narcotic agent; Z88.8 Allergy status to other drugs, medicaments and biological substances

== ENCOUNTER → 2022-03-29 | Outpatient (CLI) | payer MEDICARE | LOC: M PAIN 09:00 | PROVIDERS: ATTEND Nurse Practitioner Family | DX: Z79.891 Long term (current) use of opiate analgesic (principal) ==

== ENCOUNTER → 2022-04-11 | Outpatient (CLI) | payer MEDICARE | LOC: M PLAIMG 13:08 | PROVIDERS: ATTEND Internal Medicine Pulmonary Disease | DX: R91.8 Other nonspecific abnormal finding of lung field (principal) ==

== ENCOUNTER → 2022-06-14 | Outpatient (REF) | payer MEDICARE ==
[2022-06-14 15:46] LABS: BASO # 0.1 10^3/uL (0.0-0.2); BASO % 0.7 % (0.0-1.0); EOS # 0.2 10^3/uL (0.0-0.5); EOS % 1.7 % (0.0-3.0); HEMATOCRIT 46.1 % (36.0-47.0); HEMOGLOBIN 14.7 g/dl (12.0-15.5); LYMPH # 3.1 10^3/uL (1.5-5.0); LYMPH % 25.8 % (24.0-44.0); MEAN CORPUSCULAR HEMOGLOBIN 32.7 pg (27.0-33.0); MEAN CORPUSCULAR HGB CONC 31.9 g/dl (32.0-36.5); MEAN CORPUSCULAR VOLUME 102.7 fl (80.0-96.0); MONO % 8.5 % (2.0-8.0); NEUTROPHILS # 7.7 10^3/uL (1.5-8.5); NEUTROPHILS % 63.1 % (36.0-66.0); PLATELET COUNT, AUTOMATED 233 10^3/uL (150-450); RED BLOOD COUNT 4.49 10^6/uL (4.00-5.40); WHITE BLOOD COUNT 12.1 10^3/uL (4.0-10.0)
[2022-06-14 16:49] LABS: ALBUMIN 3.8 GM/DL (3.2-5.2); ALT/SGPT 26 U/L (12-78); BILIRUBIN,TOTAL 0.4 MG/DL (0.2-1.0); BLOOD UREA NITROGEN 20 MG/DL (7-18); CALCIUM LEVEL 9.2 MG/DL (8.8-10.2); CARBON DIOXIDE LEVEL 30 MEQ/L (21-32); CHLORIDE LEVEL 103 MEQ/L (98-107); CHOLESTEROL LEVEL 151 MG/DL (<200); CHOLESTEROL RISK RATIO 1.935 (<5); CREATININE FOR GFR 0.92 MG/DL (0.55-1.30); FREE T4 0.82 NG/DL (0.76-1.46); GLOMERULAR FILTRATION RATE > 60.0 (>45); GLUCOSE, FASTING 122 MG/DL (70-100); HDL CHOLESTEROL 78 MG/DL (>40); LDL CHOLESTEROL 41 MG/DL (<100); NON-HDL-C 73 MG/DL; SODIUM LEVEL 141 MEQ/L (136-145); TOTAL PROTEIN 7.3 GM/DL (6.4-8.2); TRIGLYCERIDES LEVEL 160 MG/DL (<150)
== END ==
LOC: M SFHCADAM 14:04
PROVIDERS: ATTEND Physician Assistant
DX: J40 Bronchitis, not specified as acute or chronic (principal); E03.9 Hypothyroidism, unspecified; E78.00 Pure hypercholesterolemia, unspecified; F17.219 Nicotine dependence, cigarettes, with unspecified nicotine-induced disorders

== ENCOUNTER → 2022-07-11 | Outpatient (CLI) | payer MEDICARE | LOC: M LABSMTC 09:28 | PROVIDERS: ATTEND Anesthesiology | DX: Z01.812 Encounter for preprocedural laboratory examination (principal); Z20.822 Contact with and (suspected) exposure to COVID-19 ==

== ENCOUNTER → 2022-07-16 | Outpatient (CLI) | payer MEDICARE ==
[~2022-07-16] MED LIST changes: +BUPIVACAINE HCL 0.25% 30ML VIAL As Ordered ONE; +LIDOCAINE 1% SDV 30ML VIAL As Ordered ONE; +dexameTHASONE 10MG/1ML VIAL PRES.FREE (J1100 PER 1MG) As Ordered ONE; +diazePAM 5MG TABLET As Ordered ONE; +oxyCODONE 5MG TAB As Ordered ONE
== END ==
LOC: M PAIN 11:00
PROVIDERS: ATTEND Anesthesiology
DX: M47.816 Spondylosis without myelopathy or radiculopathy, lumbar region (principal); M47.817 Spondylosis without myelopathy or radiculopathy, lumbosacral region; K21.9 Gastro-esophageal reflux disease without esophagitis; K64.8 Other hemorrhoids; M19.90 Unspecified osteoarthritis, unspecified site; J44.9 Chronic obstructive pulmonary disease, unspecified; E78.5 Hyperlipidemia, unspecified; E55.9 Vitamin D deficiency, unspecified; M48.062 Spinal stenosis, lumbar region with neurogenic claudication; M50.30 Other cervical disc degeneration, unspecified cervical region; M54.81 Occipital neuralgia; G47.33 Obstructive sleep apnea (adult) (pediatric); K58.1 Irritable bowel syndrome with constipation; G43.909 Migraine, unspecified, not intractable, without status migrainosus; F17.210 Nicotine dependence, cigarettes, uncomplicated; Z79.891 Long term (current) use of opiate analgesic; Z79.899 Other long term (current) drug therapy; Z88.5 Allergy status to narcotic agent; Z88.8 Allergy status to other drugs, medicaments and biological substances
CPT/HCPCS: 64635; 64636; J1100

== ENCOUNTER 2022-07-23 14:05 | Emergency (ER) | payer MEDICARE ==
[~2022-07-23] VITALS: Ht 162.6 cm; Wt 57.4 kg
[~2022-07-23 14:05] MED LIST changes: -BUPIVACAINE HCL 0.25% 30ML VIAL As Ordered ONE; -LIDOCAINE 1% SDV 30ML VIAL As Ordered ONE; -dexameTHASONE 10MG/1ML VIAL PRES.FREE (J1100 PER 1MG) As Ordered ONE; -diazePAM 5MG TABLET As Ordered ONE; -oxyCODONE 5MG TAB As Ordered ONE
[2022-07-23 16:34] VITALS: BP 154/82
== END 2022-07-23 16:40 | disposition home or self-care (01) ==
LOC: M ED 14:05
DX: J00 Acute nasopharyngitis [common cold] (principal); S01.01XA Laceration without foreign body of scalp, initial encounter; J44.1 Chronic obstructive pulmonary disease with (acute) exacerbation; K21.9 Gastro-esophageal reflux disease without esophagitis; F17.200 Nicotine dependence, unspecified, uncomplicated; Z79.899 Other long term (current) drug therapy; Z88.8 Allergy status to other drugs, medicaments and biological substances; Z88.5 Allergy status to narcotic agent

== ENCOUNTER → 2022-08-08 | Outpatient (CLI) | payer MEDICARE | LOC: M PAIN 12:45 | PROVIDERS: ATTEND Anesthesiology | DX: G89.29 Other chronic pain (principal); M47.816 Spondylosis without myelopathy or radiculopathy, lumbar region; K21.9 Gastro-esophageal reflux disease without esophagitis; J44.9 Chronic obstructive pulmonary disease, unspecified; E78.5 Hyperlipidemia, unspecified; E55.9 Vitamin D deficiency, unspecified; M48.02 Spinal stenosis, cervical region; M54.81 Occipital neuralgia; G47.33 Obstructive sleep apnea (adult) (pediatric); K58.1 Irritable bowel syndrome with constipation; G43.909 Migraine, unspecified, not intractable, without status migrainosus; Z87.891 Personal history of nicotine dependence; Z79.891 Long term (current) use of opiate analgesic; Z79.899 Other long term (current) drug therapy; Z88.5 Allergy status to narcotic agent; Z88.8 Allergy status to other drugs, medicaments and biological substances ==

== ENCOUNTER → 2023-01-23 | Outpatient (CLI) | payer MEDICARE ==
[~2023-01-23] MED LIST changes: +FLUT50SP17; -FLUTISP
== END ==
LOC: M PLAIMG 09:50
PROVIDERS: ATTEND Internal Medicine Pulmonary Disease
DX: R91.8 Other nonspecific abnormal finding of lung field (principal)

== ENCOUNTER → 2023-04-03 | Outpatient (REF) | payer MEDICARE ==
[~2023-04-03] MED LIST changes: -ROPI0.253 PO; +ROPI5TAB19 PO; -ROSU20TA5 PO; +ROSU20TA61 PO
[2023-04-03 16:15] LABS: HEMATOCRIT 41.3 % (36.0-47.0); HEMOGLOBIN 12.9 g/dl (12.0-15.5); MEAN CORPUSCULAR HEMOGLOBIN 32.7 pg (27.0-33.0); MEAN CORPUSCULAR HGB CONC 31.2 g/dl (32.0-36.5); MEAN CORPUSCULAR VOLUME 104.8 fl (80.0-96.0); PLATELET COUNT, AUTOMATED 185 10^3/uL (150-450); RED BLOOD COUNT 3.94 10^6/uL (4.00-5.40); WHITE BLOOD COUNT 7.4 10^3/uL (4.0-10.0)
[2023-04-03 16:16] LABS: BLOOD UREA NITROGEN 15 MG/DL (9-23); CARBON DIOXIDE LEVEL 30 MMOL/L (20-31); CHLORIDE LEVEL 103 MMOL/L (98-107); CREATININE FOR GFR 0.86 MG/DL (0.55-1.30); GLOMERULAR FILTRATION RATE > 60.0 (>39); GLUCOSE, FASTING 83 MG/DL (74-106); POTASSIUM SERUM 4.2 MMOL/L (3.5-5.1); SODIUM LEVEL 139 MMOL/L (136-145)
[2023-04-03 18:56] LABS: ATYPICAL LYMPH 5 % (0-5); BASOPHILS 2 % (0-1); LYMPHOCYTES 31 % (16-44); MONOCYTES 7 % (0-5); NEUTROPHILS 54 % (28-66); PLATELET ESTIMATE NORMAL (NORMAL)
== END ==
LOC: M SFHCADAM 14:41
PROVIDERS: ATTEND Physician Assistant
DX: R10.814 Left lower quadrant abdominal tenderness (principal); K59.00 Constipation, unspecified

== ENCOUNTER → 2023-04-05 | Outpatient (CLI) | payer MEDICARE ==
[~2023-04-05] MED LIST changes: +GASTROGRAFIN SOLUTION 30ML As Ordered ONE; +ISOVUE-370 76% 100ML VIAL As Ordered ONE
== END ==
LOC: M RAD 07:23
PROVIDERS: ATTEND Physician Assistant
DX: R10.814 Left lower quadrant abdominal tenderness (principal); K59.00 Constipation, unspecified
CPT/HCPCS: 74177; Q9963; Q9967

== ENCOUNTER → 2023-04-18 | Outpatient (CLI) | payer MEDICARE ==
[~2023-04-18] MED LIST changes: -GASTROGRAFIN SOLUTION 30ML As Ordered ONE; -ISOVUE-370 76% 100ML VIAL As Ordered ONE
== END ==
LOC: M PAIN 14:30
PROVIDERS: ATTEND Nurse Practitioner Family
DX: M47.816 Spondylosis without myelopathy or radiculopathy, lumbar region (principal); M43.07 Spondylolysis, lumbosacral region; Z79.891 Long term (current) use of opiate analgesic; G89.29 Other chronic pain; K21.9 Gastro-esophageal reflux disease without esophagitis; J44.9 Chronic obstructive pulmonary disease, unspecified; E78.5 Hyperlipidemia, unspecified; E55.9 Vitamin D deficiency, unspecified; M47.812 Spondylosis without myelopathy or radiculopathy, cervical region; G47.33 Obstructive sleep apnea (adult) (pediatric); K58.1 Irritable bowel syndrome with constipation; G43.909 Migraine, unspecified, not intractable, without status migrainosus; M54.81 Occipital neuralgia; Z87.891 Personal history of nicotine dependence; Z79.899 Other long term (current) drug therapy; Z88.5 Allergy status to narcotic agent; Z88.8 Allergy status to other drugs, medicaments and biological substances

== ENCOUNTER → 2023-04-19 | Outpatient (CLI) | payer MEDICARE | LOC: M PAIN 10:30 | PROVIDERS: ATTEND Nurse Practitioner Family | DX: Z79.891 Long term (current) use of opiate analgesic (principal) ==

== ENCOUNTER 2023-04-22 15:31 | Emergency (ER) | payer MEDICARE ==
[~2023-04-22] VITALS: Ht 162.6 cm; Wt 56.6 kg
[2023-04-22 15:36] VITALS: BP 157/74; TEMP 97.7; O2SAT 97
[2023-04-22] MEDS ORDERED: LIDOCAINE 2% MDV 20ML VIAL SC ONE (19:35)
[2023-04-22] MEDS ORDERED: BOOSTRIX VACCINE (TETANUS/DIPHTH/ACEL. PERTUSSIS) 0.5ML SYR IM.IMMUN ONE (19:35)
[2023-04-22] MEDS ORDERED: NEOSPORIN OINT 0.9 GM PKT TOP ONE (19:35)
== END 2023-04-22 20:27 | disposition home or self-care (01) ==
LOC: M ED 15:31
DX: S61.215A Laceration without foreign body of left ring finger without damage to nail, initial encounter (principal); W26.8XXA Contact with other sharp object(s), not elsewhere classified, initial encounter; Y92.009 Unspecified place in unspecified non-institutional (private) residence as the place of occurrence of the external cause; Z23 Encounter for immunization

== ENCOUNTER → 2023-06-03 | Outpatient (CLI) | payer MEDICARE | LOC: M RAD 14:21 | PROVIDERS: ATTEND Nurse Practitioner Family | DX: M47.816 Spondylosis without myelopathy or radiculopathy, lumbar region (principal) ==

== ENCOUNTER → 2023-06-07 | Outpatient (CLI) | payer MEDICARE | LOC: M WHC 14:32 | PROVIDERS: ATTEND Nurse Practitioner Family | DX: Z12.31 Encounter for screening mammogram for malignant neoplasm of breast (principal) ==

== ENCOUNTER → 2023-07-18 | Outpatient (CLI) | payer MEDICARE | LOC: M PAIN 16:30 | PROVIDERS: ATTEND Nurse Practitioner Family | DX: M51.16 Intervertebral disc disorders with radiculopathy, lumbar region (principal); G89.29 Other chronic pain; K21.9 Gastro-esophageal reflux disease without esophagitis; J44.9 Chronic obstructive pulmonary disease, unspecified; E78.5 Hyperlipidemia, unspecified; E55.9 Vitamin D deficiency, unspecified; M54.81 Occipital neuralgia; G47.33 Obstructive sleep apnea (adult) (pediatric); K58.1 Irritable bowel syndrome with constipation; G43.909 Migraine, unspecified, not intractable, without status migrainosus; F17.210 Nicotine dependence, cigarettes, uncomplicated; Z79.891 Long term (current) use of opiate analgesic; Z79.899 Other long term (current) drug therapy; Z88.5 Allergy status to narcotic agent; Z88.8 Allergy status to other drugs, medicaments and biological substances ==

== ENCOUNTER → 2023-08-21 | Outpatient (REF) | payer MEDICARE ==
[~2023-08-21] MED LIST changes: -FLUT50SP17; +FLUTISP
[2023-08-21 14:02] LABS: BASO # 0.1 10^3/uL (0.0-0.2); BASO % 0.7 % (0.0-1.0); EOS # 0.2 10^3/uL (0.0-0.5); EOS % 2.1 % (0.0-3.0); HEMATOCRIT 43.2 % (36.0-47.0); HEMOGLOBIN 13.3 g/dl (12.0-15.5); LYMPH # 2.5 10^3/uL (1.5-5.0); LYMPH % 29.2 % (24.0-44.0); MEAN CORPUSCULAR HEMOGLOBIN 31.7 pg (27.0-33.0); MEAN CORPUSCULAR HGB CONC 30.8 g/dl (32.0-36.5); MEAN CORPUSCULAR VOLUME 103.1 fl (80.0-96.0); MONO # 0.8 10^3/uL (0.0-0.8); MONO % 9.3 % (2.0-8.0); NEUTROPHILS # 4.9 10^3/uL (1.5-8.5); NEUTROPHILS % 58.3 % (36.0-66.0); PLATELET COUNT, AUTOMATED 268 10^3/uL (150-450); RED BLOOD COUNT 4.19 10^6/uL (4.00-5.40); WHITE BLOOD COUNT 8.4 10^3/uL (4.0-10.0)
[2023-08-21 14:31] LABS: ALBUMIN 3.9 G/DL (3.2-5.2); ALKALINE PHOSPHATASE 94 U/L (46-116); ALT/SGPT 21 U/L (7.0-40); AST/SGOT 36 U/L (<34); BILIRUBIN,TOTAL 0.2 MG/DL (0.3-1.2); BLOOD UREA NITROGEN 13 MG/DL (9-23); CALCIUM LEVEL 9.4 MG/DL (8.3-10.6); CARBON DIOXIDE LEVEL 29 MMOL/L (20-31); CHLORIDE LEVEL 103 MMOL/L (98-107); CHOLESTEROL LEVEL 143 MG/DL (<200); CHOLESTEROL RISK RATIO 1.89 (<5); CREATININE FOR GFR 0.73 MG/DL (0.55-1.30); GLOMERULAR FILTRATION RATE > 60.0 (>39); GLUCOSE, FASTING 98 MG/DL (74-106); HDL CHOLESTEROL 75.5 MG/DL (>40); LDL CHOLESTEROL 41.9 MG/DL (<100); NON-HDL-C 67.5 MG/DL; POTASSIUM SERUM 4.1 MMOL/L (3.5-5.1); SODIUM LEVEL 138 MMOL/L (136-145); TOTAL PROTEIN 7.6 G/DL (5.7-8.2); TRIGLYCERIDES LEVEL 128 MG/DL (<150)
[2023-08-21 14:33] LABS: FREE T4 0.79 NG/DL (0.89-1.76)
== END ==
LOC: M SFHCADAM 10:27
PROVIDERS: ATTEND Physician Assistant
DX: Z00.00 Encounter for general adult medical examination without abnormal findings (principal); R09.81 Nasal congestion; F17.219 Nicotine dependence, cigarettes, with unspecified nicotine-induced disorders; E03.9 Hypothyroidism, unspecified; K58.2 Mixed irritable bowel syndrome; E78.00 Pure hypercholesterolemia, unspecified; K21.9 Gastro-esophageal reflux disease without esophagitis; I71.40 Abdominal aortic aneurysm, without rupture, unspecified

== ENCOUNTER → 2023-09-26 | Outpatient (CLI) | payer MEDICARE ==
[~2023-09-26] MED LIST changes: +ISOVUE-M 300 61% 15ML VIAL As Ordered ONE; +LIDOCAINE 1% SDV 30ML VIAL As Ordered ONE; +diazePAM 5MG TABLET As Ordered ONE; +methylPREDNISolone SUSP 40MG/ML 1ML VIAL (DEPO MEDROL) As Ordered ONE; +oxyCODONE 5MG TAB As Ordered ONE
== END ==
LOC: M PAIN 13:00
PROVIDERS: ATTEND Anesthesiology
DX: M51.16 Intervertebral disc disorders with radiculopathy, lumbar region (principal); K21.9 Gastro-esophageal reflux disease without esophagitis; J44.9 Chronic obstructive pulmonary disease, unspecified; E78.5 Hyperlipidemia, unspecified; E55.9 Vitamin D deficiency, unspecified; G47.33 Obstructive sleep apnea (adult) (pediatric); K58.1 Irritable bowel syndrome with constipation; M54.81 Occipital neuralgia; Z87.891 Personal history of nicotine dependence; Z79.891 Long term (current) use of opiate analgesic; Z79.899 Other long term (current) drug therapy; Z88.5 Allergy status to narcotic agent; Z88.8 Allergy status to other drugs, medicaments and biological substances
CPT/HCPCS: 62323; J1030; Q9967

== ENCOUNTER → 2023-10-03 | Outpatient (CLI) | payer MEDICARE ==
[~2023-10-03] MED LIST changes: -ISOVUE-M 300 61% 15ML VIAL As Ordered ONE; -LIDOCAINE 1% SDV 30ML VIAL As Ordered ONE; -diazePAM 5MG TABLET As Ordered ONE; -methylPREDNISolone SUSP 40MG/ML 1ML VIAL (DEPO MEDROL) As Ordered ONE; -oxyCODONE 5MG TAB As Ordered ONE
== END ==
LOC: M RAD 17:50
PROVIDERS: ATTEND Internal Medicine Pulmonary Disease
DX: R91.8 Other nonspecific abnormal finding of lung field (principal); J43.8 Other emphysema; J84.9 Interstitial pulmonary disease, unspecified

== ENCOUNTER → 2023-11-18 | Outpatient (CLI) | payer MEDICARE | LOC: M PAIN 16:30 | PROVIDERS: ATTEND Nurse Practitioner Family | DX: M79.10 Myalgia, unspecified site (principal); E78.00 Pure hypercholesterolemia, unspecified; J42 Unspecified chronic bronchitis; E03.9 Hypothyroidism, unspecified; J44.1 Chronic obstructive pulmonary disease with (acute) exacerbation; I10 Essential (primary) hypertension; G47.33 Obstructive sleep apnea (adult) (pediatric); Z99.89 Dependence on other enabling machines and devices; Z87.891 Personal history of nicotine dependence; Z79.02 Long term (current) use of antithrombotics/antiplatelets; Z79.1 Long term (current) use of non-steroidal anti-inflammatories (NSAID); Z79.51 Long term (current) use of inhaled steroids; Z79.891 Long term (current) use of opiate analgesic; Z79.899 Other long term (current) drug therapy; Z88.5 Allergy status to narcotic agent; Z88.8 Allergy status to other drugs, medicaments and biological substances ==

== ENCOUNTER → 2023-12-12 | Outpatient (CLI) | payer MEDICARE | LOC: M PAIN 16:30 | PROVIDERS: ATTEND Anesthesiology | DX: M54.6 Pain in thoracic spine (principal); M54.50 Low back pain, unspecified; M79.10 Myalgia, unspecified site; M79.18 Myalgia, other site; I10 Essential (primary) hypertension; J42 Unspecified chronic bronchitis; E03.9 Hypothyroidism, unspecified; Z79.02 Long term (current) use of antithrombotics/antiplatelets; Z79.52 Long term (current) use of systemic steroids; Z79.899 Other long term (current) drug therapy; Z87.891 Personal history of nicotine dependence ==

== ENCOUNTER → 2024-02-14 | Outpatient (CLI) | payer MEDICARE ==
[~2024-02-14] MED LIST changes: +DOXY-323 PO; -DOXY-443 PO; +ONDA-282 PO; -ONDA4TAB6 PO; +TRIAMCINOLONE ACETONIDE SUSP 40MG/ML 1ML VIAL As Ordered ONE; +diazePAM 5MG TABLET As Ordered ONE; +oxyCODONE 5MG TAB As Ordered ONE
== END ==
LOC: M PAIN 14:30
PROVIDERS: ATTEND Anesthesiology
DX: M79.18 Myalgia, other site (principal); G89.29 Other chronic pain; K21.9 Gastro-esophageal reflux disease without esophagitis; J44.9 Chronic obstructive pulmonary disease, unspecified; E78.5 Hyperlipidemia, unspecified; E55.9 Vitamin D deficiency, unspecified; G47.33 Obstructive sleep apnea (adult) (pediatric); K58.1 Irritable bowel syndrome with constipation; G43.909 Migraine, unspecified, not intractable, without status migrainosus; Z87.891 Personal history of nicotine dependence; Z79.891 Long term (current) use of opiate analgesic; Z79.899 Other long term (current) drug therapy; Z88.5 Allergy status to narcotic agent; Z88.8 Allergy status to other drugs, medicaments and biological substances
CPT/HCPCS: 20552; J0665; J3301

== ENCOUNTER 2024-04-03 12:16 | Emergency (ER) | payer MEDICARE ==
[~2024-04-03] VITALS: Ht 162.6 cm; Wt 51.8 kg
[2024-04-03 12:16] VITALS: TEMP 97.8
[~2024-04-03 12:16] MED LIST changes: -TRIAMCINOLONE ACETONIDE SUSP 40MG/ML 1ML VIAL As Ordered ONE; -diazePAM 5MG TABLET As Ordered ONE; -oxyCODONE 5MG TAB As Ordered ONE
[2024-04-03 16:53] LABS: HEMATOCRIT 43.5 % (36.0-47.0); HEMOGLOBIN 13.8 g/dl (12.0-15.5); MEAN CORPUSCULAR HEMOGLOBIN 30.9 pg (27.0-33.0); MEAN CORPUSCULAR HGB CONC 31.7 g/dl (32.0-36.5); MEAN CORPUSCULAR VOLUME 97.5 fl (80.0-96.0); PLATELET COUNT, AUTOMATED 177 10^3/uL (150-450); RED BLOOD COUNT 4.46 10^6/uL (4.00-5.40); WHITE BLOOD COUNT 7.4 10^3/uL (4.0-10.0)
[2024-04-03 17:15] LABS: ATYPICAL LYMPH 21 % (0-5); LYMPHOCYTES 30 % (16-44); MONOCYTES 1 % (0-5); NEUTROPHILS 48 % (28-66); PLATELET ESTIMATE NORMAL (NORMAL); POIKILOCYTOSIS 1+
[2024-04-03 17:22] LABS: LIPASE 50 U/L (12-53)
[2024-04-03 17:25] LABS: ALKALINE PHOSPHATASE 71 U/L (46-116); ALT/SGPT 17 U/L (7.0-40); AST/SGOT 22 U/L (<34); BILIRUBIN,DIRECT 0.1 MG/DL (<0.4); BILIRUBIN,TOTAL 0.3 MG/DL (0.3-1.2); BLOOD UREA NITROGEN 14 MG/DL (9-23); CALCIUM LEVEL 9.7 MG/DL (8.3-10.6); CARBON DIOXIDE LEVEL 31 MMOL/L (20-31); CHLORIDE LEVEL 105 MMOL/L (98-107); CREATININE FOR GFR 0.82 MG/DL (0.55-1.30); GLOMERULAR FILTRATION RATE > 60.0 (>39); GLUCOSE, FASTING 89 MG/DL (74-106); POTASSIUM SERUM 4.3 MMOL/L (3.5-5.1); SODIUM LEVEL 141 MMOL/L (136-145); TOTAL PROTEIN 7.1 G/DL (5.7-8.2)
[2024-04-03 23:34] VITALS: BP 167/80
[2024-04-03] MEDS: ACETAMINOPHEN TAB 650MG DOSE (2X325MG) PO ONE (23:45)
[2024-04-03 23:46] VITALS: O2SAT 92
[2024-04-04] MEDS ORDERED: DICY1CAP8 PO (02:26)
== END 2024-04-04 02:58 | disposition home or self-care (01) ==
LOC: M ED 12:16
DX: R10.9 Unspecified abdominal pain (principal); I70.0 Atherosclerosis of aorta; I10 Essential (primary) hypertension; K58.1 Irritable bowel syndrome with constipation; M54.81 Occipital neuralgia; Z87.891 Personal history of nicotine dependence; Z79.899 Other long term (current) drug therapy; Z88.5 Allergy status to narcotic agent; Z88.8 Allergy status to other drugs, medicaments and biological substances

== ENCOUNTER → 2024-05-01 | Outpatient (CLI) | payer MEDICARE ==
[2024-05-01 14:04] LABS: HEMATOCRIT 44.7 % (36.0-47.0); HEMOGLOBIN 14.3 g/dl (12.0-15.5); PLATELET COUNT, AUTOMATED 184 10^3/uL (150-450); RED BLOOD COUNT 4.61 10^6/uL (4.00-5.40); WHITE BLOOD COUNT 6.3 10^3/uL (4.0-10.0)
[2024-05-01 14:23] LABS: BILIRUBIN,TOTAL 0.4 MG/DL (0.3-1.2); CALCIUM LEVEL 9.9 MG/DL (8.3-10.6); CREATININE FOR GFR 1.03 MG/DL (0.55-1.30); GLOMERULAR FILTRATION RATE 56.2 (>39); POTASSIUM SERUM 4.3 MMOL/L (3.5-5.1); TOTAL PROTEIN 7.5 G/DL (5.7-8.2)
[2024-05-01 14:24] LABS: THYROID STIMULATING HORMONE 2.448 uIU/ML (0.55-4.78)
[2024-05-01 16:07] LABS: BASOPHILS 1 % (0-1); LYMPHOCYTES 33 % (16-44); MONOCYTES 4 % (0-5); NEUTROPHILS 62 % (28-66)
[2024-05-01 16:08] LABS: POIKILOCYTOSIS 1+; TEAR DROP CELLS 1+
[2024-05-01 16:09] LABS: PLATELET ESTIMATE NORMAL (NORMAL)
== END ==
LOC: M LAB 13:02
PROVIDERS: ATTEND Physician Assistant
DX: R39.15 Urgency of urination (principal); R29.6 Repeated falls; R10.813 Right lower quadrant abdominal tenderness; R63.4 Abnormal weight loss

== ENCOUNTER → 2024-05-02 | Outpatient (REF) | payer MEDICARE ==
[2024-05-02 13:36] LABS: APPEARANCE, URINE CLOUDY (CLEAR); BACTERIA, URINE AUTO 1+ (NEGATIVE); BILIRUBIN, URINE AUTO NEGATIVE (NEGATIVE); BLOOD, URINE BLOOD NEGATIVE (NEGATIVE); CALCIUM OXALATE CRYSTALS SMALL; COLOR, URINE YELLOW (YELLOW); GLUCOSE, URINE (UA) AUTO NEGATIVE (NEGATIVE); KETONE, URINE AUTO NEGATIVE (NEGATIVE); LEUKOCYTE ESTERASE, URINE AUTO NEGATIVE (NEGATIVE); MUCUS, URINE SMALL (NEGATIVE); NITRITE, URINE AUTO NEGATIVE (NEGATIVE); PROTEIN, URINE AUTO 1+ mg/dL (NEGATIVE); RBC, URINE AUTO 0 /HPF (0-3); SPECIFIC GRAVITY URINE AUTO 1.028 (1.002-1.035); SQUAMOUS EPITHELIAL CELL UR AU 4 /HPF (0-6); UROBILINOGEN, URINE AUTO 0.2 mg/dL (0.0-2.0); WBC, URINE AUTO 0 /HPF (0-3)
== END ==
LOC: M LAB REF 11:00
PROVIDERS: ATTEND Physician Assistant
DX: R29.6 Repeated falls (principal); R10.813 Right lower quadrant abdominal tenderness; R39.15 Urgency of urination

== ENCOUNTER → 2024-05-19 | Outpatient (REF) | payer MEDICARE ==
[2024-05-19 19:20] LABS: APPEARANCE, URINE CLEAR (CLEAR); BACTERIA, URINE AUTO 1+ (NEGATIVE); BILIRUBIN, URINE AUTO NEGATIVE (NEGATIVE); BLOOD, URINE BLOOD NEGATIVE (NEGATIVE); COLOR, URINE YELLOW (YELLOW); GLUCOSE, URINE (UA) AUTO NEGATIVE (NEGATIVE); KETONE, URINE AUTO NEGATIVE (NEGATIVE); LEUKOCYTE ESTERASE, URINE AUTO NEGATIVE (NEGATIVE); NITRITE, URINE AUTO NEGATIVE (NEGATIVE); PROTEIN, URINE AUTO NEGATIVE (NEGATIVE); RBC, URINE AUTO 0 /HPF (0-3); SPECIFIC GRAVITY URINE AUTO 1.009 (1.002-1.035); SQUAMOUS EPITHELIAL CELL UR AU 0 /HPF (0-6); UROBILINOGEN, URINE AUTO 0.2 mg/dL (0.0-2.0); WBC, URINE AUTO 0 /HPF (0-3)
== END ==
LOC: M LAB REF 17:07
PROVIDERS: ATTEND Family Medicine
DX: R30.0 Dysuria (principal)

== ENCOUNTER → 2024-05-26 | Outpatient (REF) | payer MEDICARE ==
[2024-05-26 18:12] LABS: BASO % 0.5 % (0.0-1.0); EOS # 0.2 10^3/uL (0.0-0.5); EOS % 2.5 % (0.0-3.0); HEMATOCRIT 38.4 % (36.0-47.0); HEMOGLOBIN 11.9 g/dl (12.0-15.5); LYMPH # 1.8 10^3/uL (1.5-5.0); LYMPH % 23.9 % (24.0-44.0); MEAN CORPUSCULAR VOLUME 103.2 fl (80.0-96.0); MONO # 0.6 10^3/uL (0.0-0.8); MONO % 8.5 % (2.0-8.0); NEUTROPHILS # 4.7 10^3/uL (1.5-8.5); NEUTROPHILS % 64.3 % (36.0-66.0); PLATELET COUNT, AUTOMATED 202 10^3/uL (150-450); RED BLOOD COUNT 3.72 10^6/uL (4.00-5.40); WHITE BLOOD COUNT 7.3 10^3/uL (4.0-10.0)
[2024-05-26 18:39] LABS: ALBUMIN 3.5 G/DL (3.2-5.2); ALKALINE PHOSPHATASE 69 U/L (46-116); ALT/SGPT 14 U/L (7.0-40); AST/SGOT 20 U/L (<34); BILIRUBIN,TOTAL 0.3 MG/DL (0.3-1.2); BLOOD UREA NITROGEN 19 MG/DL (9-23); CALCIUM LEVEL 9.2 MG/DL (8.3-10.6); CARBON DIOXIDE LEVEL 31 MMOL/L (20-31); CHLORIDE LEVEL 105 MMOL/L (98-107); GLOMERULAR FILTRATION RATE > 60.0 (>39); GLUCOSE, FASTING 86 MG/DL (74-106); POTASSIUM SERUM 4.4 MMOL/L (3.5-5.1); SODIUM LEVEL 139 MMOL/L (136-145); TOTAL PROTEIN 6.8 G/DL (5.7-8.2)
[2024-05-26 18:41] LABS: FOLATE 23.1 NG/ML (>5.4); VITAMIN B12 LEVEL 441 PG/ML (211-911)
== END ==
LOC: M SFHCADAM 12:07
PROVIDERS: ATTEND Physician Assistant
DX: R41.3 Other amnesia (principal); R10.31 Right lower quadrant pain; R19.7 Diarrhea, unspecified; R10.813 Right lower quadrant abdominal tenderness; Z11.3 Encounter for screening for infections with a predominantly sexual mode of transmission; Z72.89 Other problems related to lifestyle

== ENCOUNTER → 2024-05-27 | Outpatient (CLI) | payer MEDICARE ==
[2024-05-27 14:14] LABS: BASO % 0.6 % (0.0-1.0); EOS # 0.3 10^3/uL (0.0-0.5); EOS % 4.9 % (0.0-3.0); HEMATOCRIT 39.7 % (36.0-47.0); HEMOGLOBIN 12.4 g/dl (12.0-15.5); LYMPH # 2.3 10^3/uL (1.5-5.0); LYMPH % 32.6 % (24.0-44.0); MEAN CORPUSCULAR HEMOGLOBIN 31.9 pg (27.0-33.0); MEAN CORPUSCULAR HGB CONC 31.2 g/dl (32.0-36.5); MEAN CORPUSCULAR VOLUME 102.1 fl (80.0-96.0); MONO # 0.6 10^3/uL (0.0-0.8); NEUTROPHILS # 3.7 10^3/uL (1.5-8.5); NEUTROPHILS % 52.6 % (36.0-66.0); PLATELET COUNT, AUTOMATED 215 10^3/uL (150-450); RED BLOOD COUNT 3.89 10^6/uL (4.00-5.40)
[2024-05-27 14:20] LABS: ALBUMIN 3.6 G/DL (3.2-5.2); ALKALINE PHOSPHATASE 66 U/L (46-116); ALT/SGPT 11 U/L (7.0-40); AST/SGOT 18 U/L (<34); BILIRUBIN,TOTAL 0.3 MG/DL (0.3-1.2); BLOOD UREA NITROGEN 18 MG/DL (9-23); CALCIUM LEVEL 9.6 MG/DL (8.3-10.6); CARBON DIOXIDE LEVEL 31 MMOL/L (20-31); CHLORIDE LEVEL 108 MMOL/L (98-107); CREATININE FOR GFR 0.76 MG/DL (0.55-1.30); GLOMERULAR FILTRATION RATE > 60.0 (>39); GLUCOSE, FASTING 91 MG/DL (74-106); POTASSIUM SERUM 4.5 MMOL/L (3.5-5.1); SODIUM LEVEL 144 MMOL/L (136-145); TOTAL PROTEIN 6.8 G/DL (5.7-8.2)
== END ==
LOC: M PLALAB 09:03
PROVIDERS: ATTEND Physician Assistant
DX: R10.31 Right lower quadrant pain (principal)

== ENCOUNTER → 2024-05-29 | Outpatient (CLI) | payer MEDICARE ==
[~2024-05-29] MED LIST changes: +GASTROGRAFIN SOLUTION 30ML ONE; +ISOVUE-370 76% 100ML VIAL ONE
== END ==
LOC: M PLAIMG 09:00
PROVIDERS: ATTEND Family Medicine
DX: R10.9 Unspecified abdominal pain (principal); I71.43 Infrarenal abdominal aortic aneurysm, without rupture
CPT/HCPCS: 74177; Q9963; Q9967

== ENCOUNTER → 2024-06-25 | Outpatient (CLI) | payer MEDICARE ==
[~2024-06-25] MED LIST changes: -DOXY-323 PO; +DOXY-441 PO; +GABA-1172 PO; -GABA-282 PO; -GASTROGRAFIN SOLUTION 30ML ONE; -ISOVUE-370 76% 100ML VIAL ONE; -MULT200T7 PO; +MULT200T9 PO; -ROSU20TA61 PO; +ROSU20TA86 PO
== END ==
LOC: M PAIN 09:00
PROVIDERS: ATTEND Nurse Practitioner Family
DX: G89.29 Other chronic pain (principal); Z79.891 Long term (current) use of opiate analgesic; M51.16 Intervertebral disc disorders with radiculopathy, lumbar region; K21.9 Gastro-esophageal reflux disease without esophagitis; J44.9 Chronic obstructive pulmonary disease, unspecified; E78.5 Hyperlipidemia, unspecified; E55.9 Vitamin D deficiency, unspecified; M47.812 Spondylosis without myelopathy or radiculopathy, cervical region; M48.02 Spinal stenosis, cervical region; G47.33 Obstructive sleep apnea (adult) (pediatric); K58.1 Irritable bowel syndrome with constipation; G43.909 Migraine, unspecified, not intractable, without status migrainosus; Z87.891 Personal history of nicotine dependence; Z79.899 Other long term (current) drug therapy; Z88.5 Allergy status to narcotic agent; Z88.8 Allergy status to other drugs, medicaments and biological substances

== ENCOUNTER → 2024-06-26 | Outpatient (CLI) | payer MEDICARE | LOC: M PAIN 10:15 | PROVIDERS: ATTEND Nurse Practitioner Family | DX: Z79.891 Long term (current) use of opiate analgesic (principal); Z79.899 Other long term (current) drug therapy ==

== ENCOUNTER → 2024-07-14 | Outpatient (REF) | payer MEDICARE | LOC: M SFHCADAM 13:19 | PROVIDERS: ATTEND Family Medicine | DX: R05.1 Acute cough (principal) ==

== ENCOUNTER 2024-09-16 07:18 | Day surgery (SDC) | payer MEDICARE ==
[~2024-09-16] VITALS: Ht 162.6 cm; Wt 49.0 kg
[~2024-09-16 07:18] MED LIST changes: +AMLO2.5T3 PO; +BUPR150T12 PO; +GABA-284 PO; +OMEG10002 PO; +OMEP40CA5 PO
[2024-09-16] MEDS ORDERED: LIDOCAINE 2% 100MG/5ML SDV (FOR ANES.) As Ordered ONE (08:38)
[2024-09-16] MEDS ORDERED: propofoL 200 MG/20 ML VIAL As Ordered ONE (08:38)
[2024-09-16 09:14] VITALS: TEMP 96.8
[2024-09-16 09:41] VITALS: BP 116/56; O2SAT 96
== END 2024-09-16 09:50 | disposition home or self-care (01) ==
LOC: M OPP 07:18
PROVIDERS: ATTEND Surgery
DX: K64.1 Second degree hemorrhoids (principal); R10.30 Lower abdominal pain, unspecified; R63.4 Abnormal weight loss; K21.9 Gastro-esophageal reflux disease without esophagitis; Z90.49 Acquired absence of other specified parts of digestive tract; J44.89 Other specified chronic obstructive pulmonary disease; J45.909 Unspecified asthma, uncomplicated; Z79.899 Other long term (current) drug therapy; E78.00 Pure hypercholesterolemia, unspecified; Z90.89 Acquired absence of other organs; Z87.891 Personal history of nicotine dependence

== ENCOUNTER → 2024-10-06 | Outpatient (CLI) | payer MEDICARE | LOC: M PAIN 11:15 | PROVIDERS: ATTEND Nurse Practitioner Family | DX: G89.29 Other chronic pain (principal); Z79.891 Long term (current) use of opiate analgesic; M51.16 Intervertebral disc disorders with radiculopathy, lumbar region; J44.9 Chronic obstructive pulmonary disease, unspecified; E78.5 Hyperlipidemia, unspecified; G47.33 Obstructive sleep apnea (adult) (pediatric); K58.1 Irritable bowel syndrome with constipation; Z87.891 Personal history of nicotine dependence; Z79.899 Other long term (current) drug therapy; Z88.5 Allergy status to narcotic agent; Z88.8 Allergy status to other drugs, medicaments and biological substances ==

== ENCOUNTER → 2024-11-30 | Outpatient (REF) | payer MEDICARE | LOC: M SFHCADAM 16:42 | PROVIDERS: ATTEND Physician Assistant Medical | DX: R05.1 Acute cough (principal) ==

== ENCOUNTER → 2024-12-08 | Outpatient (CLI) | payer MEDICARE | LOC: M RAD 10:01 | PROVIDERS: ATTEND Internal Medicine Pulmonary Disease | DX: Z12.2 Encounter for screening for malignant neoplasm of respiratory organs (principal); Z87.891 Personal history of nicotine dependence; R91.8 Other nonspecific abnormal finding of lung field; J43.9 Emphysema, unspecified; J47.9 Bronchiectasis, uncomplicated; I70.0 Atherosclerosis of aorta; I25.10 Atherosclerotic heart disease of native coronary artery without angina pectoris; R59.0 Localized enlarged lymph nodes ==

== ENCOUNTER → 2024-12-08 | Outpatient (CLI) | payer MEDICARE ==
[2024-12-08 11:34] LABS: HEMATOCRIT 43.7 % (36.0-47.0); HEMOGLOBIN 13.9 g/dl (12.0-15.5); MEAN CORPUSCULAR HEMOGLOBIN 32.3 pg (27.0-33.0); MEAN CORPUSCULAR HGB CONC 31.8 g/dl (32.0-36.5); MEAN CORPUSCULAR VOLUME 101.4 fl (80.0-96.0); PLATELET COUNT, AUTOMATED 241 10^3/uL (150-450); RED BLOOD COUNT 4.31 10^6/uL (4.00-5.40); WHITE BLOOD COUNT 7.7 10^3/uL (4.0-10.0)
[2024-12-08 11:57] LABS: ALBUMIN 3.6 G/DL (3.2-5.2); ALKALINE PHOSPHATASE 77 U/L (35-104); ALT/SGPT 11 U/L (7.0-40); AST/SGOT 18 U/L (<34); BILIRUBIN,TOTAL 0.2 MG/DL (0.3-1.2); BLOOD UREA NITROGEN 21 MG/DL (9-23); CALCIUM LEVEL 9.5 MG/DL (8.3-10.6); CARBON DIOXIDE LEVEL 30 MMOL/L (20-31); CHLORIDE LEVEL 105 MMOL/L (98-107); CHOLESTEROL LEVEL 167 MG/DL (<200); CREATININE FOR GFR 0.78 MG/DL (0.55-1.30); GLOMERULAR FILTRATION RATE > 60.0 (>39); GLUCOSE, FASTING 76 MG/DL (74-106); HDL CHOLESTEROL 83.4 MG/DL (>40); LDL CHOLESTEROL 65.2 MG/DL (<100); NON-HDL-C 83.6 MG/DL; POTASSIUM SERUM 4.4 MMOL/L (3.5-5.1); SODIUM LEVEL 140 MMOL/L (136-145); TOTAL PROTEIN 7.3 G/DL (5.7-8.2); TRIGLYCERIDES LEVEL 92 MG/DL (<150)
[2024-12-08 11:58] LABS: THYROID STIMULATING HORMONE 4.021 uIU/ML (0.55-4.78)
[2024-12-08 12:04] LABS: HEMOGLOBIN A1c 5.6 % (4.0-6.0)
[2024-12-08 12:24] LABS: ATYPICAL LYMPH 6 % (0-5); BASOPHILS 2 % (0-1); BLAST CELLS 1 % (0-0); LYMPHOCYTES 26 % (16-44); MONOCYTES 5 % (0-5); NEUTROPHILS 60 % (28-66); PLATELET ESTIMATE NORMAL (NORMAL)
== END ==
LOC: M LAB 10:05
PROVIDERS: ATTEND Physician Assistant
DX: R10.2 Pelvic and perineal pain (principal); Z23 Encounter for immunization; J96.11 Chronic respiratory failure with hypoxia; F17.211 Nicotine dependence, cigarettes, in remission; I10 Essential (primary) hypertension; J42 Unspecified chronic bronchitis; I71.40 Abdominal aortic aneurysm, without rupture, unspecified; E78.00 Pure hypercholesterolemia, unspecified; G89.29 Other chronic pain

== ENCOUNTER → 2024-12-11 | Outpatient (CLI) | payer MEDICARE ==
[~2024-12-11] MED LIST changes: +GASTROGRAFIN SOLUTION 30ML As Ordered ONE; +ISOVUE-370 76% 100ML VIAL As Ordered ONE
== END ==
LOC: M RAD 08:57
PROVIDERS: ATTEND Physician Assistant Medical
DX: K76.0 Fatty (change of) liver, not elsewhere classified (principal); I71.40 Abdominal aortic aneurysm, without rupture, unspecified; N20.0 Calculus of kidney
CPT/HCPCS: 74177; Q9963; Q9967

== ENCOUNTER → 2024-12-21 | Outpatient (CLI) | payer MEDICARE ==
[~2024-12-21] MED LIST changes: -GASTROGRAFIN SOLUTION 30ML As Ordered ONE; -ISOVUE-370 76% 100ML VIAL As Ordered ONE
== END ==
LOC: M PLALAB 13:03
PROVIDERS: ATTEND Nurse Practitioner Family
DX: Z79.891 Long term (current) use of opiate analgesic (principal)

== ENCOUNTER → 2025-04-15 | Outpatient (CLI) | payer MEDICARE ==
[~2025-04-15] MED LIST changes: +LIDO1ADH93 TD; -LIDO5DIS41 TD
== END ==
LOC: M PLAIMG 14:07
PROVIDERS: ATTEND Nurse Practitioner Family
DX: M54.50 Low back pain, unspecified (principal)

== ENCOUNTER → 2025-05-24 | Outpatient (REF) | payer MEDICARE ==
[2025-05-24 14:08] LABS: FREE T4 1.12 NG/DL (0.89-1.76)
== END ==
LOC: M SFHCADAM 08:12
PROVIDERS: ATTEND Physician Assistant
DX: E03.9 Hypothyroidism, unspecified (principal)

== ENCOUNTER → 2025-06-01 | Outpatient (REF) | payer MEDICARE ==
[2025-06-01 18:32] LABS: PLATELET COUNT, AUTOMATED 209 10^3/uL (150-450)
[2025-06-01 18:57] LABS: ALT/SGPT 18 U/L (7.0-40); AST/SGOT 22 U/L (<34); CALCIUM LEVEL 8.9 MG/DL (8.3-10.6); CARBON DIOXIDE LEVEL 32 MMOL/L (20-31); CHLORIDE LEVEL 105 MMOL/L (98-107); CREATININE FOR GFR 1.26 MG/DL (0.55-1.30); GLOMERULAR FILTRATION RATE 45.4 (>39); POTASSIUM SERUM 4.3 MMOL/L (3.5-5.1); SODIUM LEVEL 144 MMOL/L (136-145); VITAMIN B12 LEVEL 534 PG/ML (211-911)
== END ==
LOC: M SFHCADAM 15:10
PROVIDERS: ATTEND Physician Assistant
DX: R41.3 Other amnesia (principal); J96.11 Chronic respiratory failure with hypoxia; G47.33 Obstructive sleep apnea (adult) (pediatric); M51.16 Intervertebral disc disorders with radiculopathy, lumbar region; G43.009 Migraine without aura, not intractable, without status migrainosus; E03.9 Hypothyroidism, unspecified; I71.40 Abdominal aortic aneurysm, without rupture, unspecified

== ENCOUNTER → 2025-06-17 | Outpatient (CLI) | payer MEDICARE | LOC: M SLEEP HO 05-12 10:33 | PROVIDERS: ATTEND Internal Medicine Pulmonary Disease | DX: J44.9 Chronic obstructive pulmonary disease, unspecified (principal) ==